=== PATIENT | male | born 1930 | race Caucasian/White ===

== ENCOUNTER 2017-07-28 20:45 | Outpatient (CLI) | payer MEDICARE, OTHER ==
--- NOTE | 2017-07-29 10:59 | Ultrasound Report ---
SCROTAL DUPLEX: 07/28/2017 CLINICAL INDICATION: Testicular pain, swelling. FINDINGS: The right testicle measures 3.4 x 2.6 x 1.8 cm, and the left testicle measures 3.4 x 2.3 x 1.8 cm. The testicles demonstrate mild dilation of the rete testis bilaterally. No focal solid intratesticular lesion is seen. Normal flow is present bilaterally. A small right hydrocele was present, and there is skin thickening of the right scrotum, suggestive of cellulitis. Epididymal cysts are incidentally noted, there is calcification of a right appendix testis. IMPRESSION: NO EVIDENCE OF INTRATESTICULAR MASS OR TORSION. SKIN THICKENING OF THE RIGHT SCROTUM, SUGGESTIVE OF CELLULITIS. INCIDENTAL EPIDIDYMAL CYSTS AND CALCIFIED RIGHT APPENDIX TESTIS. TD: 07/29/2017 10:58
== END 2017-07-28 20:46 | disposition home or self-care (01) ==
LOC: DI 20:45
PROVIDERS: ATTEND Internal Medicine
DX: N50.819 Testicular pain, unspecified (principal); N50.89 Other specified disorders of the male genital organs
CPT/HCPCS: 76870; 93975

== ENCOUNTER 2019-09-29 09:54 | Outpatient (CLI) | payer MEDICARE, OTHER | END 2019-09-29 09:55 | disposition EMS.NT | LOC: EMS 09:54 | PROVIDERS: ATTEND Surgery | DX: R53.1 Weakness (principal); R42 Dizziness and giddiness ==

== ENCOUNTER 2019-11-16 07:47 | Outpatient (CLI) | payer MEDICARE, OTHER | END 2019-11-16 07:48 | disposition EMS.NT | LOC: EMS 07:47 | PROVIDERS: ATTEND Surgery | DX: R68.83 Chills (without fever) (principal); R61 Generalized hyperhidrosis ==

== ENCOUNTER 2020-03-09 12:58 | Outpatient (CLI) | payer MEDICARE, OTHER | END 2020-03-09 12:59 | disposition critical access hospital (66) | LOC: EMS 12:58 | PROVIDERS: ATTEND Surgery | DX: R68.83 Chills (without fever) (principal); R06.09 Other forms of dyspnea | CPT/HCPCS: A0425; A0429 ==

== ENCOUNTER 2020-03-09 13:22 | Inpatient (IN) | payer MEDICARE, OTHER ==
[2020-03-09] MEDS ORDERED: SODIUM CHLORIDE 0.9% 1,000 ML IV STA ×2 (14:01)
[2020-03-09 14:04] LABS: BASOPHILS % (AUTO) 0.4 %; EOSINOPHILS % (AUTO) 0.3 %; HGB - HEMOGLOBIN 14.5 g/dL (14.0-18.0); LYMPHOCYTES # (AUTO) 0.5 10^3/uL (1.5-3.5); LYMPHOCYTES % (AUTO) 4.2 %; MEAN CORPUSCULAR HEMOGLOBIN 32.7 pg (27.0-31.0); MEAN CORPUSCULAR HGB CONC 34.6 g/dL (32.0-36.0); MEAN CORPUSCULAR VOLUME 94.6 fL (80.0-94.0); MEAN PLATELET VOLUME 9.8 fL (7.4-11.4); MONOCYTES # (AUTO) 0.4 10^3/uL (0.0-1.0); MONOCYTES % (AUTO) 3.8 %; NEUTROPHILS # (AUTO) 9.7 10^3/uL (1.5-6.6); NEUTROPHILS % (AUTO) 90.7 %; PLT - PLATELET COUNT 160 10^3/uL (130-450); RED BLOOD COUNT 4.43 10^6/uL (4.70-6.10); RED CELL DISTRIBUTION WIDTH 11.9 % (12.0-15.0); WHITE BLOOD COUNT 10.7 x10^3/uL (4.8-10.8)
--- NOTE | 2020-03-09 14:13 | ED Physician Documentation ---
History of Present Illness - Stated complaint Stated Complaint: SOA/SHAKES - History obtained from History obtained from: Patient, EMS - History of Present Illness Timing: Today Pain level max: 0 Pain level now: 0 - Additonal information Additional information: 89-year-old male brought in by EMS today for fevers and chills at home. He states that he has had a mild cough, clear sputum. No chest pain. 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 He states he has a history of prostate and "skin" cancer as well. Is not currently on chemotherapy for either of these conditions. He states that he has no history of metastases. He states that he has had urinary tract infections in the past which present with high fevers. No nausea or vomiting. No back pain. No abdominal pain. Nothing makes it better or worse Review of Systems Ten Systems: 10 systems reviewed and negative Constitutional: reports: Fever, Chills Nose: denies: Rhinorrhea / runny nose, Congestion Throat: denies: Sore throat Cardiac: denies: Chest pain / pressure, Palpitations, Calf pain Respiratory: denies: Hemoptysis, Wheezing GI: denies: Abdominal Pain, Nausea, Vomiting, Diarrhea : denies: Dysuria, Frequency, Hesitancy Skin: denies: Rash Musculoskeletal: denies: Neck pain, Back pain Neurologic: denies: Focal weakness, Numbness, Confused, Headache, Head injury, LOC PD PAST MEDICAL HISTORY - Past Medical History Cardiovascular: Hypertension Respiratory: Sleep apnea Endocrine/Autoimmune: HyPOthyroidism GI: GERD, Colon polyps : None Psych: None Musculoskeletal: None Derm: Other - Past Surgical History Past Surgical History: Yes Ortho: Spine surgery, Other - Present Medications Home Medications: Ambulatory Orders Medication Instructions Recorded Confirmed Aspirin [Aspir 81] 81 mg PO DAILY 11/09/12 03/09/20 Chlorthalidone 12.5 mg PO DAILY 11/09/12 03/09/20 Cholecalciferol (Vitamin D3) 2,000 unit PO DAILY 11/09/12 03/09/20 [Vitamin D3] Levothyroxine [Synthroid] 112 mcg PO QDAC 11/09/12 03/09/20 Oregano Oil [Oil of Oregano] 150 mg PO DAILY 11/09/12 03/09/20 lisinopriL [Lisinopril] 40 mg PO DAILY 11/09/12 03/09/20 Metoprolol Tartrate 1 mg ORAL DAILY 08/09/14 03/09/20 [place]-3 Fatty Acids [Fish Oil] 300 mg DAILY 07/18/15 03/09/20 - Allergies Allergies/Adverse Reactions: Allergies Allergy/AdvReac Type Severity Reaction Status Date / Time ciprofloxacin Allergy Intermediate leg cramps Verified 08/10/14 07:54 acetaminophen [From Tylenol] AdvReac Emesis Verified 07/18/15 21:33 - Social History Does the pt smoke?: No Smoking Status: Never smoker Does the pt drink ETOH?: Yes Does the pt have substance abuse?: No PD ED PE NORMAL - Vitals Vital signs reviewed: Yes - General General: Alert and oriented X 3, No acute distress, Well developed/nourished - HEENT HEENT: PERRL, Moist mucous membranes - Neck Neck: Supple, no meningeal sign - Cardiac Cardiac: RRR, No murmur, Strong equal pulses - Respiratory Respiratory: No respiratory distress, Clear bilaterally - Abdomen Abdomen: Normal bowel sounds, Soft, Non tender, Non distended - Back Back: No CVA TTP - Derm Derm: Warm and dry - Extremities Extremities: No edema - Neuro Neuro: Alert and oriented X 3 - Psych Psych: Normal mood, Normal affect Results - Vitals Vitals: Vital Signs - 24 hr 03/09/20 03/09/20 13:15 14:27 Temperature 38.4 C H Heart Rate 125 H 120 H Respiratory 22 18 Rate Blood Pressure 113/74 113/74 O2 Saturation 94 99 Oxygen O2 Source Room air - EKG (time done) 1346 Rate: Rate (enter#) (123) Rhythm: Sinus tachycardia [place]: Normal Intervals: Normal [place] QRS: Normal Ischemia: Normal ST segments, Q waves (II, III, aVF) - Labs Labs: Laboratory Tests 03/09/20 03/09/20 03/09/20 13:30 13:45 13:50 WBC 10.7 RBC 4.43 L Hgb 14.5 Hct 41.9 L MCV 94.6 H MCH 32.7 H MCHC 34.6 RDW 11.9 L Plt Count 160 MPV 9.8 Neut # (Auto) 9.7 H Lymph # (Auto) 0.5 L Pratt # (Auto) 0.4 Eos # (Auto) 0.0 Baso # (Auto) 0.0 Absolute Nucleated RBC 0.00 Nucleated RBC % 0.0 PT INR APTT Sodium Potassium Chloride Carbon Dioxide Anion Gap BUN Creatinine Estimated GFR (MDRD) Glucose Lactic Acid Calcium Total Bilirubin AST ALT Alkaline Phosphatase Total Protein Albumin Globulin Albumin/Globulin Ratio Lipase Urine Color YELLOW Urine Clarity CLEAR Urine pH 7.0 Ur Specific [place] 1.020 Urine Protein TRACE Urine Glucose (UA) NEGATIVE Urine Ketones NEGATIVE Urine Occult Blood NEGATIVE Urine Nitrite NEGATIVE Urine Bilirubin NEGATIVE Urine Urobilinogen 1 (NORMAL) Ur Leukocyte Esterase SMALL H Urine RBC 0-5 Urine WBC 11-25 H Ur Squamous Epith Cells FEW Squamous Urine Bacteria Few Ur Microscopic Review INDICATED Urine Culture Comments INDICATED Nasal Adenovirus (PCR) NOT DETECTED Nasal B. parapertussis DNA (PCR) NOT DETECTED Nasal Coronavir 229E PCR NOT DETECTED Nasal Coronavir HKU1 PCR NOT DETECTED Nasal Coronavir NL63 PCR NOT DETECTED Nasal Coronavir OC43 PCR NOT DETECTED Nasal Enterovir/Rhinovir PCR NOT DETECTED Nasal Influenza B PCR NOT DETECTED Nasal Parainfluen 1 PCR NOT DETECTED Nasal Parainfluen 2 PCR NOT DETECTED Nasal Parainfluen 3 PCR NOT DETECTED Nasal Parainfluen 4 PCR NOT DETECTED Nasal RSV (PCR) NOT DETECTED Nasal B.pertussis DNA PCR NOT DETECTED Nasal C.pneumoniae (PCR) NOT DETECTED Eran Human Metapneumo PCR NOT DETECTED Nasal M.pneumoniae (PCR) NOT DETECTED Nasal SARS-CoV-2 (PCR) NOT DETECTED 03/09/20 03/09/20 03/09/20 13:50 13:50 14:20 WBC RBC Hgb Hct MCV MCH MCHC RDW Plt Count MPV Neut # (Auto) Lymph # (Auto) Pratt # (Auto) Eos # (Auto) Baso # (Auto) Absolute Nucleated RBC Nucleated RBC % PT 13.6 H INR 1.2 APTT 31.6 Sodium 137 Potassium 3.5 Chloride 97 L Carbon Dioxide 27 Anion Gap 13.0 BUN 22 H Creatinine 1.0 Estimated GFR (MDRD) 71 L Glucose 95 Lactic Acid 1.9 Calcium 9.4 Total Bilirubin 1.2 H AST 36 ALT 52 Alkaline Phosphatase 48 Total Protein 6.8 Albumin 4.1 Globulin 2.7 Albumin/Globulin Ratio 1.5 Lipase 24 Urine Color Urine Clarity Urine pH Ur Specific [place] Urine Protein Urine Glucose (UA) Urine Ketones Urine Occult Blood Urine Nitrite Urine Bilirubin Urine Urobilinogen Ur Leukocyte Esterase Urine RBC Urine WBC Ur Squamous Epith Cells Urine Bacteria Ur Microscopic Review Urine Culture Comments Nasal Adenovirus (PCR) Nasal B. parapertussis DNA (PCR) Nasal Coronavir 229E PCR Nasal Coronavir HKU1 PCR Nasal Coronavir NL63 PCR Nasal Coronavir OC43 PCR Nasal Enterovir/Rhinovir PCR Nasal Influenza B PCR Nasal Parainfluen 1 PCR Nasal Parainfluen 2 PCR Nasal Parainfluen 3 PCR Nasal Parainfluen 4 PCR Nasal RSV (PCR) Nasal B.pertussis DNA PCR Nasal C.pneumoniae (PCR) Eran Human Metapneumo PCR Nasal M.pneumoniae (PCR) Nasal SARS-CoV-2 (PCR) - Rads (name of study) cxr Radiology: Prelim report reviewed, EMP read contemporaneously, See rad report PD MEDICAL DECISION MAKING - ED course Complexity details: reviewed results, re-evaluated patient, considered differential, d/w patient, d/w procurement consultant ED course: 89 year old male with fever, rigors, and tachycardia. Found to have a UTI, concern for possible early urosepsis. Given IVF and rocephin. Normal lactate. Will admit for further care. D/w hospitalist who accepts. CXR A pneumonia is not seen. There is mild interstitial prominence previously present within the lung bases bilaterally, greater on the right than the left associated with mild chronic elevation of the right diaphragm. Departure - Departure Disposition: 66 [facility] DC/Xfer Clinical Impression: Rigors, Tachycardia Fever Qualifiers: Fever type: unspecified Qualified Code(s): R50.9 - Fever, unspecified UTI (urinary tract infection) Qualifiers: Urinary tract infection type: acute cystitis Hematuria presence: without hematuria Qualified Code(s): N30.00 - Acute cystitis without hematuria Condition: Stable
--- NOTE | 2020-03-09 14:22 | XRAY Report ---
PROCEDURE: Chest 1 View X-Ray INDICATIONS: fever TECHNIQUE: One view of the chest was acquired. COMPARISON: FINDINGS: Surgical changes and devices: None. Lungs and pleura: No pleural effusions or pneumothorax. Lungs are mildly abnormal, with a mild inte rstitial prominence bilaterally, somewhat greater on the right than the left associated with chronic mild elevation of the right hemidiaphragm.. Mediastinum: Mediastinal contours appear normal. Heart size is normal. Bones and chest wall: No suspicious bony lesions. Overlying soft tissues appear unremarkable. IMPRESSION: A pneumonia is not seen. There is mild interstitial prominence previously present within the lung bas es bilaterally, greater on the right than the left associated with mild chronic elevation of the righ t diaphragm. Reviewed by: Abdi Hoffmann MD on 03/09/2020 2:21 PM PDT Approved by: Abdi Hoffmann MD on 03/09/2020 2:21 PM PDT Station ID: [id number]
[2020-03-09 14:34] LABS: INR 1.2 (0.8-1.2); PT - PROTHROMBIN TIME 13.6 secs (9.9-12.6)
[2020-03-09 14:35] LABS: ALBUMIN 4.1 g/dL (3.2-5.5); ALBUMIN/GLOBULIN RATIO 1.5 (1.0-2.2); BILIRUBIN,TOTAL 1.2 mg/dL (0.2-1.0); CALCIUM 9.4 mg/dL (8.5-10.3); TOTAL PROTEIN 6.8 g/dL (6.7-8.2)
[2020-03-09 14:41] LABS: PARTIAL THROMBOPLASTIN TIME 31.6 secs (24.9-33.3)
[2020-03-09 14:43] LABS: BILIRUBIN,URINE NEGATIVE (NEGATIVE); GLUCOSE, URINE (UA) NEGATIVE (NEGATIVE); KETONES,URINE (UA) NEGATIVE (NEGATIVE); LEUKOCYTE ESTERASE, URINE SMALL (NEGATIVE); NITRITE,URINE NEGATIVE (NEGATIVE); OCCULT BLOOD,URINE NEGATIVE (NEGATIVE); PROTEIN,URINE TRACE mg/dL (NEGATIVE); UROBILINOGEN,URINE 1 (NORMAL) E.U./dL (NORMAL)
[2020-03-09 14:47] LABS: CLARITY,URINE CLEAR (CLEAR)
[2020-03-09 15:01] LABS: BACTERIA,URINE Few /HPF (None Seen); RBC,URINE 0-5 /HPF (0-5); SQUAMOUS EPITHELIAL CELL,UR FEW Squamous (<= Few)
[2020-03-09] MEDS ORDERED: cefTRIAXone 1 GM VIAL IVP STA (15:02)
[2020-03-09 15:06] LABS: C. PNEUMONIAE- RESP PCR PANEL NOT DETECTED
[2020-03-09] MEDS ORDERED: IBUPROFEN 800 MG TABLET PO STA (15:13)
[2020-03-09] MEDS ORDERED: ONDANSETRON 4 MG/2 ML VIAL IVP PRN (16:23)
[2020-03-09] MEDS ORDERED: SODIUM CHLORIDE FLUSH 0.9% 10 ML SYRINGE IVP PRN (16:23)
[2020-03-09] MEDS ORDERED: ACETAMINOPHEN 325 MG TABLET PO PRN (16:23)
--- NOTE | 2020-03-09 16:36 | HISTORY & PHYSICAL EXAMINATION ---
Chief Complaint - Chief Complaint Chief Complaint: fever History of Present Illness - Admitted From Admitted From:: ER - History Obtained From Records Reviewed: [facility] History obtained from: pt Exam Limitations: no - History of Present Illness HPI Comment/Other: This is a 89 years old male with a past medical history significant for hypertension, sleep apnea, hypothyroidism, GERD Who presents in the ER complain fever and shaking. Patient report he started having fever and the shaking and muscle spasm on today morning. he reported he had a temperature 102 in the home then he called EMS. Patient was a found temperature 38.4 in ER. He reported he had COVID-19 test 1 week ago which was negative, patient had a negative COVID-19 tested today on ER. He denied cough, shortness of breathing, chest pain, Nausea, vomiting, diarrhea. Patient also reported he had a stress test about 1 week ago which he was reported it was normal. He also reported he has urinary urgency and frequency, Which started about 1 week ago. Urinalysis indicated patient moderate heavy urinary tract infection, WBC is 10.7, lactic acid is 1.9. Chest x-ray show a pneumonia is not seen. Discussed the care goal with the patient, patient request full code. History - Past Medical History Cardiovascular: reports: Hypertension Respiratory: reports: Sleep apnea Endocrine/Autoimmune: reports: HyPOthyroidism GI: reports: GERD, Colon polyps : reports: None Psych: reports: None Musculoskeletal: reports: None Derm: reports: Other MRSA Hx?: No - Past Surgical History Ortho: reports: Spine surgery, Other - Family & Social History Family History: Mother: , Father: Family History Comment/Other: Patient reported his father from accident at 1956, His mother at 84 years old on 1997 from respiratory problem. Social History Notes: Patient report he quit smoking in 1969, he denies alcohol and drug issue. he is living at [place] with his , he has no children. Meds/Allgy - Home Medications Home Medications: Ambulatory Orders Medication Instructions Recorded Confirmed Aspirin [Aspir 81] 81 mg PO DAILY 11/09/12 03/09/20 Chlorthalidone 12.5 mg PO DAILY 11/09/12 03/09/20 Cholecalciferol (Vitamin D3) 2,000 unit PO DAILY 11/09/12 03/09/20 [Vitamin D3] Oregano Oil [Oil of Oregano] 150 mg PO DAILY 11/09/12 03/09/20 [place]-3 Fatty Acids [Fish Oil] 300 mg DAILY 07/18/15 03/09/20 Atorvastatin [Lipitor] 20 mg PO QPM 03/09/20 03/09/20 Levothyroxine [Synthroid] 112 mcg PO QDAC 03/09/20 03/09/20 Lisinopril [Prinivil] 10 mg PO DAILY 03/09/20 03/09/20 Metoprolol Succinate [Toprol Xl] 25 mg PO DAILY 03/09/20 03/09/20 - Allergies Allergies/Adverse Reactions: Allergies Allergy/AdvReac Type Severity Reaction Status Date / Time ciprofloxacin Allergy Intermediate leg cramps Verified 08/10/14 07:54 acetaminophen [From Tylenol] AdvReac Emesis Verified 07/18/15 21:33 Review of Systems - Constitutional Constitutional: reports: Fever. denies: Fatigue, Chills, Malaise, Weakness, Poor appetite, Night sweats - Eyes Eyes: denies: Pain, Blurred vision, Field loss, Vision loss - Ears, Nose & Throat Ears, Nose & Throat: denies: Ear pain, Nosebleeds, Nasal congestion, Postnasal drainage, Bleeding gums - Cardiovascular Cariovascular: denies: Irregular heart rate, Palpitations, Chest pain, Lightheadedness, Syncope, Exertional dyspnea, Decr. exercise tolerance - Respiratory Respiratory: denies: Cough, Sputum production, Wheezing, Snoring, Hemoptysis, Orthopnea, SOB at rest, SOB with exertion - Gastrointestinal Gastrointestinal: denies: Abdominal pain, Abdominal distention, Constipation, Diarrhea, Rectal bleeding, Black stools, Bloody stools, Nausea, Vomiting, Coffee grounds emesis - Genitourinary Genitourinary: reports: Frequency, Urgency. denies: Dysuria, Hematuria, Inconti nence - Integumentary Integumentary: denies: Rash, Lesions - Neurological Neurological: denies: General weakness, Focal weakness, Headache, Dizziness, Numbness, Memory problems, Pre-existing deficit, Abnormal gait, Seizures, Incoordination, Slurred speech - Psychiatric Psychiatric: denies: Suicidal, Delusions, Hallucinations - Endocrine Endocrine: denies: Polyuria, Polydypsia - Hematologic/Lymphatic Hematologic/Lymphatic: denies: Anemia, Recurrent infections Exam - Vital Signs Vital Signs: Vital Signs x48h Temp Pulse Resp BP Pulse Ox 03/09/20 14:27 120 H 18 113/74 99 03/09/20 13:15 38.4 C H 125 H 22 113/74 94 - Physical Exam General Appearance: positive: No acute distress, Alert. negative: Lethargic Eyes Bilateral: positive: Normal inspection, PERRL, No lid inflammation ENT: positive: ENT inspection nml, No signs of dehydration. negative: Purulent nasal drainage Neck: positive: Nml inspection, Thyroid nml, Trachea midline. negative: Thyromegaly, Tracheal deviation Respiratory: positive: Chest non-tender, No respiratory distress, Breath sounds nml Cardiovascular: positive: Regular rate & rhythm, No murmur. negative: Tachycardia, Bradycardia, Systolic murmur, Diastolic murmur Peripheral Pulses: positive: 2+ Abdomen: positive: Non-tender, No organomegaly, No distention. negative: Tenderness, Guarding, Rebound Back: positive: Nml inspection Skin: positive: Color nml, No rash, Warm, Dry. negative: Cyanosis, Diaphoresis, Pallor Extremities: positive: Non-tender, Full ROM, Nml appearance. negative: Calf tenderness Neurologic/Psychiatric: positive: Oriented x3, Motor nml, Sensation nml, Mood/affect nml. negative: Weakness, Sensory loss, Facial droop, Slurred/abnml speech, Depressed mood/affect Conclusion/Plan - Problem List (1) Sepsis Conclusion/Plan: Patient has a fever, tachycardia, but the patient have stable blood pressure and patient found to have possible UTI infection. Patient with already given Rocephin in the ER, blood culture already done in the ER. We will continue to 2 gram Rocephin daily, Interventions IV fluids, followup blood culture And urine culture. (2) UTI (urinary tract infection) Conclusion/Plan: Patient has a urinary urgency and frequency but she denies burning sensation. Urinalysis indicated patient possible has UTI. We will continue Rocephin, follow-up urine culture and sensitivity study Qualifiers: Urinary tract infection type: acute cystitis Hematuria presence: without hematuria Qualified Code(s): N30.00 - Acute cystitis without hematuria (3) HTN (hypertension) Conclusion/Plan: Blood pressure is stable now, we will hold home blood pressure medicine for prevention sepsis hypotension, just resume metoprolol now because patient has tachycardia.Continue vital signs monitor (4) Hypothyroidism Conclusion/Plan: We will resume home Synthroid, check TSH (5) GERD (gastroesophageal reflux disease) Conclusion/Plan: We will give patient Pepcid - Lab Results Fish Bones: 03/09/20 13:50 03/09/20 13:50 Core Measures - Anticipated LOS I expect patient to be DC'd or transferred within 96 hours.: Yes - DVT/VTE - Prophylaxis VTE/DVT Device ordered at admit?: Yes VTE/DVT Prophylaxis med ordered at admit?: Yes
[2020-03-09] MEDS ORDERED: SODIUM CHLORIDE 0.9% 1,000 ML IV SCH (17:00)
[2020-03-09] MEDS: SODIUM CHLORIDE 0.9% 1,000 ML IV SCH ×2 (18:15→23:51)
[2020-03-09] MEDS: SODIUM CHLORIDE FLUSH 0.9% 10 ML SYRINGE IVP SCH ×2 (18:16→23:49)
--- NOTE | 2020-03-09 18:35 | PHARMACY PROGRESS NOTE ---
- Best Possible Medication History Admit Date and Time: 03/09/20 1623 Processed by: Pharmacy Medication History completed: Yes Secondary Source(s): Physician records, Pharmacy records, Insurance records As the person ultimately responsible for medication therapy, providers are able to order a medication from an existing home medication list in [facility] via the "Reconcile Routine" prior to Confirmation of that medication by intranet support. Such practice is discouraged except when the physician, in their clinical judgment, deems that a medical need exists for a medication without regard to previous use.
[2020-03-09] MEDS: FAMOTIDINE 20 MG TABLET PO SCH (20:04)
[2020-03-09] MEDS: oxyCODONE 5 MG TABLET PO PRN (23:55)
[2020-03-10 06:07] LABS: BASOPHILS # (AUTO) 0.1 10^3/uL (0.0-0.1); BASOPHILS % (AUTO) 0.5 %; EOSINOPHILS # (AUTO) 0.2 10^3/uL (0.0-0.7); EOSINOPHILS % (AUTO) 1.5 %; HGB - HEMOGLOBIN 12.8 g/dL (14.0-18.0); LYMPHOCYTES # (AUTO) 0.5 10^3/uL (1.5-3.5); LYMPHOCYTES % (AUTO) 3.6 %; MEAN CORPUSCULAR HEMOGLOBIN 31.8 pg (27.0-31.0); MEAN CORPUSCULAR VOLUME 96.5 fL (80.0-94.0); MEAN PLATELET VOLUME 9.8 fL (7.4-11.4); MONOCYTES # (AUTO) 0.7 10^3/uL (0.0-1.0); NEUTROPHILS # (AUTO) 12.7 10^3/uL (1.5-6.6); NEUTROPHILS % (AUTO) 88.7 %; PLT - PLATELET COUNT 126 10^3/uL (130-450); RED BLOOD COUNT 4.02 10^6/uL (4.70-6.10); WHITE BLOOD COUNT 14.4 x10^3/uL (4.8-10.8)
[2020-03-10 06:16] LABS: CALCIUM 8.4 mg/dL (8.5-10.3); MAGNESIUM 1.6 mg/dL (1.7-2.8)
[2020-03-10] MEDS: LEVOTHYROXINE 112 MCG TABLET PO SCH (06:38)
[2020-03-10] MEDS ORDERED: POTASSIUM CHLORIDE 20 MEQ TABLET PO ONE (08:00)
[2020-03-10] MEDS: PHENAZOPYRIDINE 100 MG TABLET PO SCH ×3 (08:21→20:56)
[2020-03-10] MEDS: ASPIRIN EC 81 MG TABLET PO SCH (08:21)
[2020-03-10] MEDS: FAMOTIDINE 20 MG TABLET PO SCH ×2 (08:21→20:56)
[2020-03-10] MEDS: SACCHAROMYCES BOULARDII 250 MG CAPSULE PO SCH ×2 (08:21→17:57)
[2020-03-10] MEDS: cefTRIAXone 1 GM in SODIUM CHLORIDE 0.9% MINIBAG 100 ML IV SCH (08:22)
[2020-03-10] MEDS: SODIUM CHLORIDE FLUSH 0.9% 10 ML SYRINGE IVP SCH ×2 (08:22→17:57)
[2020-03-10] MEDS: ENOXAPARIN 40 MG/0.4 ML SYRINGE SUBQ SCH (08:23)
[2020-03-10] MEDS ORDERED: METOPROLOL SUCCINATE 25 MG TABLET PO SCH (09:00)
[2020-03-10] MEDS ORDERED: cefTRIAXone 1 GM in SODIUM CHLORIDE 0.9% MINIBAG 100 ML IV SCH (09:00)
[2020-03-10] MEDS: IBUPROFEN 400 MG TABLET PO PRN (11:50)
[2020-03-10] MEDS ORDERED: MAGNESIUM SULFATE 2 GRAM 2 GM/50 ML BAG IV ONE (12:00)
[2020-03-10] MEDS: oxyCODONE 5 MG TABLET PO PRN ×2 (13:08→19:08)
--- NOTE | 2020-03-10 18:08 | PROVIDER PROGRESS NOTE ---
Assessment/Plan - Problem List (1) UTI (urinary tract infection) Qualifiers: Urinary tract infection type: acute cystitis Hematuria presence: without hematuria Qualified Code(s): N30.00 - Acute cystitis without hematuria Assessment/Plan: His urine cx is growing group G Streptococcus. Blood cultures have turned positive quickly with gram-positive cocci in pairs and chains as well. This IV antibiotic of ceftriaxone has theoretic coverage for Streptococci. Await sensitivities to tailor antibiotics. He has a history of prostate cancer therefore that is probably giving him the risk of repeat UTIs. He will need a long course of treatment, like 14 to 21 days. I told the patient that today. (2) Gram-positive bacteremia Assessment/Plan: The blood culture turned positive quickly. Await identification then sensitivities. Bacteremia does not give a worse prognosis when there is a UTI however it defines a complicated UTI. Course of treatment will be probably 14 to 21 days in a man because it may be in his prostate as well. Renal imaging is planned if not done yet. (3) Hypokalemia Assessment/Plan: Replace. Follow BMP daily (4) HTN (hypertension) Assessment/Plan: He is no longer hypotensive or with "soft" blood pressures, as the sepsis has resolved. We will resume his home blood pressure meds as they are reconciled (5) Hypothyroidism Assessment/Plan: The TSH level was 1.19 which is adequate. His home dose of thyroid replacement continues while here (6) GERD (gastroesophageal reflux disease) Assessment/Plan: He is on GI treatment for this peer (7) Sepsis Assessment/Plan: Resolved, has normal blood pressure and heart rate and normal lactic acid level - Current Meds Current Meds: Current Medications Generic Name Dose Route Start Last Admin Trade Name Dominguezq PRN Reason Stop Dose Admin Aspirin 81 mg 03/10/20 09:00 03/10/20 08:21 Ecotrin PO 81 mg DAILY LAMINE Administration Enoxaparin Sodium 40 mg 03/10/20 09:00 03/10/20 08:23 Lovenox SUBQ 40 mg DAILY LAMINE Administration Famotidine 20 mg 03/09/20 21:00 03/10/20 08:21 Pepcid PO 20 mg BID LAMINE Administration Ceftriaxone Sodium 1 gm/ 100 mls @ 200 mls/hr 03/10/20 09:00 03/10/20 08:52 Sodium Chloride IV Infused DAILY LAMINE Infusion Ibuprofen 400 mg 03/09/20 16:27 03/10/20 11:50 Motrin PO 400 mg Q6HR PRN Administration PAIN Levothyroxine Sodium 112 mcg 03/10/20 07:00 03/10/20 06:38 Synthroid PO 112 mcg QDAC LAMINE Administration Metoprolol Succinate 25 mg 03/10/20 09:00 03/10/20 08:22 Toprol Xl PO 25 mg DAILY LAMINE Administration Oxycodone HCl 5 mg 03/09/20 16:23 03/10/20 13:08 Roxicodone PO 5 mg Q4HR PRN Administration Pain 5 to 7 Phenazopyridine HCl 100 mg 03/10/20 08:00 03/10/20 13:08 Pyridium PO 03/11/20 22:01 100 mg TID LAMINE Administration Saccharomyces Boulardii 250 mg 03/10/20 08:00 03/10/20 17:57 Florastor PO 250 mg BIDWM LAMINE Administration Sodium Chloride 10 ml 03/09/20 17:00 03/10/20 17:57 Normal Saline Flush 0.9% IVP 10 ml 0100,0900,1700 LAMINE Administration - Lab Result Fish Bone Diagrams: 03/10/20 05:55 03/10/20 05:55 Subjective - Subjective Patient Reports: Other (Has shaking chills currently.) Objective Vital Signs: Vital Signs - 24 hr 03/09/20 03/09/20 03/10/20 20:08 23:49 04:58 Temperature 37 C 36.7 C 36.9 C Heart Rate Heart Rate [ 86 90 95 Brachial] Respiratory 17 18 Rate Blood Pressure 104/58 L 135/59 H 134/62 H [Left Brachial artery] O2 Saturation 96 97 94 03/10/20 03/10/20 03/10/20 08:42 10:46 11:37 Temperature 37.5 C 37.5 C 37.6 C H Heart Rate 88 Heart Rate [ 89 85 Brachial] Respiratory 18 18 17 Rate Blood Pressure 148/69 H 150/65 H [Left Brachial artery] O2 Saturation 97 97 94 03/10/20 15:51 Temperature 36.4 C L Heart Rate Heart Rate [ 73 Brachial] Respiratory 18 Rate Blood Pressure 116/59 L [Left Brachial artery] O2 Saturation 94 Oxygen O2 Source Room air I&O (Last 24 Hrs): Intake and Output Totals x24h 03/08/20 03/09/20 03/10/20 23:59 23:59 23:59 Intake Total 2250 2330 Output Total 300 282 Balance 1950 2047 General: Alert, Oriented x3 HEENT: Mucous membr. moist/pink Neck: Supple, No JVD Neuro: Alert, Non Focal Cardiovascular: Regular rate, No murmurs Respiratory: No respiratory distress, Breath sounds nml Abdomen: Normal bowel sounds, Soft Extremities: No edema - Results Results: Laboratory Results WBC 14.4 x10^3/uL (4.8-10.8) H 03/10/20 05:55 RBC 4.02 10^6/uL (4.70-6.10) L 03/10/20 05:55 Hgb 12.8 g/dL (14.0-18.0) L 03/10/20 05:55 Hct 38.8 % (42.0-52.0) L 03/10/20 05:55 MCV 96.5 fL (80.0-94.0) H 03/10/20 05:55 MCH 31.8 pg (27.0-31.0) H 03/10/20 05:55 MCHC 33.0 g/dL (32.0-36.0) 03/10/20 05:55 RDW 12.0 % (12.0-15.0) 03/10/20 05:55 Plt Count 126 10^3/uL (130-450) L 03/10/20 05:55 MPV 9.8 fL (7.4-11.4) 03/10/20 05:55 Neut # (Auto) 12.7 10^3/uL (1.5-6.6) H 03/10/20 05:55 Lymph # (Auto) 0.5 10^3/uL (1.5-3.5) L 03/10/20 05:55 [place] # (Auto) 0.7 10^3/uL (0.0-1.0) 03/10/20 05:55 Eos # (Auto) 0.2 10^3/uL (0.0-0.7) 03/10/20 05:55 Baso # (Auto) 0.1 10^3/uL (0.0-0.1) 03/10/20 05:55 Absolute Nucleated RBC 0.00 x10^3/uL 03/10/20 05:55 Nucleated RBC % 0.0 /100WBC 03/10/20 05:55 PT 13.6 secs (9.9-12.6) H 03/09/20 14:20 INR 1.2 (0.8-1.2) 03/09/20 14:20 APTT 31.6 secs (24.9-33.3) 03/09/20 14:20 Sodium 138 mmol/L (135-145) 03/10/20 05:55 Potassium 3.4 mmol/L (3.5-5.0) L 03/10/20 05:55 Chloride 102 mmol/L (101-111) 03/10/20 05:55 Carbon Dioxide 25 mmol/L (21-32) 03/10/20 05:55 Anion Gap 11.0 (6-13) 03/10/20 05:55 BUN 22 mg/dL (6-20) H 03/10/20 05:55 Creatinine 1.0 mg/dL (0.6-1.2) 03/10/20 05:55 Estimated GFR (MDRD) 71 (>89) L 03/10/20 05:55 Glucose 141 mg/dL (70-100) H 03/10/20 05:55 Lactic Acid 1.9 mmol/L (0.5-2.2) 03/09/20 13:50 Calcium 8.4 mg/dL (8.5-10.3) L 03/10/20 05:55 Magnesium 1.6 mg/dL (1.7-2.8) L 03/10/20 05:55 Total Bilirubin 1.2 mg/dL (0.2-1.0) H 03/09/20 13:50 AST 36 IU/L (10-42) 03/09/20 13:50 ALT 52 IU/L (10-60) 03/09/20 13:50 Alkaline Phosphatase 48 IU/L (42-121) 03/09/20 13:50 Total Protein 6.8 g/dL (6.7-8.2) 03/09/20 13:50 Albumin 4.1 g/dL (3.2-5.5) 03/09/20 13:50 Globulin 2.7 g/dL (2.1-4.2) 03/09/20 13:50 Albumin/Globulin Ratio 1.5 (1.0-2.2) 03/09/20 13:50 Lipase 24 U/L (22-51) 03/09/20 13:50 TSH 1.19 uIU/mL (0.34-5.60) 03/10/20 05:55 Urine Color YELLOW 03/09/20 13:45 Urine Clarity CLEAR (CLEAR) 03/09/20 13:45 Urine pH 7.0 PH (5.0-7.5) 03/09/20 13:45 Ur Specific [place] 1.020 (1.002-1.030) 03/09/20 13:45 Urine Protein TRACE mg/dL (NEGATIVE) 03/09/20 13:45 Urine Glucose (UA) NEGATIVE mg/dL (NEGATIVE) 03/09/20 13:45 Urine Ketones NEGATIVE mg/dL (NEGATIVE) 03/09/20 13:45 Urine Occult Blood NEGATIVE (NEGATIVE) 03/09/20 13:45 Urine Nitrite NEGATIVE (NEGATIVE) 03/09/20 13:45 Urine Bilirubin NEGATIVE (NEGATIVE) 03/09/20 13:45 Urine Urobilinogen 1 (NORMAL) E.U./dL (NORMAL) 03/09/20 13:45 Ur Leukocyte Esterase SMALL (NEGATIVE) H 03/09/20 13:45 Urine RBC 0-5 /HPF (0-5) 03/09/20 13:45 Urine WBC 11-25 /HPF (0-3) H 03/09/20 13:45 Ur Squamous Epith Cells FEW Squamous (<= Few) 03/09/20 13:45 Urine Bacteria Few /HPF (None Seen) 03/09/20 13:45 Ur Microscopic Review INDICATED 03/09/20 13:45 Urine Culture Comments INDICATED 03/09/20 13:45 Nasal Adenovirus (PCR) NOT DETECTED 03/09/20 13:30 Nasal B. parapertussis DNA (PCR) NOT DETECTED 03/09/20 13:30 Nasal Coronavir 229E PCR NOT DETECTED 03/09/20 13:30 Nasal Coronavir HKU1 PCR NOT DETECTED 03/09/20 13:30 Nasal Coronavir NL63 PCR NOT DETECTED 03/09/20 13:30 Nasal Coronavir OC43 PCR NOT DETECTED 03/09/20 13:30 Nasal Enterovir/Rhinovir PCR NOT DETECTED 03/09/20 13:30 Nasal Influenza B PCR NOT DETECTED 03/09/20 13:30 Nasal Parainfluen 1 PCR NOT DETECTED 03/09/20 13:30 Nasal Parainfluen 2 PCR NOT DETECTED 03/09/20 13:30 Nasal Parainfluen 3 PCR NOT DETECTED 03/09/20 13:30 Nasal Parainfluen 4 PCR NOT DETECTED 03/09/20 13:30 Nasal RSV (PCR) NOT DETECTED 03/09/20 13:30 Nasal B.pertussis DNA PCR NOT DETECTED 03/09/20 13:30 Nasal C.pneumoniae (PCR) NOT DETECTED 03/09/20 13:30 Eran Human Metapneumo PCR NOT DETECTED 03/09/20 13:30 Nasal M.pneumoniae (PCR) NOT DETECTED 03/09/20 13:30 Nasal SARS-CoV-2 (PCR) NOT DETECTED 03/09/20 13:30 - Procedures Procedures: Procedures CATARAC PHACOEMULS/ASPIR (08/10/14) INSERT LENS AT CATAR EXT (08/10/14)
[2020-03-10] MEDS ORDERED: IOVERSOL 320 100 ML VIAL IVP ONE ×2 (18:54→23:38)
[2020-03-10] MEDS: D5NS W/20 MEQ KCL 1,000 ML IV SCH (19:27)
[2020-03-10] MEDS ORDERED: HYALURONIDASE HUMAN RECOMB 150 UNIT/ML VIAL ONE (22:09)
[2020-03-11] MEDS: SODIUM CHLORIDE FLUSH 0.9% 10 ML SYRINGE IVP SCH ×3 (00:25→16:57)
[2020-03-11] MEDS: D5NS W/20 MEQ KCL 1,000 ML IV SCH ×3 (04:27→21:38)
[2020-03-11 05:43] LABS: BASOPHILS % (AUTO) 0.5 %; EOSINOPHILS # (AUTO) 0.1 10^3/uL (0.0-0.7); EOSINOPHILS % (AUTO) 0.6 %; HGB - HEMOGLOBIN 12.2 g/dL (14.0-18.0); LYMPHOCYTES # (AUTO) 0.8 10^3/uL (1.5-3.5); LYMPHOCYTES % (AUTO) 9.6 %; MEAN CORPUSCULAR HEMOGLOBIN 32.4 pg (27.0-31.0); MEAN CORPUSCULAR HGB CONC 33.8 g/dL (32.0-36.0); MEAN CORPUSCULAR VOLUME 95.8 fL (80.0-94.0); MEAN PLATELET VOLUME 9.5 fL (7.4-11.4); MONOCYTES # (AUTO) 0.8 10^3/uL (0.0-1.0); MONOCYTES % (AUTO) 9.6 %; NEUTROPHILS # (AUTO) 6.3 10^3/uL (1.5-6.6); NEUTROPHILS % (AUTO) 78.8 %; PLT - PLATELET COUNT 120 10^3/uL (130-450); RED BLOOD COUNT 3.77 10^6/uL (4.70-6.10); RED CELL DISTRIBUTION WIDTH 12.2 % (12.0-15.0)
[2020-03-11 05:46] LABS: CALCIUM 8.1 mg/dL (8.5-10.3); CREATININE 0.8 mg/dL (0.6-1.2)
[2020-03-11] MEDS: PHENAZOPYRIDINE 100 MG TABLET PO SCH ×3 (06:23→21:40)
[2020-03-11] MEDS: LEVOTHYROXINE 112 MCG TABLET PO SCH (06:23)
[2020-03-11] MEDS ORDERED: LEVOTHYROXINE 112 MCG TABLET PO SCH (07:00)
[2020-03-11] MEDS ORDERED: POTASSIUM CHLORIDE 20 MEQ TABLET PO ONE ×2 (07:11→08:00)
--- NOTE | 2020-03-11 07:54 | PROVIDER PROGRESS NOTE ---
Assessment/Plan - Problem List (1) Gram-positive bacteremia Assessment/Plan: 2 out of 2 blood cultures that were initially drawn, turned positive quickly and are growing GPC. Yesterday another set was done to assure that those will grow nothing on current IV antibiotics. We will plan to do an echo to evaluate for endocarditis tomorrow (today is Thursday and she is not here). A minimum 14-day course will be planned but probably 21 days since it is a male with a complicated UTI. Await identification of this gram-positive coccus and its sensitivities to tailor antibiotics. (2) Pyelonephritis Assessment/Plan: Urinary tract CT imaging was done late yesterday, since it had not been done at admission, and it showed bilateral pyelonephritis, L>R. There is no hydron ephrosis, no obstruction, no stones. (Incidental findings were: Diverticulosis without diverticulitis, fusion at L5-S1, sclerotic lesion at L4 vertebral body without compression fracture, and right middle and right lower lobe atelectasis or scarring). Urine culture has grown strep group G. Continue IV antibiotics. IV ceftriaxone was empirically started to cover a UTI. The total course will be 14 to 21 days. (3) Injection site extravasation Assessment/Plan: Contrast extravasated during yesterday's CT with contrast. A separate x-ray report was provided. Was reported as "large amount of contrast material in the antecubital fossa, exact volume unknown". He was seen by the director of hemophilia when this happened. Recommendations from Radiology were: apply ice pack and elevation, Observe for skin breakdown, ulceration or blistering which may require plastic surgery consultation. (4) Hypokalemia Assessment/Plan: Likely related to inadequate intake. Replace. Follow BMP daily (5) HTN (hypertension) Assessment/Plan: He was initially hypotensive or had "soft" blood pressure on the first day. Today his home anti-hypertensives will be started: Lisinopril and Metoprolol (6) Hypothyroidism Assessment/Plan: SH was in a normal range, his home dose of thyroid replacement is ordered to use here. (7) GERD (gastroesophageal reflux disease) Assessment/Plan: He is on his GI meds (8) Sepsis Assessment/Plan: Resolved (9) Prerenal azotemia Assessment/Plan: Resolved. Continue with IV fluids while he is having elevated temperatures. - Current Meds Current Meds: Current Medications Generic Name Dose Route Start Last Admin Trade Name Freq PRN Reason Stop Dose Admin Aspirin 81 mg 03/10/20 09:00 03/10/20 08:21 Ecotrin PO 81 mg DAILY LAMINE Administration Enoxaparin Sodium 40 mg 03/10/20 09:00 03/10/20 08:23 Lovenox SUBQ 40 mg DAILY LAMINE Administration Famotidine 20 mg 03/09/20 21:00 03/10/20 20:56 Pepcid PO 20 mg BID LAMINE Administration Ceftriaxone Sodium 1 gm/ 100 mls @ 200 mls/hr 03/10/20 09:00 03/10/20 08:52 Sodium Chloride IV Infused DAILY LAMINE Infusion Potassium Chloride/Dextrose/Sod Cl 1,000 mls @ 125 mls/hr 03/10/20 19:00 03/11/20 04:27 IV 125 mls/hr .Q8H LAMINE Administration Ibuprofen 400 mg 03/09/20 16:27 03/10/20 11:50 Motrin PO 400 mg Q6HR PRN Administration PAIN Levothyroxine Sodium 112 mcg 03/10/20 07:00 03/11/20 06:23 Synthroid PO 112 mcg QDAC LAMINE Administration Oxycodone HCl 5 mg 03/09/20 16:23 03/10/20 19:08 Roxicodone PO 5 mg Q4HR PRN Administration Pain 5 to 7 Phenazopyridine HCl 100 mg 03/10/20 08:00 03/11/20 06:23 Pyridium PO 03/11/20 22:01 100 mg TID LAMINE Administration Saccharomyces Boulardii 250 mg 03/10/20 08:00 03/10/20 17:57 Florastor PO 250 mg BIDWM LAMINE Administration Sodium Chloride 10 ml 03/09/20 17:00 03/11/20 00:25 Normal Saline Flush 0.9% IVP Not Given 0100,0900,1700 [facility] - Lab Result Fish Bone Diagrams: 03/11/20 05:30 03/11/20 05:30 - Additional Planning My Orders: My Active Orders 03/10/20 18:49 CULTURE, BLOOD #1 [RM] Stat 03/10/20 18:54 CULTURE, BLOOD #2 [RM] Stat 03/10/20 19:00 ABDOMEN/PELVIS W [CT] Stat D5ns W/20 Meq KCl 1,000 ml IV 125 mls/hr 03/11/20 09:00 Cholecalciferol [Vitamin D3] 50 mcg PO DAILY Metoprolol Succinate [Toprol Xl] 25 mg PO DAILY [place]-3 Acid Ethyl Esters [Lovaza] 1 gm PO DAILY lisinopriL [Zestril] 10 mg PO DAILY Subjective - Subjective Patient Reports: Feeling Better, Resting Comfortably Objective Vital Signs: Vital Signs - 24 hr 03/10/20 03/10/20 03/10/20 10:46 11:37 15:51 Temperature 37.5 C 37.6 C H 36.4 C L Heart Rate 88 Heart Rate [ 85 73 Brachial] Respiratory 18 17 18 Rate Blood Pressure 150/65 H 116/59 L [Left Brachial artery] Blood Pressure [Right Brachial artery] O2 Saturation 97 94 94 03/10/20 03/11/20 03/11/20 20:56 00:08 02:41 Temperature 37.2 C 37.2 C 37.3 C Heart Rate Heart Rate [ 94 83 87 Brachial] Respiratory 19 18 22 Rate Blood Pressure 158/77 H [Left Brachial artery] Blood Pressure 145/64 H 150/89 H [Right Brachial artery] O2 Saturation 94 93 94 Oxygen O2 Source Room air I&O (Last 24 Hrs): Intake and Output Totals x24h 03/09/20 03/10/20 03/11/20 23:59 23:59 22:59 Intake Total 2250 2955 675 Output Total 300 282 Balance 1950 2673 675 General: Alert, Oriented x3 HEENT: Atraumatic, EOMI Neck: Supple Neuro: Alert, Non Focal Cardiovascular: Regular rate Respiratory: No respiratory distress Abdomen: Soft Extremities: No edema, Other (Cubital area has no signs of swelling redness and is not tender, there is an area outlined where there was extravasation last night which appears unremarkable) - Results Results: Laboratory Results WBC 8.0 x10^3/uL (4.8-10.8) 03/11/20 05:30 RBC 3.77 10^6/uL (4.70-6.10) L 03/11/20 05:30 Hgb 12.2 g/dL (14.0-18.0) L 03/11/20 05:30 Hct 36.1 % (42.0-52.0) L 03/11/20 05:30 MCV 95.8 fL (80.0-94.0) H 03/11/20 05:30 MCH 32.4 pg (27.0-31.0) H 03/11/20 05:30 MCHC 33.8 g/dL (32.0-36.0) 03/11/20 05:30 RDW 12.2 % (12.0-15.0) 03/11/20 05:30 Plt Count 120 10^3/uL (130-450) L 03/11/20 05:30 MPV 9.5 fL (7.4-11.4) 03/11/20 05:30 Neut # (Auto) 6.3 10^3/uL (1.5-6.6) 03/11/20 05:30 Lymph # (Auto) 0.8 10^3/uL (1.5-3.5) L 03/11/20 05:30 [place] # (Auto) 0.8 10^3/uL (0.0-1.0) 03/11/20 05:30 Eos # (Auto) 0.1 10^3/uL (0.0-0.7) 03/11/20 05:30 Baso # (Auto) 0.0 10^3/uL (0.0-0.1) 03/11/20 05:30 Absolute Nucleated RBC 0.00 x10^3/uL 03/11/20 05:30 Nucleated RBC % 0.0 /100WBC 03/11/20 05:30 PT 13.6 secs (9.9-12.6) H 03/09/20 14:20 INR 1.2 (0.8-1.2) 03/09/20 14:20 APTT 31.6 secs (24.9-33.3) 03/09/20 14:20 Sodium 134 mmol/L (135-145) L 03/11/20 05:30 Potassium 3.4 mmol/L (3.5-5.0) L 03/11/20 05:30 Chloride 102 mmol/L (101-111) 03/11/20 05:30 Carbon Dioxide 24 mmol/L (21-32) 03/11/20 05:30 Anion Gap 8.0 (6-13) 03/11/20 05:30 BUN 16 mg/dL (6-20) 03/11/20 05:30 Creatinine 0.8 mg/dL (0.6-1.2) 03/11/20 05:30 Estimated GFR (MDRD) 91 (>89) 03/11/20 05:30 Glucose 146 mg/dL (70-100) H 03/11/20 05:30 Lactic Acid 1.9 mmol/L (0.5-2.2) 03/09/20 13:50 Calcium 8.1 mg/dL (8.5-10.3) L 03/11/20 05:30 Magnesium 1.6 mg/dL (1.7-2.8) L 03/10/20 05:55 Total Bilirubin 1.2 mg/dL (0.2-1.0) H 03/09/20 13:50 AST 36 IU/L (10-42) 03/09/20 13:50 ALT 52 IU/L (10-60) 03/09/20 13:50 Alkaline Phosphatase 48 IU/L (42-121) 03/09/20 13:50 Total Protein 6.8 g/dL (6.7-8.2) 03/09/20 13:50 Albumin 4.1 g/dL (3.2-5.5) 03/09/20 13:50 Globulin 2.7 g/dL (2.1-4.2) 03/09/20 13:50 Albumin/Globulin Ratio 1.5 (1.0-2.2) 03/09/20 13:50 Lipase 24 U/L (22-51) 03/09/20 13:50 TSH 1.19 uIU/mL (0.34-5.60) 03/10/20 05:55 Urine Color YELLOW 03/09/20 13:45 Urine Clarity CLEAR (CLEAR) 03/09/20 13:45 Urine pH 7.0 PH (5.0-7.5) 03/09/20 13:45 Ur Specific [place] 1.020 (1.002-1.030) 03/09/20 13:45 Urine Protein TRACE mg/dL (NEGATIVE) 03/09/20 13:45 Urine Glucose (UA) NEGATIVE mg/dL (NEGATIVE) 03/09/20 13:45 Urine Ketones NEGATIVE mg/dL (NEGATIVE) 03/09/20 13:45 Urine Occult Blood NEGATIVE (NEGATIVE) 03/09/20 13:45 Urine Nitrite NEGATIVE (NEGATIVE) 03/09/20 13:45 Urine Bilirubin NEGATIVE (NEGATIVE) 03/09/20 13:45 Urine Urobilinogen 1 (NORMAL) E.U./dL (NORMAL) 03/09/20 13:45 Ur Leukocyte Esterase SMALL (NEGATIVE) H 03/09/20 13:45 Urine RBC 0-5 /HPF (0-5) 03/09/20 13:45 Urine WBC 11-25 /HPF (0-3) H 03/09/20 13:45 Ur Squamous Epith Cells FEW Squamous (<= Few) 03/09/20 13:45 Urine Bacteria Few /HPF (None Seen) 03/09/20 13:45 Ur Microscopic Review INDICATED 03/09/20 13:45 Urine Culture Comments INDICATED 03/09/20 13:45 Nasal Adenovirus (PCR) NOT DETECTED 03/09/20 13:30 Nasal B. parapertussis DNA (PCR) NOT DETECTED 03/09/20 13:30 Nasal Coronavir 229E PCR NOT DETECTED 03/09/20 13:30 Nasal Coronavir HKU1 PCR NOT DETECTED 03/09/20 13:30 Nasal Coronavir NL63 PCR NOT DETECTED 03/09/20 13:30 Nasal Coronavir OC43 PCR NOT DETECTED 03/09/20 13:30 Nasal Enterovir/Rhinovir PCR NOT DETECTED 03/09/20 13:30 Nasal Influenza B PCR NOT DETECTED 03/09/20 13:30 Nasal Parainfluen 1 PCR NOT DETECTED 03/09/20 13:30 Nasal Parainfluen 2 PCR NOT DETECTED 03/09/20 13:30 Nasal Parainfluen 3 PCR NOT DETECTED 03/09/20 13:30 Nasal Parainfluen 4 PCR NOT DETECTED 03/09/20 13:30 Nasal RSV (PCR) NOT DETECTED 03/09/20 13:30 Nasal B.pertussis DNA PCR NOT DETECTED 03/09/20 13:30 Nasal C.pneumoniae (PCR) NOT DETECTED 03/09/20 13:30 Eran Human Metapneumo PCR NOT DETECTED 03/09/20 13:30 Nasal M.pneumoniae (PCR) NOT DETECTED 03/09/20 13:30 Nasal SARS-CoV-2 (PCR) NOT DETECTED 03/09/20 13:30 - Procedures Procedures: Procedures CATARAC PHACOEMULS/ASPIR (08/10/14) INSERT LENS AT [facility] EXT (08/10/14)
--- NOTE | 2020-03-11 08:15 | CT Report ---
PROCEDURE: Abdomen/Pelvis W INDICATIONS: COMPLICATED UTI W/ BACTEREMIA CONTRAST: IV CONTRAST: Optiray 320 ml: 100 PO CONTRAST: *NO PO CONTRAST TECHNIQUE: After the administration of intravenous contrast, 5 mm thick sections acquired from the diaphragms to the symphysis. 5 mm thick coronal and sagittal reformats were acquired. For radiation dose reducti on, the following was used: automated exposure control, adjustment of mA and/or kV according to davian ent size. COMPARISON: None. FINDINGS: Image quality: Excellent. ABDOMEN: Lung bases: Lung bases are clear. Heart size is normal. Solid organs: Asymmetric left perinephric fat stranding extending throughout the pararenal and perire nal spaces on the left, also in the left renal vascular pedicle. No obstructive uropathy. No renal ca lculus demonstrated. Normal CT appearance of the liver, spleen, pancreas, adrenal glands, and gallbla dder. Peritoneum and bowel: Colonic diverticula most notable in the sigmoid colon. No findings of divertic ulitis. Bowel loops demonstrate normal wall thickness and caliber. No free fluid or air. Nodes and vessels: No retroperitoneal or mesenteric adenopathy by size criteria. Aorta and inferior vena cava are normal in size. Miscellaneous: No ventral hernias. PELVIS: Genitourinary: Bladder wall thickness is normal. Miscellaneous: No inguinal hernias or adenopathy. Bones: No suspicious bony lesions. No vertebral body compression fractures. IMPRESSION: Asymmetric left perinephric fat stranding which would be consistent with pyelonephritis or ascending urinary tract infection in the current clinical context. No significant change from prel iminary report. Reviewed by: Mike aGlan MD on 03/11/2020 8:14 AM PST Approved by: Mike Galan MD on 03/11/2020 8:14 AM PST Station ID: [id number]
[2020-03-11] MEDS: lisinopriL 5 MG TABLET PO SCH (08:35)
--- NOTE | 2020-03-11 08:35 | XRAY Report ---
PROCEDURE: Elbow 2 INDICATIONS: extravasation of contrast TECHNIQUE: One view of the elbow was acquired. COMPARISON: None FINDINGS: On this single view image, this demonstrates extravasation of contrast,, which is centered within the antecubital fossa, distal to the elbow joint. The bones are obscured. IMPRESSION: Elbow contrast extravasation. Note: No significant discrepancy from the preliminary report. Reviewed by: Ronnie Saleh MD on 03/11/2020 7:34 AM [facility] Approved by: Ronnie Saleh MD on 03/11/2020 7:34 AM [facility] Station ID: [id number]
[2020-03-11] MEDS: FAMOTIDINE 20 MG TABLET PO SCH ×2 (08:36→21:40)
[2020-03-11] MEDS: CHOLECALCIFEROL 25 MCG TABLET PO SCH (08:36)
[2020-03-11] MEDS: SACCHAROMYCES BOULARDII 250 MG CAPSULE PO SCH ×2 (08:36→16:57)
[2020-03-11] MEDS: OMEGA-3 ACID ETHYL ESTERS 1 GM CAPSULE PO SCH (08:36)
[2020-03-11] MEDS: ASPIRIN EC 81 MG TABLET PO SCH (08:36)
[2020-03-11] MEDS: METOPROLOL SUCCINATE 25 MG TABLET PO SCH (08:37)
[2020-03-11] MEDS: IBUPROFEN 400 MG TABLET PO PRN (08:37)
[2020-03-11] MEDS: ENOXAPARIN 40 MG/0.4 ML SYRINGE SUBQ SCH (08:38)
[2020-03-11] MEDS: cefTRIAXone 1 GM in SODIUM CHLORIDE 0.9% MINIBAG 100 ML IV SCH (08:38)
[2020-03-12] MEDS: SODIUM CHLORIDE FLUSH 0.9% 10 ML SYRINGE IVP SCH ×3 (05:22→17:03)
[2020-03-12 05:23] LABS: BASOPHILS % (AUTO) 0.4 %; EOSINOPHILS # (AUTO) 0.2 10^3/uL (0.0-0.7); EOSINOPHILS % (AUTO) 4.6 %; HGB - HEMOGLOBIN 11.3 g/dL (14.0-18.0); LYMPHOCYTES # (AUTO) 0.9 10^3/uL (1.5-3.5); LYMPHOCYTES % (AUTO) 17.7 %; MEAN CORPUSCULAR HEMOGLOBIN 32.3 pg (27.0-31.0); MEAN CORPUSCULAR HGB CONC 33.3 g/dL (32.0-36.0); MEAN CORPUSCULAR VOLUME 96.9 fL (80.0-94.0); MEAN PLATELET VOLUME 9.8 fL (7.4-11.4); MONOCYTES # (AUTO) 0.6 10^3/uL (0.0-1.0); MONOCYTES % (AUTO) 11.1 %; NEUTROPHILS # (AUTO) 3.3 10^3/uL (1.5-6.6); NEUTROPHILS % (AUTO) 65.8 %; PLT - PLATELET COUNT 122 10^3/uL (130-450); RED CELL DISTRIBUTION WIDTH 12.2 % (12.0-15.0)
[2020-03-12] MEDS: D5NS W/20 MEQ KCL 1,000 ML IV SCH ×2 (05:24→17:05)
[2020-03-12] MEDS: IBUPROFEN 400 MG TABLET PO PRN (05:29)
[2020-03-12 05:37] LABS: CREATININE 0.8 mg/dL (0.6-1.2)
[2020-03-12] MEDS: LEVOTHYROXINE 112 MCG TABLET PO SCH (06:23)
[2020-03-12] MEDS: CHOLECALCIFEROL 25 MCG TABLET PO SCH (08:25)
[2020-03-12] MEDS: OMEGA-3 ACID ETHYL ESTERS 1 GM CAPSULE PO SCH (08:29)
[2020-03-12] MEDS: ENOXAPARIN 40 MG/0.4 ML SYRINGE SUBQ SCH (08:29)
[2020-03-12] MEDS: ASPIRIN EC 81 MG TABLET PO SCH (08:30)
[2020-03-12] MEDS: METOPROLOL SUCCINATE 25 MG TABLET PO SCH (08:30)
[2020-03-12] MEDS: lisinopriL 5 MG TABLET PO SCH (08:30)
[2020-03-12] MEDS: cefTRIAXone 1 GM in SODIUM CHLORIDE 0.9% MINIBAG 100 ML IV SCH (08:30)
[2020-03-12] MEDS: SACCHAROMYCES BOULARDII 250 MG CAPSULE PO SCH ×2 (08:31→17:03)
[2020-03-12] MEDS: FAMOTIDINE 20 MG TABLET PO SCH ×2 (08:45→21:55)
--- NOTE | 2020-03-12 17:07 | PROVIDER PROGRESS NOTE ---
Assessment/Plan - Problem List (1) Streptococcal bacteremia Assessment/Plan: His blood cultures 2 of 2 turned positive quickly after admission. It has now been identified as Streptococcus canis. This is usually pansensitive, it is sensitive to ampicillin. It is probably the same strep that is in his urine. Bacteremia from a UTI does not vilma a worse prognosis. We will plan a 21-day course of treatment however because of a complicated UTI in a male with a possible prostatitis source. If his second set of blood cultures remain negative at 48 hours (tomorrow), will plan to discharge the patient on p.o. Ampicillin. I updated the patient with this plan today. (2) Pyelonephritis Assessment/Plan: CT of the abdomen showed bilateral pyelonephritis. He himself believes he developed this after an partially treated UTI as an outpatient getting [facility]. He will need 21 days of treatment because of the complicated UTI in a male for possible prostatitis source. We will transition him to oral ampicillin tomorrow if his second set of blood cultures remain negative (3) Injection site extravasation Assessment/Plan: No further complaints and he got local care, heating pads and elevation (4) HTN (hypertension) Assessment/Plan: After the first day of hypotension resolved with IV fluids. His blood pressure did rise and his home blood pressure meds have been restarted (5) Hypothyroidism Assessment/Plan: His serum TSH level is normal therefore his home dose of thyroid replacement has continued here (6) GERD (gastroesophageal reflux disease) Assessment/Plan: He is on his home management. (7) Sepsis Assessment/Plan: Hypotension has resolved. No fevers for over 24 hours (8) Prerenal azotemia Assessment/Plan: Left with IV fluids (9) Hypokalemia Assessment/Plan: Resolved - Current Meds Current Meds: Current Medications Generic Name Dose Route Start Last Admin Trade Name Freq PRN Reason Stop Dose Admin Aspirin 81 mg 03/10/20 09:00 03/12/20 08:30 Ecotrin PO 81 mg DAILY LAMINE Administration Cholecalciferol 50 mcg 03/11/20 09:00 03/12/20 08:25 Vitamin D3 PO 50 mcg DAILY LAMINE Administration Enoxaparin Sodium 40 mg 03/10/20 09:00 03/12/20 08:29 Lovenox SUBQ 40 mg DAILY LAMINE Administration Famotidine 20 mg 03/09/20 21:00 03/12/20 08:45 Pepcid PO 20 mg BID LAMINE Administration Ceftriaxone Sodium 1 gm/ 100 mls @ 200 mls/hr 03/10/20 09:00 03/12/20 10:20 Sodium Chloride IV Infused DAILY LAMINE Infusion Potassium Chloride/Dextrose/Sod Cl 1,000 mls @ 125 mls/hr 03/10/20 19:00 03/12/20 12:20 IV 125 mls/hr .Q8H LAMINE Infusion Ibuprofen 400 mg 03/09/20 16:27 03/12/20 05:29 Motrin PO 400 mg Q6HR PRN Administration PAIN Levothyroxine Sodium 112 mcg 03/10/20 07:00 03/12/20 06:23 Synthroid PO 112 mcg QDAC LAMINE Administration Lisinopril 10 mg 03/11/20 09:00 03/12/20 08:30 Zestril PO 10 mg DAILY LAMINE Administration Metoprolol Succinate 25 mg 03/11/20 09:00 03/12/20 08:30 Toprol Xl PO 25 mg DAILY LAMINE Administration [id number] Ethyl Esters 1 gm 03/11/20 09:00 03/12/20 08:29 Lovaza PO 1 gm DAILY LAMINE Administration Oxycodone HCl 5 mg 03/09/20 16:23 03/10/20 19:08 Roxicodone PO 5 mg Q4HR PRN Administration Pain 5 to 7 Saccharomyces Boulardii 250 mg 03/10/20 08:00 03/12/20 17:03 Florastor PO 250 mg BIDWM LAMINE Administration Sodium Chloride 10 ml 03/09/20 17:00 03/12/20 17:03 Normal Saline Flush 0.9% IVP Not Given 0100,0900,1700 [facility] - Lab Result Fish Bone Diagrams: 03/12/20 04:51 03/12/20 04:51 - Additional Planning My Orders: My Active Orders 03/12/20 13:44 Echo Transthoracic Complete [ECHO] Routine Subjective - Subjective Patient Reports: Feeling Better, Resting Comfortably, No Complaints Objective Vital Signs: Vital Signs - 24 hr 03/11/20 03/12/20 03/12/20 20:00 00:07 02:31 Temperature 36.6 C 36.3 C L Heart Rate [ 79 80 74 Brachial] Respiratory 20 20 Rate Blood Pressure 140/76 H 164/70 H 149/85 H [Right Brachial artery] O2 Saturation 94 95 03/12/20 03/12/20 03/12/20 10:00 12:33 16:44 Temperature 36.3 C L 36.4 C L 36.5 C Heart Rate [ 63 60 70 Brachial] Respiratory 16 17 18 Rate Blood Pressure 147/72 H 142/71 H 168/77 H [Right Brachial artery] O2 Saturation 94 96 96 Oxygen O2 Source Room air I&O (Last 24 Hrs): Intake and Output Totals x24h 03/11/20 03/11/20 03/12/20 00:59 23:59 23:59 Intake Total 2728.334 Output Total 300 Balance 2428.334 General: Alert, Oriented x3, Other ([place]) HEENT: Atraumatic, PERRLA Neck: Supple, No JVD Neuro: Alert, Non Focal Cardiovascular: Regular rate Respiratory: No respiratory distress Abdomen: Soft Extremities: No edema - Results Results: Laboratory Results WBC 5.0 x10^3/uL (4.8-10.8) 03/12/20 04:51 RBC 3.50 10^6/uL (4.70-6.10) L 03/12/20 04:51 Hgb 11.3 g/dL (14.0-18.0) L 03/12/20 04:51 Hct 33.9 % (42.0-52.0) L 03/12/20 04:51 MCV 96.9 fL (80.0-94.0) H 03/12/20 04:51 MCH 32.3 pg (27.0-31.0) H 03/12/20 04:51 MCHC 33.3 g/dL (32.0-36.0) 03/12/20 04:51 RDW 12.2 % (12.0-15.0) 03/12/20 04:51 Plt Count 122 10^3/uL (130-450) L 03/12/20 04:51 MPV 9.8 fL (7.4-11.4) 03/12/20 04:51 Neut # (Auto) 3.3 10^3/uL (1.5-6.6) 03/12/20 04:51 Lymph # (Auto) 0.9 10^3/uL (1.5-3.5) L 03/12/20 04:51 [place] # (Auto) 0.6 10^3/uL (0.0-1.0) 03/12/20 04:51 Eos # (Auto) 0.2 10^3/uL (0.0-0.7) 03/12/20 04:51 Baso # (Auto) 0.0 10^3/uL (0.0-0.1) 03/12/20 04:51 Absolute Nucleated RBC 0.00 x10^3/uL 03/12/20 04:51 Nucleated RBC % 0.0 /100WBC 03/12/20 04:51 PT 13.6 secs (9.9-12.6) H 03/09/20 14:20 INR 1.2 (0.8-1.2) 03/09/20 14:20 APTT 31.6 secs (24.9-33.3) 03/09/20 14:20 Sodium 138 mmol/L (135-145) 03/12/20 04:51 Potassium 3.7 mmol/L (3.5-5.0) 03/12/20 04:51 Chloride 108 mmol/L (101-111) 03/12/20 04:51 Carbon Dioxide 24 mmol/L (21-32) 03/12/20 04:51 Anion Gap 6.0 (6-13) 03/12/20 04:51 BUN 11 mg/dL (6-20) 03/12/20 04:51 Creatinine 0.8 mg/dL (0.6-1.2) 03/12/20 04:51 Estimated GFR (MDRD) 91 (>89) 03/12/20 04:51 Glucose 128 mg/dL (70-100) H 03/12/20 04:51 Lactic Acid 1.9 mmol/L (0.5-2.2) 03/09/20 13:50 Calcium 8.0 mg/dL (8.5-10.3) L 03/12/20 04:51 Magnesium 1.6 mg/dL (1.7-2.8) L 03/10/20 05:55 Total Bilirubin 1.2 mg/dL (0.2-1.0) H 03/09/20 13:50 AST 36 IU/L (10-42) 03/09/20 13:50 ALT 52 IU/L (10-60) 03/09/20 13:50 Alkaline Phosphatase 48 IU/L (42-121) 03/09/20 13:50 Total Protein 6.8 g/dL (6.7-8.2) 03/09/20 13:50 Albumin 4.1 g/dL (3.2-5.5) 03/09/20 13:50 Globulin 2.7 g/dL (2.1-4.2) 03/09/20 13:50 Albumin/Globulin Ratio 1.5 (1.0-2.2) 03/09/20 13:50 Lipase 24 U/L (22-51) 03/09/20 13:50 TSH 1.19 uIU/mL (0.34-5.60) 03/10/20 05:55 Urine Color YELLOW 03/09/20 13:45 Urine Clarity CLEAR (CLEAR) 03/09/20 13:45 Urine pH 7.0 PH (5.0-7.5) 03/09/20 13:45 Ur Specific [place] 1.020 (1.002-1.030) 03/09/20 13:45 Urine Protein TRACE mg/dL (NEGATIVE) 03/09/20 13:45 Urine Glucose (UA) NEGATIVE mg/dL (NEGATIVE) 03/09/20 13:45 Urine Ketones NEGATIVE mg/dL (NEGATIVE) 03/09/20 13:45 Urine Occult Blood NEGATIVE (NEGATIVE) 03/09/20 13:45 Urine Nitrite NEGATIVE (NEGATIVE) 03/09/20 13:45 Urine Bilirubin NEGATIVE (NEGATIVE) 03/09/20 13:45 Urine Urobilinogen 1 (NORMAL) E.U./dL (NORMAL) 03/09/20 13:45 Ur Leukocyte Esterase SMALL (NEGATIVE) H 03/09/20 13:45 Urine RBC 0-5 /HPF (0-5) 03/09/20 13:45 Urine WBC 11-25 /HPF (0-3) H 03/09/20 13:45 Ur Squamous Epith Cells FEW Squamous (<= Few) 03/09/20 13:45 Urine Bacteria Few /HPF (None Seen) 03/09/20 13:45 Ur Microscopic Review INDICATED 03/09/20 13:45 Urine Culture Comments INDICATED 03/09/20 13:45 Nasal Adenovirus (PCR) NOT DETECTED 03/09/20 13:30 Nasal B. parapertussis DNA (PCR) NOT DETECTED 03/09/20 13:30 Nasal Coronavir 229E PCR NOT DETECTED 03/09/20 13:30 Nasal Coronavir HKU1 PCR NOT DETECTED 03/09/20 13:30 Nasal Coronavir NL63 PCR NOT DETECTED 03/09/20 13:30 Nasal Coronavir OC43 PCR NOT DETECTED 03/09/20 13:30 Nasal Enterovir/Rhinovir PCR NOT DETECTED 03/09/20 13:30 Nasal Influenza B PCR NOT DETECTED 03/09/20 13:30 Nasal Parainfluen 1 PCR NOT DETECTED 03/09/20 13:30 Nasal Parainfluen 2 PCR NOT DETECTED 03/09/20 13:30 Nasal Parainfluen 3 PCR NOT DETECTED 03/09/20 13:30 Nasal Parainfluen 4 PCR NOT DETECTED 03/09/20 13:30 Nasal RSV (PCR) NOT DETECTED 03/09/20 13:30 Nasal B.pertussis DNA PCR NOT DETECTED 03/09/20 13:30 Nasal C.pneumoniae (PCR) NOT DETECTED 03/09/20 13:30 Eran Human Metapneumo PCR NOT DETECTED 03/09/20 13:30 Nasal M.pneumoniae (PCR) NOT DETECTED 03/09/20 13:30 Nasal SARS-CoV-2 (PCR) NOT DETECTED 03/09/20 13:30 - Procedures Procedures: Procedures CATARAC PHACOEMULS/ASPIR (08/10/14) INSERT LENS AT CATAR EXT (08/10/14)
[2020-03-12] MEDS ORDERED: hydrALAZINE INJ 20 MG/ML VIAL IVP PRN (17:52)
[2020-03-12] MEDS ORDERED: ACETAMINOPHEN 325 MG TABLET PO PRN (17:55)
[2020-03-13] MEDS: SODIUM CHLORIDE FLUSH 0.9% 10 ML SYRINGE IVP SCH ×2 (01:38→08:49)
[2020-03-13 06:01] LABS: BASOPHILS % (AUTO) 1.1 %; EOSINOPHILS # (AUTO) 0.2 10^3/uL (0.0-0.7); EOSINOPHILS % (AUTO) 5.5 %; HGB - HEMOGLOBIN 11.7 g/dL (14.0-18.0); LYMPHOCYTES % (AUTO) 27.9 %; MEAN CORPUSCULAR HGB CONC 33.2 g/dL (32.0-36.0); MEAN CORPUSCULAR VOLUME 96.2 fL (80.0-94.0); MEAN PLATELET VOLUME 9.8 fL (7.4-11.4); MONOCYTES # (AUTO) 0.4 10^3/uL (0.0-1.0); MONOCYTES % (AUTO) 10.4 %; NEUTROPHILS % (AUTO) 54.3 %; PLT - PLATELET COUNT 127 10^3/uL (130-450); RED BLOOD COUNT 3.66 10^6/uL (4.70-6.10); RED CELL DISTRIBUTION WIDTH 12.1 % (12.0-15.0); WHITE BLOOD COUNT 3.7 x10^3/uL (4.8-10.8)
[2020-03-13 06:08] LABS: CALCIUM 8.2 mg/dL (8.5-10.3); CREATININE 0.7 mg/dL (0.6-1.2)
[2020-03-13] MEDS: LEVOTHYROXINE 112 MCG TABLET PO SCH (07:14)
[2020-03-13] MEDS: D5NS W/20 MEQ KCL 1,000 ML IV SCH ×2 (07:53)
[2020-03-13] MEDS: cefTRIAXone 1 GM in SODIUM CHLORIDE 0.9% MINIBAG 100 ML IV SCH (08:26)
[2020-03-13] MEDS: ENOXAPARIN 40 MG/0.4 ML SYRINGE SUBQ SCH (08:29)
[2020-03-13] MEDS: ASPIRIN EC 81 MG TABLET PO SCH (08:31)
[2020-03-13] MEDS: METOPROLOL SUCCINATE 25 MG TABLET PO SCH (08:31)
[2020-03-13] MEDS: OMEGA-3 ACID ETHYL ESTERS 1 GM CAPSULE PO SCH (08:31)
[2020-03-13] MEDS: CHOLECALCIFEROL 25 MCG TABLET PO SCH (08:32)
[2020-03-13] MEDS: lisinopriL 5 MG TABLET PO SCH (08:32)
[2020-03-13] MEDS: SACCHAROMYCES BOULARDII 250 MG CAPSULE PO SCH (08:33)
[2020-03-13] MEDS: FAMOTIDINE 20 MG TABLET PO SCH (08:34)
--- NOTE | 2020-03-13 09:25 | Discharge Plan ---
Discharge Plan Problem Reviewed?: Yes Disposition: Home, Self Care Condition: Stable Prescriptions: Doxycycline Hyclate [Morgidox] 100 mg PO BID #32 capsule Diet: Low Sodium Activity Restrictions: Activity as Tolerated Shower Restrictions: No Driving Restrictions: No Instruction Topics: ED UTI Pyelonephritis Male Health Concerns: You were admitted with fever and other signs of infection, and we found you to have a urinary tract infection that had spread to both kidneys and had seeded into your bloodstream. You completed 4-1/2 days of IV antibiotics. You are being discharged home to take 16 more days of Doxycycline. The new prescription was sent to your [facility] pharmacy in [place]. Being on antibiotics can give you diarrhea, so please eat a diet high with probiotics to prevent diarrhea (like yogurt with active cultures). Please resume all your other prehospital medications. You should see your PCP in hospital follow-up in the next 1 to 2 weeks. You should see your urologist because of this urinary tract infection, in the next 1 to 2 months. Plan of Treatment: As above. Care Goals: Improvement in symptoms and stabilization are the goals. Assessment: The patient understands and is agreeable with the plan. No Smoking: If you smoke, Please STOP! Call for help. Follow-up with: LEXIS CORDOVA DO [Primary Care Provider] -
--- NOTE | 2020-03-13 10:53 | DISCHARGE SUMMARY ---
Discharge Summary Admit Date: 03/09/20 Discharge Date: 03/13/20 Discharging Provider: Dr. 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 Patient report he started having fever and the shaking and muscle spasm this morning. He reported he had a temperature of 102 F in the home then he called EMS. Patient was a found to have a fever of 38.4 C in ER. He reported he had COVID-19 test 1 week ago which was negative. He underwent a negative COVID-19 tested today in ER. He denied cough, shortness of breathing, chest pain, nausea, vomiting, diarrhea. Patient also reported he had a stress test about 1 week ago which he was reported was normal. He also reported he has urinary urgency and frequency, which started about 1 week ago, and said he "gets sepsis when he has shaking chills" Urinalysis indicated patient moderate-heavy urinary tract infection, had a WBC 10.7, lactic acid is 1.9. His BUN/creat were 22/1.0. BP was "soft"at 105 and he was tachycardic at 106. Chest x-ray showed no pneumonia. CT of the abdomen showed bilateral pyelonephritis. He was given Rocephin in the ER, blood cultures sent from the ER. He will be admitted for a complicated UTI treatment. Discussed the care goal with the patient; patient requests to be full code. - HOSPITAL COURSE Hospital Course: (1) Sepsis He had early sepsis. His "soft" BP resolved with iv hydration. His fever and WBC improved with antibiotics. (2) Pyelonephritis CT of the abdomen showed bilateral pyelonephritis. He himself believed he developed this after a partially treated UTI as an outpatient getting [facility]. He will need 21 days of treatment because of the complicated UTI in a male for possible prostatitis source. He received iv Ceftriaxone then was transitioned to oral Doxycycline, and discharged on this, when a second set of blood cultures remained negative. He was advised to have Urology follow-up. (3) Streptococcal bacteremia Blood cultures 2 of 2 turned positive quickly after admission and was identified as Streptococcus canis. It was pansensitive. He likely had the same Strep in his urine. Bacteremia from a UTI does not vilma a worse prognosis. We will plan a 21-day course of antibiotic treatment because of a complicated UTI in a male with a possible prostatitis source. (4) Prerenal azotemia Resolved with IV fluids (5) Injection site extravasation Contrast dye infiltrated at an iv site. He got local care waith heating pads and elevation (6) HTN (hypertension) After the first day of hypotension, it resolved with IV fluids. His blood pressure did rise later and his home blood pressure meds needed to be restarted (7) Hypothyroidism His serum TSH level was normal at 1.19, therefore his home dose of thyroid replacement was continued here (8) GERD (gastroesophageal reflux disease) He was on his home management. (9) Hypokalemia Replaced. - ALLERGIES Allergies/Adverse Reactions: Allergies Allergy/AdvReac Type Severity Reaction Status Date / Time ciprofloxacin Allergy Intermediate leg cramps Verified 08/10/14 07:54 - MEDICATIONS Home Medications: Ambulatory Orders Medication Instructions Recorded Confirmed Aspirin [Aspir 81] 81 mg PO DAILY 11/09/12 03/09/20 Chlorthalidone 12.5 mg PO DAILY 11/09/12 03/09/20 Cholecalciferol (Vitamin D3) 2,000 unit PO DAILY 11/09/12 03/09/20 [Vitamin D3] Oregano Oil [Oil of Oregano] 150 mg PO DAILY 11/09/12 03/09/20 [place]-3 Fatty Acids [Fish Oil] 300 mg DAILY 07/18/15 03/09/20 Atorvastatin [Lipitor] 20 mg PO QPM 03/09/20 03/09/20 Levothyroxine [Synthroid] 112 mcg PO QDAC 03/09/20 03/09/20 Lisinopril [Prinivil] 10 mg PO DAILY 03/09/20 03/09/20 Metoprolol Succinate [Toprol Xl] 25 mg PO DAILY 03/09/20 03/09/20 Doxycycline Hyclate [Morgidox] 100 mg PO BID #32 capsule 03/13/20 - PHYSICAL EXAM AT DISCHARGE General Appearance: positive: No acute distress, Alert Eyes Bilateral: positive: Normal inspection, EOMI ENT: positive: ENT inspection nml, No signs of dehydration Neck: positive: Nml inspection, No JVD Respiratory: positive: No respiratory distress, Breath sounds nml Cardiovascular: positive: Regular rate & rhythm, No murmur Abdomen: positive: Non-tender, Nml bowel sounds, No distention Skin: positive: Warm, Dry Extremities: positive: Non-tender, No pedal edema Neurologic/Psychiatric: positive: Oriented x3, Motor nml - LABS Result Diagrams: 03/13/20 05:40 03/13/20 05:40 - DIAGNOSTIC IMAGING Diagnostic Imaging Results: Final report reviewed - FOLLOW UP Follow Up: See PCP for hospital follow-up in 1-2 weeks. See Urology for follow-up. - TIME SPENT Time Spent in Discharge (Minutes): 60
[2020-03-13 11:14] VITALS: BP 157/78
== END 2020-03-13 13:00 | disposition home or self-care (01) | DRG 872 ==
LOC: EDUNIT# → ED 13:22 → MS2 16:23
PROVIDERS: ADMIT Nurse Practitioner Gerontology; ATTEND Internal Medicine
DX: A40.8 Other streptococcal sepsis (principal); N12 Tubulo-interstitial nephritis, not specified as acute or chronic; N41.9 Inflammatory disease of prostate, unspecified; R79.89 Other specified abnormal findings of blood chemistry; N30.00 Acute cystitis without hematuria; R00.0 Tachycardia, unspecified; I10 Essential (primary) hypertension; E87.6 Hypokalemia; T80.89XA Other complications following infusion, transfusion and therapeutic injection, initial encounter; E03.9 Hypothyroidism, unspecified; K21.9 Gastro-esophageal reflux disease without esophagitis; G47.30 Sleep apnea, unspecified; Z87.891 Personal history of nicotine dependence; Z85.46 Personal history of malignant neoplasm of prostate; Z98.1 Arthrodesis status; Z20.828 Contact with and (suspected) exposure to other viral communicable diseases; Z79.82 Long term (current) use of aspirin; Z79.899 Other long term (current) drug therapy; Z87.440 Personal history of urinary (tract) infections
CPT/HCPCS: 36415; 71045; 73070; 74177; 80048; 80053; 81001; 83605; 83690; 83735; 84443; 85025; 85610; 85730; 87040; 87077; 87086; 87181; 87631; 93306; 96374; 99284; 99285; A9270; J1650; Q9967; 0202U; 81003

== ENCOUNTER 2020-04-10 08:00 | Outpatient (CLI) | payer MEDICARE, OTHER ==
[2020-04-10 18:37] LABS: BASOPHILS # (AUTO) 0.1 10^3/uL (0.0-0.1); BASOPHILS % (AUTO) 1.2 %; EOSINOPHILS # (AUTO) 0.1 10^3/uL (0.0-0.7); EOSINOPHILS % (AUTO) 2.6 %; HGB - HEMOGLOBIN 13.9 g/dL (14.0-18.0); LYMPHOCYTES # (AUTO) 1.8 10^3/uL (1.5-3.5); LYMPHOCYTES % (AUTO) 36.1 %; MEAN CORPUSCULAR HEMOGLOBIN 32.3 pg (27.0-31.0); MEAN CORPUSCULAR HGB CONC 32.7 g/dL (32.0-36.0); MEAN CORPUSCULAR VOLUME 98.6 fL (80.0-94.0); MEAN PLATELET VOLUME 9.8 fL (7.4-11.4); MONOCYTES # (AUTO) 0.5 10^3/uL (0.0-1.0); MONOCYTES % (AUTO) 10.4 %; NEUTROPHILS # (AUTO) 2.5 10^3/uL (1.5-6.6); NEUTROPHILS % (AUTO) 49.3 %; PLT - PLATELET COUNT 159 10^3/uL (130-450); RED BLOOD COUNT 4.31 10^6/uL (4.70-6.10); RED CELL DISTRIBUTION WIDTH 12.5 % (12.0-15.0)
[2020-04-10 18:49] LABS: ALBUMIN 4.2 g/dL (3.2-5.5); ALBUMIN/GLOBULIN RATIO 1.6 (1.0-2.2); BILIRUBIN,TOTAL 1.2 mg/dL (0.2-1.0); CALCIUM 9.3 mg/dL (8.5-10.3); CREATININE 0.9 mg/dL (0.6-1.2); TOTAL PROTEIN 6.8 g/dL (6.7-8.2)
== END 2020-04-10 23:59 | disposition home or self-care (01) ==
LOC: LAB.N 08:00
PROVIDERS: ATTEND Family Medicine
DX: N12 Tubulo-interstitial nephritis, not specified as acute or chronic (principal); Z12.5 Encounter for screening for malignant neoplasm of prostate
CPT/HCPCS: 36415; 80053; 84153; 84443; 85025; 87086

== ENCOUNTER 2020-04-20 23:40 | Outpatient (CLI) | payer MEDICARE, OTHER | END 2020-04-20 23:41 | disposition critical access hospital (66) | LOC: EMS 23:40 | PROVIDERS: ATTEND Surgery | DX: R19.7 Diarrhea, unspecified (principal); R53.1 Weakness; R42 Dizziness and giddiness | CPT/HCPCS: A0425; A0427 ==

== ENCOUNTER 2020-04-21 00:01 | Emergency (ER) | payer MEDICARE, OTHER ==
--- NOTE | 2020-04-21 00:26 | ED Physician Documentation ---
History of Present Illness - Stated complaint Stated Complaint: DIZZY, LIGHTHEADED,DIARRHEA - Chief complaint Chief Complaint: General - History obtained from History obtained from: Patient - History of Present Illness Timing: Enter time (21:00), Today Pain level max: 8 Pain level now: 2 Improved by: no apparent ameliorating factors but signficant improvement prior to this evaluation Worsened by: no exacerbating factors - Additonal information Additional information: BIBA. patient says he felt constipated this morning and during the day so he took a dose of MOM this evening. At approximately 9 PM tonight, he had sudden onset diarrhea, abdominal cramping that is predominantly LLQ. While on toilet having loose stool, he became diaphoretic, lightheaded, had generalized weakness, "I about passed out" (per patient; he says he might even have briefly lost consciousness but did not fall). Feels improved by the time of this ED evaluation Review of Systems Constitutional: reports: Sweats. denies: Fever, Chills Cardiac: reports: Reviewed and negative Respiratory: reports: Reviewed and negative GI: reports: Abdominal Pain, Constipation, Diarrhea. denies: Nausea, Vomiting : denies: Dysuria, Frequency, Hematuria Musculoskeletal: reports: Reviewed and negative Neurologic: reports: Generalized weakness (resolved), Near syncope. denies: Focal weakness, Numbness, Headache PD PAST MEDICAL HISTORY - Past Medical History Cardiovascular: Hypertension Respiratory: Sleep apnea Endocrine/Autoimmune: HyPOthyroidism GI: GERD, Colon polyps : None Psych: None Musculoskeletal: None Derm: Other - Past Surgical History Past Surgical History: Yes Ortho: Spine surgery, Other - Present Medications Home Medications: Ambulatory Orders Medication Instructions Recorded Confirmed Aspirin [Aspir 81] 81 mg PO DAILY 11/09/12 04/21/20 Chlorthalidone 12.5 mg PO DAILY 11/09/12 04/21/20 Cholecalciferol (Vitamin D3) 2,000 unit PO DAILY 11/09/12 04/21/20 [Vitamin D3] Oregano Oil [Oil of Oregano] 150 mg PO DAILY 11/09/12 04/21/20 [place]-3 Fatty Acids [Fish Oil] 300 mg DAILY 07/18/15 04/21/20 Atorvastatin [Lipitor] 20 mg PO QPM 03/09/20 04/21/20 Levothyroxine [Synthroid] 112 mcg PO QDAC 03/09/20 04/21/20 Lisinopril [Prinivil] 10 mg PO DAILY 03/09/20 04/21/20 Metoprolol Succinate [Toprol Xl] 25 mg PO DAILY 03/09/20 04/21/20 - Allergies Allergies/Adverse Reactions: Allergies Allergy/AdvReac Type Severity Reaction Status Date / Time ciprofloxacin Allergy Intermediate leg cramps Verified 04/21/20 00:09 - Social History Does the pt smoke?: No Smoking Status: Never smoker Does the pt drink ETOH?: Yes Does the pt have substance abuse?: No PD ED PE NORMAL - Vitals Vital signs reviewed: Yes - General General: Alert and oriented X 3, No acute distress, Well developed/nourished - HEENT HEENT: Moist mucous membranes - Neck Neck: Supple, no meningeal sign - Cardiac Cardiac: RRR, No murmur - Respiratory Respiratory: No respiratory distress, Clear bilaterally - Abdomen Abdomen: Soft, Non distended, Other (mild TTP LLQ without rebound or guarding) - Back Back: No CVA TTP - Derm Derm: Normal color, Warm and dry - Extremities Extremities: No edema Results - Vitals Vitals: Oxygen O2 Source Room air - EKG (time done) No standard instances Rate: Rate (enter#) (68) Rhythm: NSR [place]: LAD, Anterior hemiblock Intervals: Normal CT QRS: Normal Ischemia: Q waves (II, III, aVF) - Labs Labs: Laboratory Tests 04/21/20 04/21/20 04/21/20 02:15 02:15 04:20 WBC 11.3 H RBC 4.19 L Hgb 13.6 L Hct 41.0 L MCV 97.9 H MCH 32.5 H MCHC 33.2 RDW 12.5 Plt Count 185 MPV 9.5 Neut # (Auto) 9.0 H Lymph # (Auto) 1.3 L [place] # (Auto) 0.9 Eos # (Auto) 0.0 Baso # (Auto) 0.1 Absolute Nucleated RBC 0.00 Nucleated RBC % 0.0 Sodium 134 L Potassium 3.6 Chloride 99 L Carbon Dioxide 24 Anion Gap 11.0 BUN 24 H Creatinine 0.9 Estimated GFR (MDRD) 80 L Glucose 102 H Calcium 9.1 Total Bilirubin 1.1 H AST 27 ALT 38 Alkaline Phosphatase 50 Total Protein 6.6 L Albumin 4.0 Globulin 2.6 Albumin/Globulin Ratio 1.5 Lipase 28 Urine Color YELLOW Urine Clarity CLEAR Urine pH 5.0 Ur Specific [place] 1.010 Urine Protein NEGATIVE Urine Glucose (UA) NEGATIVE Urine Ketones NEGATIVE Urine Occult Blood NEGATIVE Urine Nitrite NEGATIVE Urine Bilirubin NEGATIVE Urine Urobilinogen 0.2 (NORMAL) Ur Leukocyte Esterase NEGATIVE Ur Microscopic Review NOT INDICATED Urine Culture Comments NOT INDICATED - Rads (name of study) CT A/P Radiology: Prelim report reviewed, See rad report PD MEDICAL DECISION MAKING - ED course Complexity details: reviewed results, re-evaluated patient, considered differential, d/w patient ED course: patient had some residual LLQ discomfort and abdominal cramping with urge to defecate despite little/no stool output; during ED stay, these symptoms graduall y resolved without intervention. Reassuring tests including EKG, CT A/P, blood tests Departure - Departure Disposition: 01 Home, Self Care Clinical Impression: Near syncope, Abdominal pain Condition: Good Instructions: ED Near Syncope Unkn, ED Abdominal Pain Unkn Cause Male Follow-Up: LEXIS CORDOVA DO [Primary Care Provider] - Within 3 Days Discharge Date/Time: 04/21/20 08:16
[2020-04-21] MEDS ORDERED: SODIUM CHLORIDE 0.9% 500 ML IV STA (02:04)
[2020-04-21 02:21] LABS: BASOPHILS # (AUTO) 0.1 10^3/uL (0.0-0.1); BASOPHILS % (AUTO) 0.5 %; EOSINOPHILS % (AUTO) 0.3 %; HGB - HEMOGLOBIN 13.6 g/dL (14.0-18.0); LYMPHOCYTES # (AUTO) 1.3 10^3/uL (1.5-3.5); LYMPHOCYTES % (AUTO) 11.7 %; MEAN CORPUSCULAR HEMOGLOBIN 32.5 pg (27.0-31.0); MEAN CORPUSCULAR HGB CONC 33.2 g/dL (32.0-36.0); MEAN CORPUSCULAR VOLUME 97.9 fL (80.0-94.0); MEAN PLATELET VOLUME 9.5 fL (7.4-11.4); MONOCYTES # (AUTO) 0.9 10^3/uL (0.0-1.0); MONOCYTES % (AUTO) 7.9 %; NEUTROPHILS % (AUTO) 79.3 %; PLT - PLATELET COUNT 185 10^3/uL (130-450); RED BLOOD COUNT 4.19 10^6/uL (4.70-6.10); RED CELL DISTRIBUTION WIDTH 12.5 % (12.0-15.0); WHITE BLOOD COUNT 11.3 x10^3/uL (4.8-10.8)
[2020-04-21 02:33] LABS: ALBUMIN/GLOBULIN RATIO 1.5 (1.0-2.2); BILIRUBIN,TOTAL 1.1 mg/dL (0.2-1.0); CALCIUM 9.1 mg/dL (8.5-10.3); CREATININE 0.9 mg/dL (0.6-1.2); TOTAL PROTEIN 6.6 g/dL (6.7-8.2)
[2020-04-21] MEDS ORDERED: IOVERSOL 320 100 ML VIAL IVP ONE ×2 (02:35→03:10)
[2020-04-21 04:30] LABS: BILIRUBIN,URINE NEGATIVE (NEGATIVE); GLUCOSE, URINE (UA) NEGATIVE (NEGATIVE); KETONES,URINE (UA) NEGATIVE (NEGATIVE); LEUKOCYTE ESTERASE, URINE NEGATIVE (NEGATIVE); NITRITE,URINE NEGATIVE (NEGATIVE); OCCULT BLOOD,URINE NEGATIVE (NEGATIVE); PROTEIN,URINE NEGATIVE (NEGATIVE); UROBILINOGEN,URINE 0.2 (NORMAL) E.U./dL (NORMAL)
[2020-04-21 04:32] LABS: CLARITY,URINE CLEAR (CLEAR)
[2020-04-21 07:04] VITALS: BP 128/78
--- NOTE | 2020-04-21 08:49 | CT Report ---
PROCEDURE: Abdomen/Pelvis W INDICATIONS: abd. pain CONTRAST: IV CONTRAST: Optiray 320 ml: 100 PO CONTRAST: *NO PO CONTRAST TECHNIQUE: After the administration of intravenous contrast, 5 mm thick sections acquired from the diaphragms to the symphysis. 5 mm thick coronal and sagittal reformats were acquired. For radiation dose reducti on, the following was used: automated exposure control, adjustment of mA and/or kV according to davian ent size. COMPARISON: None. FINDINGS: Image quality: Excellent. ABDOMEN: Lung bases: Lung bases are clear. Heart size is normal. Coronary artery calcifications. Solid organs: Liver and spleen are normal in size and enhancement. Gallbladder unremarkable Biliar y system is non dilated. Pancreas enhances normally. No adrenal nodules. Kidneys demonstrate dylan l size and enhancement, without hydronephrosis. Peritoneum and bowel: Bowel loops demonstrate normal wall thickness and caliber. No free fluid or a ir. Small hiatal hernia. Colonic diverticulosis incidentally noted without evidence of acute inflamma tion. Normal appendix Nodes and vessels: No retroperitoneal or mesenteric adenopathy by size criteria. Aorta and inferior vena cava are normal in size. Miscellaneous: No ventral hernias. PELVIS: Bladder is partially collapsed otherwise unremarkable. Fat-containing bilateral inguinal hernias. Bon es: No suspicious bony lesions. No vertebral body compression fractures. IMPRESSION: No acute abnormality. Incidental colonic diverticulosis and small hiatal hernia Coronary artery disease Findings are concordant with the preliminary study interpretation provided at the time of the study. Reviewed by: Cong Lundberg MD on 04/21/2020 8:47 AM PST Approved by: Cong Lundberg MD on 04/21/2020 8:47 AM PST Station ID: [id number]
== END 2020-04-21 08:16 | disposition home or self-care (01) ==
LOC: EDUNIT# → ED 00:01
DX: R55 Syncope and collapse (principal); R10.32 Left lower quadrant pain; R15.2 Fecal urgency; I44.4 Left anterior fascicular block; I10 Essential (primary) hypertension; Z79.82 Long term (current) use of aspirin
CPT/HCPCS: 36415; 74177; 80053; 81003; 83690; 85025; 93005; 99284; Q9967; 81001; 87086

== ENCOUNTER 2020-10-11 07:20 | Outpatient (CLI) | payer MEDICARE, OTHER ==
[2020-10-11 11:55] LABS: BASOPHILS # (AUTO) 0.1 10^3/uL (0.0-0.1); BASOPHILS % (AUTO) 1.4 %; EOSINOPHILS # (AUTO) 0.2 10^3/uL (0.0-0.7); EOSINOPHILS % (AUTO) 4.3 %; HCT - HEMATOCRIT 44.1 % (42.0-52.0); HGB - HEMOGLOBIN 14.7 g/dL (14.0-18.0); LYMPHOCYTES # (AUTO) 1.7 10^3/uL (1.5-3.5); LYMPHOCYTES % (AUTO) 34.6 %; MEAN CORPUSCULAR HEMOGLOBIN 32.7 pg (27.0-31.0); MEAN CORPUSCULAR HGB CONC 33.3 g/dL (32.0-36.0); MEAN PLATELET VOLUME 9.8 fL (7.4-11.4); MONOCYTES # (AUTO) 0.4 10^3/uL (0.0-1.0); NEUTROPHILS # (AUTO) 2.5 10^3/uL (1.5-6.6); NEUTROPHILS % (AUTO) 51.3 %; PLT - PLATELET COUNT 192 10^3/uL (130-450); RED CELL DISTRIBUTION WIDTH 12.1 % (12.0-15.0); WHITE BLOOD COUNT 4.9 x10^3/uL (4.8-10.8)
[2020-10-11 11:56] LABS: BILIRUBIN,URINE NEGATIVE (NEGATIVE); GLUCOSE, URINE (UA) NEGATIVE (NEGATIVE); KETONES,URINE (UA) NEGATIVE (NEGATIVE); LEUKOCYTE ESTERASE, URINE NEGATIVE (NEGATIVE); NITRITE,URINE NEGATIVE (NEGATIVE); OCCULT BLOOD,URINE NEGATIVE (NEGATIVE); PROTEIN,URINE NEGATIVE (NEGATIVE); UROBILINOGEN,URINE 1 (NORMAL) E.U./dL (NORMAL)
[2020-10-11 12:04] LABS: BACTERIA,URINE Rare /HPF (None Seen); CLARITY,URINE CLEAR (CLEAR); RBC,URINE 0-5 /HPF (0-5); SQUAMOUS EPITHELIAL CELL,UR MOD Squamous (<= Few); WBC,URINE 0-3 /HPF (0-3)
[2020-10-11 12:08] LABS: ALBUMIN 4.5 g/dL (3.2-5.5); ALBUMIN/GLOBULIN RATIO 1.7 (1.0-2.2); BILIRUBIN,TOTAL 1.2 mg/dL (0.2-1.0); CREATININE 1.2 mg/dL (0.6-1.2); POTASSIUM 3.7 mmol/L (3.5-5.0); TOTAL PROTEIN 7.1 g/dL (6.7-8.2)
[2020-10-11 12:21] LABS: THYROID STIMULATING HORMONE 4.3 uIU/mL (0.34-5.60)
== END 2020-10-11 07:21 | disposition home or self-care (01) ==
LOC: LAB.N 07:20
PROVIDERS: ATTEND Internal Medicine
DX: N41.9 Inflammatory disease of prostate, unspecified (principal); E29.1 Testicular hypofunction; I10 Essential (primary) hypertension; E03.9 Hypothyroidism, unspecified
CPT/HCPCS: 36415; 80053; 81001; 84153; 84403; 84443; 85025; 87086

== ENCOUNTER 2020-12-19 14:57 | Outpatient (CLI) | payer MEDICARE, OTHER ==
[2020-12-19 17:40] LABS: BASOPHILS # (AUTO) 0.1 10^3/uL (0.0-0.1); BASOPHILS % (AUTO) 1.2 %; EOSINOPHILS # (AUTO) 0.1 10^3/uL (0.0-0.7); EOSINOPHILS % (AUTO) 2.3 %; HCT - HEMATOCRIT 41.2 % (42.0-52.0); HGB - HEMOGLOBIN 13.7 g/dL (14.0-18.0); LYMPHOCYTES # (AUTO) 2.1 10^3/uL (1.5-3.5); MEAN CORPUSCULAR HEMOGLOBIN 32.6 pg (27.0-31.0); MEAN CORPUSCULAR HGB CONC 33.3 g/dL (32.0-36.0); MEAN CORPUSCULAR VOLUME 98.1 fL (80.0-94.0); MEAN PLATELET VOLUME 10.4 fL (7.4-11.4); MONOCYTES # (AUTO) 0.5 10^3/uL (0.0-1.0); MONOCYTES % (AUTO) 9.2 %; NEUTROPHILS % (AUTO) 51.1 %; PLT - PLATELET COUNT 169 10^3/uL (130-450); RED CELL DISTRIBUTION WIDTH 12.3 % (12.0-15.0); WHITE BLOOD COUNT 5.8 x10^3/uL (4.8-10.8)
[2020-12-19 17:42] LABS: BILIRUBIN,URINE NEGATIVE (NEGATIVE); GLUCOSE, URINE (UA) NEGATIVE (NEGATIVE); KETONES,URINE (UA) NEGATIVE (NEGATIVE); LEUKOCYTE ESTERASE, URINE NEGATIVE (NEGATIVE); NITRITE,URINE NEGATIVE (NEGATIVE); OCCULT BLOOD,URINE NEGATIVE (NEGATIVE); PROTEIN,URINE NEGATIVE (NEGATIVE); UROBILINOGEN,URINE 0.2 (NORMAL) E.U./dL (NORMAL)
[2020-12-19 17:45] LABS: CLARITY,URINE CLEAR (CLEAR)
[2020-12-19 17:47] LABS: BACTERIA,URINE None Seen /HPF (None Seen); RBC,URINE 0-5 /HPF (0-5); SQUAMOUS EPITHELIAL CELL,UR RARE Squamous (<= Few); WBC,URINE 0-3 /HPF (0-3)
[2020-12-19 18:00] LABS: ALBUMIN 4.1 g/dL (3.2-5.5); ALBUMIN/GLOBULIN RATIO 1.6 (1.0-2.2); BILIRUBIN,TOTAL 1.1 mg/dL (0.2-1.0); CALCIUM 9.1 mg/dL (8.5-10.3); CREATININE 0.9 mg/dL (0.6-1.2); POTASSIUM 3.6 mmol/L (3.5-5.0); TOTAL PROTEIN 6.6 g/dL (6.7-8.2)
[2020-12-19 18:31] LABS: THYROID STIMULATING HORMONE 2.37 uIU/mL (0.34-5.60)
== END 2020-12-19 14:58 | disposition home or self-care (01) ==
LOC: LAB.N 14:57
PROVIDERS: ATTEND Internal Medicine
DX: I10 Essential (primary) hypertension (principal); C61 Malignant neoplasm of prostate; E29.1 Testicular hypofunction; N41.9 Inflammatory disease of prostate, unspecified; E03.9 Hypothyroidism, unspecified
CPT/HCPCS: 36415; 80053; 81001; 84153; 84403; 84443; 85025; 87086

== ENCOUNTER 2021-02-01 12:08 | Outpatient (CLI) | payer MEDICARE, OTHER ==
[2021-02-01 17:49] LABS: BILIRUBIN,URINE NEGATIVE (NEGATIVE); GLUCOSE, URINE (UA) NEGATIVE (NEGATIVE); KETONES,URINE (UA) NEGATIVE (NEGATIVE); LEUKOCYTE ESTERASE, URINE NEGATIVE (NEGATIVE); NITRITE,URINE NEGATIVE (NEGATIVE); OCCULT BLOOD,URINE NEGATIVE (NEGATIVE); PH,URINE 6.5 PH (5.0-7.5); PROTEIN,URINE NEGATIVE (NEGATIVE); UROBILINOGEN,URINE 1 (NORMAL) E.U./dL (NORMAL)
[2021-02-01 17:56] LABS: BACTERIA,URINE Rare /HPF (None Seen); CLARITY,URINE CLEAR (CLEAR); MUCUS,URINE Few Strands; RBC,URINE 0-5 /HPF (0-5); SQUAMOUS EPITHELIAL CELL,UR FEW Squamous (<= Few); WBC,URINE 0-3 /HPF (0-3)
[2021-02-01 18:12] LABS: THYROID STIMULATING HORMONE 2.31 uIU/mL (0.34-5.60)
== END 2021-02-01 12:09 | disposition home or self-care (01) ==
LOC: LAB.N 12:08
PROVIDERS: ATTEND Internal Medicine
DX: C61 Malignant neoplasm of prostate (principal); Z87.440 Personal history of urinary (tract) infections; E03.9 Hypothyroidism, unspecified
CPT/HCPCS: 36415; 81001; 84153; 84403; 84443; 87086

== ENCOUNTER 2021-03-23 12:43 | Emergency (ER) | payer MEDICARE, OTHER ==
[2021-03-23 12:54] VITALS: BP 130/79
--- NOTE | 2021-03-23 12:58 | ED Physician Documentation ---
PD HPI BACK PAIN - Stated complaint Stated Complaint: BACK PX - Chief complaint Chief Complaint: Back Pain - History obtained from History obtained from: Patient - History of Present Illness Timing - onset: How many days ago (3-4) Timing - duration: Days (3-4) Timing - details: Gradual onset, Still present Location: Lower, Right Quality: Pain, Aching Associated symptoms: No: Fever, Weakness, Numbness, Hematuria Improves with: Rest. No: Meds (tried tylenol yesterday) Worsened by: Movement, Palpation Contributing factors: No: Lifting, Twisting, Trauma Similar symptoms before: Has not had sx before Recently seen: Not recently seen Review of Systems Constitutional: denies: Fever, Chills Nose: denies: Rhinorrhea / runny nose, Congestion Throat: denies: Sore throat Respiratory: denies: Cough GI: denies: Abdominal Pain, Nausea, Vomiting, Diarrhea Skin: denies: Rash, Lesions Musculoskeletal: reports: Back pain. denies: Neck pain PD PAST MEDICAL HISTORY - Past Medical History Cardiovascular: Hypertension Respiratory: Sleep apnea Endocrine/Autoimmune: HyPOthyroidism GI: GERD, Colon polyps : None Psych: None Musculoskeletal: None Derm: Other - Past Surgical History Past Surgical History: Yes Ortho: Spine surgery, Other - Present Medications Home Medications: Ambulatory Orders Medication Instructions Recorded Confirmed Aspirin [Aspir 81] 81 mg PO DAILY 11/09/12 04/21/20 Chlorthalidone 12.5 mg PO DAILY 11/09/12 04/21/20 Cholecalciferol (Vitamin D3) 2,000 unit PO DAILY 11/09/12 04/21/20 [Vitamin D3] Oregano Oil [Oil of Oregano] 150 mg PO DAILY 11/09/12 04/21/20 [place]-3 Fatty Acids [Fish Oil] 300 mg DAILY 07/18/15 04/21/20 Atorvastatin [Lipitor] 20 mg PO QPM 03/09/20 04/21/20 Levothyroxine [Synthroid] 112 mcg PO QDAC 03/09/20 04/21/20 Metoprolol Succinate [Toprol Xl] 25 mg PO DAILY 03/09/20 04/21/20 lisinopriL [Prinivil] 10 mg PO DAILY 03/09/20 04/21/20 HYDROcod/ACETAM 5/325 [[place] 5/325] 1 ea PO Q6H PRN #15 tablet 03/23/21 Ibuprofen [Motrin] 600 mg PO BID PRN #15 tab 03/23/21 - Allergies Allergies/Adverse Reactions: Allergies Allergy/AdvReac Type Severity Reaction Status Date / Time ciprofloxacin Allergy Intermediate leg cramps Verified 03/23/21 12:54 - Social History Does the pt smoke?: No Smoking Status: Never smoker Does the pt drink ETOH?: Yes Does the pt have substance abuse?: No PD ED PE NORMAL - Vitals Vital signs reviewed: Yes - General General: Alert and oriented X 3, Well developed/nourished, Other (appears very uncomfortable with movement low back, even turning to side. Improved with lying still. ) - Cardiac Cardiac: RRR, No murmur - Respiratory Respiratory: Clear bilaterally - Abdomen Abdomen: Normal bowel sounds, Soft, Non tender, Non distended, No organomegaly - Back Back: No CVA TTP, No spinal TTP, Other (tender right lower lumbar muscles just over the SI crest. Not tender to light touch. No rash, redness, nor sores. ) - Derm Derm: Normal color, Warm and dry - Extremities Extremities: Normal ROM s pain, No edema, No calf tenderness / cord - Neuro Neuro: Alert and oriented X 3, No motor deficit, Normal speech, Other (mild decreased sensation to touch diffusely in feet but not lower legs, which he states is baseline neuropathy. ) Eye Opening: Spontaneous Motor: Obeys Commands Verbal: Oriented GCS Score: 15 - Psych Psych: Normal mood Results - Vitals Vitals: Vital Signs - 24 hr 03/23/21 12:51 Temperature 36.9 C Heart Rate 88 Respiratory 16 Rate Blood Pressure 130/79 O2 Saturation 99 Oxygen O2 Source Room air - Labs Labs: Laboratory Tests 03/23/21 14:36 Urine Color YELLOW Urine Clarity CLEAR Urine pH 7.0 Ur Specific [place] 1.015 Urine Protein NEGATIVE Urine Glucose (UA) NEGATIVE Urine Ketones NEGATIVE Urine Occult Blood NEGATIVE Urine Nitrite NEGATIVE Urine Bilirubin NEGATIVE Urine Urobilinogen 0.2 (NORMAL) Ur Leukocyte Esterase NEGATIVE Ur Microscopic Review NOT INDICATED Urine Culture Comments NOT INDICATED - Rads (name of study) abd/pelvic CT Radiology: Prelim report reviewed (no acute fractures nor bony abnormality. Prior surgical changes noted lower lumbar. Aorta and vessels normal caliber. No other acute process. ), See rad report PD MEDICAL DECISION MAKING - ED course Complexity details: reviewed results, re-evaluated patient (improved with pain meds in ER and particularly with trigger point injection right lower lumbar muscle tender area, done with [place] 2% with Kenalog 40 mg, using 27 g needle, and no complications. ), considered differential (onset low back pain without injury. No abd pain nor tenderness but consider atypical diverticular pain to back, aortic process, compression fracture, bony lesions, etc. ), d/w patient Departure - Departure Disposition: Home, Self Care Clinical Impression: Acute lumbar back pain Qualifiers: Back pain laterality: right Sciatica presence: without sciatica Qualified Code(s): M54.50 - Low back pain, unspecified Condition: Stable Record reviewed to determine appropriate education?: Yes Instructions: ED Low Back Pain Injury Follow-Up: Royal Wall MD [Primary Care Provider] - Prescriptions: Ibuprofen [Motrin] 600 mg PO BID PRN #15 tab PRN Reason: Pain HYDROcod/ACETAM 5/325 [[place] 5/325] 1 ea PO Q6H PRN #15 tablet PRN Reason: Pain Comments: CT scan does not show any acute abnormalities. No signs of compression fractures, displacement of your surgical hardware, kidney stones, aneurysms or other organ problems. No signs of urinary infection. You are tender in the lower muscle area of the back and I presume your pain is from a muscle strain or spasm. Heat and stretching for the area. Tylenol if needed for mild pains. Consider anti-inflammatory of ibuprofen twice daily with food for the next several days to week. To that add hydrocodone if needed for worse pain. I would not anticipate needing much stronger pain medicine beyond a couple of days or so. Return if persistent pain or worsening pain or other symptoms develop as well such as rash fever etc. Follow-up with your primary care as an alternative as well. I transmitted your prescriptions to [facility] in [place]. I am prescribing a short course of narcotic pain medication for you. These are potentially dangerous and addictive medications that should be used carefully. These medications may constipate you. Take an [id number] stool softener such as docusate twice daily with plenty of water while taking these medications. If you go 24 hours without a bowel movement, take [id number] MiraLAX, per package instructions. Do not drink or drive while taking these medications. If you received narcotic or sedating medications while in the emergency department do not drive for 24 hours. Store this medication in a safe, secure place and out of reach of children. It is a violation of federal law to give or sell this medication to another person or to use in a manner other than prescribed. The ED will not refill narcotic prescriptions, including prescriptions lost or stolen. You can dispose of unwanted medications at the [facility] office or at several pharmacies such as [facility]. Discharge Date/Time: 03/23/21 15:05
[2021-03-23] MEDS ORDERED: TRIAMCINOLONE 40 MG/ML VIAL IM STA (13:19)
[2021-03-23] MEDS ORDERED: HYDROcod/ACETAM 5/325 MG TABLET PO STA (13:19)
[2021-03-23] MEDS ORDERED: KETOROLAC 30 MG/ML VIAL IM STA (13:19)
--- NOTE | 2021-03-23 14:31 | CT Report ---
PROCEDURE: CT abdomen and pelvis without contrast INDICATIONS: right low back pain, onset without injury TECHNIQUE: Noncontrast 5 mm thick sections acquired from the diaphragms to the symphysis. 5 mm coronal and sagi ttal reformats were then performed. For radiation dose reduction, the following was used: automated exposure control, adjustment of mA and/or kV according to patient size. COMPARISON: 04/21/2020 FINDINGS: Image quality: Excellent. ABDOMEN: Lung bases: Moderate hiatal hernia noted. Dense coronary calcification. Heart size normal. Lung bases are clear. Solid organs: Liver and spleen are normal in size. Gallbladder unremarkable. Pancreas is normal in contours. No adrenal nodules. Kidneys are normal in size, without hydronephrosis or nephrolithiasi s. Peritoneum and bowel: Unenhanced bowel loops demonstrate normal wall thickness and caliber. No free fluid or air. Multiple diverticula arise from the sigmoid and descending colon without evidence of diverticulitis. No bowel obstruction. Normal appendix identified. Nodes and vessels: No retroperitoneal or mesenteric adenopathy by size criteria. Aorta and inferior vena cava are normal in caliber. Atherosclerotic vascular calcification noted involving the abdomin al aorta Miscellaneous: No ventral hernias. PELVIS: Genitourinary: Bladder wall thickness is normal. Miscellaneous: Large bilateral inguinal hernias or greater in the right and containing fat without parul wel involvement. Bones: No suspicious bony lesions. No vertebral body compression fractures. . 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 IMPRESSION: 1. No acute CT findings in the abdomen and pelvis. 2. L5-S1 discectomy and fusion with instrumentation, stable from prior 3. Chronic findings include hiatal hernia, atherosclerotic calcification, diverticulosis without dive rticulitis, bilateral inguinal hernias without bowel involvement. Reviewed by: Dean Palomo MD on 03/23/2021 1:29 PM [facility] Approved by: Dean Palomo MD on 03/23/2021 1:29 PM [facility] Station ID: [id number]
[2021-03-23 14:45] LABS: BILIRUBIN,URINE NEGATIVE (NEGATIVE); GLUCOSE, URINE (UA) NEGATIVE (NEGATIVE); KETONES,URINE (UA) NEGATIVE (NEGATIVE); LEUKOCYTE ESTERASE, URINE NEGATIVE (NEGATIVE); NITRITE,URINE NEGATIVE (NEGATIVE); OCCULT BLOOD,URINE NEGATIVE (NEGATIVE); PROTEIN,URINE NEGATIVE (NEGATIVE); UROBILINOGEN,URINE 0.2 (NORMAL) E.U./dL (NORMAL)
[2021-03-23 14:49] LABS: CLARITY,URINE CLEAR (CLEAR)
== END 2021-03-23 15:05 | disposition home or self-care (01) ==
LOC: ED 12:43
DX: M54.50 Low back pain, unspecified (principal); I10 Essential (primary) hypertension; E03.9 Hypothyroidism, unspecified; G47.30 Sleep apnea, unspecified; K21.9 Gastro-esophageal reflux disease without esophagitis; Z79.82 Long term (current) use of aspirin
CPT/HCPCS: 20552; 74176; 81003; 96374; 99284; A9270; 81001; 87086

== ENCOUNTER 2021-04-02 13:41 | Outpatient (CLI) | payer MEDICARE, OTHER ==
[2021-04-02 18:13] LABS: BASOPHILS # (AUTO) 0.1 10^3/uL (0.0-0.1); BASOPHILS % (AUTO) 1.3 %; EOSINOPHILS # (AUTO) 0.1 10^3/uL (0.0-0.7); EOSINOPHILS % (AUTO) 0.9 %; HCT - HEMATOCRIT 44.6 % (42.0-52.0); HGB - HEMOGLOBIN 14.9 g/dL (14.0-18.0); LYMPHOCYTES # (AUTO) 2.3 10^3/uL (1.5-3.5); LYMPHOCYTES % (AUTO) 30.9 %; MEAN CORPUSCULAR HGB CONC 33.4 g/dL (32.0-36.0); MEAN CORPUSCULAR VOLUME 95.7 fL (80.0-94.0); MEAN PLATELET VOLUME 10.1 fL (7.4-11.4); MONOCYTES # (AUTO) 0.7 10^3/uL (0.0-1.0); MONOCYTES % (AUTO) 9.8 %; NEUTROPHILS # (AUTO) 4.2 10^3/uL (1.5-6.6); NEUTROPHILS % (AUTO) 56.6 %; PLT - PLATELET COUNT 206 10^3/uL (130-450); RED BLOOD COUNT 4.66 10^6/uL (4.70-6.10); RED CELL DISTRIBUTION WIDTH 12.7 % (12.0-15.0); WHITE BLOOD COUNT 7.5 x10^3/uL (4.8-10.8)
[2021-04-02 18:28] LABS: ALBUMIN 4.1 g/dL (3.2-5.5); ALBUMIN/GLOBULIN RATIO 1.4 (1.0-2.2); ALKALINE PHOSPHATASE 54 IU/L (42-121); ALT ALANINE AMINOTRANSFERASE 43 IU/L (10-60); AST ASPARTATE AMINOTRANSFERASE 29 IU/L (10-42); BILIRUBIN,TOTAL 0.6 mg/dL (0.2-1.0); BUN - BLOOD UREA NITROGEN 26 mg/dL (6-20); CALCIUM 9.4 mg/dL (8.5-10.3); CARBON DIOXIDE - CO2 31 mmol/L (21-32); CHLORIDE 96 mmol/L (101-111); CHOL/HDL RATIO 2.4 (<5.0); CHOLESTEROL 138 mg/dL; CREATININE 0.8 mg/dL (0.6-1.2); GFR - MDRD 91 (>89); GLUCOSE 106 mg/dL (70-100); HDL CHOLESTEROL 58 mg/dL; LDL CHOLESTEROL,CALCULATED 62 mg/dL; LDL/HDL RATIO 1.1 (<3.6); POTASSIUM 3.6 mmol/L (3.5-5.0); SODIUM 136 mmol/L (135-145); TRIGLYCERIDES 89 mg/dL; VLDL CHOLESTEROL 18 mg/dL
[2021-04-02 18:41] LABS: THYROID STIMULATING HORMONE 12.19 uIU/mL (0.34-5.60)
[2021-04-02 19:27] LABS: FREE T4 (FREE THYROXINE) 0.73 ng/dL (0.58-1.64)
== END 2021-04-02 13:42 | disposition home or self-care (01) ==
LOC: LAB.N 13:41
PROVIDERS: ATTEND Internal Medicine
DX: I10 Essential (primary) hypertension (principal); E78.5 Hyperlipidemia, unspecified; Z12.5 Encounter for screening for malignant neoplasm of prostate; C61 Malignant neoplasm of prostate; E03.9 Hypothyroidism, unspecified
CPT/HCPCS: 36415; 80053; 80061; 84439; 84443; 85025; G0103; 83721; 84153

== ENCOUNTER 2021-05-17 08:34 | Outpatient (CLI) | payer MEDICARE, OTHER ==
[2021-05-17 12:51] LABS: CALCIUM 9.1 mg/dL (8.5-10.3); CREATININE 0.9 mg/dL (0.6-1.2); POTASSIUM 3.4 mmol/L (3.5-5.0)
[2021-05-17 13:11] LABS: BILIRUBIN,URINE NEGATIVE (NEGATIVE); GLUCOSE, URINE (UA) NEGATIVE (NEGATIVE); KETONES,URINE (UA) NEGATIVE (NEGATIVE); LEUKOCYTE ESTERASE, URINE NEGATIVE (NEGATIVE); NITRITE,URINE NEGATIVE (NEGATIVE); OCCULT BLOOD,URINE NEGATIVE (NEGATIVE); PROTEIN,URINE TRACE mg/dL (NEGATIVE); THYROID STIMULATING HORMONE 2.57 uIU/mL (0.34-5.60); UROBILINOGEN,URINE 1 (NORMAL) E.U./dL (NORMAL)
[2021-05-17 13:36] LABS: CLARITY,URINE CLEAR (CLEAR); RBC,URINE 0-5 /HPF (0-5); WBC,URINE 0-3 /HPF (0-3)
[2021-05-17 13:37] LABS: BACTERIA,URINE None Seen /HPF (None Seen); SQUAMOUS EPITHELIAL CELL,UR FEW Squamous (<= Few)
== END 2021-05-17 08:35 | disposition home or self-care (01) ==
LOC: LAB.N 08:34
PROVIDERS: ATTEND Internal Medicine
DX: I10 Essential (primary) hypertension (principal); Z87.440 Personal history of urinary (tract) infections; C61 Malignant neoplasm of prostate; E03.9 Hypothyroidism, unspecified; R35.89 Other polyuria
CPT/HCPCS: 36415; 80048; 81001; 81599; 84153; 84270; 84402; 84403; 84443; 87086

== ENCOUNTER 2021-07-15 11:31 | Outpatient (CLI) | payer MEDICARE, OTHER ==
[2021-07-15 19:49] LABS: ALBUMIN 4.3 g/dL (3.2-5.5); ALBUMIN/GLOBULIN RATIO 1.7 (1.0-2.2); CALCIUM 9.1 mg/dL (8.5-10.3); POTASSIUM 3.9 mmol/L (3.5-5.0); TOTAL PROTEIN 6.8 g/dL (6.7-8.2)
[2021-07-15 19:55] LABS: THYROID STIMULATING HORMONE 0.73 uIU/mL (0.34-5.60)
== END 2021-07-15 11:32 | disposition home or self-care (01) ==
LOC: LAB.N 11:31
PROVIDERS: ATTEND Internal Medicine
DX: E87.6 Hypokalemia (principal); C61 Malignant neoplasm of prostate; E03.9 Hypothyroidism, unspecified
CPT/HCPCS: 36415; 80053; 84153; 84403; 84443

== ENCOUNTER 2021-08-13 10:38 | Outpatient (CLI) | payer MEDICARE, OTHER ==
[2021-08-13 18:59] LABS: BILIRUBIN,URINE NEGATIVE (NEGATIVE); GLUCOSE, URINE (UA) NEGATIVE (NEGATIVE); KETONES,URINE (UA) NEGATIVE (NEGATIVE); LEUKOCYTE ESTERASE, URINE NEGATIVE (NEGATIVE); NITRITE,URINE NEGATIVE (NEGATIVE); OCCULT BLOOD,URINE NEGATIVE (NEGATIVE); PROTEIN,URINE NEGATIVE (NEGATIVE); UROBILINOGEN,URINE 0.2 (NORMAL) E.U./dL (NORMAL)
[2021-08-13 19:05] LABS: CLARITY,URINE CLEAR (CLEAR)
== END 2021-08-13 10:39 | disposition home or self-care (01) ==
LOC: LAB.N 10:38
PROVIDERS: ATTEND Internal Medicine
DX: C61 Malignant neoplasm of prostate (principal)
CPT/HCPCS: 36415; 81001; 81003; 84153; 84403

== ENCOUNTER 2021-10-28 09:09 | Outpatient (CLI) | payer MEDICARE, OTHER | END 2021-10-28 09:10 | disposition EMS.NT | LOC: EMS 09:09 | DX: R51.9 Headache, unspecified (principal); R05.9 Cough, unspecified ==

== ENCOUNTER 2021-11-01 00:56 | Outpatient (CLI) | payer MEDICARE, OTHER | END 2021-11-01 00:57 | disposition short-term general hospital (02) | LOC: EMS 00:56 | DX: R31.9 Hematuria, unspecified (principal); U07.1 COVID-19 | CPT/HCPCS: A0425; A0429; A0888 ==

== ENCOUNTER 2021-12-03 11:46 | Emergency (ER) | payer MEDICARE, OTHER ==
[2021-12-03 12:12] LABS: BASOPHILS # (AUTO) 0.1 10^3/uL (0.0-0.1); BASOPHILS % (AUTO) 0.9 %; EOSINOPHILS # (AUTO) 0.4 10^3/uL (0.0-0.7); EOSINOPHILS % (AUTO) 3.8 %; HCT - HEMATOCRIT 43.3 % (42.0-52.0); HGB - HEMOGLOBIN 14.8 g/dL (14.0-18.0); LYMPHOCYTES # (AUTO) 1.7 10^3/uL (1.5-3.5); LYMPHOCYTES % (AUTO) 18.1 %; MEAN CORPUSCULAR HEMOGLOBIN 32.2 pg (27.0-31.0); MEAN CORPUSCULAR HGB CONC 34.2 g/dL (32.0-36.0); MEAN CORPUSCULAR VOLUME 94.3 fL (80.0-94.0); MEAN PLATELET VOLUME 9.5 fL (7.4-11.4); MONOCYTES % (AUTO) 11.1 %; NEUTROPHILS # (AUTO) 6.1 10^3/uL (1.5-6.6); NEUTROPHILS % (AUTO) 65.7 %; PLT - PLATELET COUNT 189 10^3/uL (130-450); RED BLOOD COUNT 4.59 10^6/uL (4.70-6.10); RED CELL DISTRIBUTION WIDTH 12.9 % (12.0-15.0); WHITE BLOOD COUNT 9.2 x10^3/uL (4.8-10.8)
--- OUTSIDE RECORDS SUMMARY | 2021-12-03 12:20 | EXTERNAL MEDICAL SUMMARY RPT | Continuity of Care Document ---
:1930 Author Organization [place] Address [address] [place] [address] Phone Allergies and Intolerances date description facility type (no date) Mild [facility] (unknown) (no date) ciprofloxacin [facility] (unknown) (no date) gabapentin [facility] (unknown) Encounters No information. Functional Status No information. Immunizations No information. Medications date description facility +0000 Dextromethorphan Hydrobromide 10 MG / [facility] Guaifenesin 200 MG Oral Capsule [id number] Benzocaine 15 MG / [facility] 3[facility] Sore [facility]] [id number] Cephalexin 500 MG Oral Capsule [facility] Problems No information. Procedures date description facility [id number] General [facility] [id number] [facility] Results/Labs test date author facility value unit interpret ation Result panel 1 (unknown) (no (unknown) (unknown) (no value) (units (unk nown) date) unknown) (unknown) (no (unknown) (unknown) [facility] [address] [place] [address] (units (unknown) date) unknown) (unknown) (no (unknown) (unknown) [place], [place] (units ( unknown) date) [id number] unknown) (unknown) (no (unknown) (unknown) [facility] (units (unknown) date) unknown) (unknown) (no (unknown) (unknown) Signed (units (unkno wn) date) unknown) (unknown) (no (unknown) (unknown) XRay Report (units (un known) date) unknown) (unknown) (no (unknown) (unknown) (no value) (units (unk nown) date) unknown) (unknown) (no (unknown) (unknown) 10/31/21 (units (unkno wn) date) unknown) (unknown) (no (unknown) (unknown) Approved by: (units (u nknown) date) Evi Zuniga M.D. on unknown) 10/31/2021 at 14:50 (unknown) (no (unknown) (unknown) Bones and chest (units (unknown) date) wall: No unknown) suspicious bony abnormalities. Soft tissues appear (unknown) (no (unknown) (unknown) COMPARISON: (units (un known) date) [facility], unknown) CR, CHEST 2 VIEW, 06/25/2017, 14:04. [place] (unknown) (no (unknown) (unknown) Dictated by: (units (u nknown) date) Evi Zuniga M.D. on unknown) 10/31/2021 at 14:49 (unknown) (no (unknown) (unknown) FINDINGS: (units (unkn own) date) unknown) (unknown) (no (unknown) (unknown) IMPRESSION: No (units (unknown) date) acute unknown) cardiopulmonary disease. 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 (units (unknown) date) No pleural unknown) effusions or pneumothorax. (unknown) (no (unknown) (unknown) Mediastinum: (units (u nknown) date) Mediastinal unknown) contours are normal. Heart size is normal. (unknown) (no (unknown) (unknown) Surgical changes (units (unknown) date) and devices: unknown) None. (unknown) (no (unknown) (unknown) TECHNIQUE: 2 (units ( unknown) date) views of the chest unknown) were acquired. (unknown) (no (unknown) (unknown) XR CHEST 2V, (units (u nknown) date) 04/19/2019, 14:04. unknown) (unknown) (no (unknown) (unknown) unremarkable. (units ( unknown) date) unknown) (unknown) (no (unknown) (unknown) [id number] (units (unkno wn) date) unknown) (unknown) (no (unknown) (unknown) Accession Number: (units (unknown) date) [id number] unknown) (unknown) (no (unknown) (unknown) Age/Sex: 89 / M (units (unknown) date) Date of Service: unknown) (unknown) (no (unknown) (unknown) : 1930 (units (unknown) date) Acct:[id number] unknown) (unknown) (no (unknown) (unknown) Hospital, , (units ( unknown) date) unknown) (unknown) (no (unknown) (unknown) Loc: ED (units (unkno wn) date) unknown) (unknown) (no (unknown) (unknown) Ordering (units (unkno wn) date) Provider: unknown) Td Amador D.O. (unknown) (no (unknown) (unknown) PROCEDURE: XR (units (unknown) date) CHEST 2V unknown) (unknown) (no (unknown) (unknown) Patient: (units (unkno wn) date) Abe Rose unknown) MR#: [id number] (unknown) (no (unknown) (unknown) Procedure: XR (units ( unknown) date) chest 2V unknown) (unknown) (no (unknown) (unknown) atelectasis. (units (u nknown) date) unknown) Result panel 2 (unknown) (no date) (unknown) (unknown) 0.2 E.U./dL (unkn own) (unknown) (no date) (unknown) (unknown) 1+ (units (unkn own) unknown) (unknown) (no date) (unknown) (unknown) 1.025 (units (unkn own) unknown) (unknown) (no date) (unknown) (unknown) 6.0 (units (unkn own) unknown) (unknown) (no date) (unknown) (unknown) CLEAR (units (unkn own) unknown) (unknown) (no date) (unknown) (unknown) NEGATIVE (units (unkn own) unknown) (unknown) (no date) (unknown) (unknown) NEGATIVE g/dL (unkn own) (unknown) (no date) (unknown) (unknown) TRACE-LYSED (units (u nknown) unknown) (unknown) (no date) (unknown) (unknown) YELLOW (units (unkn own) unknown) Result panel 3 (unknown) (no date) (unknown) (unknown) 0-1 /HPF (units (unkn own) unknown) (unknown) (no date) (unknown) (unknown) 0.2 E.U./dL (unkn own) (unknown) (no date) (unknown) (unknown) 1+ (units (unkn own) unknown) (unknown) (no date) (unknown) (unknown) 1-5/HPF (units (unkn own) unknown) (unknown) (no date) (unknown) (unknown) 1-5/HPF (units (unkn own) unknown) (unknown) (no date) (unknown) (unknown) 1.025 (units (unkn own) unknown) (unknown) (no date) (unknown) (unknown) 6.0 (units (unkn own) unknown) (unknown) (no date) (unknown) (unknown) CLEAR (units (unkn own) unknown) (unknown) (no date) (unknown) (unknown) Moderate (units (unkn own) (10-30) unknown) (unknown) (no date) (unknown) (unknown) NEGATIVE (units (unkn own) unknown) (unknown) (no date) (unknown) (unknown) NEGATIVE g/dL (unkn own) (unknown) (no date) (unknown) (unknown) Specimen (units (unkn own) Cultured unknown) (unknown) (no date) (unknown) (unknown) TRACE-LYSED (units (u nknown) unknown) (unknown) (no date) (unknown) (unknown) YELLOW (units (unkn own) unknown) Result panel 4 (unknown) (no (unknown) (unknown) (no value) (units (unk nown) date) unknown) (unknown) (no (unknown) (unknown) Radiologist's (units ( unknown) date) Impression: unknown) (unknown) (no (unknown) (unknown) Date of Service: (units (unknown) date) 10/31/21 unknown) (unknown) (no (unknown) (unknown) (no value) (units (unk nown) date) unknown) (unknown) (no (unknown) (unknown) 100 mg PO BID (units ( unknown) date) unknown) (unknown) (no (unknown) (unknown) 112 mcg PO DAILY (units (unknown) date) Qty: 30 3RF unknown) (unknown) (no (unknown) (unknown) 2 spray NASAL BID (units (unknown) date) Qty: 30 2RF unknown) (unknown) (no (unknown) (unknown) 20 mg PO HS (units (un known) date) unknown) (unknown) (no (unknown) (unknown) 25 mg PO DAILY Qty: (unit s (unknown) date) 30 1RF unknown) (unknown) (no (unknown) (unknown) 25 mg PO QDAY Qty: (units (unknown) date) 90 0RF unknown) (unknown) (no (unknown) (unknown) 5 mg PO BID (units (un known) date) unknown) (unknown) (no (unknown) (unknown) A BALLOON (units (unkn own) date) unknown) (unknown) (no (unknown) (unknown) Administer one (units (unknown) date) spray into each unknown) nostril. (unknown) (no (unknown) (unknown) Allergies (units (unkn own) date) unknown) (unknown) (no (unknown) (unknown) ED Orders (units (unkn own) date) unknown) (unknown) (no (unknown) (unknown) Emergency Report (units (unknown) date) unknown) (unknown) (no (unknown) (unknown) HEAD' (units (unkno wn) date) unknown) (unknown) (no (unknown) (unknown) Home Medications (units (unknown) date) unknown) (unknown) (no (unknown) (unknown) [facility] (units (unknown) date) [address] [place] [address] unknown) [place] [address] (unknown) (no (unknown) (unknown) Lab Results (units (un known) date) unknown) (unknown) (no (unknown) (unknown) Previous Rx's (units ( unknown) date) unknown) (unknown) (no (unknown) (unknown) Rx Instructions: (units (unknown) date) unknown) (unknown) (no (unknown) (unknown) Vital Signs - 8 hr (units (unknown) date) unknown) (unknown) (no (unknown) (unknown) please repeat lab (units (unknown) date) work in 1 month of unknown) beginning this new dose. (unknown) (no (unknown) (unknown) (no value) (units (unk nown) date) unknown) (unknown) (no (unknown) (unknown) 10/31/21 (units (unkno wn) date) Range/Units unknown) (unknown) (no (unknown) (unknown) 14:20 (units (unkno wn) date) unknown) (unknown) (no (unknown) (unknown) atorvastatin (units (u nknown) date) [Lipitor] 20 mg unknown) tablet (unknown) (no (unknown) (unknown) chlorthalidone 25 (units (unknown) date) mg tablet unknown) (unknown) (no (unknown) (unknown) doxycycline hyclate (unit s (unknown) date) 100 mg capsule unknown) (unknown) (no (unknown) (unknown) ipratropium bromide (unit s (unknown) date) 0.03 % unknown) spray,non-aerosol (unknown) (no (unknown) (unknown) levothyroxine 112 (units (unknown) date) mcg tablet unknown) (unknown) (no (unknown) (unknown) lisinopril 5 mg (units (unknown) date) tablet unknown) (unknown) (no (unknown) (unknown) metoprolol (units (unk nown) date) succinate [Toprol unknown) XL] 25 MG tablet extended release 24 hr (unknown) (no (unknown) (unknown) 10/31/21 (units (unkno wn) date) unknown) (unknown) (no (unknown) (unknown) Medication (units (unk nown) date) Instructions unknown) Recorded (unknown) (no (unknown) (unknown) Medication (units (unk nown) date) Instructions unknown) Recorded Confirmed (unknown) (no (unknown) (unknown) %) nasal spray (units (unknown) date) unknown) (unknown) (no (unknown) (unknown) (Toprol XL) (units (un known) date) unknown) (unknown) (no (unknown) (unknown) 10/31/21 14:20 (units (unknown) date) unknown) (unknown) (no (unknown) (unknown) 10/31/21 14:26 (units (unknown) date) unknown) (unknown) (no (unknown) (unknown) 10/31/21 15:20 (units (unknown) date) unknown) (unknown) (no (unknown) (unknown) 11/18/2019 and grew (unit s (unknown) date) out Enterococcus unknown) faecalis from his urine culture. No other (unknown) (no (unknown) (unknown) 14:27 (units (unkno wn) date) unknown) (unknown) (no (unknown) (unknown) [id number] (units (unkno wn) date) unknown) (unknown) (no (unknown) (unknown) ? (units (unkno wn) date) unknown) (unknown) (no (unknown) (unknown) Age/Sex: 89 / M (units (unknown) date) unknown) (unknown) (no (unknown) (unknown) Allergy/AdvReac (units (unknown) date) Type Severity unknown) Reaction Status Date / Time (unknown) (no (unknown) (unknown) Approved by: Evi Seounits (unknown) date) Carmen Zuniga on unknown) 10/31/2021 at 14:50 ? (unknown) (no (unknown) (unknown) Blood Pressure (units (unknown) date) 123/87 10/31/21 unknown) 14:27 (unknown) (no (unknown) (unknown) Blood Pressure (units (unknown) date) 123/87 unknown) (unknown) (no (unknown) (unknown) Bones and chest (units (unknown) date) wall:? No suspicious unknown) bony abnormalities.? Soft tissues appear (unknown) (no (unknown) (unknown) CBC Auto Diff (units ( unknown) date) [Complete Blood unknown) Count AUTO DIFF] Stat (unknown) (no (unknown) (unknown) CMP [Comprehensive (units (unknown) date) Metabolic Panel] unknown) Stat (unknown) (no (unknown) (unknown) COMPARISON:? [place] (unit s (unknown) date) [facility] CR, CHEST unknown) 2 VIEW, 06/25/2017, 14:04.? [place] (unknown) (no (unknown) (unknown) Cardio: Regular (units (unknown) date) rate and rhythm, unknown) S1-S2 without additional sounds, and no (unknown) (no (unknown) (unknown) Cardio: denies (units (unknown) date) chest pain, unknown) palpitations (unknown) (no (unknown) (unknown) Chest x-ray: (units (u nknown) date) unknown) (unknown) (no (unknown) (unknown) Chief Complaint: (units (unknown) date) Upper Respiratory unknown) Symptoms (unknown) (no (unknown) (unknown) Course (units (unkno wn) date) unknown) (unknown) (no (unknown) (unknown) Covid-19 + FLU A/B (units (unknown) date) by PCR Stat unknown) (unknown) (no (unknown) (unknown) : 1930 (units (unknown) date) Acct:[id number] unknown) (unknown) (no (unknown) (unknown) Departure (units (unkn own) date) unknown) (unknown) (no (unknown) (unknown) Dictated by: Evi (units (unknown) date) Carmen Zuniga on unknown) 10/31/2021 at 14:49 ? ? (unknown) (no (unknown) (unknown) Discharge Plan (units (unknown) date) unknown) (unknown) (no (unknown) (unknown) ER Physician: (units ( unknown) date) Crew,Pretty JEAN unknown) (unknown) (no (unknown) (unknown) Exam (units (unkno wn) date) unknown) (unknown) (no (unknown) (unknown) Exam Narrative: (units (unknown) date) unknown) (unknown) (no (unknown) (unknown) Eyes: EOMI, (units (u nknown) date) conjunctiva normal unknown) (unknown) (no (unknown) (unknown) Eyes: denies visual (unit s (unknown) date) changes, eye pain unknown) (unknown) (no (unknown) (unknown) FINDINGS:? (units (unk nown) date) unknown) (unknown) (no (unknown) (unknown) GI: Abdomen soft, (units (unknown) date) nontender to unknown) palpation x4 quadrants, no guarding or rebound (unknown) (no (unknown) (unknown) GI: denies (units (unk nown) date) abdominal pain, unknown) nausea, vomiting, or diarrhea (unknown) (no (unknown) (unknown) : denies dysuria, (unit s (unknown) date) hematuria or flank unknown) pain (unknown) (no (unknown) (unknown) General (units (unkno wn) date) unknown) (unknown) (no (unknown) (unknown) General: Awake, (units (unknown) date) alert, nontoxic, no unknown) cardiorespiratory distress (unknown) (no (unknown) (unknown) General: denies (units (unknown) date) fever, chills unknown) (unknown) (no (unknown) (unknown) HPI - URI/Sore (units (unknown) date) Throat unknown) (unknown) (no (unknown) (unknown) HPI Narrative: (units (unknown) date) unknown) (unknown) (no (unknown) (unknown) Head/Neck: (units (unk nown) date) Atraumatic, neck unknown) supple (unknown) (no (unknown) (unknown) Head/Neck: denies (units (unknown) date) headache, neck pain, unknown) endorses congestion, postnasal drip (unknown) (no (unknown) (unknown) History of Present (units (unknown) date) Illness unknown) (unknown) (no (unknown) (unknown) History of spinal (units (unknown) date) fusion unknown) (unknown) (no (unknown) (unknown) Hospital, CR, (units ( unknown) date) unknown) (unknown) (no (unknown) (unknown) Hypertension (units (u nknown) date) unknown) (unknown) (no (unknown) (unknown) IMPRESSION:? No (units (unknown) date) acute unknown) cardiopulmonary disease. (unknown) (no (unknown) (unknown) INDICATIONS:? cough (unit s (unknown) date) unknown) (unknown) (no (unknown) (unknown) Imaging Data (units (u nknown) date) unknown) (unknown) (no (unknown) (unknown) Independently (units ( unknown) date) reviewed vitals unknown) signs and nursing notes. (unknown) (no (unknown) (unknown) Initial Vital Signs (unit s (unknown) date) unknown) (unknown) (no (unknown) (unknown) Initial Vital (units ( unknown) date) Signs: unknown) (unknown) (no (unknown) (unknown) Lab Data (units (unkno wn) date) unknown) (unknown) (no (unknown) (unknown) Labs: (units (unkno wn) date) unknown) (unknown) (no (unknown) (unknown) Lactate (Lactic (units (unknown) date) Acid) Stat unknown) (unknown) (no (unknown) (unknown) Lipase Stat (units (un known) date) unknown) (unknown) (no (unknown) (unknown) Lungs and pleura:? 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 (units (unknown) date) No pleural effusions unknown) or pneumothorax.? (unknown) (no (unknown) (unknown) MDM - URI/Sore (units (unknown) date) Throat unknown) (unknown) (no (unknown) (unknown) MSK: Moves all (units (unknown) date) extremities, unknown) neurovascularly intact, range of motion without (unknown) (no (unknown) (unknown) MSK: denies new (units (unknown) date) joint pain, muscle unknown) weakness or swelling (unknown) (no (unknown) (unknown) Magnesium Stat (units (unknown) date) unknown) (unknown) (no (unknown) (unknown) Mediastinum:? (units ( unknown) date) Mediastinal contours unknown) are normal.? Heart size is normal.? (unknown) (no (unknown) (unknown) Medical History (units (unknown) date) (Reviewed 10/31/21 @ unknown) 15:29 [facility] (unknown) (no (unknown) (unknown) Mode of arrival: (units (unknown) date) Ambulatory unknown) (unknown) (no (unknown) (unknown) Mouth/Throat: moist (unit s (unknown) date) mucus membranes, unknown) posterior pharynx without erythema or (unknown) (no (unknown) (unknown) Narrative (units (unkn own) date) unknown) (unknown) (no (unknown) (unknown) Narrative: (units (unk nown) date) unknown) (unknown) (no (unknown) (unknown) Neuro: Normal (units (unknown) date) speech and unknown) cognition, normal gait (unknown) (no (unknown) (unknown) Neuro: denies (units ( unknown) date) numbness, tingling, unknown) dizziness (unknown) (no (unknown) (unknown) No Action (units (unkn own) date) unknown) (unknown) (no (unknown) (unknown) Nose: nares patent, (unit s (unknown) date) no rhinorrhea unknown) (unknown) (no (unknown) (unknown) Ordered: (units (unkno wn) date) unknown) (unknown) (no (unknown) (unknown) Orders (units (unkno wn) date) unknown) (unknown) (no (unknown) (unknown) Oxygen Delivery (units (unknown) date) Method 10/31/21 unknown) 14:27 (unknown) (no (unknown) (unknown) Oxygen Delivery (units (unknown) date) Method Room Air unknown) (unknown) (no (unknown) (unknown) PROCEDURE:? XR (units (unknown) date) CHEST 2V unknown) (unknown) (no (unknown) (unknown) Patient History (units (unknown) date) unknown) (unknown) (no (unknown) (unknown) Patient: (units (unkno wn) date) Abe Rose unknown) MR#: [id number] (unknown) (no (unknown) (unknown) Gabriel Kirby, DO (units (unknown) date) [Primary Care unknown) Provider] - (unknown) (no (unknown) (unknown) Prescriptions: (units (unknown) date) unknown) (unknown) (no (unknown) (unknown) Pulse Oximetry 98 (units (unknown) date) 10/31/21 14:27 unknown) (unknown) (no (unknown) (unknown) Pulse Oximetry 98 (units (unknown) date) unknown) (unknown) (no (unknown) (unknown) Pulse Rate 71 (units (unknown) date) 10/31/21 14:27 unknown) (unknown) (no (unknown) (unknown) Pulse Rate 71 (units ( unknown) date) unknown) (unknown) (no (unknown) (unknown) Pyelonephritis (units (unknown) date) unknown) (unknown) (no (unknown) (unknown) Referrals: (units (unk nown) date) unknown) (unknown) (no (unknown) (unknown) Related Data (units (u nknown) date) unknown) (unknown) (no (unknown) (unknown) Respiratory Rate (units (unknown) date) 16 10/31/21 14:27 unknown) (unknown) (no (unknown) (unknown) Respiratory Rate 16 (unit s (unknown) date) unknown) (unknown) (no (unknown) (unknown) Respiratory: denies (unit s (unknown) date) shortness of breath, unknown) endorses having a productive cough (unknown) (no (unknown) (unknown) Respiratory: (units (u nknown) date) respirations unknown) unlabored without wheezing, stridor, or rales. No (unknown) (no (unknown) (unknown) Review of Systems (units (unknown) date) unknown) (unknown) (no (unknown) (unknown) Signed By: (units (unk nown) date) unknown) (unknown) (no (unknown) (unknown) Skin: Normal (units ( unknown) date) capillary refill, no unknown) rash (unknown) (no (unknown) (unknown) Skin: denies rash, (units (unknown) date) itching or wound unknown) (unknown) (no (unknown) (unknown) Smoking Status: (units (unknown) date) Former smoker unknown) (unknown) (no (unknown) (unknown) Smoking Status: (units (unknown) date) Former smoker unknown) (unknown) (no (unknown) (unknown) Social History (units (unknown) date) (Reviewed 10/31/21 @ unknown) 15:29 by Pretty Sanchez [facility]) (unknown) (no (unknown) (unknown) Source: patient and (unit s (unknown) date) family unknown) (unknown) (no (unknown) (unknown) Stated Complaint: (units (unknown) date) Fever, congestion, unknown) bladder infection (unknown) (no (unknown) (unknown) Substance Use Type: (unit s (unknown) date) does not use unknown) (unknown) (no (unknown) (unknown) Surgical History (units (unknown) date) (Reviewed 10/31/21 @ unknown) 15:29 by Pretty Sanchez [facility]) (unknown) (no (unknown) (unknown) Surgical changes (units (unknown) date) and devices:? None.? unknown) (unknown) (no (unknown) (unknown) TECHNIQUE:? 2 views (unit s (unknown) date) of the chest were unknown) acquired.? (unknown) (no (unknown) (unknown) Temperature 98 F (units (unknown) date) 10/31/21 14:27 unknown) (unknown) (no (unknown) (unknown) Temperature 98 F (units (unknown) date) unknown) (unknown) (no (unknown) (unknown) This is an (units (unk nown) date) 89-year-old male who unknown) presents to the emergency department stating (unknown) (no (unknown) (unknown) Time Seen by (units (u nknown) date) Provider: 10/31/21 unknown) 15:11 (unknown) (no (unknown) (unknown) Ur Culture (units (unk nown) date) Indicated? Specimen unknown) cultured (unknown) (no (unknown) (unknown) Ur Leukocyte (units (u nknown) date) Esterase Negative unknown) (NEGATIVE) (unknown) (no (unknown) (unknown) Ur Specific [place] (unit s (unknown) date) 1.025 unknown) (1.000-1.035) (unknown) (no (unknown) (unknown) Ur Squamous Epith (units (unknown) date) Cells 0-1 /hpf unknown) (0-5/HPF) (unknown) (no (unknown) (unknown) Urinalysis and (units (unknown) date) Microscopic Stat unknown) (unknown) (no (unknown) (unknown) Urine Appearance (units (unknown) date) Clear unknown) (unknown) (no (unknown) (unknown) Urine Bacteria (units (unknown) date) Moderate (10-30) H unknown) (None) (unknown) (no (unknown) (unknown) Urine Bilirubin (units (unknown) date) Negative (NEGATIVE) unknown) (unknown) (no (unknown) (unknown) Urine Color Yellow (unit s (unknown) date) unknown) (unknown) (no (unknown) (unknown) Urine Culture Stat (units (unknown) date) unknown) (unknown) (no (unknown) (unknown) Urine Glucose (UA) (units (unknown) date) Negative (Negative) unknown) g/dL (unknown) (no (unknown) (unknown) Urine Ketones (units ( unknown) date) Negative (NEGATIVE) unknown) (unknown) (no (unknown) (unknown) Urine Nitrate (units ( unknown) date) Negative (Negative) unknown) (unknown) (no (unknown) (unknown) Urine Occult Blood (units (unknown) date) Trace-lysed unknown) (Negative) (unknown) (no (unknown) (unknown) Urine Protein 1+ H (unit s (unknown) date) (Negative) unknown) (unknown) (no (unknown) (unknown) Urine RBC 1-5/hpf (units (unknown) date) D (0-5/HPF) unknown) (unknown) (no (unknown) (unknown) Urine Urobilinogen (units (unknown) date) 0.2 (0.2) E.U./dL unknown) (unknown) (no (unknown) (unknown) Urine WBC 1-5/hpf (units (unknown) date) (0-5/HPF) unknown) (unknown) (no (unknown) (unknown) Urine pH 6.0 (units ( unknown) date) (4.5-8.0) unknown) (unknown) (no (unknown) (unknown) Vital Signs (units (un known) date) unknown) (unknown) (no (unknown) (unknown) Vital signs: (units (u nknown) date) unknown) (unknown) (no (unknown) (unknown) XR CHEST 2V, (units (u nknown) date) 04/19/2019, 14:04. unknown) (unknown) (no (unknown) (unknown) XR chest 2V Stat (units (unknown) date) unknown) (unknown) (no (unknown) (unknown) a thoracic aortic (units (unknown) date) aneurysm. He is not unknown) on any anticoagulants. (unknown) (no (unknown) (unknown) alcohol intake (units (unknown) date) frequency: 0-2 unknown) drinks per day (unknown) (no (unknown) (unknown) atelectasis.? (units ( unknown) date) unknown) (unknown) (no (unknown) (unknown) atorvastatin 20 mg (units (unknown) date) tablet (Lipitor) 20 unknown) mg PO HS 06/23/18 03/19/20 (unknown) (no (unknown) (unknown) bladder infection. (units (unknown) date) Patient states that unknown) he had a fever two days ago of 101, (unknown) (no (unknown) (unknown) chlorthalidone 25 (units (unknown) date) mg tablet 25 mg PO unknown) DAILY #30 tabs 08/20/18 (unknown) (no (unknown) (unknown) ciprofloxacin (units ( unknown) date) Allergy Unknown unknown) Verified 10/31/21 14:29 (unknown) (no (unknown) (unknown) congestion, a (units ( unknown) date) productive cough, unknown) urinary urgency, frequency, and concern for a (unknown) (no (unknown) (unknown) deficit (units (unkno wn) date) unknown) (unknown) (no (unknown) (unknown) denies any known (units (unknown) date) COVID exposure, unknown) denies sore throat, flank pain, abdominal pain, (unknown) (no (unknown) (unknown) denies any nausea (units (unknown) date) or vomiting, denies unknown) chills, denies shortness of breath or (unknown) (no (unknown) (unknown) difficulty (units (unk nown) date) breathing. States unknown) that he has had postnasal drip, productive cough, (unknown) (no (unknown) (unknown) doxycycline hyclate (unit s (unknown) date) 100 mg capsule 100 unknown) mg PO BID 03/19/20 03/19/20 (unknown) (no (unknown) (unknown) endorses a history (units (unknown) date) of hypothyroidism, unknown) BPH, hyperlipidemia, and hypertension with (unknown) (no (unknown) (unknown) especially in the (units (unknown) date) mornings and in the unknown) evenings. Denies any sinus tenderness, (unknown) (no (unknown) (unknown) gabapentin AdvReac (units (unknown) date) Mild 'FELT LIKE unknown) Verified 10/31/21 14:29 (unknown) (no (unknown) (unknown) ipratropium bromide (unit s (unknown) date) 21 mcg (0.03 2 spray unknown) intranasal BID #30 mL 07/19/19 (unknown) (no (unknown) (unknown) lesion (units (unkno wn) date) unknown) (unknown) (no (unknown) (unknown) levothyroxine 112 (units (unknown) date) mcg tablet 112 mcg unknown) PO DAILY #30 tabs 04/08/20 (unknown) (no (unknown) (unknown) lisinopril 5 mg (units (unknown) date) tablet 5 mg PO BID unknown) 03/19/20 03/19/20 (unknown) (no (unknown) (unknown) metoprolol (units (unk nown) date) succinate 25 mg 25 unknown) mg PO QDAY ##90 05/15/17 (unknown) (no (unknown) (unknown) or other symptom. (units (unknown) date) On chart review it unknown) appears that patient had pyelonephritis on (unknown) (no (unknown) (unknown) peripheral edema (units (unknown) date) unknown) (unknown) (no (unknown) (unknown) retractions, (units (u nknown) date) hypoxia or tachypnea unknown) (unknown) (no (unknown) (unknown) tablet,extended (units (unknown) date) release 24 hr unknown) (unknown) (no (unknown) (unknown) tenderness (units (unk nown) date) unknown) (unknown) (no (unknown) (unknown) that he has felt (units (unknown) date) poorly for the last unknown) few days, states that he has had increased (unknown) (no (unknown) (unknown) unremarkable.? (units (unknown) date) unknown) (unknown) (no (unknown) (unknown) urinary retention, (units (unknown) date) states that he has a unknown) problem with urinary frequency. He (unknown) (no (unknown) (unknown) urine cultures were (unit s (unknown) date) available for unknown) review. Patient denies any difficulty with Result panel 5 (unknown) (no date) (unknown) (unknown) Flu A (units (unkn own) NEGATIVE unknown) (unknown) (no date) (unknown) (unknown) Flu B (units (unkn own) NEGATIVE unknown) (unknown) (no date) (unknown) (unknown) POSITIVE (units (unkn own) unknown) Result panel 6 (unknown) (no (unknown) (unknown) (no value) (units (unk nown) date) unknown) (unknown) (no (unknown) (unknown) Radiologist's (units ( unknown) date) Impression: unknown) (unknown) (no (unknown) (unknown) Date of Service: (units (unknown) date) 10/31/21 unknown) (unknown) (no (unknown) (unknown) (no value) (units (unk nown) date) unknown) (unknown) (no (unknown) (unknown) 100 mg PO BID (units ( unknown) date) unknown) (unknown) (no (unknown) (unknown) 112 mcg PO DAILY (units (unknown) date) Qty: 30 3RF unknown) (unknown) (no (unknown) (unknown) 2 spray NASAL BID (units (unknown) date) Qty: 30 2RF unknown) (unknown) (no (unknown) (unknown) 20 mg PO HS (units (un known) date) unknown) (unknown) (no (unknown) (unknown) 25 mg PO DAILY Qty: (unit s (unknown) date) 30 1RF unknown) (unknown) (no (unknown) (unknown) 25 mg PO QDAY Qty: (units (unknown) date) 90 0RF unknown) (unknown) (no (unknown) (unknown) 5 mg PO BID (units (un known) date) unknown) (unknown) (no (unknown) (unknown) A BALLOON (units (unkn own) date) unknown) (unknown) (no (unknown) (unknown) Administer one (units (unknown) date) spray into each unknown) nostril. (unknown) (no (unknown) (unknown) Allergies (units (unkn own) date) unknown) (unknown) (no (unknown) (unknown) ED Orders (units (unkn own) date) unknown) (unknown) (no (unknown) (unknown) Emergency Report (units (unknown) date) unknown) (unknown) (no (unknown) (unknown) HEAD' (units (unkno wn) date) unknown) (unknown) (no (unknown) (unknown) Home Medications (units (unknown) date) unknown) (unknown) (no (unknown) (unknown) [facility] (units (unknown) date) [address] [place] [address] Street unknown) [place] [address] (unknown) (no (unknown) (unknown) Lab Results (units (un known) date) unknown) (unknown) (no (unknown) (unknown) Previous Rx's (units ( unknown) date) unknown) (unknown) (no (unknown) (unknown) Rx Instructions: (units (unknown) date) unknown) (unknown) (no (unknown) (unknown) Vital Signs - 8 hr (units (unknown) date) unknown) (unknown) (no (unknown) (unknown) please repeat lab (units (unknown) date) work in 1 month of unknown) beginning this new dose. (unknown) (no (unknown) (unknown) (no value) (units (unk nown) date) unknown) (unknown) (no (unknown) (unknown) 10/31/21 (units (unkno wn) date) Range/Units unknown) (unknown) (no (unknown) (unknown) 14:20 (units (unkno wn) date) unknown) (unknown) (no (unknown) (unknown) atorvastatin (units (u nknown) date) [Lipitor] 20 mg unknown) tablet (unknown) (no (unknown) (unknown) chlorthalidone 25 (units (unknown) date) mg tablet unknown) (unknown) (no (unknown) (unknown) doxycycline hyclate (unit s (unknown) date) 100 mg capsule unknown) (unknown) (no (unknown) (unknown) ipratropium bromide (unit s (unknown) date) 0.03 % unknown) spray,non-aerosol (unknown) (no (unknown) (unknown) levothyroxine 112 (units (unknown) date) mcg tablet unknown) (unknown) (no (unknown) (unknown) lisinopril 5 mg (units (unknown) date) tablet unknown) (unknown) (no (unknown) (unknown) metoprolol (units (unk nown) date) succinate [Toprol unknown) XL] 25 MG tablet extended release 24 hr (unknown) (no (unknown) (unknown) 10/31/21 (units (unkno wn) date) unknown) (unknown) (no (unknown) (unknown) COVID-19, Acute UTI (unit s (unknown) date) unknown) (unknown) (no (unknown) (unknown) Medication (units (unk nown) date) Instructions unknown) Recorded (unknown) (no (unknown) (unknown) Medication (units (unk nown) date) Instructions unknown) Recorded Confirmed (unknown) (no (unknown) (unknown) %) nasal spray (units (unknown) date) unknown) (unknown) (no (unknown) (unknown) (Toprol XL) (units (un known) date) unknown) (unknown) (no (unknown) (unknown) 0 /uL (unkno wn) date) (unknown) (no (unknown) (unknown) 0 /uL (unkno wn) date) (unknown) (no (unknown) (unknown) 0.2 % (unkno wn) date) (unknown) (no (unknown) (unknown) 0.8 % (unkno wn) date) (unknown) (no (unknown) (unknown) 10/31/21 14:20 (units (unknown) date) unknown) (unknown) (no (unknown) (unknown) 10/31/21 14:26 (units (unknown) date) unknown) (unknown) (no (unknown) (unknown) 10/31/21 15:20 (units (unknown) date) unknown) (unknown) (no (unknown) (unknown) 11/18/2019 and grew (unit s (unknown) date) out Enterococcus unknown) faecalis from his urine culture. No other (unknown) (no (unknown) (unknown) 13.5 % (unkno wn) date) (unknown) (no (unknown) (unknown) 131 X10 3/uL (unkno wn) date) (unknown) (no (unknown) (unknown) 14.7 g/dL (unkno wn) date) (unknown) (no (unknown) (unknown) 1400 /uL (unkno wn) date) (unknown) (no (unknown) (unknown) 14:27 (units (unkno wn) date) unknown) (unknown) (no (unknown) (unknown) 15.8 % (unkno wn) date) (unknown) (no (unknown) (unknown) 1500 /uL (unkno wn) date) (unknown) (no (unknown) (unknown) [id number] (units (unkno wn) date) unknown) (unknown) (no (unknown) (unknown) 3.5 X10 3/uL (unkno wn) date) (unknown) (no (unknown) (unknown) 31.8 PG (unkno wn) date) (unknown) (no (unknown) (unknown) 34.4 % (unkno wn) date) (unknown) (no (unknown) (unknown) 4.63 X10 6/uL (unkno wn) date) (unknown) (no (unknown) (unknown) 40.1 % (unkno wn) date) (unknown) (no (unknown) (unknown) 42.8 % (unkno wn) date) (unknown) (no (unknown) (unknown) 43.1 % (unkno wn) date) (unknown) (no (unknown) (unknown) 600 /uL (unkno wn) date) (unknown) (no (unknown) (unknown) 92.4 fL (unkno wn) date) (unknown) (no (unknown) (unknown) ? (units (unkno wn) date) unknown) (unknown) (no (unknown) (unknown) Age/Sex: 89 / M (units (unknown) date) unknown) (unknown) (no (unknown) (unknown) Allergy/AdvReac (units (unknown) date) Type Severity unknown) Reaction Status Date / Time (unknown) (no (unknown) (unknown) Approved by: Evi (units (unknown) date) Carmen Zuniga on unknown) 10/31/2021 at 14:50 ? (unknown) (no (unknown) (unknown) Blood Pressure (units (unknown) date) 123/87 10/31/21 unknown) 14:27 (unknown) (no (unknown) (unknown) Blood Pressure (units (unknown) date) 123/87 unknown) (unknown) (no (unknown) (unknown) Bones and chest (units (unknown) date) wall:? No suspicious unknown) bony abnormalities.? Soft tissues appear (unknown) (no (unknown) (unknown) CBC Auto Diff (units ( unknown) date) [Complete Blood unknown) Count AUTO DIFF] Stat (unknown) (no (unknown) (unknown) CMP [Comprehensive (units (unknown) date) Metabolic Panel] unknown) Stat (unknown) (no (unknown) (unknown) [facility], [facility], [facility]ST unknown) 2 VIEW, 06/25/2017, 14:04.? [facility] ([facility]) (no (unknown) (unknown) Cardio: Regular (units (unknown) date) rate and rhythm, unknown) S1-S2 without additional sounds, and no (unknown) (no (unknown) (unknown) Cardio: denies (units (unknown) date) chest pain, unknown) palpitations (unknown) (no (unknown) (unknown) Chest x-ray: (units (u nknown) date) unknown) (unknown) (no (unknown) (unknown) Chief Complaint: (units (unknown) date) Upper Respiratory unknown) Symptoms (unknown) (no (unknown) (unknown) Clinical (units (unkno wn) date) Impression: unknown) (unknown) (no (unknown) (unknown) Course (units (unkno wn) date) unknown) (unknown) (no (unknown) (unknown) Covid-19 + FLU A/B (units (unknown) date) by PCR Stat unknown) (unknown) (no (unknown) (unknown) : 1930 (units (unknown) date) Acct:[id number] unknown) (unknown) (no (unknown) (unknown) Departure (units (unkn own) date) unknown) (unknown) (no (unknown) (unknown) Dictated by: Evi (units (unknown) date) Carmen Zuniga on unknown) 10/31/2021 at 14:49 ? ? (unknown) (no (unknown) (unknown) Discharge Plan (units (unknown) date) unknown) (unknown) (no (unknown) (unknown) ER Physician: (units ( unknown) date) Pretty Sanchez unknown) (unknown) (no (unknown) (unknown) Exam (units (unkno wn) date) unknown) (unknown) (no (unknown) (unknown) Exam Narrative: (units (unknown) date) unknown) (unknown) (no (unknown) (unknown) Eyes: EOMI, (units (u nknown) date) conjunctiva normal unknown) (unknown) (no (unknown) (unknown) Eyes: denies visual (unit s (unknown) date) changes, eye pain unknown) (unknown) (no (unknown) (unknown) FINDINGS:? (units (unk nown) date) unknown) (unknown) (no (unknown) (unknown) GI: Abdomen soft, (units (unknown) date) nontender to unknown) palpation x4 quadrants, no guarding or rebound (unknown) (no (unknown) (unknown) GI: denies (units (unk nown) date) abdominal pain, unknown) nausea, vomiting, or diarrhea (unknown) (no (unknown) (unknown) : denies dysuria, (unit s (unknown) date) hematuria or flank unknown) pain (unknown) (no (unknown) (unknown) General (units (unkno wn) date) unknown) (unknown) (no (unknown) (unknown) General: Awake, (units (unknown) date) alert, nontoxic, no unknown) cardiorespiratory distress (unknown) (no (unknown) (unknown) General: denies (units (unknown) date) fever, chills unknown) (unknown) (no (unknown) (unknown) HPI - URI/Sore (units (unknown) date) Throat unknown) (unknown) (no (unknown) (unknown) HPI Narrative: (units (unknown) date) unknown) (unknown) (no (unknown) (unknown) Head/Neck: (units (unk nown) date) Atraumatic, neck unknown) supple (unknown) (no (unknown) (unknown) Head/Neck: denies (units (unknown) date) headache, neck pain, unknown) endorses congestion, postnasal drip (unknown) (no (unknown) (unknown) History of Present (units (unknown) date) Illness unknown) (unknown) (no (unknown) (unknown) History of spinal (units (unknown) date) fusion unknown) (unknown) (no (unknown) (unknown) Hospital, CR, (units ( unknown) date) unknown) (unknown) (no (unknown) (unknown) Hypertension (units (u nknown) date) unknown) (unknown) (no (unknown) (unknown) IMPRESSION:? No (units (unknown) date) acute unknown) cardiopulmonary disease. (unknown) (no (unknown) (unknown) INDICATIONS:? cough (unit s (unknown) date) unknown) (unknown) (no (unknown) (unknown) Imaging Data (units (u nknown) date) unknown) (unknown) (no (unknown) (unknown) Independently (units ( unknown) date) reviewed vitals unknown) signs and nursing notes. (unknown) (no (unknown) (unknown) Initial Vital Signs (unit s (unknown) date) unknown) (unknown) (no (unknown) (unknown) Initial Vital (units ( unknown) date) Signs: unknown) (unknown) (no (unknown) (unknown) Lab Data (units (unkno wn) date) unknown) (unknown) (no (unknown) (unknown) Labs: (units (unkno wn) date) unknown) (unknown) (no (unknown) (unknown) Lactate (Lactic (units (unknown) date) Acid) Stat unknown) (unknown) (no (unknown) (unknown) Lipase Stat (units (un known) date) unknown) (unknown) (no (unknown) (unknown) Lungs and pleura:? 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 (units (unknown) date) No pleural effusions unknown) or pneumothorax.? (unknown) (no (unknown) (unknown) MDM - URI/Sore (units (unknown) date) Throat unknown) (unknown) (no (unknown) (unknown) MSK: Moves all (units (unknown) date) extremities, unknown) neurovascularly intact, range of motion without (unknown) (no (unknown) (unknown) MSK: denies new (units (unknown) date) joint pain, muscle unknown) weakness or swelling (unknown) (no (unknown) (unknown) Magnesium Stat (units (unknown) date) unknown) (unknown) (no (unknown) (unknown) Mediastinum:? (units ( unknown) date) Mediastinal contours unknown) are normal.? Heart size is normal.? (unknown) (no (unknown) (unknown) Medical History (units (unknown) date) (Reviewed 10/31/21 @ unknown) 15:29 by Pretty Sanchez [facility]) (unknown) (no (unknown) (unknown) Mode of arrival: (units (unknown) date) Ambulatory unknown) (unknown) (no (unknown) (unknown) Mouth/Throat: moist (unit s (unknown) date) mucus membranes, unknown) posterior pharynx without erythema or (unknown) (no (unknown) (unknown) Narrative (units (unkn own) date) unknown) (unknown) (no (unknown) (unknown) Narrative: (units (unk nown) date) unknown) (unknown) (no (unknown) (unknown) Neuro: Normal (units (unknown) date) speech and unknown) cognition, normal gait (unknown) (no (unknown) (unknown) Neuro: denies (units ( unknown) date) numbness, tingling, unknown) dizziness (unknown) (no (unknown) (unknown) No Action (units (unkn own) date) unknown) (unknown) (no (unknown) (unknown) Nose: nares patent, (unit s (unknown) date) no rhinorrhea unknown) (unknown) (no (unknown) (unknown) Ordered: (units (unkno wn) date) unknown) (unknown) (no (unknown) (unknown) Orders (units (unkno wn) date) unknown) (unknown) (no (unknown) (unknown) Oxygen Delivery (units (unknown) date) Method 10/31/21 unknown) 14:27 (unknown) (no (unknown) (unknown) Oxygen Delivery (units (unknown) date) Method Room Air unknown) (unknown) (no (unknown) (unknown) PROCEDURE:? XR (units (unknown) date) CHEST 2V unknown) (unknown) (no (unknown) (unknown) Patient History (units (unknown) date) unknown) (unknown) (no (unknown) (unknown) Patient: (units (unkno wn) date) Abe Rose unknown) MR#: [id number] (unknown) (no (unknown) (unknown) Gabriel Kirby, (units (unknown) date) [Primary Care unknown) Provider] - (unknown) (no (unknown) (unknown) Prescriptions: (units (unknown) date) unknown) (unknown) (no (unknown) (unknown) Pulse Oximetry 98 (units (unknown) date) 10/31/21 14:27 unknown) (unknown) (no (unknown) (unknown) Pulse Oximetry 98 (units (unknown) date) unknown) (unknown) (no (unknown) (unknown) Pulse Rate 71 (units (unknown) date) 10/31/21 14:27 unknown) (unknown) (no (unknown) (unknown) Pulse Rate 71 (units ( unknown) date) unknown) (unknown) (no (unknown) (unknown) Pyelonephritis (units (unknown) date) unknown) (unknown) (no (unknown) (unknown) Referrals: (units (unk nown) date) unknown) (unknown) (no (unknown) (unknown) Related Data (units (u nknown) date) unknown) (unknown) (no (unknown) (unknown) Respiratory Rate (units (unknown) date) 16 10/31/21 14:27 unknown) (unknown) (no (unknown) (unknown) Respiratory Rate 16 (unit s (unknown) date) unknown) (unknown) (no (unknown) (unknown) Respiratory: denies (unit s (unknown) date) shortness of breath, unknown) endorses having a productive cough (unknown) (no (unknown) (unknown) Respiratory: (units (u nknown) date) respirations unknown) unlabored without wheezing, stridor, or rales. No (unknown) (no (unknown) (unknown) Review of Systems (units (unknown) date) unknown) (unknown) (no (unknown) (unknown) Signed By: (units (unk nown) date) unknown) (unknown) (no (unknown) (unknown) Skin: Normal (units ( unknown) date) capillary refill, no unknown) rash (unknown) (no (unknown) (unknown) Skin: denies rash, (units (unknown) date) itching or wound unknown) (unknown) (no (unknown) (unknown) Smoking Status: (units (unknown) date) Former smoker unknown) (unknown) (no (unknown) (unknown) Smoking Status: (units (unknown) date) Former smoker unknown) (unknown) (no (unknown) (unknown) Social History (units (unknown) date) (Reviewed 10/31/21 @ unknown) 15:29 by Pretty Sanchez [facility]) (unknown) (no (unknown) (unknown) Source: patient and (unit s (unknown) date) family unknown) (unknown) (no (unknown) (unknown) Stated Complaint: (units (unknown) date) Fever, congestion, unknown) bladder infection (unknown) (no (unknown) (unknown) Substance Use Type: (unit s (unknown) date) does not use unknown) (unknown) (no (unknown) (unknown) Surgical History (units (unknown) date) (Reviewed 10/31/21 @ unknown) 15:29 by Pretty Sanchez [facility]) (unknown) (no (unknown) (unknown) Surgical changes (units (unknown) date) and devices:? None.? unknown) (unknown) (no (unknown) (unknown) TECHNIQUE:? 2 views (unit s (unknown) date) of the chest were unknown) acquired.? (unknown) (no (unknown) (unknown) Temperature 98 F (units (unknown) date) 10/31/21 14:27 unknown) (unknown) (no (unknown) (unknown) Temperature 98 F (units (unknown) date) unknown) (unknown) (no (unknown) (unknown) This is an (units (unk nown) date) 89-year-old male who unknown) presents to the emergency department stating (unknown) (no (unknown) (unknown) Time Seen by (units (u nknown) date) Provider: 10/31/21 unknown) 15:11 (unknown) (no (unknown) (unknown) Ur Culture (units (unk nown) date) Indicated? Specimen unknown) cultured (unknown) (no (unknown) (unknown) Ur Leukocyte (units (u nknown) date) Esterase Negative unknown) (NEGATIVE) (unknown) (no (unknown) (unknown) Ur Specific [place] (unit s (unknown) date) 1.025 unknown) (1.000-1.035) (unknown) (no (unknown) (unknown) Ur Squamous Epith (units (unknown) date) Cells 0-1 /hpf unknown) (0-5/HPF) (unknown) (no (unknown) (unknown) Urinalysis and (units (unknown) date) Microscopic Stat unknown) (unknown) (no (unknown) (unknown) Urine Appearance (units (unknown) date) Clear unknown) (unknown) (no (unknown) (unknown) Urine Bacteria (units (unknown) date) Moderate (10-30) H unknown) (None) (unknown) (no (unknown) (unknown) Urine Bilirubin (units (unknown) date) Negative (NEGATIVE) unknown) (unknown) (no (unknown) (unknown) Urine Color Yellow (unit s (unknown) date) unknown) (unknown) (no (unknown) (unknown) Urine Culture Stat (units (unknown) date) unknown) (unknown) (no (unknown) (unknown) Urine Glucose (UA) (units (unknown) date) Negative (Negative) unknown) g/dL (unknown) (no (unknown) (unknown) Urine Ketones (units ( unknown) date) Negative (NEGATIVE) unknown) (unknown) (no (unknown) (unknown) Urine Nitrate (units ( unknown) date) Negative (Negative) unknown) (unknown) (no (unknown) (unknown) Urine Occult Blood (units (unknown) date) Trace-lysed unknown) (Negative) (unknown) (no (unknown) (unknown) Urine Protein 1+ H (unit s (unknown) date) (Negative) unknown) (unknown) (no (unknown) (unknown) Urine RBC 1-5/hpf (units (unknown) date) D (0-5/HPF) unknown) (unknown) (no (unknown) (unknown) Urine Urobilinogen (units (unknown) date) 0.2 (0.2) E.U./dL unknown) (unknown) (no (unknown) (unknown) Urine WBC 1-5/hpf (units (unknown) date) (0-5/HPF) unknown) (unknown) (no (unknown) (unknown) Urine pH 6.0 (units ( unknown) date) (4.5-8.0) unknown) (unknown) (no (unknown) (unknown) Vital Signs (units (un known) date) unknown) (unknown) (no (unknown) (unknown) Vital signs: (units (u nknown) date) unknown) (unknown) (no (unknown) (unknown) XR CHEST 2V, (units (u nknown) date) 04/19/2019, 14:04. unknown) (unknown) (no (unknown) (unknown) XR chest 2V Stat (units (unknown) date) unknown) (unknown) (no (unknown) (unknown) a thoracic aortic (units (unknown) date) aneurysm. He is not unknown) on any anticoagulants. (unknown) (no (unknown) (unknown) alcohol intake (units (unknown) date) frequency: 0-2 unknown) drinks per day (unknown) (no (unknown) (unknown) atelectasis.? (units ( unknown) date) unknown) (unknown) (no (unknown) (unknown) atorvastatin 20 mg (units (unknown) date) tablet (Lipitor) 20 unknown) mg PO HS 06/23/18 03/19/20 (unknown) (no (unknown) (unknown) bladder infection. (units (unknown) date) Patient states that unknown) he had a fever two days ago of 101, (unknown) (no (unknown) (unknown) chlorthalidone 25 (units (unknown) date) mg tablet 25 mg PO unknown) DAILY #30 tabs 08/20/18 (unknown) (no (unknown) (unknown) ciprofloxacin (units ( unknown) date) Allergy Unknown unknown) Verified 10/31/21 14:29 (unknown) (no (unknown) (unknown) congestion, a (units ( unknown) date) productive cough, unknown) urinary urgency, frequency, and concern for a (unknown) (no (unknown) (unknown) deficit (units (unkno wn) date) unknown) (unknown) (no (unknown) (unknown) denies any known (units (unknown) date) COVID exposure, unknown) denies sore throat, flank pain, abdominal pain, (unknown) (no (unknown) (unknown) denies any nausea (units (unknown) date) or vomiting, denies unknown) chills, denies shortness of breath or (unknown) (no (unknown) (unknown) difficulty (units (unk nown) date) breathing. States unknown) that he has had postnasal drip, productive cough, (unknown) (no (unknown) (unknown) doxycycline hyclate (unit s (unknown) date) 100 mg capsule 100 unknown) mg PO BID 03/19/20 03/19/20 (unknown) (no (unknown) (unknown) endorses a history (units (unknown) date) of hypothyroidism, unknown) BPH, hyperlipidemia, and hypertension with (unknown) (no (unknown) (unknown) especially in the (units (unknown) date) mornings and in the unknown) evenings. Denies any sinus tenderness, (unknown) (no (unknown) (unknown) gabapentin AdvReac (units (unknown) date) Mild 'FELT LIKE unknown) Verified 10/31/21 14:29 (unknown) (no (unknown) (unknown) ipratropium bromide (unit s (unknown) date) 21 mcg (0.03 2 spray unknown) intranasal BID #30 mL 07/19/19 (unknown) (no (unknown) (unknown) lesion (units (unkno wn) date) unknown) (unknown) (no (unknown) (unknown) levothyroxine 112 (units (unknown) date) mcg tablet 112 mcg unknown) PO DAILY #30 tabs 04/08/20 (unknown) (no (unknown) (unknown) lisinopril 5 mg (units (unknown) date) tablet 5 mg PO BID unknown) 03/19/20 03/19/20 (unknown) (no (unknown) (unknown) metoprolol (units (unk nown) date) succinate 25 mg 25 unknown) mg PO QDAY ##90 05/15/17 (unknown) (no (unknown) (unknown) or other symptom. (units (unknown) date) On chart review it unknown) appears that patient had pyelonephritis on (unknown) (no (unknown) (unknown) peripheral edema (units (unknown) date) unknown) (unknown) (no (unknown) (unknown) retractions, (units (u nknown) date) hypoxia or tachypnea unknown) (unknown) (no (unknown) (unknown) tablet,extended (units (unknown) date) release 24 hr unknown) (unknown) (no (unknown) (unknown) tenderness (units (unk nown) date) unknown) (unknown) (no (unknown) (unknown) that he has felt (units (unknown) date) poorly for the last unknown) few days, states that he has had increased (unknown) (no (unknown) (unknown) unremarkable.? (units (unknown) date) unknown) (unknown) (no (unknown) (unknown) urinary retention, (units (unknown) date) states that he has a unknown) problem with urinary frequency. He (unknown) (no (unknown) (unknown) urine cultures were (unit s (unknown) date) available for unknown) review. Patient denies any difficulty with Result panel 7 (unknown) (no (unknown) (unknown) (no value) (units (unk nown) date) unknown) (unknown) (no (unknown) (unknown) Radiologist's (units ( unknown) date) Impression: unknown) (unknown) (no (unknown) (unknown) Date of Service: (units (unknown) date) 10/31/21 unknown) (unknown) (no (unknown) (unknown) (no value) (units (unk nown) date) unknown) (unknown) (no (unknown) (unknown) 100 mg PO BID (units ( unknown) date) unknown) (unknown) (no (unknown) (unknown) 112 mcg PO DAILY (units (unknown) date) Qty: 30 3RF unknown) (unknown) (no (unknown) (unknown) 2 spray NASAL BID (units (unknown) date) Qty: 30 2RF unknown) (unknown) (no (unknown) (unknown) 20 mg PO HS (units (un known) date) unknown) (unknown) (no (unknown) (unknown) 25 mg PO DAILY Qty: (unit s (unknown) date) 30 1RF unknown) (unknown) (no (unknown) (unknown) 25 mg PO QDAY Qty: (units (unknown) date) 90 0RF unknown) (unknown) (no (unknown) (unknown) 5 mg PO BID (units (un known) date) unknown) (unknown) (no (unknown) (unknown) A BALLOON (units (unkn own) date) unknown) (unknown) (no (unknown) (unknown) Administer one (units (unknown) date) spray into each unknown) nostril. (unknown) (no (unknown) (unknown) Allergies (units (unkn own) date) unknown) (unknown) (no (unknown) (unknown) ED Orders (units (unkn own) date) unknown) (unknown) (no (unknown) (unknown) Emergency Report (units (unknown) date) unknown) (unknown) (no (unknown) (unknown) HEAD' (units (unkno wn) date) unknown) (unknown) (no (unknown) (unknown) Home Medications (units (unknown) date) unknown) (unknown) (no (unknown) (unknown) [facility] (units (unknown) date) [address] [place] [address] unknown) [place] [address] (unknown) (no (unknown) (unknown) Lab Results (units (un known) date) unknown) (unknown) (no (unknown) (unknown) Previous Rx's (units ( unknown) date) unknown) (unknown) (no (unknown) (unknown) Rx Instructions: (units (unknown) date) unknown) (unknown) (no (unknown) (unknown) Vital Signs - 8 hr (units (unknown) date) unknown) (unknown) (no (unknown) (unknown) please repeat lab (units (unknown) date) work in 1 month of unknown) beginning this new dose. (unknown) (no (unknown) (unknown) (no value) (units (unk nown) date) unknown) (unknown) (no (unknown) (unknown) 10/31/21 (units (unkno wn) date) Range/Units unknown) (unknown) (no (unknown) (unknown) 14:20 (units (unkno wn) date) unknown) (unknown) (no (unknown) (unknown) atorvastatin (units (u nknown) date) [Lipitor] 20 mg unknown) tablet (unknown) (no (unknown) (unknown) chlorthalidone 25 (units (unknown) date) mg tablet unknown) (unknown) (no (unknown) (unknown) doxycycline hyclate (unit s (unknown) date) 100 mg capsule unknown) (unknown) (no (unknown) (unknown) ipratropium bromide (unit s (unknown) date) 0.03 % unknown) spray,non-aerosol (unknown) (no (unknown) (unknown) levothyroxine 112 (units (unknown) date) mcg tablet unknown) (unknown) (no (unknown) (unknown) lisinopril 5 mg (units (unknown) date) tablet unknown) (unknown) (no (unknown) (unknown) metoprolol (units (unk nown) date) succinate [Toprol unknown) XL] 25 MG tablet extended release 24 hr (unknown) (no (unknown) (unknown) 10/31/21 (units (unkno wn) date) unknown) (unknown) (no (unknown) (unknown) COVID-19, Acute UTI (unit s (unknown) date) unknown) (unknown) (no (unknown) (unknown) Medication (units (unk nown) date) Instructions unknown) Recorded (unknown) (no (unknown) (unknown) Medication (units (unk nown) date) Instructions unknown) Recorded Confirmed (unknown) (no (unknown) (unknown) %) nasal spray (units (unknown) date) unknown) (unknown) (no (unknown) (unknown) (Toprol XL) (units (un known) date) unknown) (unknown) (no (unknown) (unknown) 10/31/21 14:20 (units (unknown) date) unknown) (unknown) (no (unknown) (unknown) 10/31/21 14:26 (units (unknown) date) unknown) (unknown) (no (unknown) (unknown) 10/31/21 15:20 (units (unknown) date) unknown) (unknown) (no (unknown) (unknown) 11/18/2019 and grew (unit s (unknown) date) out Enterococcus unknown) faecalis from his urine culture. No other (unknown) (no (unknown) (unknown) 14:27 (units (unkno wn) date) unknown) (unknown) (no (unknown) (unknown) [id number] (units (unkno wn) date) unknown) (unknown) (no (unknown) (unknown) ? (units (unkno wn) date) unknown) (unknown) (no (unknown) (unknown) Age/Sex: 89 / M (units (unknown) date) unknown) (unknown) (no (unknown) (unknown) Allergy/AdvReac (units (unknown) date) Type Severity unknown) Reaction Status Date / Time (unknown) (no (unknown) (unknown) Approved by: Evi (units (unknown) date) Carmen Zuniga on unknown) 10/31/2021 at 14:50 ? (unknown) (no (unknown) (unknown) Blood Pressure (units (unknown) date) 123/87 10/31/21 unknown) 14:27 (unknown) (no (unknown) (unknown) Blood Pressure (units (unknown) date) 123/87 unknown) (unknown) (no (unknown) (unknown) Bones and chest (units (unknown) date) wall:? No suspicious unknown) bony abnormalities.? Soft tissues appear (unknown) (no (unknown) (unknown) CBC Auto Diff (units ( unknown) date) [Complete Blood unknown) Count AUTO DIFF] Stat (unknown) (no (unknown) (unknown) CMP [Comprehensive (units (unknown) date) Metabolic Panel] unknown) Stat (unknown) (no (unknown) (unknown) [facility], [facility], [facility]ST unknown) 2 VIEW, 06/25/2017, 14:04.? [facility] (unknown) (no (unknown) (unknown) Cardio: Regular (units (unknown) date) rate and rhythm, unknown) S1-S2 without additional sounds, and no (unknown) (no (unknown) (unknown) Cardio: denies (units (unknown) date) chest pain, unknown) palpitations (unknown) (no (unknown) (unknown) Chest x-ray: (units (u nknown) date) unknown) (unknown) (no (unknown) (unknown) Chief Complaint: (units (unknown) date) Upper Respiratory unknown) Symptoms (unknown) (no (unknown) (unknown) Clinical (units (unkno wn) date) Impression: unknown) (unknown) (no (unknown) (unknown) Course (units (unkno wn) date) unknown) (unknown) (no (unknown) (unknown) Covid-19 + FLU A/B (units (unknown) date) by PCR Stat unknown) (unknown) (no (unknown) (unknown) : 1930 (units (unknown) date) Acct:[id number] unknown) (unknown) (no (unknown) (unknown) Departure (units (unkn own) date) unknown) (unknown) (no (unknown) (unknown) Dictated by: Evi (units (unknown) date) Carmen Zuniga on unknown) 10/31/2021 at 14:49 ? ? (unknown) (no (unknown) (unknown) Discharge Plan (units (unknown) date) unknown) (unknown) (no (unknown) (unknown) ER Physician: (units ( unknown) date) Pretty Sanchez unknown) (unknown) (no (unknown) (unknown) Exam (units (unkno wn) date) unknown) (unknown) (no (unknown) (unknown) Exam Narrative: (units (unknown) date) unknown) (unknown) (no (unknown) (unknown) Eyes: EOMI, (units (u nknown) date) conjunctiva normal unknown) (unknown) (no (unknown) (unknown) Eyes: denies visual (unit s (unknown) date) changes, eye pain unknown) (unknown) (no (unknown) (unknown) FINDINGS:? (units (unk nown) date) unknown) (unknown) (no (unknown) (unknown) GI: Abdomen soft, (units (unknown) date) nontender to unknown) palpation x4 quadrants, no guarding or rebound (unknown) (no (unknown) (unknown) GI: denies (units (unk nown) date) abdominal pain, unknown) nausea, vomiting, or diarrhea (unknown) (no (unknown) (unknown) : denies dysuria, (unit s (unknown) date) hematuria or flank unknown) pain (unknown) (no (unknown) (unknown) General (units (unkno wn) date) unknown) (unknown) (no (unknown) (unknown) General: Awake, (units (unknown) date) alert, nontoxic, no unknown) cardiorespiratory distress (unknown) (no (unknown) (unknown) General: denies (units (unknown) date) fever, chills unknown) (unknown) (no (unknown) (unknown) HPI - URI/Sore (units (unknown) date) Throat unknown) (unknown) (no (unknown) (unknown) HPI Narrative: (units (unknown) date) unknown) (unknown) (no (unknown) (unknown) Head/Neck: (units (unk nown) date) Atraumatic, neck unknown) supple (unknown) (no (unknown) (unknown) Head/Neck: denies (units (unknown) date) headache, neck pain, unknown) endorses congestion, postnasal drip (unknown) (no (unknown) (unknown) History of Present (units (unknown) date) Illness unknown) (unknown) (no (unknown) (unknown) History of spinal (units (unknown) date) fusion unknown) (unknown) (no (unknown) (unknown) Hospital, CR, (units ( unknown) date) unknown) (unknown) (no (unknown) (unknown) Hypertension (units (u nknown) date) unknown) (unknown) (no (unknown) (unknown) IMPRESSION:? No (units (unknown) date) acute unknown) cardiopulmonary disease. (unknown) (no (unknown) (unknown) INDICATIONS:? cough (unit s (unknown) date) unknown) (unknown) (no (unknown) (unknown) Imaging Data (units (u nknown) date) unknown) (unknown) (no (unknown) (unknown) Independently (units ( unknown) date) reviewed vitals unknown) signs and nursing notes. (unknown) (no (unknown) (unknown) Initial Vital Signs (unit s (unknown) date) unknown) (unknown) (no (unknown) (unknown) Initial Vital (units ( unknown) date) Signs: unknown) (unknown) (no (unknown) (unknown) Lab Data (units (unkno wn) date) unknown) (unknown) (no (unknown) (unknown) Labs: (units (unkno wn) date) unknown) (unknown) (no (unknown) (unknown) Lactate (Lactic (units (unknown) date) Acid) Stat unknown) (unknown) (no (unknown) (unknown) Lipase Stat (units (un known) date) unknown) (unknown) (no (unknown) (unknown) Lungs and pleura:? 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 (units (unknown) date) No pleural effusions unknown) or pneumothorax.? (unknown) (no (unknown) (unknown) MDM - URI/Sore (units (unknown) date) Throat unknown) (unknown) (no (unknown) (unknown) MDM Narrative (units ( unknown) date) unknown) (unknown) (no (unknown) (unknown) MSK: Moves all (units (unknown) date) extremities, unknown) neurovascularly intact, range of motion without (unknown) (no (unknown) (unknown) MSK: denies new (units (unknown) date) joint pain, muscle unknown) weakness or swelling (unknown) (no (unknown) (unknown) Magnesium Stat (units (unknown) date) unknown) (unknown) (no (unknown) (unknown) Mediastinum:? (units ( unknown) date) Mediastinal contours unknown) are normal.? Heart size is normal.? (unknown) (no (unknown) (unknown) Medical History (units (unknown) date) (Reviewed 10/31/21 @ unknown) 15:29 [facility] (unknown) (no (unknown) (unknown) Medical decision (units (unknown) date) making narrative: unknown) (unknown) (no (unknown) (unknown) Mode of arrival: (units (unknown) date) Ambulatory unknown) (unknown) (no (unknown) (unknown) Mouth/Throat: moist (unit s (unknown) date) mucus membranes, unknown) posterior pharynx without erythema or (unknown) (no (unknown) (unknown) Narrative (units (unkn own) date) unknown) (unknown) (no (unknown) (unknown) Narrative: (units (unk nown) date) unknown) (unknown) (no (unknown) (unknown) Neuro: Normal (units (unknown) date) speech and unknown) cognition, normal gait (unknown) (no (unknown) (unknown) Neuro: denies (units ( unknown) date) numbness, tingling, unknown) dizziness (unknown) (no (unknown) (unknown) No Action (units (unkn own) date) unknown) (unknown) (no (unknown) (unknown) Nose: nares patent, (unit s (unknown) date) no rhinorrhea unknown) (unknown) (no (unknown) (unknown) Ordered: (units (unkno wn) date) unknown) (unknown) (no (unknown) (unknown) Orders (units (unkno wn) date) unknown) (unknown) (no (unknown) (unknown) Oxygen Delivery (units (unknown) date) Method 10/31/21 unknown) 14:27 (unknown) (no (unknown) (unknown) Oxygen Delivery (units (unknown) date) Method Room Air unknown) (unknown) (no (unknown) (unknown) PROCEDURE:? XR (units (unknown) date) CHEST 2V unknown) (unknown) (no (unknown) (unknown) Patient History (units (unknown) date) unknown) (unknown) (no (unknown) (unknown) Patient: (units (unkno wn) date) Abe Rose unknown) MR#: [id number] (unknown) (no (unknown) (unknown) Gabriel Kirby, (units (unknown) date) [Primary Care unknown) Provider] - (unknown) (no (unknown) (unknown) Prescriptions: (units (unknown) date) unknown) (unknown) (no (unknown) (unknown) Pulse Oximetry 98 (units (unknown) date) 10/31/21 14:27 unknown) (unknown) (no (unknown) (unknown) Pulse Oximetry 98 (units (unknown) date) unknown) (unknown) (no (unknown) (unknown) Pulse Rate 71 (units (unknown) date) 10/31/21 14:27 unknown) (unknown) (no (unknown) (unknown) Pulse Rate 71 (units ( unknown) date) unknown) (unknown) (no (unknown) (unknown) Pyelonephritis (units (unknown) date) unknown) (unknown) (no (unknown) (unknown) Referrals: (units (unk nown) date) unknown) (unknown) (no (unknown) (unknown) Related Data (units (u nknown) date) unknown) (unknown) (no (unknown) (unknown) Respiratory Rate (units (unknown) date) 16 10/31/21 14:27 unknown) (unknown) (no (unknown) (unknown) Respiratory Rate 16 (unit s (unknown) date) unknown) (unknown) (no (unknown) (unknown) Respiratory: denies (unit s (unknown) date) shortness of breath, unknown) endorses having a productive cough (unknown) (no (unknown) (unknown) Respiratory: (units (u nknown) date) respirations unknown) unlabored without wheezing, stridor, or rales. No (unknown) (no (unknown) (unknown) Review of Systems (units (unknown) date) unknown) (unknown) (no (unknown) (unknown) Signed By: (units (unk nown) date) unknown) (unknown) (no (unknown) (unknown) Skin: Normal (units ( unknown) date) capillary refill, no unknown) rash (unknown) (no (unknown) (unknown) Skin: denies rash, (units (unknown) date) itching or wound unknown) (unknown) (no (unknown) (unknown) Smoking Status: (units (unknown) date) Former smoker unknown) (unknown) (no (unknown) (unknown) Smoking Status: (units (unknown) date) Former smoker unknown) (unknown) (no (unknown) (unknown) Social History (units (unknown) date) (Reviewed 10/31/21 @ unknown) 15:29 by MIRANDA Perez) (unknown) (no (unknown) (unknown) Source: patient and (unit s (unknown) date) family unknown) (unknown) (no (unknown) (unknown) Stated Complaint: (units (unknown) date) Fever, congestion, unknown) bladder infection (unknown) (no (unknown) (unknown) Substance Use Type: (unit s (unknown) date) does not use unknown) (unknown) (no (unknown) (unknown) Surgical History (units (unknown) date) (Reviewed 10/31/21 @ unknown) 15:29 by MIRANDA Perez) (unknown) (no (unknown) (unknown) Surgical changes (units (unknown) date) and devices:? None.? unknown) (unknown) (no (unknown) (unknown) TECHNIQUE:? 2 views (unit s (unknown) date) of the chest were unknown) acquired.? (unknown) (no (unknown) (unknown) Temperature 98 F (units (unknown) date) 10/31/21 14:27 unknown) (unknown) (no (unknown) (unknown) Temperature 98 F (units (unknown) date) unknown) (unknown) (no (unknown) (unknown) This is an (units (unk nown) date) 89-year-old male who unknown) presents to the emergency department stating (unknown) (no (unknown) (unknown) This is an (units (unk nown) date) 89-year-old male unknown) with history of hypertension, BPH, hypothyroidism (unknown) (no (unknown) (unknown) Time Seen by (units (u nknown) date) Provider: 10/31/21 unknown) 15:11 (unknown) (no (unknown) (unknown) Ur Culture (units (unk nown) date) Indicated? Specimen unknown) cultured (unknown) (no (unknown) (unknown) Ur Leukocyte (units (u nknown) date) Esterase Negative unknown) (NEGATIVE) (unknown) (no (unknown) (unknown) Ur Specific [place] (unit s (unknown) date) 1.025 unknown) (1.000-1.035) (unknown) (no (unknown) (unknown) Ur Squamous Epith (units (unknown) date) Cells 0-1 /hpf unknown) (0-5/HPF) (unknown) (no (unknown) (unknown) Urinalysis and (units (unknown) date) Microscopic Stat unknown) (unknown) (no (unknown) (unknown) Urine Appearance (units (unknown) date) Clear unknown) (unknown) (no (unknown) (unknown) Urine Bacteria (units (unknown) date) Moderate (10-30) H unknown) (None) (unknown) (no (unknown) (unknown) Urine Bilirubin (units (unknown) date) Negative (NEGATIVE) unknown) (unknown) (no (unknown) (unknown) Urine Color Yellow (unit s (unknown) date) unknown) (unknown) (no (unknown) (unknown) Urine Culture Stat (units (unknown) date) unknown) (unknown) (no (unknown) (unknown) Urine Glucose (UA) (units (unknown) date) Negative (Negative) unknown) g/dL (unknown) (no (unknown) (unknown) Urine Ketones (units ( unknown) date) Negative (NEGATIVE) unknown) (unknown) (no (unknown) (unknown) Urine Nitrate (units ( unknown) date) Negative (Negative) unknown) (unknown) (no (unknown) (unknown) Urine Occult Blood (units (unknown) date) Trace-lysed unknown) (Negative) (unknown) (no (unknown) (unknown) Urine Protein 1+ H (unit s (unknown) date) (Negative) unknown) (unknown) (no (unknown) (unknown) Urine RBC 1-5/hpf (units (unknown) date) D (0-5/HPF) unknown) (unknown) (no (unknown) (unknown) Urine Urobilinogen (units (unknown) date) 0.2 (0.2) E.U./dL unknown) (unknown) (no (unknown) (unknown) Urine WBC 1-5/hpf (units (unknown) date) (0-5/HPF) unknown) (unknown) (no (unknown) (unknown) Urine pH 6.0 (units ( unknown) date) (4.5-8.0) unknown) (unknown) (no (unknown) (unknown) Vital Signs (units (un known) date) unknown) (unknown) (no (unknown) (unknown) Vital signs: (units (u nknown) date) unknown) (unknown) (no (unknown) (unknown) XR CHEST 2V, (units (u nknown) date) 04/19/2019, 14:04. unknown) (unknown) (no (unknown) (unknown) XR chest 2V Stat (units (unknown) date) unknown) (unknown) (no (unknown) (unknown) a thoracic aortic (units (unknown) date) aneurysm. He is not unknown) on any anticoagulants. (unknown) (no (unknown) (unknown) alcohol intake (units (unknown) date) frequency: 0-2 unknown) drinks per day (unknown) (no (unknown) (unknown) and hyperlipidemia (units (unknown) date) presents to the unknown) emergency department complaining of fatigue, (unknown) (no (unknown) (unknown) atelectasis.? (units ( unknown) date) unknown) (unknown) (no (unknown) (unknown) atorvastatin 20 mg (units (unknown) date) tablet (Lipitor) 20 unknown) mg PO HS 06/23/18 03/19/20 (unknown) (no (unknown) (unknown) bladder infection. (units (unknown) date) Patient states that unknown) he had a fever two days ago of 101, (unknown) (no (unknown) (unknown) chlorthalidone 25 (units (unknown) date) mg tablet 25 mg PO unknown) DAILY #30 tabs 08/20/18 (unknown) (no (unknown) (unknown) ciprofloxacin (units ( unknown) date) Allergy Unknown unknown) Verified 10/31/21 14:29 (unknown) (no (unknown) (unknown) congestion, a (units ( unknown) date) productive cough, unknown) urinary urgency, frequency, and concern for a (unknown) (no (unknown) (unknown) deficit (units (unkno wn) date) unknown) (unknown) (no (unknown) (unknown) denies any known (units (unknown) date) COVID exposure, unknown) denies sore throat, flank pain, abdominal pain, (unknown) (no (unknown) (unknown) denies any nausea (units (unknown) date) or vomiting, denies unknown) chills, denies shortness of breath or (unknown) (no (unknown) (unknown) denies any (units (unk nown) date) shortness of breath, unknown) wheezing, chest pain, nausea or vomiting. (unknown) (no (unknown) (unknown) difficulty (units (unk nown) date) breathing. States unknown) that he has had postnasal drip, productive cough, (unknown) (no (unknown) (unknown) doxycycline hyclate (unit s (unknown) date) 100 mg capsule 100 unknown) mg PO BID 03/19/20 03/19/20 (unknown) (no (unknown) (unknown) endorses a history (units (unknown) date) of hypothyroidism, unknown) BPH, hyperlipidemia, and hypertension with (unknown) (no (unknown) (unknown) especially in the (units (unknown) date) mornings and in the unknown) evenings. Denies any sinus tenderness, (unknown) (no (unknown) (unknown) gabapentin AdvReac (units (unknown) date) Mild 'FELT LIKE unknown) Verified 10/31/21 14:29 (unknown) (no (unknown) (unknown) ipratropium bromide (unit s (unknown) date) 21 mcg (0.03 2 spray unknown) intranasal BID #30 mL 07/19/19 (unknown) (no (unknown) (unknown) lesion (units (unkno wn) date) unknown) (unknown) (no (unknown) (unknown) levothyroxine 112 (units (unknown) date) mcg tablet 112 mcg unknown) PO DAILY #30 tabs 04/08/20 (unknown) (no (unknown) (unknown) lisinopril 5 mg (units (unknown) date) tablet 5 mg PO BID unknown) 03/19/20 03/19/20 (unknown) (no (unknown) (unknown) metoprolol (units (unk nown) date) succinate 25 mg 25 unknown) mg PO QDAY ##90 05/15/17 (unknown) (no (unknown) (unknown) or other symptom. (units (unknown) date) On chart review it unknown) appears that patient had pyelonephritis on (unknown) (no (unknown) (unknown) peripheral edema (units (unknown) date) unknown) (unknown) (no (unknown) (unknown) productive cough, (units (unknown) date) fever two days ago, unknown) and urinary tract infection. Patient (unknown) (no (unknown) (unknown) retractions, (units (u nknown) date) hypoxia or tachypnea unknown) (unknown) (no (unknown) (unknown) tablet,extended (units (unknown) date) release 24 hr unknown) (unknown) (no (unknown) (unknown) tenderness (units (unk nown) date) unknown) (unknown) (no (unknown) (unknown) that he has felt (units (unknown) date) poorly for the last unknown) few days, states that he has had increased (unknown) (no (unknown) (unknown) unremarkable.? (units (unknown) date) unknown) (unknown) (no (unknown) (unknown) urinary retention, (units (unknown) date) states that he has a unknown) problem with urinary frequency. He (unknown) (no (unknown) (unknown) urine cultures were (unit s (unknown) date) available for unknown) review. Patient denies any difficulty with Result panel 8 (unknown) (no date) (unknown) (unknown) > 60 mL/min (unkn own) (unknown) (no date) (unknown) (unknown) 0.6 mg/dL (unkn own) (unknown) (no date) (unknown) (unknown) 0.95 mg/dL (unkn own) (unknown) (no date) (unknown) (unknown) 1.4 (units unknown) (unknown) (unknown) (no date) (unknown) (unknown) 1.7 mmol/L (unkn own) (unknown) (no date) (unknown) (unknown) 1.9 mg/dL (unkn own) (unknown) (no date) (unknown) (unknown) 107 mg/dL (unkn own) (unknown) (no date) (unknown) (unknown) 136 mmol/L (unkn own) (unknown) (no date) (unknown) (unknown) 2.8 g/dL (unkn own) (unknown) (no date) (unknown) (unknown) 24 mg/dL (unkn own) (unknown) (no date) (unknown) (unknown) 25.3 (units unknown) (unknown) (unknown) (no date) (unknown) (unknown) 273 U/L (unkn own) (unknown) (no date) (unknown) (unknown) 3.8 mmol/L (unkn own) (unknown) (no date) (unknown) (unknown) 3.9 g/dL (unkn own) (unknown) (no date) (unknown) (unknown) 34 mmol/L (unkn own) (unknown) (no date) (unknown) (unknown) 49 U/L (unkn own) (unknown) (no date) (unknown) (unknown) 6.7 g/dL (unkn own) (unknown) (no date) (unknown) (unknown) 68 IU/L (unkn own) (unknown) (no date) (unknown) (unknown) 72 IU/L (unkn own) (unknown) (no date) (unknown) (unknown) 8.2 mg/dL (unkn own) (unknown) (no date) (unknown) (unknown) 96 mmol/L (unkn own) Result panel 9 (unknown) (no (unknown) (unknown) (no value) (units (unk nown) date) unknown) (unknown) (no (unknown) (unknown) Radiologist's (units ( unknown) date) Impression: unknown) (unknown) (no (unknown) (unknown) (no value) (units (unk nown) date) unknown) (unknown) (no (unknown) (unknown) *Please continue to (unit s (unknown) date) take your regular unknown) medications as directed. (unknown) (no (unknown) (unknown) Date of Service: (units (unknown) date) 10/31/21 unknown) (unknown) (no (unknown) (unknown) (no value) (units (unk nown) date) unknown) (unknown) (no (unknown) (unknown) <Electronically (units (unknown) date) signed by Pretty Chatman unknown) [employer]> (unknown) (no (unknown) (unknown) 10/31/21 15:40 (units (unknown) date) unknown) (unknown) (no (unknown) (unknown) 10/31/21 1705 (units ( unknown) date) unknown) (unknown) (no (unknown) (unknown) 1 aidan mucous (units (u nknown) date) membrane Q2-4H PRN unknown) (Reason: sore throat) Qty: 16 0RF (unknown) (no (unknown) (unknown) 1 tab-cap PO Q8H (units (unknown) date) PRN (Reason: cough) unknown) Qty: 14 0RF (unknown) (no (unknown) (unknown) 100 mg PO BID (units ( unknown) date) unknown) (unknown) (no (unknown) (unknown) 112 mcg PO DAILY (units (unknown) date) Qty: 30 3RF unknown) (unknown) (no (unknown) (unknown) 2 spray NASAL BID (units (unknown) date) Qty: 30 2RF unknown) (unknown) (no (unknown) (unknown) 20 mg PO HS (units (un known) date) unknown) (unknown) (no (unknown) (unknown) 25 mg PO DAILY Qty: (unit s (unknown) date) 30 1RF unknown) (unknown) (no (unknown) (unknown) 25 mg PO QDAY Qty: (units (unknown) date) 90 0RF unknown) (unknown) (no (unknown) (unknown) 5 mg PO BID (units (un known) date) unknown) (unknown) (no (unknown) (unknown) 500 mg PO BID 5 (units (unknown) date) Days Qty: 10 0RF unknown) (unknown) (no (unknown) (unknown) A BALLOON (units (unkn own) date) unknown) (unknown) (no (unknown) (unknown) Administer one (units (unknown) date) spray into each unknown) nostril. (unknown) (no (unknown) (unknown) Allergies (units (unkn own) date) unknown) (unknown) (no (unknown) (unknown) ED Orders (units (unkn own) date) unknown) (unknown) (no (unknown) (unknown) Emergency Report (units (unknown) date) unknown) (unknown) (no (unknown) (unknown) GFR >60, day 3 of (units (unknown) date) symptoms, tested unknown) positive today, negative yesterday. (unknown) (no (unknown) (unknown) HEAD' (units (unkno wn) date) unknown) (unknown) (no (unknown) (unknown) Home Medications (units (unknown) date) unknown) (unknown) (no (unknown) (unknown) [facility] (units (unknown) date) [address] unknown) [place] [address] (unknown) (no (unknown) (unknown) Lab Results (units (un known) date) unknown) (unknown) (no (unknown) (unknown) Last Admin: (units (un known) date) 10/31/21 15:49 Dose: unknown) 600 mg (unknown) (no (unknown) (unknown) Last Infusion: (units (unknown) date) 10/31/21 16:30 Dose: unknown) Infused (unknown) (no (unknown) (unknown) Previous Rx's (units ( unknown) date) unknown) (unknown) (no (unknown) (unknown) Rx Instructions: (units (unknown) date) unknown) (unknown) (no (unknown) (unknown) See Rx Instructions (unit s (unknown) date) .ROUTE .COMPLEX unknown) Qty: 30 0RF (unknown) (no (unknown) (unknown) Stop: 10/31/21 (units (unknown) date) 15:22 unknown) (unknown) (no (unknown) (unknown) Vital Signs - 8 hr (units (unknown) date) unknown) (unknown) (no (unknown) (unknown) [ ] New medication (units (unknown) date) written as a paper unknown) prescription (unknown) (no (unknown) (unknown) [ ] No new (units (unk nown) date) medications given unknown) (unknown) (no (unknown) (unknown) [x ] New medication (unit s (unknown) date) prescriptions sent unknown) to your pharmacy: [[facility] ] (unknown) (no (unknown) (unknown) please repeat lab (units (unknown) date) work in 1 month of unknown) beginning this new dose. (unknown) (no (unknown) (unknown) please take 2 times (unit s (unknown) date) daily starting unknown) 11/01/21 (unknown) (no (unknown) (unknown) take TWO 150 mg (units (unknown) date) tablets of unknown) nirmatrelvir with ONE 100 mg tablet of ritonavir (unknown) (no (unknown) (unknown) (no value) (units (unk nown) date) unknown) (unknown) (no (unknown) (unknown) 10/31/21 10/31/21 (units (unknown) date) 10/31/21 Range/Units unknown) (unknown) (no (unknown) (unknown) 10/31/21 10/31/21 (units (unknown) date) Range/Units unknown) (unknown) (no (unknown) (unknown) 14:20 14:20 15:40 (units (unknown) date) unknown) (unknown) (no (unknown) (unknown) 15:40 15:40 (units (un known) date) unknown) (unknown) (no (unknown) (unknown) Cepacol Sore Throat (unit s (unknown) date) (meli-men) 15-3.6 mg unknown) lozenge (unknown) (no (unknown) (unknown) Paxlovid (EUA) 150 (units (unknown) date) mg x 2- 100 mg unknown) tablet (unknown) (no (unknown) (unknown) Robitussin (units (unk nown) date) Cough-Chest Rowdy DM unknown) 10-200 mg capsule (unknown) (no (unknown) (unknown) atorvastatin (units (u nknown) date) [Lipitor] 20 mg unknown) tablet (unknown) (no (unknown) (unknown) cephalexin 500 mg (units (unknown) date) capsule unknown) (unknown) (no (unknown) (unknown) chlorthalidone 25 (units (unknown) date) mg tablet unknown) (unknown) (no (unknown) (unknown) doxycycline hyclate (unit s (unknown) date) 100 mg capsule unknown) (unknown) (no (unknown) (unknown) ipratropium bromide (unit s (unknown) date) 0.03 % unknown) spray,non-aerosol (unknown) (no (unknown) (unknown) levothyroxine 112 (units (unknown) date) mcg tablet unknown) (unknown) (no (unknown) (unknown) lisinopril 5 mg (units (unknown) date) tablet unknown) (unknown) (no (unknown) (unknown) metoprolol (units (unk nown) date) succinate [Toprol unknown) XL] 25 MG tablet extended release 24 hr (unknown) (no (unknown) (unknown) 10/31/21 (units (unkno wn) date) unknown) (unknown) (no (unknown) (unknown) COVID yesterday. (units (unknown) date) COVID (+) on day 3 unknown) of symptoms without hypoxia, respiratory (unknown) (no (unknown) (unknown) COVID-19, Acute (units (unknown) date) UTI, Leukopenia unknown) (unknown) (no (unknown) (unknown) Medication (units (unk nown) date) Instructions unknown) Recorded (unknown) (no (unknown) (unknown) Medication (units (unk nown) date) Instructions unknown) Recorded Confirmed (unknown) (no (unknown) (unknown) but have been in (units (unknown) date) the past. unknown) Creatinine is 0.95 and at his baseline, GFR over (unknown) (no (unknown) (unknown) emergency (units (unkn own) date) department. This unknown) medication for COVID should reduce your course of (unknown) (no (unknown) (unknown) instructed. (units (un known) date) Patient understands unknown) plan and agrees to discharge home. All (unknown) (no (unknown) (unknown) reduce length of (units (unknown) date) course of illness unknown) and hospitalization potential. Patient was (unknown) (no (unknown) (unknown) the emergency (units ( unknown) date) department with 1 g unknown) of ceftriaxone, and Mucinex for his (unknown) (no (unknown) (unknown) treatments: (units (un known) date) Tylenol/Motrin as unknown) needed for pain/fever. OTC decongestant (unknown) (no (unknown) (unknown) you need a new (units (unknown) date) antibiotic. If you unknown) have any worsening of your symptoms (unknown) (no (unknown) (unknown) %) nasal spray (units (unknown) date) unknown) (unknown) (no (unknown) (unknown) (Paxlovid 300 mg () (unit s (unknown) date) unknown) (unknown) (no (unknown) (unknown) (Toprol XL) (units (un known) date) unknown) (unknown) (no (unknown) (unknown) (benzocaine-menthol (unit s (unknown) date) )) unknown) (unknown) (no (unknown) (unknown) *If you do not have (unit s (unknown) date) a primary care unknown) provider please contact [phone] to (unknown) (no (unknown) (unknown) *Please follow up (units (unknown) date) with your primary unknown) care provider in 2-3 days, call for an (unknown) (no (unknown) (unknown) *Return to (units (unk nown) date) Emergency Department unknown) if you should have any new, worsening or (unknown) (no (unknown) (unknown) *What to do: (units (u nknown) date) unknown) (unknown) (no (unknown) (unknown) *You have been (units (unknown) date) diagnosed with a unknown) bladder infection, we will call you if your (unknown) (no (unknown) (unknown) 10/31/21 14:20 (units (unknown) date) unknown) (unknown) (no (unknown) (unknown) 10/31/21 14:26 (units (unknown) date) unknown) (unknown) (no (unknown) (unknown) 10/31/21 15:40 (units (unknown) date) unknown) (unknown) (no (unknown) (unknown) 11/18/2019 and grew (unit s (unknown) date) out Enterococcus unknown) faecalis from his urine culture. No other (unknown) (no (unknown) (unknown) 14:27 10/31/21 (units (unknown) date) unknown) (unknown) (no (unknown) (unknown) 16:45 (units (unkno wn) date) unknown) (unknown) (no (unknown) (unknown) [id number] (units (unkno wn) date) unknown) (unknown) (no (unknown) (unknown) 2)-ritonavir 100 mg (unit s (unknown) date) tablet (EUA) #30 unknown) tabs (unknown) (no (unknown) (unknown) 60. Lipase 275. (units (unknown) date) No leukocytosis, unknown) white blood cell count is low at 3.5. (unknown) (no (unknown) (unknown) ? (units (unkno wn) date) unknown) (unknown) (no (unknown) (unknown) ALT (<50) IU/L (unit s (unknown) date) unknown) (unknown) (no (unknown) (unknown) ALT 68 H (<50) (units (unknown) date) IU/L unknown) (unknown) (no (unknown) (unknown) AST (17-59) (units (unknown) date) IU/L unknown) (unknown) (no (unknown) (unknown) AST 72 H (17-59) (unit s (unknown) date) IU/L unknown) (unknown) (no (unknown) (unknown) Activity (units (unkno wn) date) Restrictions/Additio unknown) nal Instructions: (unknown) (no (unknown) (unknown) Age/Sex: 89 / M (units (unknown) date) unknown) (unknown) (no (unknown) (unknown) Albumin (units (unkno wn) date) (3.5-5.0) g/dL unknown) (unknown) (no (unknown) (unknown) Albumin 3.9 (units (u nknown) date) (3.5-5.0) g/dL unknown) (unknown) (no (unknown) (unknown) Albumin/Globulin (units (unknown) date) Ratio (1.0-2.8) unknown) (unknown) (no (unknown) (unknown) Albumin/Globulin (units (unknown) date) Ratio 1.4 unknown) (1.0-2.8) (unknown) (no (unknown) (unknown) Alkaline (units (unkno wn) date) Phosphatase unknown) (38-126) U/L (unknown) (no (unknown) (unknown) Alkaline (units (unkno wn) date) Phosphatase 49 unknown) (38-126) U/L (unknown) (no (unknown) (unknown) Allergy/AdvReac (units (unknown) date) Type Severity unknown) Reaction Status Date / Time (unknown) (no (unknown) (unknown) Approved by: Evi Seounits (unknown) date) Carmen Zuniga on unknown) 10/31/2021 at 14:50 ? (unknown) (no (unknown) (unknown) BUN (9-20) (units (unknown) date) mg/dL unknown) (unknown) (no (unknown) (unknown) BUN 24 H (9-20) (units (unknown) date) mg/dL unknown) (unknown) (no (unknown) (unknown) BUN/Creatinine (units (unknown) date) Ratio (6-22) unknown) (unknown) (no (unknown) (unknown) BUN/Creatinine (units (unknown) date) Ratio 25.3 H unknown) (6-22) (unknown) (no (unknown) (unknown) Baso # (Auto) (units ( unknown) date) (0-100) /uL unknown) (unknown) (no (unknown) (unknown) Baso # (Auto) 0 (units (unknown) date) (0-100) /uL unknown) (unknown) (no (unknown) (unknown) Baso % (Auto) (units ( unknown) date) (0-2) % unknown) (unknown) (no (unknown) (unknown) Baso % (Auto) (units ( unknown) date) 0.8 (0-2) % unknown) (unknown) (no (unknown) (unknown) Blood Pressure (units (unknown) date) 123/87 10/31/21 unknown) 14:27 (unknown) (no (unknown) (unknown) Blood Pressure (units (unknown) date) 123/87 122/73 unknown) (unknown) (no (unknown) (unknown) Bones and chest (units (unknown) date) wall:? No suspicious unknown) bony abnormalities.? Soft tissues appear (unknown) (no (unknown) (unknown) CBC Auto Diff (units ( unknown) date) [Complete Blood unknown) Count AUTO DIFF] Stat (unknown) (no (unknown) (unknown) CMP [Comprehensive (units (unknown) date) Metabolic Panel] unknown) Stat (unknown) (no (unknown) (unknown) COMPARISON:? [facility] (unit s (unknown) date) [facility], CR, CHEST unknown) 2 VIEW, 06/25/2017, 14:04.? [facility] (unknown) (no (unknown) (unknown) COVID PCR is (units (u nknown) date) positive, his urine unknown) microscopy shows moderate bacteria, urine (unknown) (no (unknown) (unknown) COVID and hopefully (unit s (unknown) date) prevent you from unknown) needing hospitalization. (unknown) (no (unknown) (unknown) Calcium (units (unkno wn) date) (8.4-10.2) mg/dL unknown) (unknown) (no (unknown) (unknown) Calcium 8.2 L (units (unknown) date) (8.4-10.2) mg/dL unknown) (unknown) (no (unknown) (unknown) Carbon Dioxide (units (unknown) date) (22-32) mmol/L unknown) (unknown) (no (unknown) (unknown) Carbon Dioxide 34 (units (unknown) date) H (22-32) mmol/L unknown) (unknown) (no (unknown) (unknown) Cardio: Regular (units (unknown) date) rate and rhythm, unknown) S1-S2 without additional sounds, and no (unknown) (no (unknown) (unknown) Cardio: denies (units (unknown) date) chest pain, unknown) palpitations (unknown) (no (unknown) (unknown) Ceftriaxone Sodium (units (unknown) date) 1,000 mg/ (Sodium unknown) Chloride) 100 mls @ 200 mls/hr IV NOW ONE (unknown) (no (unknown) (unknown) Chest x-ray: (units (u nknown) date) unknown) (unknown) (no (unknown) (unknown) Chief Complaint: (units (unknown) date) Upper Respiratory unknown) Symptoms (unknown) (no (unknown) (unknown) Chloride (units (unkno wn) date) (98-107) mmol/L unknown) (unknown) (no (unknown) (unknown) Chloride 96 L (units (unknown) date) (98-107) mmol/L unknown) (unknown) (no (unknown) (unknown) Clinical (units (unkno wn) date) Impression: unknown) (unknown) (no (unknown) (unknown) Cough-Chest (units (un known) date) Congestion DM) unknown) (unknown) (no (unknown) (unknown) Course (units (unkno wn) date) unknown) (unknown) (no (unknown) (unknown) Covid-19 + FLU A/B (units (unknown) date) by PCR Stat unknown) (unknown) (no (unknown) (unknown) Creatinine (units (unk nown) date) (0.66-1.25) mg/dL unknown) (unknown) (no (unknown) (unknown) Creatinine 0.95 (units (unknown) date) (0.66-1.25) mg/dL unknown) (unknown) (no (unknown) (unknown) : 1930 (units (unknown) date) Acct:[id number] unknown) (unknown) (no (unknown) (unknown) Departure (units (unkn own) date) unknown) (unknown) (no (unknown) (unknown) Dictated by: Evi (units (unknown) date) Carmen Zuniga on unknown) 10/31/2021 at 14:49 ? ? (unknown) (no (unknown) (unknown) Discharge Plan (units (unknown) date) unknown) (unknown) (no (unknown) (unknown) Discontinued (units (u nknown) date) Medications unknown) (unknown) (no (unknown) (unknown) Discussed CDC (units ( unknown) date) guidelines for unknown) quarantine, mask wearing, physical distancing, and (unknown) (no (unknown) (unknown) ER Physician: (units ( unknown) date) Pretty Sanchez unknown) (unknown) (no (unknown) (unknown) Eos # (Auto) (units (u nknown) date) (0-450) /uL unknown) (unknown) (no (unknown) (unknown) Eos # (Auto) 0 (units (unknown) date) (0-450) /uL unknown) (unknown) (no (unknown) (unknown) Eos % (Auto) (units (u nknown) date) (2-4) % unknown) (unknown) (no (unknown) (unknown) Eos % (Auto) 0.2 (unit s (unknown) date) L (2-4) % unknown) (unknown) (no (unknown) (unknown) Estimated GFR (units ( unknown) date) (>60) mL/min unknown) (unknown) (no (unknown) (unknown) Estimated GFR > 60 (unit s (unknown) date) (>60) mL/min unknown) (unknown) (no (unknown) (unknown) Exam (units (unkno wn) date) unknown) (unknown) (no (unknown) (unknown) Exam Narrative: (units (unknown) date) unknown) (unknown) (no (unknown) (unknown) Eyes: EOMI, (units (u nknown) date) conjunctiva normal unknown) (unknown) (no (unknown) (unknown) Eyes: denies visual (unit s (unknown) date) changes, eye pain unknown) (unknown) (no (unknown) (unknown) FINDINGS:? (units (unk nown) date) unknown) (unknown) (no (unknown) (unknown) GI: Abdomen soft, (units (unknown) date) nontender to unknown) palpation x4 quadrants, no guarding or rebound (unknown) (no (unknown) (unknown) GI: denies (units (unk nown) date) abdominal pain, unknown) nausea, vomiting, or diarrhea (unknown) (no (unknown) (unknown) : denies dysuria, (unit s (unknown) date) hematuria or flank unknown) pain (unknown) (no (unknown) (unknown) General (units (unkno wn) date) unknown) (unknown) (no (unknown) (unknown) General: Awake, (units (unknown) date) alert, nontoxic, no unknown) cardiorespiratory distress (unknown) (no (unknown) (unknown) General: denies (units (unknown) date) fever, chills unknown) (unknown) (no (unknown) (unknown) GenericComposite[Pl (unit s (unknown) date) t Count (150-400) unknown) X10^3/uL ] (unknown) (no (unknown) (unknown) GenericComposite[Pl (unit s (unknown) date) t Count 131 L unknown) (150-400) X10^3/uL ] (unknown) (no (unknown) (unknown) GenericComposite[RB (unit s (unknown) date) C (4.5-5.9) unknown) X10^6/uL ] (unknown) (no (unknown) (unknown) GenericComposite[RB (unit s (unknown) date) C 4.63 (4.5-5.9) unknown) X10^6/uL ] (unknown) (no (unknown) (unknown) GenericComposite[WB (unit s (unknown) date) C (4.5-11.0) unknown) X10^3/uL ] (unknown) (no (unknown) (unknown) GenericComposite[WB (unit s (unknown) date) C 3.5 L unknown) (4.5-11.0) X10^3/uL ] (unknown) (no (unknown) (unknown) Globulin (units (unkno wn) date) (1.7-4.1) g/dL unknown) (unknown) (no (unknown) (unknown) Globulin 2.8 (units ( unknown) date) (1.7-4.1) g/dL unknown) (unknown) (no (unknown) (unknown) Glucose (units (unkno wn) date) (80-110) mg/dL unknown) (unknown) (no (unknown) (unknown) Glucose 107 (units (u nknown) date) (80-110) mg/dL unknown) (unknown) (no (unknown) (unknown) Guaifenesin (units (un known) date) (Guaifenesin Er 600 unknown) Mg Tab) 600 mg PO NOW ONE (unknown) (no (unknown) (unknown) HPI - URI/Sore (units (unknown) date) Throat unknown) (unknown) (no (unknown) (unknown) HPI Narrative: (units (unknown) date) unknown) (unknown) (no (unknown) (unknown) Hct (41-53) % (units (unknown) date) unknown) (unknown) (no (unknown) (unknown) Hct 42.8 (units (un known) date) (41-53) % unknown) (unknown) (no (unknown) (unknown) Head/Neck: (units (unk nown) date) Atraumatic, neck unknown) supple (unknown) (no (unknown) (unknown) Head/Neck: denies (units (unknown) date) headache, neck pain, unknown) endorses congestion, postnasal drip (unknown) (no (unknown) (unknown) Hgb (13.5-17.5) (units (unknown) date) g/dL unknown) (unknown) (no (unknown) (unknown) Hgb 14.7 (units (un known) date) (13.5-17.5) g/dL unknown) (unknown) (no (unknown) (unknown) History of Present (units (unknown) date) Illness unknown) (unknown) (no (unknown) (unknown) History of spinal (units (unknown) date) fusion unknown) (unknown) (no (unknown) (unknown) Hospital, CR, (units ( unknown) date) unknown) (unknown) (no (unknown) (unknown) Hypertension (units (u nknown) date) unknown) (unknown) (no (unknown) (unknown) I hope you feel (units (unknown) date) better soon, please unknown) come back to the ER if you have any (unknown) (no (unknown) (unknown) IMPRESSION:? No (units (unknown) date) acute unknown) cardiopulmonary disease. (unknown) (no (unknown) (unknown) INDICATIONS:? cough (unit s (unknown) date) unknown) (unknown) (no (unknown) (unknown) Imaging Data (units (u nknown) date) unknown) (unknown) (no (unknown) (unknown) Independently (units ( unknown) date) reviewed vitals unknown) signs and nursing notes. (unknown) (no (unknown) (unknown) Influenza A (units (un known) date) (RT-PCR) unknown) (NEGATIVE) (unknown) (no (unknown) (unknown) Influenza A (units (un known) date) (RT-PCR) Flu a unknown) negative (NEGATIVE) (unknown) (no (unknown) (unknown) Influenza B (units (un known) date) (RT-PCR) unknown) (NEGATIVE) (unknown) (no (unknown) (unknown) Influenza B (units (un known) date) (RT-PCR) Flu b unknown) negative (NEGATIVE) (unknown) (no (unknown) (unknown) Initial Vital Signs (unit s (unknown) date) unknown) (unknown) (no (unknown) (unknown) Initial Vital (units ( unknown) date) Signs: unknown) (unknown) (no (unknown) (unknown) Instructions: DI (units (unknown) date) for Urinary Tract unknown) Infection (UTI), DI for COVID-19 (Suspected (unknown) (no (unknown) (unknown) Lab Data (units (unkno wn) date) unknown) (unknown) (no (unknown) (unknown) Labs: (units (unkno wn) date) unknown) (unknown) (no (unknown) (unknown) Lactate (units (unkno wn) date) (0.7-2.1) mmol/L unknown) (unknown) (no (unknown) (unknown) Lactate 1.7 (units ( unknown) date) (0.7-2.1) mmol/L unknown) (unknown) (no (unknown) (unknown) Lactate (Lactic (units (unknown) date) Acid) Stat unknown) (unknown) (no (unknown) (unknown) Lipase (23-300) (unit s (unknown) date) U/L unknown) (unknown) (no (unknown) (unknown) Lipase 273 (units (un known) date) (23-300) U/L unknown) (unknown) (no (unknown) (unknown) Lipase Stat (units (un known) date) unknown) (unknown) (no (unknown) (unknown) Lungs and pleura:? 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 (units (unknown) date) No pleural effusions unknown) or pneumothorax.? (unknown) (no (unknown) (unknown) Lymph # (Auto) (units (unknown) date) (4736-1391) /uL unknown) (unknown) (no (unknown) (unknown) Lymph # (Auto) (units (unknown) date) 1400 (0814-7754) unknown) /uL (unknown) (no (unknown) (unknown) Lymph % (Auto) (units (unknown) date) (25-40) % unknown) (unknown) (no (unknown) (unknown) Lymph % (Auto) (units (unknown) date) 40.1 H (25-40) % unknown) (unknown) (no (unknown) (unknown) MCH (26-34) PG (units (unknown) date) unknown) (unknown) (no (unknown) (unknown) MCH 31.8 (units (un known) date) (26-34) PG unknown) (unknown) (no (unknown) (unknown) MCHC (30-36) % (units (unknown) date) unknown) (unknown) (no (unknown) (unknown) MCHC 34.4 (units (u nknown) date) (30-36) % unknown) (unknown) (no (unknown) (unknown) MCV (80-100) fL (unit s (unknown) date) unknown) (unknown) (no (unknown) (unknown) MCV 92.4 (units (un known) date) (80-100) fL unknown) (unknown) (no (unknown) (unknown) MDM - URI/Sore (units (unknown) date) Throat unknown) (unknown) (no (unknown) (unknown) MDM Narrative (units ( unknown) date) unknown) (unknown) (no (unknown) (unknown) MSK: Moves all (units (unknown) date) extremities, unknown) neurovascularly intact, range of motion without (unknown) (no (unknown) (unknown) MSK: denies new (units (unknown) date) joint pain, muscle unknown) weakness or swelling (unknown) (no (unknown) (unknown) Magnesium (units (unkn own) date) (1.6-2.3) mg/dL unknown) (unknown) (no (unknown) (unknown) Magnesium 1.9 (units (unknown) date) (1.6-2.3) mg/dL unknown) (unknown) (no (unknown) (unknown) Magnesium Stat (units (unknown) date) unknown) (unknown) (no (unknown) (unknown) Mediastinum:? (units ( unknown) date) Mediastinal contours unknown) are normal.? Heart size is normal.? (unknown) (no (unknown) (unknown) Medical History (units (unknown) date) (Reviewed 10/31/21 @ unknown) 15:29 by Pretty Sanchez [facility]) (unknown) (no (unknown) (unknown) Medical decision (units (unknown) date) making narrative: unknown) (unknown) (no (unknown) (unknown) Mode of arrival: (units (unknown) date) Ambulatory unknown) (unknown) (no (unknown) (unknown) Fisher # (Auto) (units ( unknown) date) (0-900) /uL unknown) (unknown) (no (unknown) (unknown) Fisher # (Auto) (units ( unknown) date) 600 (0-900) /uL unknown) (unknown) (no (unknown) (unknown) Fisher % (Auto) (units ( unknown) date) (3-14) % unknown) (unknown) (no (unknown) (unknown) Fisher % (Auto) (units ( unknown) date) 15.8 H (3-14) % unknown) (unknown) (no (unknown) (unknown) Mouth/Throat: moist (unit s (unknown) date) mucus membranes, unknown) posterior pharynx without erythema or (unknown) (no (unknown) (unknown) Narrative (units (unkn own) date) unknown) (unknown) (no (unknown) (unknown) Narrative: (units (unk nown) date) unknown) (unknown) (no (unknown) (unknown) Neuro: Normal (units (unknown) date) speech and unknown) cognition, normal gait (unknown) (no (unknown) (unknown) Neuro: denies (units ( unknown) date) numbness, tingling, unknown) dizziness (unknown) (no (unknown) (unknown) Neut # (Auto) (units ( unknown) date) (8635-9217) /uL unknown) (unknown) (no (unknown) (unknown) Neut # (Auto) (units ( unknown) date) 1500 (6193-1623) unknown) /uL (unknown) (no (unknown) (unknown) Neut % (Auto) (units ( unknown) date) (50-75) % unknown) (unknown) (no (unknown) (unknown) Neut % (Auto) (units ( unknown) date) 43.1 L (50-75) % unknown) (unknown) (no (unknown) (unknown) New (units (unkno wn) date) unknown) (unknown) (no (unknown) (unknown) No Action (units (unkn own) date) unknown) (unknown) (no (unknown) (unknown) Nose: nares patent, (unit s (unknown) date) no rhinorrhea unknown) (unknown) (no (unknown) (unknown) Ordered: (units (unkno wn) date) unknown) (unknown) (no (unknown) (unknown) Orders (units (unkno wn) date) unknown) (unknown) (no (unknown) (unknown) Oxygen Delivery (units (unknown) date) Method 10/31/21 unknown) 14:27 (unknown) (no (unknown) (unknown) Oxygen Delivery (units (unknown) date) Method Room Air Room unknown) Air (unknown) (no (unknown) (unknown) PROCEDURE:? XR (units (unknown) date) CHEST 2V unknown) (unknown) (no (unknown) (unknown) Patient (units (unkno wn) date) Disposition: Home unknown) (unknown) (no (unknown) (unknown) Patient History (units (unknown) date) unknown) (unknown) (no (unknown) (unknown) Patient does not (units (unknown) date) any O2 requirement unknown) his respirations are unlabored without (unknown) (no (unknown) (unknown) Patient has been (units (unknown) date) given strict return unknown) to ER precautions for any new or worsening (unknown) (no (unknown) (unknown) Patient is (units (unk nown) date) appropriate and unknown) amenable to discharge home. Vital signs are stable (unknown) (no (unknown) (unknown) Patient: (units (unkno wn) date) Abe Rose unknown) MR#: [id number] (unknown) (no (unknown) (unknown) Paxlovid for COVID (units (unknown) date) x 5 days. Please unknown) drink more water than usual over the next (unknown) (no (unknown) (unknown) Gabriel Kirby, DO (units (unknown) date) [Primary Care unknown) Provider] - (unknown) (no (unknown) (unknown) Please break your (units (unknown) date) atorvastatin in half unknown) and only take half doses while on (unknown) (no (unknown) (unknown) Potassium (units (unkn own) date) (3.4-5.1) mmol/L unknown) (unknown) (no (unknown) (unknown) Potassium 3.8 (units (unknown) date) (3.4-5.1) mmol/L unknown) (unknown) (no (unknown) (unknown) Prescriptions: (units (unknown) date) unknown) (unknown) (no (unknown) (unknown) Pulse Oximetry 98 (units (unknown) date) 10/31/21 14:27 unknown) (unknown) (no (unknown) (unknown) Pulse Oximetry 98 (units (unknown) date) 99 unknown) (unknown) (no (unknown) (unknown) Pulse Rate 71 (units (unknown) date) 10/31/21 14:27 unknown) (unknown) (no (unknown) (unknown) Pulse Rate 71 69 (units (unknown) date) unknown) (unknown) (no (unknown) (unknown) Pyelonephritis (units (unknown) date) unknown) (unknown) (no (unknown) (unknown) RDW (11.6-14.8) (units (unknown) date) % unknown) (unknown) (no (unknown) (unknown) RDW 13.5 (units (un known) date) (11.6-14.8) % unknown) (unknown) (no (unknown) (unknown) Referrals: (units (unk nown) date) unknown) (unknown) (no (unknown) (unknown) Related Data (units (u nknown) date) unknown) (unknown) (no (unknown) (unknown) Respiratory Rate (units (unknown) date) 16 10/31/21 14:27 unknown) (unknown) (no (unknown) (unknown) Respiratory Rate 16 (unit s (unknown) date) 20 unknown) (unknown) (no (unknown) (unknown) Respiratory: denies (unit s (unknown) date) shortness of breath, unknown) endorses having a productive cough (unknown) (no (unknown) (unknown) Respiratory: (units (u nknown) date) respirations unknown) unlabored without wheezing, stridor, or rales. No (unknown) (no (unknown) (unknown) Result diagrams: (units (unknown) date) unknown) (unknown) (no (unknown) (unknown) Review of Systems (units (unknown) date) unknown) (unknown) (no (unknown) (unknown) SARS-CoV-2 (PCR) (units (unknown) date) (Negative) unknown) (unknown) (no (unknown) (unknown) SARS-CoV-2 (PCR) (units (unknown) date) Positive H unknown) (Negative) (unknown) (no (unknown) (unknown) Signed By: (units (unk nown) date) unknown) (unknown) (no (unknown) (unknown) Skin: Normal (units ( unknown) date) capillary refill, no unknown) rash (unknown) (no (unknown) (unknown) Skin: denies rash, (units (unknown) date) itching or wound unknown) (unknown) (no (unknown) (unknown) Smoking Status: (units (unknown) date) Former smoker unknown) (unknown) (no (unknown) (unknown) Smoking Status: (units (unknown) date) Former smoker unknown) (unknown) (no (unknown) (unknown) Social History (units (unknown) date) (Reviewed 10/31/21 @ unknown) 15:29 by MIRANDA Perez) (unknown) (no (unknown) (unknown) Sodium (units (unkno wn) date) (137-145) mmol/L unknown) (unknown) (no (unknown) (unknown) Sodium 136 L (units ( unknown) date) (137-145) mmol/L unknown) (unknown) (no (unknown) (unknown) Source: patient and (unit s (unknown) date) family unknown) (unknown) (no (unknown) (unknown) Stated Complaint: (units (unknown) date) Fever, congestion, unknown) bladder infection (unknown) (no (unknown) (unknown) Substance Use Type: (unit s (unknown) date) does not use unknown) (unknown) (no (unknown) (unknown) Surgical History (units (unknown) date) (Reviewed 10/31/21 @ unknown) 15:29 by MIRANDA Perez) (unknown) (no (unknown) (unknown) Surgical changes (units (unknown) date) and devices:? None.? unknown) (unknown) (no (unknown) (unknown) TECHNIQUE:? 2 views (unit s (unknown) date) of the chest were unknown) acquired.? (unknown) (no (unknown) (unknown) Temperature 98 F (units (unknown) date) 10/31/21 14:27 unknown) (unknown) (no (unknown) (unknown) Temperature 98 F (units (unknown) date) unknown) (unknown) (no (unknown) (unknown) This is an (units (unk nown) date) 89-year-old male who unknown) presents to the emergency department stating (unknown) (no (unknown) (unknown) This is an (units (unk nown) date) 89-year-old male unknown) with history of hypertension, BPH, hypothyroidism (unknown) (no (unknown) (unknown) Time Seen by (units (u nknown) date) Provider: 10/31/21 unknown) 15:11 (unknown) (no (unknown) (unknown) Total Bilirubin (units (unknown) date) (0.2-1.3) mg/dL unknown) (unknown) (no (unknown) (unknown) Total Bilirubin (units (unknown) date) 0.6 (0.2-1.3) unknown) mg/dL (unknown) (no (unknown) (unknown) Total Protein (units ( unknown) date) (6.3-8.2) g/dL unknown) (unknown) (no (unknown) (unknown) Total Protein 6.7 (units (unknown) date) (6.3-8.2) g/dL unknown) (unknown) (no (unknown) (unknown) Ur Culture (units (unk nown) date) Indicated? unknown) (unknown) (no (unknown) (unknown) Ur Culture (units (unk nown) date) Indicated? unknown) Specimen cultured (unknown) (no (unknown) (unknown) Ur Leukocyte (units (u nknown) date) Esterase unknown) (NEGATIVE) (unknown) (no (unknown) (unknown) Ur Leukocyte (units (u nknown) date) Esterase Negative unknown) (NEGATIVE) (unknown) (no (unknown) (unknown) Ur Specific [place] (unit s (unknown) date) (1.000-1.035) unknown) (unknown) (no (unknown) (unknown) Ur Specific [place] (unit s (unknown) date) 1.025 unknown) (1.000-1.035) (unknown) (no (unknown) (unknown) Ur Squamous Epith (units (unknown) date) Cells (0-5/HPF) unknown) (unknown) (no (unknown) (unknown) Ur Squamous Epith (units (unknown) date) Cells 0-1 /hpf unknown) (0-5/HPF) (unknown) (no (unknown) (unknown) Urinalysis and (units (unknown) date) Microscopic Stat unknown) (unknown) (no (unknown) (unknown) Urine Appearance (units (unknown) date) unknown) (unknown) (no (unknown) (unknown) Urine Appearance (units (unknown) date) Clear unknown) (unknown) (no (unknown) (unknown) Urine Bacteria (units (unknown) date) (None) unknown) (unknown) (no (unknown) (unknown) Urine Bacteria (units (unknown) date) Moderate (10-30) H unknown) (None) (unknown) (no (unknown) (unknown) Urine Bilirubin (units (unknown) date) (NEGATIVE) unknown) (unknown) (no (unknown) (unknown) Urine Bilirubin (units (unknown) date) Negative unknown) (NEGATIVE) (unknown) (no (unknown) (unknown) Urine Color (units (un known) date) unknown) (unknown) (no (unknown) (unknown) Urine Color (units (un known) date) Yellow unknown) (unknown) (no (unknown) (unknown) Urine Culture Stat (units (unknown) date) unknown) (unknown) (no (unknown) (unknown) Urine Glucose (UA) (units (unknown) date) (Negative) g/dL unknown) (unknown) (no (unknown) (unknown) Urine Glucose (UA) (units (unknown) date) Negative unknown) (Negative) g/dL (unknown) (no (unknown) (unknown) Urine Ketones (units ( unknown) date) (NEGATIVE) unknown) (unknown) (no (unknown) (unknown) Urine Ketones (units ( unknown) date) Negative unknown) (NEGATIVE) (unknown) (no (unknown) (unknown) Urine Nitrate (units ( unknown) date) (Negative) unknown) (unknown) (no (unknown) (unknown) Urine Nitrate (units ( unknown) date) Negative unknown) (Negative) (unknown) (no (unknown) (unknown) Urine Occult Blood (units (unknown) date) (Negative) unknown) (unknown) (no (unknown) (unknown) Urine Occult Blood (units (unknown) date) Trace-lysed unknown) (Negative) (unknown) (no (unknown) (unknown) Urine Protein (units ( unknown) date) (Negative) unknown) (unknown) (no (unknown) (unknown) Urine Protein 1+ (units (unknown) date) H (Negative) unknown) (unknown) (no (unknown) (unknown) Urine RBC (units (unkn own) date) (0-5/HPF) unknown) (unknown) (no (unknown) (unknown) Urine RBC 1-5/hpf (unit s (unknown) date) D (0-5/HPF) unknown) (unknown) (no (unknown) (unknown) Urine Urobilinogen (units (unknown) date) (0.2) E.U./dL unknown) (unknown) (no (unknown) (unknown) Urine Urobilinogen (units (unknown) date) 0.2 (0.2) unknown) E.U./dL (unknown) (no (unknown) (unknown) Urine WBC (units (unkn own) date) (0-5/HPF) unknown) (unknown) (no (unknown) (unknown) Urine WBC 1-5/hpf (unit s (unknown) date) (0-5/HPF) unknown) (unknown) (no (unknown) (unknown) Urine pH (units (unkno wn) date) (4.5-8.0) unknown) (unknown) (no (unknown) (unknown) Urine pH 6.0 (units (unknown) date) (4.5-8.0) unknown) (unknown) (no (unknown) (unknown) Vital Signs (units (un known) date) unknown) (unknown) (no (unknown) (unknown) Vital signs: (units (u nknown) date) unknown) (unknown) (no (unknown) (unknown) XR CHEST 2V, (units (u nknown) date) 04/19/2019, 14:04. unknown) (unknown) (no (unknown) (unknown) XR chest 2V Stat (units (unknown) date) unknown) (unknown) (no (unknown) (unknown) [Embedded Image Not (unit s (unknown) date) Available] unknown) (unknown) (no (unknown) (unknown) a thoracic aortic (units (unknown) date) aneurysm. He is not unknown) on any anticoagulants. (unknown) (no (unknown) (unknown) abnormal breath (units (unknown) date) sounds,, tachypnea, unknown) or any additional heart sounds. Patient's (unknown) (no (unknown) (unknown) adequate fluid (units (unknown) date) intake. Follow-up unknown) with PCP as directed. Return to clinic/ER (unknown) (no (unknown) (unknown) alcohol intake (units (unknown) date) frequency: 0-2 unknown) drinks per day (unknown) (no (unknown) (unknown) and have patient cut (unit s (unknown) date) his atorvastatin in unknown) half for the next five days. Hoping to (unknown) (no (unknown) (unknown) and hyperlipidemia (units (unknown) date) presents to the unknown) emergency department complaining of fatigue, (unknown) (no (unknown) (unknown) appointment. Let (units (unknown) date) them know you were unknown) seen in the Emergency Department and that we (unknown) (no (unknown) (unknown) asked that you be (units (unknown) date) seen for follow-up. unknown) We will electronically transmit a record (unknown) (no (unknown) (unknown) atelectasis.? (units ( unknown) date) unknown) (unknown) (no (unknown) (unknown) atorvastatin 20 mg (units (unknown) date) tablet (Lipitor) 20 unknown) mg PO HS 06/23/18 03/19/20 (unknown) (no (unknown) (unknown) benzocaine 15 (units ( unknown) date) mg-menthol 3.6 mg 1 unknown) aidan mucous membrane Q2-4H PRN 10/31/21 (unknown) (no (unknown) (unknown) bladder infection. (units (unknown) date) Patient states that unknown) he had a fever two days ago of 101, (unknown) (no (unknown) (unknown) cephalexin 500 mg (units (unknown) date) capsule 500 mg PO unknown) BID 5 days #10 caps 10/31/21 (unknown) (no (unknown) (unknown) chlorthalidone 25 (units (unknown) date) mg tablet 25 mg PO unknown) DAILY #30 tabs 08/20/18 (unknown) (no (unknown) (unknown) ciprofloxacin (units ( unknown) date) Allergy Unknown unknown) Verified 10/31/21 14:29 (unknown) (no (unknown) (unknown) concerning (units (unk nown) date) symptoms, such as unknown) [fever greater than 101F, chills, worsening pain, (unknown) (no (unknown) (unknown) congestion, a (units ( unknown) date) productive cough, unknown) urinary urgency, frequency, and concern for a (unknown) (no (unknown) (unknown) cough, Flonase (units (unknown) date) twice a day for unknown) sinus congestion, throat lozenges for sore (unknown) (no (unknown) (unknown) culture grew (units (u nknown) date) Enterococcus unknown) faecalis and patient required doxycycline. Maintain (unknown) (no (unknown) (unknown) culture is pending. (unit s (unknown) date) His last urine unknown) culture grew out Enterococcus faecalis and (unknown) (no (unknown) (unknown) deficit (units (unkno wn) date) unknown) (unknown) (no (unknown) (unknown) denies any known (units (unknown) date) COVID exposure, unknown) denies sore throat, flank pain, abdominal pain, (unknown) (no (unknown) (unknown) denies any nausea (units (unknown) date) or vomiting, denies unknown) chills, denies shortness of breath or (unknown) (no (unknown) (unknown) denies any (units (unk nown) date) shortness of breath, unknown) wheezing, chest pain, nausea or vomiting. (unknown) (no (unknown) (unknown) denies any urinary (units (unknown) date) retention, unknown) dribbling, or penile discharge. He was treated in (unknown) (no (unknown) (unknown) dextromethorphan-gu (unit s (unknown) date) aifenesin 10 1 unknown) tab-cap PO Q8H PRN cough #14 caps 10/31/21 (unknown) (no (unknown) (unknown) difficulty (units (unk nown) date) breathing. States unknown) that he has had postnasal drip, productive cough, (unknown) (no (unknown) (unknown) distress, (units (unkn own) date) dehydration, or unknown) focal exam to suggest secondary bacterial infection. (unknown) (no (unknown) (unknown) doxycycline hyclate (unit s (unknown) date) 100 mg capsule 100 unknown) mg PO BID 03/19/20 03/19/20 (unknown) (no (unknown) (unknown) endorses a history (units (unknown) date) of hypothyroidism, unknown) BPH, hyperlipidemia, and hypertension with (unknown) (no (unknown) (unknown) especially in the (units (unknown) date) mornings and in the unknown) evenings. Denies any sinus tenderness, (unknown) (no (unknown) (unknown) establish care with [place]unit [place] (unknown) [place] of [place] [facility] primary care providers. (unknown) (no (unknown) (unknown) few days. We will (units (unknown) date) call you if your unknown) urine culture grows abnormal bacteria and if (unknown) (no (unknown) (unknown) gabapentin AdvReac (units (unknown) date) Mild 'FELT LIKE unknown) Verified 10/31/21 14:29 (unknown) (no (unknown) (unknown) including fever, (units (unknown) date) nausea vomiting, unknown) chills, or other concern, please return to the (unknown) (no (unknown) (unknown) infection prevention (unit s (unknown) date) measures such as unknown) frequent handwashing. Discussed supportive (unknown) (no (unknown) (unknown) instructions (units (u nknown) date) discussed for new, unknown) not improving, or worsening symptoms. All (unknown) (no (unknown) (unknown) instrumentation (units (unknown) date) into his bladder unknown) recently he does have a history of BPH but (unknown) (no (unknown) (unknown) ipratropium bromide (unit s (unknown) date) 21 mcg (0.03 2 spray unknown) intranasal BID #30 mL 07/19/19 (unknown) (no (unknown) (unknown) lactate was 1.7, no (units (unknown) date) electrolyte unknown) derangement, liver enzymes are slightly elevated (unknown) (no (unknown) (unknown) lesion (units (unkno wn) date) unknown) (unknown) (no (unknown) (unknown) levothyroxine 112 (units (unknown) date) mcg tablet 112 mcg unknown) PO DAILY #30 tabs 04/08/20 (unknown) (no (unknown) (unknown) lisinopril 5 mg (units (unknown) date) tablet 5 mg PO BID unknown) 03/19/20 03/19/20 (unknown) (no (unknown) (unknown) lozenges (Cepacol (units (unknown) date) Sore Throat sore unknown) throat #16 ea (unknown) (no (unknown) (unknown) medications and/or (units (unknown) date) antihistamines for unknown) symptomatic relief. Patient has (unknown) (no (unknown) (unknown) metoprolol (units (unk nown) date) succinate 25 mg 25 unknown) mg PO QDAY ##90 05/15/17 (unknown) (no (unknown) (unknown) mg-200 mg capsule (units (unknown) date) (Robitussin unknown) (unknown) (no (unknown) (unknown) nirmatrelvir 300 mg (unit s (unknown) date) (150 mg x See Rx unknown) Instructions PO .COMPLEX 10/31/21 (unknown) (no (unknown) (unknown) of today's note if (units (unknown) date) your PCP is in our unknown) system (unknown) (no (unknown) (unknown) on repeat (units (unkn own) date) examination is unknown) unremarkable. Patient has been informed of results. (unknown) (no (unknown) (unknown) or Confirmed ) (units (unknown) date) unknown) (unknown) (no (unknown) (unknown) or abnormality. (units (unknown) date) Patient is on day unknown) three of his symptoms and tested negative for (unknown) (no (unknown) (unknown) or other symptom. (units (unknown) date) On chart review it unknown) appears that patient had pyelonephritis on (unknown) (no (unknown) (unknown) patient endorses (units (unknown) date) needing admission to unknown) the hospital with a kidney infection and (unknown) (no (unknown) (unknown) peripheral edema (units (unknown) date) unknown) (unknown) (no (unknown) (unknown) persistent vomiting (unit s (unknown) date) or other bothersome unknown) symptoms] (unknown) (no (unknown) (unknown) productive cough, (units (unknown) date) fever two days ago, unknown) and urinary tract infection. Patient (unknown) (no (unknown) (unknown) productive cough. (units (unknown) date) Chest x-ray is unknown) negative for acute cardiopulmonary infiltrate (unknown) (no (unknown) (unknown) questions and (units ( unknown) date) concerns answered at unknown) this time. (unknown) (no (unknown) (unknown) questions answered. (unit s (unknown) date) Patient was given unknown) strict return precautions. Patient's (unknown) (no (unknown) (unknown) retractions, (units (u nknown) date) hypoxia or tachypnea unknown) (unknown) (no (unknown) (unknown) significant (units (un known) date) comorbidities most unknown) importantly his age, we will treat with Paxlovid (unknown) (no (unknown) (unknown) symptoms. Patient (units (unknown) date) understands to unknown) follow up closely with outpatient providers as (unknown) (no (unknown) (unknown) tablet,extended (units (unknown) date) release 24 hr unknown) (unknown) (no (unknown) (unknown) tenderness (units (unk nown) date) unknown) (unknown) (no (unknown) (unknown) that he has felt (units (unknown) date) poorly for the last unknown) few days, states that he has had increased (unknown) (no (unknown) (unknown) throat. (units (unkno wn) date) unknown) (unknown) (no (unknown) (unknown) treated for his UTI (unit s (unknown) date) with cephalexin, unknown) will follow-up on culture, last urine (unknown) (no (unknown) (unknown) twice daily for 5 (units (unknown) date) days unknown) (unknown) (no (unknown) (unknown) unremarkable.? (units (unknown) date) unknown) (unknown) (no (unknown) (unknown) urinary retention, (units (unknown) date) states that he has a unknown) problem with urinary frequency. He (unknown) (no (unknown) (unknown) urine culture grows (unit s (unknown) date) out bacteria which unknown) is not covered on this antibiotic. (unknown) (no (unknown) (unknown) urine cultures were (unit s (unknown) date) available for unknown) review. Patient denies any difficulty with (unknown) (no (unknown) (unknown) was very sick at (units (unknown) date) that time. Patient unknown) has not had any bladder catheterizations (unknown) (no (unknown) (unknown) worsening. You may (unit s (unknown) date) treat your symptoms unknown) with Robitussin/Mucinex for productive Result panel 10 (unknown) (no (unknown) (unknown) (no value) (units (unk nown) date) unknown) (unknown) (no (unknown) (unknown) Radiologist's (units ( unknown) date) Impression: unknown) (unknown) (no (unknown) (unknown) *Please continue to (unit s (unknown) date) take your regular unknown) medications as directed. (unknown) (no (unknown) (unknown) Date of Service: (units (unknown) date) 10/31/21 unknown) (unknown) (no (unknown) (unknown) (no value) (units (unk nown) date) unknown) (unknown) (no (unknown) (unknown) <Electronically (units (unknown) date) signed by Pretty Chatman unknown) MIRANDA Crew> (unknown) (no (unknown) (unknown) <Electronically (units (unknown) date) signed by Td unknown) Eilse Amador> (unknown) (no (unknown) (unknown) 10/31/21 15:40 (units (unknown) date) unknown) (unknown) (no (unknown) (unknown) 10/31/21 1705 (units ( unknown) date) unknown) (unknown) (no (unknown) (unknown) 10/31/21 1710 (units ( unknown) date) unknown) (unknown) (no (unknown) (unknown) 1 aidan mucous (units (u nknown) date) membrane Q2-4H PRN unknown) (Reason: sore throat) Qty: 16 0RF (unknown) (no (unknown) (unknown) 1 tab-cap PO Q8H (units (unknown) date) PRN (Reason: cough) unknown) Qty: 14 0RF (unknown) (no (unknown) (unknown) 100 mg PO BID (units ( unknown) date) unknown) (unknown) (no (unknown) (unknown) 112 mcg PO DAILY (units (unknown) date) Qty: 30 3RF unknown) (unknown) (no (unknown) (unknown) 2 spray NASAL BID (units (unknown) date) Qty: 30 2RF unknown) (unknown) (no (unknown) (unknown) 20 mg PO HS (units (un known) date) unknown) (unknown) (no (unknown) (unknown) 25 mg PO DAILY Qty: (unit s (unknown) date) 30 1RF unknown) (unknown) (no (unknown) (unknown) 25 mg PO QDAY Qty: (units (unknown) date) 90 0RF unknown) (unknown) (no (unknown) (unknown) 5 mg PO BID (units (un known) date) unknown) (unknown) (no (unknown) (unknown) 500 mg PO BID 5 (units (unknown) date) Days Qty: 10 0RF unknown) (unknown) (no (unknown) (unknown) A BALLOON (units (unkn own) date) unknown) (unknown) (no (unknown) (unknown) Admin: 10/31/21 (units (unknown) date) 15:49 Dose: 200 unknown) mls/hr (unknown) (no (unknown) (unknown) Administer one (units (unknown) date) spray into each unknown) nostril. (unknown) (no (unknown) (unknown) Allergies (units (unkn own) date) unknown) (unknown) (no (unknown) (unknown) Documented By: AT (units (unknown) date) unknown) (unknown) (no (unknown) (unknown) ED Orders (units (unkn own) date) unknown) (unknown) (no (unknown) (unknown) Emergency Report (units (unknown) date) unknown) (unknown) (no (unknown) (unknown) GFR >60, day 3 of (units (unknown) date) symptoms, tested unknown) positive today, negative yesterday. (unknown) (no (unknown) (unknown) HEAD' (units (unkno wn) date) unknown) (unknown) (no (unknown) (unknown) Home Medications (units (unknown) date) unknown) (unknown) (no (unknown) (unknown) [facility] (units (unknown) date) [address] unknown) [place] [id number] (unknown) (no (unknown) (unknown) Lab Results (units (un known) date) unknown) (unknown) (no (unknown) (unknown) Last Admin: (units (un known) date) 10/31/21 15:49 unknown) Dose: 600 mg (unknown) (no (unknown) (unknown) Last Infusion: (units (unknown) date) 10/31/21 16:30 unknown) Dose: 0 mls/hr (unknown) (no (unknown) (unknown) Previous Rx's (units ( unknown) date) unknown) (unknown) (no (unknown) (unknown) Rx Instructions: (units (unknown) date) unknown) (unknown) (no (unknown) (unknown) See Rx Instructions (unit s (unknown) date) .ROUTE .COMPLEX unknown) Qty: 30 0RF (unknown) (no (unknown) (unknown) Stop: 10/31/21 (units (unknown) date) 15:22 unknown) (unknown) (no (unknown) (unknown) Vital Signs - 8 hr (units (unknown) date) unknown) (unknown) (no (unknown) (unknown) [ ] New medication (units (unknown) date) written as a paper unknown) prescription (unknown) (no (unknown) (unknown) [ ] No new (units (unk nown) date) medications given unknown) (unknown) (no (unknown) (unknown) [x ] New medication (unit s (unknown) date) prescriptions sent unknown) to your pharmacy: [[facility] ] (unknown) (no (unknown) (unknown) please repeat lab (units (unknown) date) work in 1 month of unknown) beginning this new dose. (unknown) (no (unknown) (unknown) please take 2 times (unit s (unknown) date) daily starting unknown) 11/01/21 (unknown) (no (unknown) (unknown) take TWO 150 mg (units (unknown) date) tablets of unknown) nirmatrelvir with ONE 100 mg tablet of ritonavir (unknown) (no (unknown) (unknown) (no value) (units (unk nown) date) unknown) (unknown) (no (unknown) (unknown) 10/31/21 10/31/21 (units (unknown) date) 10/31/21 Range/Units unknown) (unknown) (no (unknown) (unknown) 10/31/21 10/31/21 (units (unknown) date) Range/Units unknown) (unknown) (no (unknown) (unknown) 14:20 14:20 15:40 (units (unknown) date) unknown) (unknown) (no (unknown) (unknown) 15:40 15:40 (units (un known) date) unknown) (unknown) (no (unknown) (unknown) Cepacol Sore Throat (unit s (unknown) date) (meli-men) 15-3.6 mg unknown) lozenge (unknown) (no (unknown) (unknown) Paxlovid (EUA) 150 (units (unknown) date) mg x 2- 100 mg unknown) tablet (unknown) (no (unknown) (unknown) Robitussin (units (unk nown) date) Cough-Chest Rowdy DM unknown) 10-200 mg capsule (unknown) (no (unknown) (unknown) atorvastatin (units (u nknown) date) [Lipitor] 20 mg unknown) tablet (unknown) (no (unknown) (unknown) cephalexin 500 mg (units (unknown) date) capsule unknown) (unknown) (no (unknown) (unknown) chlorthalidone 25 (units (unknown) date) mg tablet unknown) (unknown) (no (unknown) (unknown) doxycycline hyclate (unit s (unknown) date) 100 mg capsule unknown) (unknown) (no (unknown) (unknown) ipratropium bromide (unit s (unknown) date) 0.03 % unknown) spray,non-aerosol (unknown) (no (unknown) (unknown) levothyroxine 112 (units (unknown) date) mcg tablet unknown) (unknown) (no (unknown) (unknown) lisinopril 5 mg (units (unknown) date) tablet unknown) (unknown) (no (unknown) (unknown) metoprolol (units (unk nown) date) succinate [Toprol unknown) XL] 25 MG tablet extended release 24 hr (unknown) (no (unknown) (unknown) 10/31/21 (units (unkno wn) date) unknown) (unknown) (no (unknown) (unknown) COVID yesterday. (units (unknown) date) COVID (+) on day 3 unknown) of symptoms without hypoxia, respiratory (unknown) (no (unknown) (unknown) COVID-19, Acute UTI (unit s (unknown) date) unknown) (unknown) (no (unknown) (unknown) Leukopenia type: (units (unknown) date) unspecified unknown) Qualified Code(s): D72.819 - Decreased white blood (unknown) (no (unknown) (unknown) Medication (units (unk nown) date) Instructions unknown) Recorded (unknown) (no (unknown) (unknown) Medication (units (unk nown) date) Instructions unknown) Recorded Confirmed (unknown) (no (unknown) (unknown) but have been in (units (unknown) date) the past. unknown) Creatinine is 0.95 and at his baseline, GFR over (unknown) (no (unknown) (unknown) cell count, (units (un known) date) unspecified unknown) (unknown) (no (unknown) (unknown) emergency (units (unkn own) date) department. This unknown) medication for COVID should reduce your course of (unknown) (no (unknown) (unknown) instructed. (units (un known) date) Patient understands unknown) plan and agrees to discharge home. All (unknown) (no (unknown) (unknown) reduce length of (units (unknown) date) course of illness unknown) and hospitalization potential. Patient was (unknown) (no (unknown) (unknown) the emergency (units ( unknown) date) department with 1 g unknown) of ceftriaxone, and Mucinex for his (unknown) (no (unknown) (unknown) treatments: (units (un known) date) Tylenol/Motrin as unknown) needed for pain/fever. OTC decongestant (unknown) (no (unknown) (unknown) you need a new (units (unknown) date) antibiotic. If you unknown) have any worsening of your symptoms (unknown) (no (unknown) (unknown) %) nasal spray (units (unknown) date) unknown) (unknown) (no (unknown) (unknown) <Pretty Sanchez, (units (unknown) date) [facility] - Last Filed: unknown) 10/31/21 17:05> (unknown) (no (unknown) (unknown) <Td Amador DO (unit s (unknown) date) - Last Filed: unknown) 10/31/21 17:10> (unknown) (no (unknown) (unknown) (Paxlovid 300 mg () (unit s (unknown) date) unknown) (unknown) (no (unknown) (unknown) (Toprol XL) (units (un known) date) unknown) (unknown) (no (unknown) (unknown) (benzocaine-menthol (unit s (unknown) date) )) unknown) (unknown) (no (unknown) (unknown) *If you do not have (unit s (unknown) date) a primary care unknown) provider please contact [phone] to (unknown) (no (unknown) (unknown) *Please follow up (units (unknown) date) with your primary unknown) care provider in 2-3 days, call for an (unknown) (no (unknown) (unknown) *Return to (units (unk nown) date) Emergency Department unknown) if you should have any new, worsening or (unknown) (no (unknown) (unknown) *What to do: (units (u nknown) date) unknown) (unknown) (no (unknown) (unknown) *You have been (units (unknown) date) diagnosed with a unknown) bladder infection, we will call you if your (unknown) (no (unknown) (unknown) 10/31/21 14:20 (units (unknown) date) unknown) (unknown) (no (unknown) (unknown) 10/31/21 14:26 (units (unknown) date) unknown) (unknown) (no (unknown) (unknown) 10/31/21 15:40 (units (unknown) date) unknown) (unknown) (no (unknown) (unknown) 11/18/2019 and grew (unit s (unknown) date) out Enterococcus unknown) faecalis from his urine culture. No other (unknown) (no (unknown) (unknown) 14:27 10/31/21 (units (unknown) date) unknown) (unknown) (no (unknown) (unknown) 16:45 (units (unkno wn) date) unknown) (unknown) (no (unknown) (unknown) [id number] (units (unkno wn) date) unknown) (unknown) (no (unknown) (unknown) 2)-ritonavir 100 mg (unit s (unknown) date) tablet (EUA) #30 unknown) tabs (unknown) (no (unknown) (unknown) 60. Lipase 275. (units (unknown) date) No leukocytosis, unknown) white blood cell count is low at 3.5. (unknown) (no (unknown) (unknown) ? (units (unkno wn) date) unknown) (unknown) (no (unknown) (unknown) ALT (<50) IU/L (unit s (unknown) date) unknown) (unknown) (no (unknown) (unknown) ALT 68 H (<50) (units (unknown) date) IU/L unknown) (unknown) (no (unknown) (unknown) AST (17-59) (units (unknown) date) IU/L unknown) (unknown) (no (unknown) (unknown) AST 72 H (17-59) (unit s (unknown) date) IU/L unknown) (unknown) (no (unknown) (unknown) Activity (units (o wn) date) Restrictions/Additio unknown) nal Instructions: (unknown) (no (unknown) (unknown) Age/Sex: 89 / M (units (unknown) date) unknown) (unknown) (no (unknown) (unknown) Albumin (units (o wn) date) (3.5-5.0) g/dL unknown) (unknown) (no (unknown) (unknown) Albumin 3.9 (units (u nknown) date) (3.5-5.0) g/dL unknown) (unknown) (no (unknown) (unknown) Albumin/Globulin (units (unknown) date) Ratio (1.0-2.8) unknown) (unknown) (no (unknown) (unknown) Albumin/Globulin (units (unknown) date) Ratio 1.4 unknown) (1.0-2.8) (unknown) (no (unknown) (unknown) Alkaline (units (unkno wn) date) Phosphatase unknown) (38-126) U/L (unknown) (no (unknown) (unknown) Alkaline (units (unkno wn) date) Phosphatase 49 unknown) (38-126) U/L (unknown) (no (unknown) (unknown) Allergy/AdvReac (units (unknown) date) Type Severity unknown) Reaction Status Date / Time (unknown) (no (unknown) (unknown) Approved by: Evi Seounits (unknown) date) Carmen Zuniga on unknown) 10/31/2021 at 14:50 ? (unknown) (no (unknown) (unknown) BUN (9-20) (units (unknown) date) mg/dL unknown) (unknown) (no (unknown) (unknown) BUN 24 H (9-20) (units (unknown) date) mg/dL unknown) (unknown) (no (unknown) (unknown) BUN/Creatinine (units (unknown) date) Ratio (-) unknown) (unknown) (no (unknown) (unknown) BUN/Creatinine (units (unknown) date) Ratio 25.3 H unknown) (10-30) (unknown) (no (unknown) (unknown) Baso # (Auto) (units ( unknown) date) (0-100) /uL unknown) (unknown) (no (unknown) (unknown) Baso # (Auto) 0 (units (unknown) date) (0-100) /uL unknown) (unknown) (no (unknown) (unknown) Baso % (Auto) (units ( unknown) date) (0-2) % unknown) (unknown) (no (unknown) (unknown) Baso % (Auto) (units ( unknown) date) 0.8 (0-2) % unknown) (unknown) (no (unknown) (unknown) Blood Pressure (units (unknown) date) 123/87 10/31/21 unknown) 14:27 (unknown) (no (unknown) (unknown) Blood Pressure (units (unknown) date) 123/87 122/73 unknown) (unknown) (no (unknown) (unknown) Bones and chest (units (unknown) date) wall:? No suspicious unknown) bony abnormalities.? Soft tissues appear (unknown) (no (unknown) (unknown) CBC Auto Diff (units ( unknown) date) [Complete Blood unknown) Count AUTO DIFF] Stat (unknown) (no (unknown) (unknown) CMP [Comprehensive (units (unknown) date) Metabolic Panel] unknown) Stat (unknown) (no (unknown) (unknown) COMPAR[facility], [facility], CHEST unknown) 2 VIEW, 06/25/2017, 14:04.? [facility] ([facility]) (no (unknown) (unknown) COVID PCR is (units (u nknown) date) positive, his urine unknown) microscopy shows moderate bacteria, urine (unknown) (no (unknown) (unknown) COVID and hopefully (unit s (unknown) date) prevent you from unknown) needing hospitalization. (unknown) (no (unknown) (unknown) Calcium (units (unkno wn) date) (8.4-10.2) mg/dL unknown) (unknown) (no (unknown) (unknown) Calcium 8.2 L (units (unknown) date) (8.4-10.2) mg/dL unknown) (unknown) (no (unknown) (unknown) Carbon Dioxide (units (unknown) date) (22-32) mmol/L unknown) (unknown) (no (unknown) (unknown) Carbon Dioxide 34 (units (unknown) date) H (22-32) mmol/L unknown) (unknown) (no (unknown) (unknown) Cardio: Regular (units (unknown) date) rate and rhythm, unknown) S1-S2 without additional sounds, and no (unknown) (no (unknown) (unknown) Cardio: denies (units (unknown) date) chest pain, unknown) palpitations (unknown) (no (unknown) (unknown) Ceftriaxone Sodium (units (unknown) date) 1,000 mg/ (Sodium unknown) Chloride) 100 mls @ 200 mls/hr IV NOW ONE (unknown) (no (unknown) (unknown) Chest x-ray: (units (u nknown) date) unknown) (unknown) (no (unknown) (unknown) Chief Complaint: (units (unknown) date) Upper Respiratory unknown) Symptoms (unknown) (no (unknown) (unknown) Chloride (units (unkno wn) date) (98-107) mmol/L unknown) (unknown) (no (unknown) (unknown) Chloride 96 L (units (unknown) date) (98-107) mmol/L unknown) (unknown) (no (unknown) (unknown) Clinical (units (unkno wn) date) Impression: unknown) (unknown) (no (unknown) (unknown) Cosign (units (unkno wn) date) unknown) (unknown) (no (unknown) (unknown) Cough-Chest (units (un known) date) Congestion DM) unknown) (unknown) (no (unknown) (unknown) Course (units (unkno wn) date) unknown) (unknown) (no (unknown) (unknown) Covid-19 + FLU A/B (units (unknown) date) by PCR Stat unknown) (unknown) (no (unknown) (unknown) Creatinine (units (unk nown) date) (0.66-1.25) mg/dL unknown) (unknown) (no (unknown) (unknown) Creatinine 0.95 (units (unknown) date) (0.66-1.25) mg/dL unknown) (unknown) (no (unknown) (unknown) : 1930 (units (unknown) date) Acct:[id number] unknown) (unknown) (no (unknown) (unknown) Departure (units (unkn own) date) unknown) (unknown) (no (unknown) (unknown) Dictated by: Evi (units (unknown) date) Carmen Zuniga on unknown) 10/31/2021 at 14:49 ? ? (unknown) (no (unknown) (unknown) Discharge Plan (units (unknown) date) unknown) (unknown) (no (unknown) (unknown) Discontinued (units (u nknown) date) Medications unknown) (unknown) (no (unknown) (unknown) Discussed CDC (units ( unknown) date) guidelines for unknown) quarantine, mask wearing, physical distancing, and (unknown) (no (unknown) (unknown) Dr Amador Co-Sign (units (unknown) date) Statement: I was unknown) available for consultation during this (unknown) (no (unknown) (unknown) ED Attending (units (u nknown) date) Cosignature unknown) Attestation: (unknown) (no (unknown) (unknown) ER Physician: (units ( unknown) date) Pretty Sanchez unknown) (unknown) (no (unknown) (unknown) Eos # (Auto) (units (u nknown) date) (0-450) /uL unknown) (unknown) (no (unknown) (unknown) Eos # (Auto) 0 (units (unknown) date) (0-450) /uL unknown) (unknown) (no (unknown) (unknown) Eos % (Auto) (units (u nknown) date) (2-4) % unknown) (unknown) (no (unknown) (unknown) Eos % (Auto) 0.2 (unit s (unknown) date) L (2-4) % unknown) (unknown) (no (unknown) (unknown) Estimated GFR (units ( unknown) date) (>60) mL/min unknown) (unknown) (no (unknown) (unknown) Estimated GFR > 60 (unit s (unknown) date) (>60) mL/min unknown) (unknown) (no (unknown) (unknown) Exam (units (unkno wn) date) unknown) (unknown) (no (unknown) (unknown) Exam Narrative: (units (unknown) date) unknown) (unknown) (no (unknown) (unknown) Eyes: EOMI, (units (u nknown) date) conjunctiva normal unknown) (unknown) (no (unknown) (unknown) Eyes: denies visual (unit s (unknown) date) changes, eye pain unknown) (unknown) (no (unknown) (unknown) FINDINGS:? (units (unk nown) date) unknown) (unknown) (no (unknown) (unknown) GI: Abdomen soft, (units (unknown) date) nontender to unknown) palpation x4 quadrants, no guarding or rebound (unknown) (no (unknown) (unknown) GI: denies (units (unk nown) date) abdominal pain, unknown) nausea, vomiting, or diarrhea (unknown) (no (unknown) (unknown) : denies dysuria, (unit s (unknown) date) hematuria or flank unknown) pain (unknown) (no (unknown) (unknown) General (units (unkno wn) date) unknown) (unknown) (no (unknown) (unknown) General: Awake, (units (unknown) date) alert, nontoxic, no unknown) cardiorespiratory distress (unknown) (no (unknown) (unknown) General: denies (units (unknown) date) fever, chills unknown) (unknown) (no (unknown) (unknown) GenericComposite[Pl (unit s (unknown) date) t Count (150-400) unknown) X10^3/uL ] (unknown) (no (unknown) (unknown) GenericComposite[Pl (unit s (unknown) date) t Count 131 L unknown) (150-400) X10^3/uL ] (unknown) (no (unknown) (unknown) GenericComposite[RB (unit s (unknown) date) C (4.5-5.9) unknown) X10^6/uL ] (unknown) (no (unknown) (unknown) GenericComposite[RB (unit s (unknown) date) C 4.63 (4.5-5.9) unknown) X10^6/uL ] (unknown) (no (unknown) (unknown) GenericComposite[WB (unit s (unknown) date) C (4.5-11.0) unknown) X10^3/uL ] (unknown) (no (unknown) (unknown) GenericComposite[WB (unit s (unknown) date) C 3.5 L unknown) (4.5-11.0) X10^3/uL ] (unknown) (no (unknown) (unknown) Globulin (units (unkno wn) date) (1.7-4.1) g/dL unknown) (unknown) (no (unknown) (unknown) Globulin 2.8 (units ( unknown) date) (1.7-4.1) g/dL unknown) (unknown) (no (unknown) (unknown) Glucose (units (unkno wn) date) (80-110) mg/dL unknown) (unknown) (no (unknown) (unknown) Glucose 107 (units (u nknown) date) (80-110) mg/dL unknown) (unknown) (no (unknown) (unknown) Guaifenesin (units (un known) date) (Guaifenesin Er 600 unknown) Mg Tab) 600 mg PO NOW ONE (unknown) (no (unknown) (unknown) HPI - URI/Sore (units (unknown) date) Throat unknown) (unknown) (no (unknown) (unknown) HPI Narrative: (units (unknown) date) unknown) (unknown) (no (unknown) (unknown) Hct (41-53) % (units (unknown) date) unknown) (unknown) (no (unknown) (unknown) Hct 42.8 (units (un known) date) (41-53) % unknown) (unknown) (no (unknown) (unknown) Head/Neck: (units (unk nown) date) Atraumatic, neck unknown) supple (unknown) (no (unknown) (unknown) Head/Neck: denies (units (unknown) date) headache, neck pain, unknown) endorses congestion, postnasal drip (unknown) (no (unknown) (unknown) Hgb (13.5-17.5) (units (unknown) date) g/dL unknown) (unknown) (no (unknown) (unknown) Hgb 14.7 (units (un known) date) (13.5-17.5) g/dL unknown) (unknown) (no (unknown) (unknown) History of Present (units (unknown) date) Illness unknown) (unknown) (no (unknown) (unknown) History of spinal (units (unknown) date) fusion unknown) (unknown) (no (unknown) (unknown) Hospital, , (units ( unknown) date) unknown) (unknown) (no (unknown) (unknown) Hypertension (units (u nknown) date) unknown) (unknown) (no (unknown) (unknown) I hope you feel (units (unknown) date) better soon, please unknown) come back to the ER if you have any (unknown) (no (unknown) (unknown) IMPRESSION:? No (units (unknown) date) acute unknown) cardiopulmonary disease. (unknown) (no (unknown) (unknown) INDICATIONS:? cough (unit s (unknown) date) unknown) (unknown) (no (unknown) (unknown) Imaging Data (units (u nknown) date) unknown) (unknown) (no (unknown) (unknown) Independently (units ( unknown) date) reviewed vitals unknown) signs and nursing notes. (unknown) (no (unknown) (unknown) Influenza A (units (un known) date) (RT-PCR) unknown) (NEGATIVE) (unknown) (no (unknown) (unknown) Influenza A (units (un known) date) (RT-PCR) Flu a unknown) negative (NEGATIVE) (unknown) (no (unknown) (unknown) Influenza B (units (un known) date) (RT-PCR) unknown) (NEGATIVE) (unknown) (no (unknown) (unknown) Influenza B (units (un known) date) (RT-PCR) Flu b unknown) negative (NEGATIVE) (unknown) (no (unknown) (unknown) Initial Vital Signs (unit s (unknown) date) unknown) (unknown) (no (unknown) (unknown) Initial Vital (units ( unknown) date) Signs: unknown) (unknown) (no (unknown) (unknown) Instructions: DI (units (unknown) date) for Urinary Tract unknown) Infection (UTI), DI for COVID-19 (Suspected (unknown) (no (unknown) (unknown) Lab Data (units (unkno wn) date) unknown) (unknown) (no (unknown) (unknown) Labs: (units (unkno wn) date) unknown) (unknown) (no (unknown) (unknown) Lactate (units (unkno wn) date) (0.7-2.1) mmol/L unknown) (unknown) (no (unknown) (unknown) Lactate 1.7 (units ( unknown) date) (0.7-2.1) mmol/L unknown) (unknown) (no (unknown) (unknown) Lactate (Lactic (units (unknown) date) Acid) Stat unknown) (unknown) (no (unknown) (unknown) Leukopenia (units (unk nown) date) unknown) (unknown) (no (unknown) (unknown) Lipase (23-300) (unit s (unknown) date) U/L unknown) (unknown) (no (unknown) (unknown) Lipase 273 (units (un known) date) (23-300) U/L unknown) (unknown) (no (unknown) (unknown) Lipase Stat (units (un known) date) unknown) (unknown) (no (unknown) (unknown) Lungs and pleura:? 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 (units (unknown) date) No pleural effusions unknown) or pneumothorax.? (unknown) (no (unknown) (unknown) Lymph # (Auto) (units (unknown) date) (2812-4641) /uL unknown) (unknown) (no (unknown) (unknown) Lymph # (Auto) (units (unknown) date) 1400 (5916-9827) unknown) /uL (unknown) (no (unknown) (unknown) Lymph % (Auto) (units (unknown) date) (25-40) % unknown) (unknown) (no (unknown) (unknown) Lymph % (Auto) (units (unknown) date) 40.1 H (25-40) % unknown) (unknown) (no (unknown) (unknown) MCH (26-34) PG (units (unknown) date) unknown) (unknown) (no (unknown) (unknown) MCH 31.8 (units (un known) date) (26-34) PG unknown) (unknown) (no (unknown) (unknown) MCHC (30-36) % (units (unknown) date) unknown) (unknown) (no (unknown) (unknown) MCHC 34.4 (units (u nknown) date) (30-36) % unknown) (unknown) (no (unknown) (unknown) MCV (80-100) fL (unit s (unknown) date) unknown) (unknown) (no (unknown) (unknown) MCV 92.4 (units (un known) date) (80-100) fL unknown) (unknown) (no (unknown) (unknown) MDM - URI/Sore (units (unknown) date) Throat unknown) (unknown) (no (unknown) (unknown) MDM Narrative (units ( unknown) date) unknown) (unknown) (no (unknown) (unknown) MSK: Moves all (units (unknown) date) extremities, unknown) neurovascularly intact, range of motion without (unknown) (no (unknown) (unknown) MSK: denies new (units (unknown) date) joint pain, muscle unknown) weakness or swelling (unknown) (no (unknown) (unknown) Magnesium (units (unkn own) date) (1.6-2.3) mg/dL unknown) (unknown) (no (unknown) (unknown) Magnesium 1.9 (units (unknown) date) (1.6-2.3) mg/dL unknown) (unknown) (no (unknown) (unknown) Magnesium Stat (units (unknown) date) unknown) (unknown) (no (unknown) (unknown) Mediastinum:? (units ( unknown) date) Mediastinal contours unknown) are normal.? Heart size is normal.? (unknown) (no (unknown) (unknown) Medical History (units (unknown) date) (Reviewed 10/31/21 @ unknown) 15:29 by Pretty Sanchez [facility]) (unknown) (no (unknown) (unknown) Medical decision (units (unknown) date) making narrative: unknown) (unknown) (no (unknown) (unknown) Mode of arrival: (units (unknown) date) Ambulatory unknown) (unknown) (no (unknown) (unknown) Fisher # (Auto) (units ( unknown) date) (0-900) /uL unknown) (unknown) (no (unknown) (unknown) Fisher # (Auto) (units ( unknown) date) 600 (0-900) /uL unknown) (unknown) (no (unknown) (unknown) Fisher % (Auto) (units ( unknown) date) (3-14) % unknown) (unknown) (no (unknown) (unknown) Fisher % (Auto) (units ( unknown) date) 15.8 H (3-14) % unknown) (unknown) (no (unknown) (unknown) Mouth/Throat: moist (unit s (unknown) date) mucus membranes, unknown) posterior pharynx without erythema or (unknown) (no (unknown) (unknown) Narrative (units (unkn own) date) unknown) (unknown) (no (unknown) (unknown) Narrative: (units (unk nown) date) unknown) (unknown) (no (unknown) (unknown) Neuro: Normal (units (unknown) date) speech and unknown) cognition, normal gait (unknown) (no (unknown) (unknown) Neuro: denies (units ( unknown) date) numbness, tingling, unknown) dizziness (unknown) (no (unknown) (unknown) Neut # (Auto) (units ( unknown) date) (8419-8456) /uL unknown) (unknown) (no (unknown) (unknown) Neut # (Auto) (units ( unknown) date) 1500 (6567-8125) unknown) /uL (unknown) (no (unknown) (unknown) Neut % (Auto) (units ( unknown) date) (50-75) % unknown) (unknown) (no (unknown) (unknown) Neut % (Auto) (units ( unknown) date) 43.1 L (50-75) % unknown) (unknown) (no (unknown) (unknown) New (units (unkno wn) date) unknown) (unknown) (no (unknown) (unknown) No Action (units (unkn own) date) unknown) (unknown) (no (unknown) (unknown) Nose: nares patent, (unit s (unknown) date) no rhinorrhea unknown) (unknown) (no (unknown) (unknown) Ordered: (units (unkno wn) date) unknown) (unknown) (no (unknown) (unknown) Orders (units (unkno wn) date) unknown) (unknown) (no (unknown) (unknown) Oxygen Delivery (units (unknown) date) Method 10/31/21 unknown) 14:27 (unknown) (no (unknown) (unknown) Oxygen Delivery (units (unknown) date) Method Room Air Room unknown) Air (unknown) (no (unknown) (unknown) PROCEDURE:? XR (units (unknown) date) CHEST 2V unknown) (unknown) (no (unknown) (unknown) Patient (units (unkno wn) date) Disposition: Home unknown) (unknown) (no (unknown) (unknown) Patient History (units (unknown) date) unknown) (unknown) (no (unknown) (unknown) Patient does not (units (unknown) date) any O2 requirement unknown) his respirations are unlabored without (unknown) (no (unknown) (unknown) Patient has been (units (unknown) date) given strict return unknown) to ER precautions for any new or worsening (unknown) (no (unknown) (unknown) Patient is (units (unk nown) date) appropriate and unknown) amenable to discharge home. Vital signs are stable (unknown) (no (unknown) (unknown) Patient: (units (unkno wn) date) Abe Rose unknown) MR#: [id number] (unknown) (no (unknown) (unknown) Paxlovid for COVID (units (unknown) date) x 5 days. Please unknown) drink more water than usual over the next (unknown) (no (unknown) (unknown) Gabriel Kirby, DO (units (unknown) date) [Primary Care unknown) Provider] - (unknown) (no (unknown) (unknown) Please break your (units (unknown) date) atorvastatin in half unknown) and only take half doses while on (unknown) (no (unknown) (unknown) Potassium (units (unkn own) date) (3.4-5.1) mmol/L unknown) (unknown) (no (unknown) (unknown) Potassium 3.8 (units (unknown) date) (3.4-5.1) mmol/L unknown) (unknown) (no (unknown) (unknown) Prescriptions: (units (unknown) date) unknown) (unknown) (no (unknown) (unknown) Pulse Oximetry 98 (units (unknown) date) 10/31/21 14:27 unknown) (unknown) (no (unknown) (unknown) Pulse Oximetry 98 (units (unknown) date) 99 unknown) (unknown) (no (unknown) (unknown) Pulse Rate 71 (units (unknown) date) 10/31/21 14:27 unknown) (unknown) (no (unknown) (unknown) Pulse Rate 71 69 (units (unknown) date) unknown) (unknown) (no (unknown) (unknown) Pyelonephritis (units (unknown) date) unknown) (unknown) (no (unknown) (unknown) Qualifiers: (units (un known) date) unknown) (unknown) (no (unknown) (unknown) RDW (11.6-14.8) (units (unknown) date) % unknown) (unknown) (no (unknown) (unknown) RDW 13.5 (units (un known) date) (11.6-14.8) % unknown) (unknown) (no (unknown) (unknown) Referrals: (units (unk nown) date) unknown) (unknown) (no (unknown) (unknown) Related Data (units (u nknown) date) unknown) (unknown) (no (unknown) (unknown) Respiratory Rate (units (unknown) date) 16 10/31/21 14:27 unknown) (unknown) (no (unknown) (unknown) Respiratory Rate 16 (unit s (unknown) date) 20 unknown) (unknown) (no (unknown) (unknown) Respiratory: denies (unit s (unknown) date) shortness of breath, unknown) endorses having a productive cough (unknown) (no (unknown) (unknown) Respiratory: (units (u nknown) date) respirations unknown) unlabored without wheezing, stridor, or rales. No (unknown) (no (unknown) (unknown) Result diagrams: (units (unknown) date) unknown) (unknown) (no (unknown) (unknown) Review of Systems (units (unknown) date) unknown) (unknown) (no (unknown) (unknown) SARS-CoV-2 (PCR) (units (unknown) date) (Negative) unknown) (unknown) (no (unknown) (unknown) SARS-CoV-2 (PCR) (units (unknown) date) Positive H unknown) (Negative) (unknown) (no (unknown) (unknown) Signed By: (units (unk nown) date) unknown) (unknown) (no (unknown) (unknown) Skin: Normal (units ( unknown) date) capillary refill, no unknown) rash (unknown) (no (unknown) (unknown) Skin: denies rash, (units (unknown) date) itching or wound unknown) (unknown) (no (unknown) (unknown) Smoking Status: (units (unknown) date) Former smoker unknown) (unknown) (no (unknown) (unknown) Smoking Status: (units (unknown) date) Former smoker unknown) (unknown) (no (unknown) (unknown) Social History (units (unknown) date) (Reviewed 10/31/21 @ unknown) 15:29 by MIRANDA Perez) (unknown) (no (unknown) (unknown) Sodium (units (unkno wn) date) (137-145) mmol/L unknown) (unknown) (no (unknown) (unknown) Sodium 136 L (units ( unknown) date) (137-145) mmol/L unknown) (unknown) (no (unknown) (unknown) Source: patient and (unit s (unknown) date) family unknown) (unknown) (no (unknown) (unknown) Stated Complaint: (units (unknown) date) Fever, congestion, unknown) bladder infection (unknown) (no (unknown) (unknown) Substance Use Type: (unit s (unknown) date) does not use unknown) (unknown) (no (unknown) (unknown) Surgical History (units (unknown) date) (Reviewed 10/31/21 @ unknown) 15:29 by MIRANDA Perez) (unknown) (no (unknown) (unknown) Surgical changes (units (unknown) date) and devices:? None.? unknown) (unknown) (no (unknown) (unknown) TECHNIQUE:? 2 views (unit s (unknown) date) of the chest were unknown) acquired.? (unknown) (no (unknown) (unknown) Temperature 98 F (units (unknown) date) 10/31/21 14:27 unknown) (unknown) (no (unknown) (unknown) Temperature 98 F (units (unknown) date) unknown) (unknown) (no (unknown) (unknown) This is an (units (unk nown) date) 89-year-old male who unknown) presents to the emergency department stating (unknown) (no (unknown) (unknown) This is an (units (unk nown) date) 89-year-old male unknown) with history of hypertension, BPH, hypothyroidism (unknown) (no (unknown) (unknown) Time Seen by (units (u nknown) date) Provider: 10/31/21 unknown) 15:11 (unknown) (no (unknown) (unknown) Total Bilirubin (units (unknown) date) (0.2-1.3) mg/dL unknown) (unknown) (no (unknown) (unknown) Total Bilirubin (units (unknown) date) 0.6 (0.2-1.3) unknown) mg/dL (unknown) (no (unknown) (unknown) Total Protein (units ( unknown) date) (6.3-8.2) g/dL unknown) (unknown) (no (unknown) (unknown) Total Protein 6.7 (units (unknown) date) (6.3-8.2) g/dL unknown) (unknown) (no (unknown) (unknown) Ur Culture (units (unk nown) date) Indicated? unknown) (unknown) (no (unknown) (unknown) Ur Culture (units (unk nown) date) Indicated? unknown) Specimen cultured (unknown) (no (unknown) (unknown) Ur Leukocyte (units (u nknown) date) Esterase unknown) (NEGATIVE) (unknown) (no (unknown) (unknown) Ur Leukocyte (units (u nknown) date) Esterase Negative unknown) (NEGATIVE) (unknown) (no (unknown) (unknown) Ur Specific [place] (unit s (unknown) date) (1.000-1.035) unknown) (unknown) (no (unknown) (unknown) Ur Specific [place] (unit s (unknown) date) 1.025 unknown) (1.000-1.035) (unknown) (no (unknown) (unknown) Ur Squamous Epith (units (unknown) date) Cells (0-5/HPF) unknown) (unknown) (no (unknown) (unknown) Ur Squamous Epith (units (unknown) date) Cells 0-1 /hpf unknown) (0-5/HPF) (unknown) (no (unknown) (unknown) Urinalysis and (units (unknown) date) Microscopic Stat unknown) (unknown) (no (unknown) (unknown) Urine Appearance (units (unknown) date) unknown) (unknown) (no (unknown) (unknown) Urine Appearance (units (unknown) date) Clear unknown) (unknown) (no (unknown) (unknown) Urine Bacteria (units (unknown) date) (None) unknown) (unknown) (no (unknown) (unknown) Urine Bacteria (units (unknown) date) Moderate (10-30) H unknown) (None) (unknown) (no (unknown) (unknown) Urine Bilirubin (units (unknown) date) (NEGATIVE) unknown) (unknown) (no (unknown) (unknown) Urine Bilirubin (units (unknown) date) Negative unknown) (NEGATIVE) (unknown) (no (unknown) (unknown) Urine Color (units (un known) date) unknown) (unknown) (no (unknown) (unknown) Urine Color (units (un known) date) Yellow unknown) (unknown) (no (unknown) (unknown) Urine Culture Stat (units (unknown) date) unknown) (unknown) (no (unknown) (unknown) Urine Glucose (UA) (units (unknown) date) (Negative) g/dL unknown) (unknown) (no (unknown) (unknown) Urine Glucose (UA) (units (unknown) date) Negative unknown) (Negative) g/dL (unknown) (no (unknown) (unknown) Urine Ketones (units ( unknown) date) (NEGATIVE) unknown) (unknown) (no (unknown) (unknown) Urine Ketones (units ( unknown) date) Negative unknown) (NEGATIVE) (unknown) (no (unknown) (unknown) Urine Nitrate (units ( unknown) date) (Negative) unknown) (unknown) (no (unknown) (unknown) Urine Nitrate (units ( unknown) date) Negative unknown) (Negative) (unknown) (no (unknown) (unknown) Urine Occult Blood (units (unknown) date) (Negative) unknown) (unknown) (no (unknown) (unknown) Urine Occult Blood (units (unknown) date) Trace-lysed unknown) (Negative) (unknown) (no (unknown) (unknown) Urine Protein (units ( unknown) date) (Negative) unknown) (unknown) (no (unknown) (unknown) Urine Protein 1+ (units (unknown) date) H (Negative) unknown) (unknown) (no (unknown) (unknown) Urine RBC (units (unkn own) date) (0-5/HPF) unknown) (unknown) (no (unknown) (unknown) Urine RBC 1-5/hpf (unit s (unknown) date) D (0-5/HPF) unknown) (unknown) (no (unknown) (unknown) Urine Urobilinogen (units (unknown) date) (0.2) E.U./dL unknown) (unknown) (no (unknown) (unknown) Urine Urobilinogen (units (unknown) date) 0.2 (0.2) unknown) E.U./dL (unknown) (no (unknown) (unknown) Urine WBC (units (unkn own) date) (0-5/HPF) unknown) (unknown) (no (unknown) (unknown) Urine WBC 1-5/hpf (unit s (unknown) date) (0-5/HPF) unknown) (unknown) (no (unknown) (unknown) Urine pH (units (unkno wn) date) (4.5-8.0) unknown) (unknown) (no (unknown) (unknown) Urine pH 6.0 (units (unknown) date) (4.5-8.0) unknown) (unknown) (no (unknown) (unknown) Vital Signs (units (un known) date) unknown) (unknown) (no (unknown) (unknown) Vital signs: (units (u nknown) date) unknown) (unknown) (no (unknown) (unknown) XR CHEST 2V, (units (u nknown) date) 04/19/2019, 14:04. unknown) (unknown) (no (unknown) (unknown) XR chest 2V Stat (units (unknown) date) unknown) (unknown) (no (unknown) (unknown) [Embedded Image Not (unit s (unknown) date) Available] unknown) (unknown) (no (unknown) (unknown) a thoracic aortic (units (unknown) date) aneurysm. He is not unknown) on any anticoagulants. (unknown) (no (unknown) (unknown) abnormal breath (units (unknown) date) sounds,, tachypnea, unknown) or any additional heart sounds. Patient's (unknown) (no (unknown) (unknown) adequate fluid (units (unknown) date) intake. Follow-up unknown) with PCP as directed. Return to clinic/ER (unknown) (no (unknown) (unknown) administrative (units (unknown) date) purposes only. I unknown) did not have direct contact with this patient (unknown) (no (unknown) (unknown) alcohol intake (units (unknown) date) frequency: 0-2 unknown) drinks per day (unknown) (no (unknown) (unknown) and have patient cut (unit s (unknown) date) his atorvastatin in unknown) half for the next five days. Hoping to (unknown) (no (unknown) (unknown) and hyperlipidemia (units (unknown) date) presents to the unknown) emergency department complaining of fatigue, (unknown) (no (unknown) (unknown) appointment. Let (units (unknown) date) them know you were unknown) seen in the Emergency Department and that we (unknown) (no (unknown) (unknown) asked that you be (units (unknown) date) seen for follow-up. unknown) We will electronically transmit a record (unknown) (no (unknown) (unknown) atelectasis.? (units ( unknown) date) unknown) (unknown) (no (unknown) (unknown) atorvastatin 20 mg (units (unknown) date) tablet (Lipitor) 20 unknown) mg PO HS 06/23/18 03/19/20 (unknown) (no (unknown) (unknown) benzocaine 15 (units ( unknown) date) mg-menthol 3.6 mg 1 unknown) aidan mucous membrane Q2-4H PRN 10/31/21 (unknown) (no (unknown) (unknown) bladder infection. (units (unknown) date) Patient states that unknown) he had a fever two days ago of 101, (unknown) (no (unknown) (unknown) cephalexin 500 mg (units (unknown) date) capsule 500 mg PO unknown) BID 5 days #10 caps 10/31/21 (unknown) (no (unknown) (unknown) chlorthalidone 25 (units (unknown) date) mg tablet 25 mg PO unknown) DAILY #30 tabs 08/20/18 (unknown) (no (unknown) (unknown) ciprofloxacin (units ( unknown) date) Allergy Unknown unknown) Verified 10/31/21 14:29 (unknown) (no (unknown) (unknown) concerning (units (unk nown) date) symptoms, such as unknown) [fever greater than 101F, chills, worsening pain, (unknown) (no (unknown) (unknown) congestion, a (units ( unknown) date) productive cough, unknown) urinary urgency, frequency, and concern for a (unknown) (no (unknown) (unknown) cough, Flonase (units (unknown) date) twice a day for unknown) sinus congestion, throat lozenges for sore (unknown) (no (unknown) (unknown) culture grew (units (u nknown) date) Enterococcus unknown) faecalis and patient required doxycycline. Maintain (unknown) (no (unknown) (unknown) culture is pending. (unit s (unknown) date) His last urine unknown) culture grew out Enterococcus faecalis and (unknown) (no (unknown) (unknown) deficit (units (unkno wn) date) unknown) (unknown) (no (unknown) (unknown) denies any known (units (unknown) date) COVID exposure, unknown) denies sore throat, flank pain, abdominal pain, (unknown) (no (unknown) (unknown) denies any nausea (units (unknown) date) or vomiting, denies unknown) chills, denies shortness of breath or (unknown) (no (unknown) (unknown) denies any (units (unk nown) date) shortness of breath, unknown) wheezing, chest pain, nausea or vomiting. (unknown) (no (unknown) (unknown) denies any urinary (units (unknown) date) retention, unknown) dribbling, or penile discharge. He was treated in (unknown) (no (unknown) (unknown) dextromethorphan-gu (unit s (unknown) date) aifenesin 10 1 unknown) tab-cap PO Q8H PRN cough #14 caps 10/31/21 (unknown) (no (unknown) (unknown) difficulty (units (unk nown) date) breathing. States unknown) that he has had postnasal drip, productive cough, (unknown) (no (unknown) (unknown) distress, (units (unkn own) date) dehydration, or unknown) focal exam to suggest secondary bacterial infection. (unknown) (no (unknown) (unknown) doxycycline hyclate (unit s (unknown) date) 100 mg capsule 100 unknown) mg PO BID 03/19/20 03/19/20 (unknown) (no (unknown) (unknown) during this visit. (units (unknown) date) They were seen unknown) independently by the [facility]. (unknown) (no (unknown) (unknown) endorses a history (units (unknown) date) of hypothyroidism, unknown) BPH, hyperlipidemia, and hypertension with (unknown) (no (unknown) (unknown) especially in the (units (unknown) date) mornings and in the unknown) evenings. Denies any sinus tenderness, (unknown) (no (unknown) (unknown) establish care with (unit s (unknown) date) [facility]. (unknown) (no (unknown) (unknown) few days. We will (units (unknown) date) call you if your unknown) urine culture grows abnormal bacteria and if (unknown) (no (unknown) (unknown) gabapentin AdvReac (units (unknown) date) Mild 'FELT LIKE unknown) Verified 10/31/21 14:29 (unknown) (no (unknown) (unknown) including fever, (units (unknown) date) nausea vomiting, unknown) chills, or other concern, please return to the (unknown) (no (unknown) (unknown) infection prevention (unit s (unknown) date) measures such as unknown) frequent handwashing. Discussed supportive (unknown) (no (unknown) (unknown) instructions (units (u nknown) date) discussed for new, unknown) not improving, or worsening symptoms. All (unknown) (no (unknown) (unknown) instrumentation (units (unknown) date) into his bladder unknown) recently he does have a history of BPH but (unknown) (no (unknown) (unknown) ipratropium bromide (unit s (unknown) date) 21 mcg (0.03 2 spray unknown) intranasal BID #30 mL 07/19/19 (unknown) (no (unknown) (unknown) lactate was 1.7, no (units (unknown) date) electrolyte unknown) derangement, liver enzymes are slightly elevated (unknown) (no (unknown) (unknown) lesion (units (unkno wn) date) unknown) (unknown) (no (unknown) (unknown) levothyroxine 112 (units (unknown) date) mcg tablet 112 mcg unknown) PO DAILY #30 tabs 04/08/20 (unknown) (no (unknown) (unknown) lisinopril 5 mg (units (unknown) date) tablet 5 mg PO BID unknown) 03/19/20 03/19/20 (unknown) (no (unknown) (unknown) lozenges (Cepacol (units (unknown) date) Sore Throat sore unknown) throat #16 ea (unknown) (no (unknown) (unknown) medications and/or (units (unknown) date) antihistamines for unknown) symptomatic relief. Patient has (unknown) (no (unknown) (unknown) metoprolol (units (unk nown) date) succinate 25 mg 25 unknown) mg PO QDAY ##90 05/15/17 (unknown) (no (unknown) (unknown) mg-200 mg capsule (units (unknown) date) (Robitussin unknown) (unknown) (no (unknown) (unknown) nirmatrelvir 300 mg (unit s (unknown) date) (150 mg x See Rx unknown) Instructions PO .COMPLEX 10/31/21 (unknown) (no (unknown) (unknown) of today's note if (units (unknown) date) your PCP is in our unknown) system (unknown) (no (unknown) (unknown) on repeat (units (unkn own) date) examination is unknown) unremarkable. Patient has been informed of results. (unknown) (no (unknown) (unknown) or Confirmed ) (units (unknown) date) unknown) (unknown) (no (unknown) (unknown) or abnormality. (units (unknown) date) Patient is on day unknown) three of his symptoms and tested negative for (unknown) (no (unknown) (unknown) or other symptom. (units (unknown) date) On chart review it unknown) appears that patient had pyelonephritis on (unknown) (no (unknown) (unknown) patient endorses (units (unknown) date) needing admission to unknown) the hospital with a kidney infection and (unknown) (no (unknown) (unknown) patient's emergency (unit s (unknown) date) department visit. unknown) This chart is signed by myself for (unknown) (no (unknown) (unknown) peripheral edema (units (unknown) date) unknown) (unknown) (no (unknown) (unknown) persistent vomiting (unit s (unknown) date) or other bothersome unknown) symptoms] (unknown) (no (unknown) (unknown) productive cough, (units (unknown) date) fever two days ago, unknown) and urinary tract infection. Patient (unknown) (no (unknown) (unknown) productive cough. (units (unknown) date) Chest x-ray is unknown) negative for acute cardiopulmonary infiltrate (unknown) (no (unknown) (unknown) questions and (units ( unknown) date) concerns answered at unknown) this time. (unknown) (no (unknown) (unknown) questions answered. (unit s (unknown) date) Patient was given unknown) strict return precautions. Patient's (unknown) (no (unknown) (unknown) retractions, (units (u nknown) date) hypoxia or tachypnea unknown) (unknown) (no (unknown) (unknown) significant (units (un known) date) comorbidities most unknown) importantly his age, we will treat with Paxlovid (unknown) (no (unknown) (unknown) symptoms. Patient (units (unknown) date) understands to unknown) follow up closely with outpatient providers as (unknown) (no (unknown) (unknown) tablet,extended (units (unknown) date) release 24 hr unknown) (unknown) (no (unknown) (unknown) tenderness (units (unk nown) date) unknown) (unknown) (no (unknown) (unknown) that he has felt (units (unknown) date) poorly for the last unknown) few days, states that he has had increased (unknown) (no (unknown) (unknown) throat. (units (unkno wn) date) unknown) (unknown) (no (unknown) (unknown) treated for his UTI (unit s (unknown) date) with cephalexin, unknown) will follow-up on culture, last urine (unknown) (no (unknown) (unknown) twice daily for 5 (units (unknown) date) days unknown) (unknown) (no (unknown) (unknown) unremarkable.? (units (unknown) date) unknown) (unknown) (no (unknown) (unknown) urinary retention, (units (unknown) date) states that he has a unknown) problem with urinary frequency. He (unknown) (no (unknown) (unknown) urine culture grows (unit s (unknown) date) out bacteria which unknown) is not covered on this antibiotic. (unknown) (no (unknown) (unknown) urine cultures were (unit s (unknown) date) available for unknown) review. Patient denies any difficulty with (unknown) (no (unknown) (unknown) was very sick at (units (unknown) date) that time. Patient unknown) has not had any bladder catheterizations (unknown) (no (unknown) (unknown) worsening. You may (unit s (unknown) date) treat your symptoms unknown) with Robitussin/Mucinex for productive Result panel 11 (unknown) (no (unknown) (unknown) (no value) (units (unk nown) date) unknown) (unknown) (no (unknown) (unknown) Date of Service: (units (unknown) date) 11/01/21 unknown) (unknown) (no (unknown) (unknown) (no value) (units (unk nown) date) unknown) (unknown) (no (unknown) (unknown) 1 aidan mucous (units (u nknown) date) membrane Q2-4H PRN unknown) (Reason: sore throat) Qty: 16 0RF (unknown) (no (unknown) (unknown) 1 tab-cap PO Q8H (units (unknown) date) PRN (Reason: cough) unknown) Qty: 14 0RF (unknown) (no (unknown) (unknown) 100 mg PO BID (units ( unknown) date) unknown) (unknown) (no (unknown) (unknown) 112 mcg PO DAILY (units (unknown) date) Qty: 30 3RF unknown) (unknown) (no (unknown) (unknown) 2 spray NASAL BID (units (unknown) date) Qty: 30 2RF unknown) (unknown) (no (unknown) (unknown) 20 mg PO HS (units (un known) date) unknown) (unknown) (no (unknown) (unknown) 25 mg PO DAILY (units (unknown) date) Qty: 30 1RF unknown) (unknown) (no (unknown) (unknown) 25 mg PO QDAY Qty: (units (unknown) date) 90 0RF unknown) (unknown) (no (unknown) (unknown) 5 mg PO BID (units (un known) date) unknown) (unknown) (no (unknown) (unknown) 500 mg PO BID 5 (units (unknown) date) Days Qty: 10 0RF unknown) (unknown) (no (unknown) (unknown) A BALLOON (units (unkn own) date) unknown) (unknown) (no (unknown) (unknown) Administer one (units (unknown) date) spray into each unknown) nostril. (unknown) (no (unknown) (unknown) Allergies (units (unkn own) date) unknown) (unknown) (no (unknown) (unknown) ED Orders (units (unkn own) date) unknown) (unknown) (no (unknown) (unknown) Emergency Report (units (unknown) date) unknown) (unknown) (no (unknown) (unknown) GFR >60, day 3 of (units (unknown) date) symptoms, tested unknown) positive today, negative yesterday. (unknown) (no (unknown) (unknown) HEAD' (units (unkno wn) date) unknown) (unknown) (no (unknown) (unknown) Home Medications (units (unknown) date) unknown) (unknown) (no (unknown) (unknown) [facility] (units (unknown) date) [address] unknown) [place] [address] (unknown) (no (unknown) (unknown) Previous Rx's (units ( unknown) date) unknown) (unknown) (no (unknown) (unknown) Rx Instructions: (units (unknown) date) unknown) (unknown) (no (unknown) (unknown) See Rx (units (unkno wn) date) Instructions unknown) .ROUTE .COMPLEX Qty: 30 0RF (unknown) (no (unknown) (unknown) Vital Signs - 8 hr (units (unknown) date) unknown) (unknown) (no (unknown) (unknown) please repeat lab (units (unknown) date) work in 1 month of unknown) beginning this new dose. (unknown) (no (unknown) (unknown) please take 2 (units ( unknown) date) times daily unknown) starting 11/01/21 (unknown) (no (unknown) (unknown) take TWO 150 mg (units (unknown) date) tablets of unknown) nirmatrelvir with ONE 100 mg tablet of ritonavir (unknown) (no (unknown) (unknown) (no value) (units (unk nown) date) unknown) (unknown) (no (unknown) (unknown) Cepacol Sore (units (u nknown) date) Throat (meli-men) unknown) 15-3.6 mg lozenge (unknown) (no (unknown) (unknown) Paxlovid (EUA) 150 (units (unknown) date) mg x 2- 100 mg unknown) tablet (unknown) (no (unknown) (unknown) Robitussin (units (unk nown) date) Cough-Chest Rowdy DM unknown) 10-200 mg capsule (unknown) (no (unknown) (unknown) atorvastatin (units (u nknown) date) [Lipitor] 20 mg unknown) tablet (unknown) (no (unknown) (unknown) cephalexin 500 mg (units (unknown) date) capsule unknown) (unknown) (no (unknown) (unknown) chlorthalidone 25 (units (unknown) date) mg tablet unknown) (unknown) (no (unknown) (unknown) doxycycline (units (un known) date) hyclate 100 mg unknown) capsule (unknown) (no (unknown) (unknown) ipratropium (units (un known) date) bromide 0.03 % unknown) spray,non-aerosol (unknown) (no (unknown) (unknown) levothyroxine 112 (units (unknown) date) mcg tablet unknown) (unknown) (no (unknown) (unknown) lisinopril 5 mg (units (unknown) date) tablet unknown) (unknown) (no (unknown) (unknown) metoprolol (units (unk nown) date) succinate [Toprol unknown) XL] 25 MG tablet extended release 24 hr (unknown) (no (unknown) (unknown) 11/01/21 (units (unkno wn) date) unknown) (unknown) (no (unknown) (unknown) Medication (units (unk nown) date) Instructions unknown) Recorded (unknown) (no (unknown) (unknown) Medication (units (unk nown) date) Instructions unknown) Recorded Confirmed (unknown) (no (unknown) (unknown) %) nasal spray (units (unknown) date) unknown) (unknown) (no (unknown) (unknown) <Pertty Sanchez, (units (unknown) date) [facility] - Last Filed: unknown) 10/31/21 17:05> (unknown) (no (unknown) (unknown) (Paxlovid 300 mg (units (unknown) date) () unknown) (unknown) (no (unknown) (unknown) (Toprol XL) (units (un known) date) unknown) (unknown) (no (unknown) (unknown) (benzocaine-mentho (units (unknown) date) l)) unknown) (unknown) (no (unknown) (unknown) / M Date of (units (unknown) date) unknown) (unknown) (no (unknown) (unknown) 01:33 (units (unkno wn) date) unknown) (unknown) (no (unknown) (unknown) 11/01/21 01:56 (units (unknown) date) unknown) (unknown) (no (unknown) (unknown) 11/18/2019 and (units (unknown) date) grew out unknown) Enterococcus faecalis from his urine culture. No other (unknown) (no (unknown) (unknown) [id number] (units (unkno wn) date) unknown) (unknown) (no (unknown) (unknown) 2)-ritonavir 100 (units (unknown) date) mg tablet (EUA) #30 unknown) tabs (unknown) (no (unknown) (unknown) 60.? Lipase 275.? (units (unknown) date) No leukocytosis, unknown) white blood cell count is low at 3.5.? (unknown) (no (unknown) (unknown) Age/Sex: 89 / M (units (unknown) date) unknown) (unknown) (no (unknown) (unknown) Allergy/AdvReac (units (unknown) date) Type Severity unknown) Reaction Status Date / Time (unknown) (no (unknown) (unknown) Blood Pressure (units (unknown) date) 11/01/21 unknown) 01:33 (unknown) (no (unknown) (unknown) Blood Pressure (units (unknown) date) unknown) (unknown) (no (unknown) (unknown) CARDIOVASCULAR: (units (unknown) date) Denies chest pain, unknown) palpitations (unknown) (no (unknown) (unknown) CARDIOVASCULAR: (units (unknown) date) Regular rate and unknown) rhythm without murmurs (unknown) (no (unknown) (unknown) CBC Auto Diff (units ( unknown) date) [Complete Blood unknown) Count AUTO DIFF] Stat (unknown) (no (unknown) (unknown) CMP [Comprehensive (units (unknown) date) Metabolic Panel] unknown) Stat (unknown) (no (unknown) (unknown) COVID PCR is (units (u nknown) date) positive, his urine unknown) microscopy shows moderate bacteria, urine (unknown) (no (unknown) (unknown) COVID yesterday.? (units (unknown) date) COVID (+) on day 3 unknown) of symptoms without hypoxia, respiratory (unknown) (no (unknown) (unknown) Chief Complaint: (units (unknown) date) Upper Respiratory unknown) Symptoms (unknown) (no (unknown) (unknown) Chief complaint: (units (unknown) date) Urogenital-Male unknown) (unknown) (no (unknown) (unknown) Cough-Chest (units (un known) date) Congestion DM) unknown) (unknown) (no (unknown) (unknown) Course (units (unkno wn) date) unknown) (unknown) (no (unknown) (unknown) : 1930 (units (unknown) date) Acct:[id number] unknown) (unknown) (no (unknown) (unknown) Departure (units (unkn own) date) unknown) (unknown) (no (unknown) (unknown) Discharge Plan (units (unknown) date) unknown) (unknown) (no (unknown) (unknown) Discussed CDC (units ( unknown) date) guidelines for unknown) quarantine, mask wearing, physical distancing, and (unknown) (no (unknown) (unknown) ENT: Mucous (units (u nknown) date) membranes moist. unknown) (unknown) (no (unknown) (unknown) ER Physician: (units ( unknown) date) Lenny Nogueira MD unknown) (unknown) (no (unknown) (unknown) EYES: Pupils equal (units (unknown) date) round No scleral unknown) icterus. (unknown) (no (unknown) (unknown) Exam (units (unkno wn) date) unknown) (unknown) (no (unknown) (unknown) Exam Narrative: (units (unknown) date) unknown) (unknown) (no (unknown) (unknown) GASTROINTESTINAL: (units (unknown) date) Abdomen soft, unknown) non-tender, no suprapubic tenderness, no (unknown) (no (unknown) (unknown) GASTROINTESTINAL: (units (unknown) date) Denies nausea, unknown) vomiting, abdominal pain (unknown) (no (unknown) (unknown) GENERAL: Denies (units (unknown) date) chills, fatigue, unknown) malaise, fever, sweats. (unknown) (no (unknown) (unknown) GENERAL: in no (units (unknown) date) distress, not toxic unknown) not dyspneic (unknown) (no (unknown) (unknown) : Denies (units (unk nown) date) dysuria, frequency, unknown) positive for hematuria (unknown) (no (unknown) (unknown) General (units (unkno wn) date) unknown) (unknown) (no (unknown) (unknown) HEAD: (units (unkno wn) date) Normocephalic. unknown) (unknown) (no (unknown) (unknown) HEENT: Denies (units ( unknown) date) sinus pain, ear unknown) pain, sore throat (unknown) (no (unknown) (unknown) HPI - Male (units (unk nown) date) Genitourinary unknown) (unknown) (no (unknown) (unknown) HPI - URI/Sore (units (unknown) date) Throat unknown) (unknown) (no (unknown) (unknown) HPI Narrative: (units (unknown) date) unknown) (unknown) (no (unknown) (unknown) HPI Narrative: (units (unknown) date) unknown) (unknown) (no (unknown) (unknown) History of Present (units (unknown) date) Illness unknown) (unknown) (no (unknown) (unknown) History of spinal (units (unknown) date) fusion unknown) (unknown) (no (unknown) (unknown) Hypertension (units (u nknown) date) unknown) (unknown) (no (unknown) (unknown) Initial Vital (units ( unknown) date) Signs unknown) (unknown) (no (unknown) (unknown) Initial Vital (units ( unknown) date) Signs: unknown) (unknown) (no (unknown) (unknown) [facility] (units (unknown) date) [address]) [place], [place] [address]Epclfubft Report (unknown) (no (unknown) (unknown) MDM Narrative (units ( unknown) date) unknown) (unknown) (no (unknown) (unknown) MUSCULOSKELETAL: (units (unknown) date) denies muscle or unknown) bony pain (unknown) (no (unknown) (unknown) Medical History (units (unknown) date) (Reviewed 11/01/21 unknown) @ 01:59 by Lenny Nogueira MD) (unknown) (no (unknown) (unknown) Medical decision (units (unknown) date) making narrative: unknown) (unknown) (no (unknown) (unknown) Mode of arrival: (units (unknown) date) Ambulatory unknown) (unknown) (no (unknown) (unknown) Mode of arrival: (units (unknown) date) EMS unknown) (unknown) (no (unknown) (unknown) NECK: [place] (units ( unknown) date) midline. unknown) (unknown) (no (unknown) (unknown) NEURO: AOx4. (units (u nknown) date) unknown) (unknown) (no (unknown) (unknown) NEUROLOGIC: Denies (units (unknown) date) weakness, numbness unknown) (unknown) (no (unknown) (unknown) Narrative (units (unkn own) date) unknown) (unknown) (no (unknown) (unknown) Narrative: (units (unk nown) date) unknown) (unknown) (no (unknown) (unknown) No Action (units (unkn own) date) unknown) (unknown) (no (unknown) (unknown) Ordered: (units (unkno wn) date) unknown) (unknown) (no (unknown) (unknown) Orders (units (unkno wn) date) unknown) (unknown) (no (unknown) (unknown) Oxygen Delivery (units (unknown) date) Method 11/01/21 unknown) 01:33 (unknown) (no (unknown) (unknown) Oxygen Delivery (units (unknown) date) Method Room Air unknown) (unknown) (no (unknown) (unknown) PSYCH: Not (units (un known) date) anxious, is unknown) cooperative (unknown) (no (unknown) (unknown) PT [Prothrombin (units (unknown) date) Time INR] Stat unknown) (unknown) (no (unknown) (unknown) PTT [Partial (units (u nknown) date) Thromboplastin unknown) Time] Stat (unknown) (no (unknown) (unknown) Patient History (units (unknown) date) unknown) (unknown) (no (unknown) (unknown) Patient brought in (units (unknown) date) by ambulance from unknown) home for complaints of 1 episode of (unknown) (no (unknown) (unknown) Patient does not (units (unknown) date) any O2 requirement unknown) his respirations are unlabored without (unknown) (no (unknown) (unknown) Patient has been (units (unknown) date) given strict return unknown) to ER precautions for any new or worsening (unknown) (no (unknown) (unknown) Patient is (units (unk nown) date) appropriate and unknown) amenable to discharge home.? Vital signs are stable (unknown) (no (unknown) (unknown) Patient: (units (unkno wn) date) Abe Rose H unknown) MR#: [id number] (unknown) (no (unknown) (unknown) Patient: (units (unkno wn) date) Abe Rose R#: unknown) [id number]: [id number]: 89 (unknown) (no (unknown) (unknown) Paxlovid. Patient (units (unknown) date) seen by nurse unknown) practitioner. Discharged home. Also (unknown) (no (unknown) (unknown) Gabriel Kirby, DO (units (unknown) date) [Primary Care unknown) Provider] - (unknown) (no (unknown) (unknown) Prescriptions: (units (unknown) date) unknown) (unknown) (no (unknown) (unknown) Pulse Oximetry 92 (units (unknown) date) 11/01/21 01:33 unknown) (unknown) (no (unknown) (unknown) Pulse Oximetry 92 (units (unknown) date) unknown) (unknown) (no (unknown) (unknown) Pulse Rate 78 (units (unknown) date) 11/01/21 01:33 unknown) (unknown) (no (unknown) (unknown) Pulse Rate 78 (units ( unknown) date) unknown) (unknown) (no (unknown) (unknown) Pyelonephritis (units (unknown) date) unknown) (unknown) (no (unknown) (unknown) RESPIRATORY: Clear (units (unknown) date) to auscultation. unknown) Breath sounds equal bilaterally. No wheezes, (unknown) (no (unknown) (unknown) RESPIRATORY: (units (u nknown) date) Denies dyspnea, unknown) cough (unknown) (no (unknown) (unknown) ROS Unobtainable: (units (unknown) date) All systems unknown) reviewed + are unremarkable except as noted in HPI (unknown) (no (unknown) (unknown) Referrals: (units (unk nown) date) unknown) (unknown) (no (unknown) (unknown) Related Data (units (u nknown) date) unknown) (unknown) (no (unknown) (unknown) Respiratory Rate (units (unknown) date) 20 11/01/21 01:33 unknown) (unknown) (no (unknown) (unknown) Respiratory Rate (units (unknown) date) 20 unknown) (unknown) (no (unknown) (unknown) Review of Systems (units (unknown) date) unknown) (unknown) (no (unknown) (unknown) SKIN: Warm and (units (unknown) date) dry unknown) (unknown) (no (unknown) (unknown) SKIN: Denies rash, (units (unknown) date) skin lesions unknown) (unknown) (no (unknown) (unknown) Service: (units (unkno wn) date) 10/31/21ER unknown) Physician: Pretty Sanchez (unknown) (no (unknown) (unknown) Signed By: (units (unk nown) date) unknown) (unknown) (no (unknown) (unknown) Smoking Status: (units (unknown) date) Former smoker unknown) (unknown) (no (unknown) (unknown) Smoking Status: (units (unknown) date) Former smoker unknown) (unknown) (no (unknown) (unknown) Social History (units (unknown) date) (Reviewed 11/01/21 unknown) @ 01:59 by Lenny Nogueira MD) (unknown) (no (unknown) (unknown) Source: patient (units (unknown) date) and EMS unknown) (unknown) (no (unknown) (unknown) Source: patient (units (unknown) date) and family unknown) (unknown) (no (unknown) (unknown) Stated Complaint: (units (unknown) date) Fever, congestion, unknown) bladder infection (unknown) (no (unknown) (unknown) Stated complaint: (units (unknown) date) hematuria unknown) (unknown) (no (unknown) (unknown) Substance Use (units ( unknown) date) Type: does not use unknown) (unknown) (no (unknown) (unknown) Surgical History (units (unknown) date) (Reviewed 11/01/21 unknown) @ 01:59 by Lenny Nogueira MD) (unknown) (no (unknown) (unknown) Temperature 97.3 (units (unknown) date) F L 11/01/21 01:33 unknown) (unknown) (no (unknown) (unknown) Temperature 97.3 F (units (unknown) date) L unknown) (unknown) (no (unknown) (unknown) This is an (units (unk nown) date) 89-year-old male unknown) who presents to the emergency department stating (unknown) (no (unknown) (unknown) This is an (units (unk nown) date) 89-year-old male unknown) with history of hypertension, BPH, hypothyroidism (unknown) (no (unknown) (unknown) Time Seen by (units (u nknown) date) Provider: 10/31/21 unknown) 15:11 (unknown) (no (unknown) (unknown) Time Seen by (units (u nknown) date) Provider: 11/01/21 unknown) 01:48 (unknown) (no (unknown) (unknown) Vital Signs (units (un known) date) unknown) (unknown) (no (unknown) (unknown) Vital signs: (units (u nknown) date) unknown) (unknown) (no (unknown) (unknown) a thoracic aortic (units (unknown) date) aneurysm. He is unknown) not on any anticoagulants. (unknown) (no (unknown) (unknown) abnormal breath (units (unknown) date) sounds,, tachypnea, unknown) or any additional heart sounds.? Patient's (unknown) (no (unknown) (unknown) abnormality.? (units ( unknown) date) Patient is on day unknown) three of his symptoms and tested negative for (unknown) (no (unknown) (unknown) adequate fluid (units (unknown) date) intake. Follow-up unknown) with PCP as directed.? Return to clinic/ER (unknown) (no (unknown) (unknown) alcohol intake (units (unknown) date) frequency: 0-2 unknown) drinks per day (unknown) (no (unknown) (unknown) and below (units (unkn own) date) unknown) (unknown) (no (unknown) (unknown) and have patient (units (unknown) date) cut his unknown) atorvastatin in half for the next five days.? Hoping to (unknown) (no (unknown) (unknown) and hyperlipidemia (units (unknown) date) presents to the unknown) emergency department complaining of fatigue, (unknown) (no (unknown) (unknown) aspirin. Bladder (units (unknown) date) scan is 107 mL unknown) (unknown) (no (unknown) (unknown) atorvastatin 20 mg (units (unknown) date) tablet (Lipitor) 20 unknown) mg PO HS 06/23/18 03/19/20 (unknown) (no (unknown) (unknown) benzocaine 15 (units ( unknown) date) mg-menthol 3.6 mg 1 unknown) aidan mucous membrane Q2-4H PRN 10/31/21 (unknown) (no (unknown) (unknown) bladder infection. (units (unknown) date) Patient states unknown) that he had a fever two days ago of 101, (unknown) (no (unknown) (unknown) but have been in (units (unknown) date) the past.? unknown) Creatinine is 0.95 and at his baseline, GFR over (unknown) (no (unknown) (unknown) cephalexin 500 mg (units (unknown) date) capsule 500 mg PO unknown) BID 5 days #10 caps 10/31/21 (unknown) (no (unknown) (unknown) chlorthalidone 25 (units (unknown) date) mg tablet 25 mg PO unknown) DAILY #30 tabs 08/20/18 (unknown) (no (unknown) (unknown) ciprofloxacin (units ( unknown) date) Allergy Unknown unknown) Verified 10/31/21 14:29 (unknown) (no (unknown) (unknown) congestion, a (units ( unknown) date) productive cough, unknown) urinary urgency, frequency, and concern for a (unknown) (no (unknown) (unknown) cough.? Chest (units ( unknown) date) x-ray is negative unknown) for acute cardiopulmonary infiltrate or (unknown) (no (unknown) (unknown) culture grew (units (u nknown) date) Enterococcus unknown) faecalis and patient required doxycycline. Maintain (unknown) (no (unknown) (unknown) culture is (units (unk nown) date) pending.? His last unknown) urine culture grew out Enterococcus faecalis and (unknown) (no (unknown) (unknown) denies any known (units (unknown) date) COVID exposure, unknown) denies sore throat, flank pain, abdominal pain, (unknown) (no (unknown) (unknown) denies any nausea (units (unknown) date) or vomiting, denies unknown) chills, denies shortness of breath or (unknown) (no (unknown) (unknown) denies any (units (unk nown) date) shortness of unknown) breath, wheezing, chest pain, nausea or vomiting.? (unknown) (no (unknown) (unknown) denies any urinary (units (unknown) date) retention, unknown) dribbling, or penile discharge.? He was treated in (unknown) (no (unknown) (unknown) dextromethorphan-g (units (unknown) date) uaifenesin 10 1 unknown) tab-cap PO Q8H PRN cough #14 caps 10/31/21 (unknown) (no (unknown) (unknown) difficulty (units (unk nown) date) breathing. States unknown) that he has had postnasal drip, productive cough, (unknown) (no (unknown) (unknown) distress, (units (unkn own) date) dehydration, or unknown) focal exam to suggest secondary bacterial infection. (unknown) (no (unknown) (unknown) doxycycline (units (un known) date) hyclate 100 mg unknown) capsule 100 mg PO BID 03/19/20 03/19/20 (unknown) (no (unknown) (unknown) endorses a history (units (unknown) date) of hypothyroidism, unknown) BPH, hyperlipidemia, and hypertension with (unknown) (no (unknown) (unknown) especially in the (units (unknown) date) mornings and in the unknown) evenings. Denies any sinus tenderness, (unknown) (no (unknown) (unknown) gabapentin AdvReac (units (unknown) date) Mild 'FELT LIKE unknown) Verified 10/31/21 14:29 (unknown) (no (unknown) (unknown) infection (units (unkno wn) date) prevention measures unknown) such as frequent handwashing. Discussed supportive (unknown) (no (unknown) (unknown) infection, however (units (unknown) date) no pneumonia. No unknown) hypoxia. Was given prescription for (unknown) (no (unknown) (unknown) instructed.? (units (u nknown) date) Patient understands unknown) plan and agrees to discharge home.? All (unknown) (no (unknown) (unknown) instructions (units (u nknown) date) discussed for new, unknown) not improving, or worsening symptoms.? All (unknown) (no (unknown) (unknown) instrumentation (units (unknown) date) into his bladder unknown) recently he does have a history of BPH but (unknown) (no (unknown) (unknown) ipratropium (units (un known) date) bromide 21 mcg unknown) (0.03 2 spray intranasal BID #30 mL 07/19/19 (unknown) (no (unknown) (unknown) lactate was 1.7, no (units (unknown) date) electrolyte unknown) derangement, liver enzymes are slightly elevated (unknown) (no (unknown) (unknown) levothyroxine 112 (units (unknown) date) mcg tablet 112 mcg unknown) PO DAILY #30 tabs 04/08/20 (unknown) (no (unknown) (unknown) lisinopril 5 mg (units (unknown) date) tablet 5 mg PO BID unknown) 03/19/20 03/19/20 (unknown) (no (unknown) (unknown) lozenges (Cepacol (units (unknown) date) Sore Throat sore unknown) throat #16 ea (unknown) (no (unknown) (unknown) medications and/or (units (unknown) date) antihistamines for unknown) symptomatic relief.? Patient has (unknown) (no (unknown) (unknown) metoprolol (units (unk nown) date) succinate 25 mg 25 unknown) mg PO QDAY ##90 05/15/17 (unknown) (no (unknown) (unknown) mg-200 mg capsule (units (unknown) date) (Robitussin unknown) (unknown) (no (unknown) (unknown) nirmatrelvir 300 (units (unknown) date) mg (150 mg x See Rx unknown) Instructions PO .COMPLEX 10/31/21 (unknown) (no (unknown) (unknown) of painless (units (un known) date) hematuria. This unknown) has resolved. No other complaints. Is on baby (unknown) (no (unknown) (unknown) on repeat (units (unkn own) date) examination is unknown) unremarkable.? Patient has been informed of results.? (unknown) (no (unknown) (unknown) or other symptom. (units (unknown) date) On chart review it unknown) appears that patient had pyelonephritis on (unknown) (no (unknown) (unknown) painless (units (unkno wn) date) hematuria. Patient unknown) seen here 12 hours ago for positive COVID (unknown) (no (unknown) (unknown) patient endorses (units (unknown) date) needing admission unknown) to the hospital with a kidney infection and (unknown) (no (unknown) (unknown) peritoneal signs. (units (unknown) date) Bowel sounds are unknown) present. (unknown) (no (unknown) (unknown) prescription for (units (unknown) date) Keflex for UTI. unknown) This evening patient states he had an episode (unknown) (no (unknown) (unknown) productive cough, (units (unknown) date) fever two days ago, unknown) and urinary tract infection.? Patient (unknown) (no (unknown) (unknown) questions and (units ( unknown) date) concerns answered unknown) at this time. (unknown) (no (unknown) (unknown) questions (units (unkn own) date) answered.? Patient unknown) was given strict return precautions.? Patient's (unknown) (no (unknown) (unknown) rales, or rhonchi. (units (unknown) date) unknown) (unknown) (no (unknown) (unknown) reduce length of (units (unknown) date) course of illness unknown) and hospitalization potential.? Patient was (unknown) (no (unknown) (unknown) significant (units (un known) date) comorbidities most unknown) importantly his age, we will treat with Paxlovid (unknown) (no (unknown) (unknown) symptoms.? Patient (units (unknown) date) understands to unknown) follow up closely with outpatient providers as (unknown) (no (unknown) (unknown) tablet,extended (units (unknown) date) release 24 hr unknown) (unknown) (no (unknown) (unknown) that he has felt (units (unknown) date) poorly for the last unknown) few days, states that he has had increased (unknown) (no (unknown) (unknown) the emergency (units (u nknown) date) department with 1 g unknown) of ceftriaxone, and Mucinex for his productive (unknown) (no (unknown) (unknown) treated for his (units (unknown) date) UTI with unknown) cephalexin, will follow-up on culture, last urine (unknown) (no (unknown) (unknown) treatments:? (units (u nknown) date) Tylenol/Motrin as unknown) needed for pain/fever.? OTC decongestant (unknown) (no (unknown) (unknown) twice daily for 5 (units (unknown) date) days unknown) (unknown) (no (unknown) (unknown) urinary retention, (units (unknown) date) states that he has unknown) a problem with urinary frequency. He (unknown) (no (unknown) (unknown) urine cultures (units (unknown) date) were available for unknown) review. Patient denies any difficulty with (unknown) (no (unknown) (unknown) was very sick at (units (unknown) date) that time.? Patient unknown) has not had any bladder catheterizations Result panel 12 (unknown) (no date) (unknown) (unknown) 0 /uL (unkn own) (unknown) (no date) (unknown) (unknown) 0 /uL (unkn own) (unknown) (no date) (unknown) (unknown) 0.2 % (unkn own) (unknown) (no date) (unknown) (unknown) 0.6 % (unkn own) (unknown) (no date) (unknown) (unknown) 1000 /uL (unkn own) (unknown) (no date) (unknown) (unknown) 124 X10 3/uL (unkn own) (unknown) (no date) (unknown) (unknown) 14.0 g/dL (unkn own) (unknown) (no date) (unknown) (unknown) 14.1 % (unkn own) (unknown) (no date) (unknown) (unknown) 14.1 % (unkn own) (unknown) (no date) (unknown) (unknown) 23.9 % (unkn own) (unknown) (no date) (unknown) (unknown) 2600 /uL (unkn own) (unknown) (no date) (unknown) (unknown) 31.6 PG (unkn own) (unknown) (no date) (unknown) (unknown) 34.3 % (unkn own) (unknown) (no date) (unknown) (unknown) 4.2 X10 3/uL (unkn own) (unknown) (no date) (unknown) (unknown) 4.43 X10 6/uL (unkn own) (unknown) (no date) (unknown) (unknown) 40.8 % (unkn own) (unknown) (no date) (unknown) (unknown) 600 /uL (unkn own) (unknown) (no date) (unknown) (unknown) 61.2 % (unkn own) (unknown) (no date) (unknown) (unknown) 92.1 fL (unkn own) Result panel 13 (unknown) (no date) (unknown) (unknown) > 60 mL/min (unkn own) (unknown) (no date) (unknown) (unknown) 0.5 mg/dL (unkn own) (unknown) (no date) (unknown) (unknown) 0.88 mg/dL (unkn own) (unknown) (no date) (unknown) (unknown) 1.1 (units unknown) (unknown) (unknown) (no date) (unknown) (unknown) 1.4 (units unknown) (unknown) (unknown) (no date) (unknown) (unknown) 116 mg/dL (unkn own) (unknown) (no date) (unknown) (unknown) 12.0 SECONDS (unkn own) (unknown) (no date) (unknown) (unknown) 135 mmol/L (unkn own) (unknown) (no date) (unknown) (unknown) 2.6 g/dL (unkn own) (unknown) (no date) (unknown) (unknown) 27 mg/dL (unkn own) (unknown) (no date) (unknown) (unknown) 3.7 g/dL (unkn own) (unknown) (no date) (unknown) (unknown) 3.7 mmol/L (unkn own) (unknown) (no date) (unknown) (unknown) 30.7 (units unknown) (unknown) (unknown) (no date) (unknown) (unknown) 34 mmol/L (unkn own) (unknown) (no date) (unknown) (unknown) 44 U/L (unkn own) (unknown) (no date) (unknown) (unknown) 49 SECONDS (unkn own) (unknown) (no date) (unknown) (unknown) 6.3 g/dL (unkn own) (unknown) (no date) (unknown) (unknown) 7.9 mg/dL (unkn own) (unknown) (no date) (unknown) (unknown) 73 IU/L (unkn own) (unknown) (no date) (unknown) (unknown) 78 IU/L (unkn own) (unknown) (no date) (unknown) (unknown) 96 mmol/L (unkn own) Result panel 14 (unknown) (no (unknown) (unknown) (no value) (units (unk nown) date) unknown) (unknown) (no (unknown) (unknown) Date of Service: (units (unknown) date) 11/01/21 unknown) (unknown) (no (unknown) (unknown) (no value) (units (unk nown) date) unknown) (unknown) (no (unknown) (unknown) 11/01/21 02:11 (units (unknown) date) unknown) (unknown) (no (unknown) (unknown) 1 aidan mucous (units (u nknown) date) membrane Q2-4H PRN unknown) (Reason: sore throat) Qty: 16 0RF (unknown) (no (unknown) (unknown) 1 tab-cap PO Q8H (units (unknown) date) PRN (Reason: cough) unknown) Qty: 14 0RF (unknown) (no (unknown) (unknown) 100 mg PO BID (units ( unknown) date) unknown) (unknown) (no (unknown) (unknown) 112 mcg PO DAILY (units (unknown) date) Qty: 30 3RF unknown) (unknown) (no (unknown) (unknown) 2 spray NASAL BID (units (unknown) date) Qty: 30 2RF unknown) (unknown) (no (unknown) (unknown) 20 mg PO HS (units (un known) date) unknown) (unknown) (no (unknown) (unknown) 25 mg PO DAILY (units (unknown) date) Qty: 30 1RF unknown) (unknown) (no (unknown) (unknown) 25 mg PO QDAY Qty: (units (unknown) date) 90 0RF unknown) (unknown) (no (unknown) (unknown) 5 mg PO BID (units (un known) date) unknown) (unknown) (no (unknown) (unknown) 500 mg PO BID 5 (units (unknown) date) Days Qty: 10 0RF unknown) (unknown) (no (unknown) (unknown) A BALLOON (units (unkn own) date) unknown) (unknown) (no (unknown) (unknown) Administer one (units (unknown) date) spray into each unknown) nostril. (unknown) (no (unknown) (unknown) Allergies (units (unkn own) date) unknown) (unknown) (no (unknown) (unknown) ED Orders (units (unkn own) date) unknown) (unknown) (no (unknown) (unknown) Emergency Report (units (unknown) date) unknown) (unknown) (no (unknown) (unknown) GFR >60, day 3 of (units (unknown) date) symptoms, tested unknown) positive today, negative yesterday. (unknown) (no (unknown) (unknown) HEAD' (units (unkno wn) date) unknown) (unknown) (no (unknown) (unknown) Home Medications (units (unknown) date) unknown) (unknown) (no (unknown) (unknown) [facility] (units (unknown) date) [address] unknown) [place] [address] (unknown) (no (unknown) (unknown) Lab Results (units (un known) date) unknown) (unknown) (no (unknown) (unknown) Previous Rx's (units ( unknown) date) unknown) (unknown) (no (unknown) (unknown) Rx Instructions: (units (unknown) date) unknown) (unknown) (no (unknown) (unknown) See Rx (units (unkno wn) date) Instructions unknown) .ROUTE .COMPLEX Qty: 30 0RF (unknown) (no (unknown) (unknown) Vital Signs - 8 hr (units (unknown) date) unknown) (unknown) (no (unknown) (unknown) please repeat lab (units (unknown) date) work in 1 month of unknown) beginning this new dose. (unknown) (no (unknown) (unknown) please take 2 (units ( unknown) date) times daily unknown) starting 11/01/21 (unknown) (no (unknown) (unknown) take TWO 150 mg (units (unknown) date) tablets of unknown) nirmatrelvir with ONE 100 mg tablet of ritonavir (unknown) (no (unknown) (unknown) (no value) (units (unk nown) date) unknown) (unknown) (no (unknown) (unknown) 02:11 02:11 02:11 (units (unknown) date) unknown) (unknown) (no (unknown) (unknown) 11/01/21 11/01/21 (units (unknown) date) 11/01/21 unknown) Range/Units (unknown) (no (unknown) (unknown) Cepacol Sore (units (u nknown) date) Throat (meli-men) unknown) 15-3.6 mg lozenge (unknown) (no (unknown) (unknown) Paxlovid (EUA) 150 (units (unknown) date) mg x 2- 100 mg unknown) tablet (unknown) (no (unknown) (unknown) Robitussin (units (unk nown) date) Cough-Chest Rowdy DM unknown) 10-200 mg capsule (unknown) (no (unknown) (unknown) atorvastatin (units (u nknown) date) [Lipitor] 20 mg unknown) tablet (unknown) (no (unknown) (unknown) cephalexin 500 mg (units (unknown) date) capsule unknown) (unknown) (no (unknown) (unknown) chlorthalidone 25 (units (unknown) date) mg tablet unknown) (unknown) (no (unknown) (unknown) doxycycline (units (un known) date) hyclate 100 mg unknown) capsule (unknown) (no (unknown) (unknown) ipratropium (units (un known) date) bromide 0.03 % unknown) spray,non-aerosol (unknown) (no (unknown) (unknown) levothyroxine 112 (units (unknown) date) mcg tablet unknown) (unknown) (no (unknown) (unknown) lisinopril 5 mg (units (unknown) date) tablet unknown) (unknown) (no (unknown) (unknown) metoprolol (units (unk nown) date) succinate [Toprol unknown) XL] 25 MG tablet extended release 24 hr (unknown) (no (unknown) (unknown) 11/01/21 (units (unkno wn) date) unknown) (unknown) (no (unknown) (unknown) Acute UTI (units (unkn own) date) unknown) (unknown) (no (unknown) (unknown) Medication (units (unk nown) date) Instructions unknown) Recorded (unknown) (no (unknown) (unknown) Medication (units (unk nown) date) Instructions unknown) Recorded Confirmed (unknown) (no (unknown) (unknown) doctor next week (units (unknown) date) for re-evaluation. unknown) Keep well hydrated. Return if worse if (unknown) (no (unknown) (unknown) %) nasal spray (units (unknown) date) unknown) (unknown) (no (unknown) (unknown) <Pretty Sanchez, (units (unknown) date) [facility] - Last Filed: unknown) 10/31/21 17:05> (unknown) (no (unknown) (unknown) (Paxlovid 300 mg (units (unknown) date) () unknown) (unknown) (no (unknown) (unknown) (Toprol XL) (units (un known) date) unknown) (unknown) (no (unknown) (unknown) (benzocaine-mentho (units (unknown) date) l)) unknown) (unknown) (no (unknown) (unknown) / M Date of (units (unknown) date) unknown) (unknown) (no (unknown) (unknown) 01:33 (units (unkno wn) date) unknown) (unknown) (no (unknown) (unknown) 11/01/21 02:11 (units (unknown) date) unknown) (unknown) (no (unknown) (unknown) 11/18/2019 and (units (unknown) date) grew out unknown) Enterococcus faecalis from his urine culture. No other (unknown) (no (unknown) (unknown) [id number] (units (unkno wn) date) unknown) (unknown) (no (unknown) (unknown) 2)-ritonavir 100 (units (unknown) date) mg tablet (EUA) #30 unknown) tabs (unknown) (no (unknown) (unknown) 60.? Lipase 275.? (units (unknown) date) No leukocytosis, unknown) white blood cell count is low at 3.5.? (unknown) (no (unknown) (unknown) ALT 73 H (<50) (units (unknown) date) IU/L unknown) (unknown) (no (unknown) (unknown) APTT 49 H (units (un known) date) (26.4-36.2) unknown) SECONDS (unknown) (no (unknown) (unknown) AST 78 H (units (un known) date) (17-59) IU/L unknown) (unknown) (no (unknown) (unknown) Activity (units (unkno wn) date) Restrictions/Additi unknown) onal Instructions: (unknown) (no (unknown) (unknown) Age/Sex: 89 / M (units (unknown) date) unknown) (unknown) (no (unknown) (unknown) Albumin 3.7 (units (unknown) date) (3.5-5.0) g/dL unknown) (unknown) (no (unknown) (unknown) Albumin/Globulin (units (unknown) date) Ratio 1.4 unknown) (1.0-2.8) (unknown) (no (unknown) (unknown) Alkaline (units (unkno wn) date) Phosphatase 44 unknown) (38-126) U/L (unknown) (no (unknown) (unknown) Allergy/AdvReac (units (unknown) date) Type Severity unknown) Reaction Status Date / Time (unknown) (no (unknown) (unknown) Appropriate for (units (unknown) date) discharge home. No unknown) imaging indicated. Patient is voiding (unknown) (no (unknown) (unknown) BUN 27 H (units (un known) date) (9-20) mg/dL unknown) (unknown) (no (unknown) (unknown) BUN/Creatinine (units (unknown) date) Ratio 30.7 H unknown) (6-22) (unknown) (no (unknown) (unknown) Baso # (Auto) 0 (units (unknown) date) (0-100) /uL unknown) (unknown) (no (unknown) (unknown) Baso % (Auto) 0.6 (units (unknown) date) (0-2) % unknown) (unknown) (no (unknown) (unknown) Be sure to continue (units (unknown) date) prescribed unknown) medications from your 1st visit here. See family (unknown) (no (unknown) (unknown) Blood Pressure (units (unknown) date) 121/71 11/01/21 unknown) 01:33 (unknown) (no (unknown) (unknown) Blood Pressure (units (unknown) date) unknown) (unknown) (no (unknown) (unknown) CARDIOVASCULAR: (units (unknown) date) Denies chest pain, unknown) palpitations (unknown) (no (unknown) (unknown) CARDIOVASCULAR: (units (unknown) date) Regular rate and unknown) rhythm without murmurs (unknown) (no (unknown) (unknown) CBC Auto Diff (units ( unknown) date) [Complete Blood unknown) Count AUTO DIFF] Stat (unknown) (no (unknown) (unknown) CMP [Comprehensive (units (unknown) date) Metabolic Panel] unknown) Stat (unknown) (no (unknown) (unknown) COVID PCR is (units (u nknown) date) positive, his urine unknown) microscopy shows moderate bacteria, urine (unknown) (no (unknown) (unknown) COVID yesterday.? (units (unknown) date) COVID (+) on day 3 unknown) of symptoms without hypoxia, respiratory (unknown) (no (unknown) (unknown) Calcium 7.9 L (units (unknown) date) (8.4-10.2) mg/dL unknown) (unknown) (no (unknown) (unknown) Carbon Dioxide (units (unknown) date) 34 H (22-32) unknown) mmol/L (unknown) (no (unknown) (unknown) Chief Complaint: (units (unknown) date) Upper Respiratory unknown) Symptoms (unknown) (no (unknown) (unknown) Chief complaint: (units (unknown) date) Urogenital-Male unknown) (unknown) (no (unknown) (unknown) Chloride 96 L (units (unknown) date) (98-107) mmol/L unknown) (unknown) (no (unknown) (unknown) Clinical (units (unkno wn) date) Impression: unknown) (unknown) (no (unknown) (unknown) Cough-Chest (units (un known) date) Congestion DM) unknown) (unknown) (no (unknown) (unknown) Course (units (unkno wn) date) unknown) (unknown) (no (unknown) (unknown) Course Narrative: (units (unknown) date) unknown) (unknown) (no (unknown) (unknown) Creatinine 0.88 (units (unknown) date) (0.66-1.25) mg/dL unknown) (unknown) (no (unknown) (unknown) : 1930 (units (unknown) date) Acct:[id number] unknown) (unknown) (no (unknown) (unknown) Departure (units (unkn own) date) unknown) (unknown) (no (unknown) (unknown) Differential (units (u nknown) date) Diagnosis unknown) (unknown) (no (unknown) (unknown) Differential (units (un known) date) diagnosis: Likely unknown) urinary tract infection, acute retention of urine (unknown) (no (unknown) (unknown) Discharge Plan (units (unknown) date) unknown) (unknown) (no (unknown) (unknown) Discussed CDC (units ( unknown) date) guidelines for unknown) quarantine, mask wearing, physical distancing, and (unknown) (no (unknown) (unknown) ENT: Mucous (units (u nknown) date) membranes moist. unknown) (unknown) (no (unknown) (unknown) ER Physician: (units ( unknown) date) Lenny Nogueira MD unknown) (unknown) (no (unknown) (unknown) EYES: Pupils equal (units (unknown) date) round No scleral unknown) icterus. (unknown) (no (unknown) (unknown) Eos # (Auto) 0 (units (unknown) date) (0-450) /uL unknown) (unknown) (no (unknown) (unknown) Eos % (Auto) 0.2 (units (unknown) date) L (2-4) % unknown) (unknown) (no (unknown) (unknown) Estimated GFR > (units (unknown) date) 60 (>60) mL/min unknown) (unknown) (no (unknown) (unknown) Exam (units (unkno wn) date) unknown) (unknown) (no (unknown) (unknown) Exam Narrative: (units (unknown) date) unknown) (unknown) (no (unknown) (unknown) GASTROINTESTINAL: (units (unknown) date) Abdomen soft, unknown) non-tender, no suprapubic tenderness, no (unknown) (no (unknown) (unknown) GASTROINTESTINAL: (units (unknown) date) Denies nausea, unknown) vomiting, abdominal pain (unknown) (no (unknown) (unknown) GENERAL: Denies (units (unknown) date) chills, fatigue, unknown) malaise, fever, sweats. (unknown) (no (unknown) (unknown) GENERAL: in no (units (unknown) date) distress, not toxic unknown) not dyspneic (unknown) (no (unknown) (unknown) : Denies (units (unk nown) date) dysuria, frequency, unknown) positive for hematuria (unknown) (no (unknown) (unknown) General (units (unkno wn) date) unknown) (unknown) (no (unknown) (unknown) GenericComposite[P (units (unknown) date) lt Count 124 L unknown) (150-400) X10^3/uL ] (unknown) (no (unknown) (unknown) GenericComposite[R (units (unknown) date) BC 4.43 L unknown) (4.5-5.9) X10^6/uL ] (unknown) (no (unknown) (unknown) GenericComposite[W (units (unknown) date) BC 4.2 L unknown) (4.5-11.0) X10^3/uL ] (unknown) (no (unknown) (unknown) Globulin 2.6 (units (unknown) date) (1.7-4.1) g/dL unknown) (unknown) (no (unknown) (unknown) Glucose 116 H (units (unknown) date) (80-110) mg/dL unknown) (unknown) (no (unknown) (unknown) HEAD: (units (unkno wn) date) Normocephalic. unknown) (unknown) (no (unknown) (unknown) HEENT: Denies (units ( unknown) date) sinus pain, ear unknown) pain, sore throat (unknown) (no (unknown) (unknown) HPI - Male (units (unk nown) date) Genitourinary unknown) (unknown) (no (unknown) (unknown) HPI - URI/Sore (units (unknown) date) Throat unknown) (unknown) (no (unknown) (unknown) HPI Narrative: (units (unknown) date) unknown) (unknown) (no (unknown) (unknown) HPI Narrative: (units (unknown) date) unknown) (unknown) (no (unknown) (unknown) Hct 40.8 L (units (un known) date) (41-53) % unknown) (unknown) (no (unknown) (unknown) Hgb 14.0 (units (unkn own) date) (13.5-17.5) g/dL unknown) (unknown) (no (unknown) (unknown) History of Present (units (unknown) date) Illness unknown) (unknown) (no (unknown) (unknown) History of spinal (units (unknown) date) fusion unknown) (unknown) (no (unknown) (unknown) Hypertension (units (u nknown) date) unknown) (unknown) (no (unknown) (unknown) INR 1.1 (units (unkn own) date) (0.9-1.3) unknown) (unknown) (no (unknown) (unknown) Initial Vital (units ( unknown) date) Signs unknown) (unknown) (no (unknown) (unknown) Initial Vital (units ( unknown) date) Signs: unknown) (unknown) (no (unknown) (unknown) Instructions: DI (units (unknown) date) for Urinary Tract unknown) Infection (UTI) (unknown) (no (unknown) (unknown) [facility] (units (unknown) date) [address] unknown) [place], [place] [id number] Report (unknown) (no (unknown) (unknown) Lab Data (units (unkno wn) date) unknown) (unknown) (no (unknown) (unknown) Labs: (units (unkno wn) date) unknown) (unknown) (no (unknown) (unknown) Lymph # (Auto) (units (unknown) date) 1000 L unknown) ([id number]) /uL (unknown) (no (unknown) (unknown) Lymph % (Auto) (units (unknown) date) 23.9 L (25-40) unknown) % (unknown) (no (unknown) (unknown) MCH 31.6 (units (unkn own) date) (26-34) PG unknown) (unknown) (no (unknown) (unknown) MCHC 34.3 (units (unk nown) date) (30-36) % unknown) (unknown) (no (unknown) (unknown) MCV 92.1 (units (unkn own) date) (80-100) fL unknown) (unknown) (no (unknown) (unknown) MDM - Male (units (unk nown) date) Genitourinary unknown) (unknown) (no (unknown) (unknown) MDM Narrative (units ( unknown) date) unknown) (unknown) (no (unknown) (unknown) MUSCULOSKELETAL: (units (unknown) date) denies muscle or unknown) bony pain (unknown) (no (unknown) (unknown) Medical History (units (unknown) date) (Reviewed 11/01/21 unknown) @ 01:59 by Lenny Nogueira MD) (unknown) (no (unknown) (unknown) Medical decision (units (unknown) date) making narrative: unknown) (unknown) (no (unknown) (unknown) Medical decision (units (unknown) date) making narrative: unknown) (unknown) (no (unknown) (unknown) Mode of arrival: (units (unknown) date) Ambulatory unknown) (unknown) (no (unknown) (unknown) Mode of arrival: (units (unknown) date) EMS unknown) (unknown) (no (unknown) (unknown) Fisher # (Auto) 600 (units (unknown) date) (0-900) /uL unknown) (unknown) (no (unknown) (unknown) Fisher % (Auto) (units ( unknown) date) 14.1 H (3-14) % unknown) (unknown) (no (unknown) (unknown) NECK: Trachea (units ( unknown) date) midline. unknown) (unknown) (no (unknown) (unknown) NEURO: AOx4. (units (u nknown) date) unknown) (unknown) (no (unknown) (unknown) NEUROLOGIC: Denies (units (unknown) date) weakness, numbness unknown) (unknown) (no (unknown) (unknown) Narrative (units (unkn own) date) unknown) (unknown) (no (unknown) (unknown) Narrative: (units (unk nown) date) unknown) (unknown) (no (unknown) (unknown) Neut # (Auto) (units ( unknown) date) 2600 ([id number]) unknown) /uL (unknown) (no (unknown) (unknown) Neut % (Auto) (units ( unknown) date) 61.2 (50-75) % unknown) (unknown) (no (unknown) (unknown) No Action (units (unkn own) date) unknown) (unknown) (no (unknown) (unknown) No new issues (units ( unknown) date) during course of unknown) stay. (unknown) (no (unknown) (unknown) Ordered: (units (unkno wn) date) unknown) (unknown) (no (unknown) (unknown) Orders (units (unkno wn) date) unknown) (unknown) (no (unknown) (unknown) Oxygen Delivery (units (unknown) date) Method 11/01/21 unknown) 01:33 (unknown) (no (unknown) (unknown) Oxygen Delivery (units (unknown) date) Method Room Air unknown) (unknown) (no (unknown) (unknown) PSYCH: Not (units (un known) date) anxious, is unknown) cooperative (unknown) (no (unknown) (unknown) PT 12.0 (units (unkn own) date) (10.1-12.7) unknown) SECONDS (unknown) (no (unknown) (unknown) PT [Prothrombin (units (unknown) date) Time INR] Stat unknown) (unknown) (no (unknown) (unknown) PTT [Partial (units (u nknown) date) Thromboplastin unknown) Time] Stat (unknown) (no (unknown) (unknown) Patient (units (unkno wn) date) Disposition: Home unknown) (unknown) (no (unknown) (unknown) Patient History (units (unknown) date) unknown) (unknown) (no (unknown) (unknown) Patient brought in (units (unknown) date) by ambulance from unknown) home for complaints of 1 episode of (unknown) (no (unknown) (unknown) Patient does not (units (unknown) date) any O2 requirement unknown) his respirations are unlabored without (unknown) (no (unknown) (unknown) Patient has been (units (unknown) date) given strict return unknown) to ER precautions for any new or worsening (unknown) (no (unknown) (unknown) Patient is (units (unk nown) date) appropriate and unknown) amenable to discharge home.? Vital signs are stable (unknown) (no (unknown) (unknown) Patient: (units (unkno wn) date) Abe Rose H unknown) MR#: [id number] (unknown) (no (unknown) (unknown) Patient: (units (unkno wn) date) Abe Rose HMR#: unknown) [id number]: 3Acct:[id number]: 89 (unknown) (no (unknown) (unknown) Paxlovid. Patient (units (unknown) date) seen by nurse unknown) practitioner. Discharged home. Also (unknown) (no (unknown) (unknown) Gabriel Kirby, (units (unknown) date) [Primary Care unknown) Provider] - (unknown) (no (unknown) (unknown) Potassium 3.7 (units (unknown) date) (3.4-5.1) mmol/L unknown) (unknown) (no (unknown) (unknown) Prescriptions: (units (unknown) date) unknown) (unknown) (no (unknown) (unknown) Pulse Oximetry 92 (units (unknown) date) 11/01/21 01:33 unknown) (unknown) (no (unknown) (unknown) Pulse Oximetry 92 (units (unknown) date) unknown) (unknown) (no (unknown) (unknown) Pulse Rate 78 (units (unknown) date) 11/01/21 01:33 unknown) (unknown) (no (unknown) (unknown) Pulse Rate 78 (units ( unknown) date) unknown) (unknown) (no (unknown) (unknown) Pyelonephritis (units (unknown) date) unknown) (unknown) (no (unknown) (unknown) RDW 14.1 (units (unkn own) date) (11.6-14.8) % unknown) (unknown) (no (unknown) (unknown) RESPIRATORY: Clear (units (unknown) date) to auscultation. unknown) Breath sounds equal bilaterally. No wheezes, (unknown) (no (unknown) (unknown) RESPIRATORY: (units (u nknown) date) Denies dyspnea, unknown) cough (unknown) (no (unknown) (unknown) ROS Unobtainable: (units (unknown) date) All systems unknown) reviewed + are unremarkable except as noted in HPI (unknown) (no (unknown) (unknown) Reevaluation #1: (units (unknown) date) unknown) (unknown) (no (unknown) (unknown) Reevaluation(s) (units (unknown) date) unknown) (unknown) (no (unknown) (unknown) Referrals: (units (unk nown) date) unknown) (unknown) (no (unknown) (unknown) Related Data (units (u nknown) date) unknown) (unknown) (no (unknown) (unknown) Respiratory Rate (units (unknown) date) 20 11/01/21 01:33 unknown) (unknown) (no (unknown) (unknown) Respiratory Rate (units (unknown) date) 20 unknown) (unknown) (no (unknown) (unknown) Result diagrams: (units (unknown) date) unknown) (unknown) (no (unknown) (unknown) Review of Systems (units (unknown) date) unknown) (unknown) (no (unknown) (unknown) Reviewed with (units ( unknown) date) patient results. unknown) Unable to give urine specimen here. However (unknown) (no (unknown) (unknown) SKIN: Warm and (units (unknown) date) dry unknown) (unknown) (no (unknown) (unknown) SKIN: Denies rash, (units (unknown) date) skin lesions unknown) (unknown) (no (unknown) (unknown) Service: (units (unkno wn) date) 10/31/21ER unknown) Physician: Pretty Sanchez (unknown) (no (unknown) (unknown) Signed By: (units (unk nown) date) unknown) (unknown) (no (unknown) (unknown) Smoking Status: (units (unknown) date) Former smoker unknown) (unknown) (no (unknown) (unknown) Smoking Status: (units (unknown) date) Former smoker unknown) (unknown) (no (unknown) (unknown) Social History (units (unknown) date) (Reviewed 11/01/21 unknown) @ 01:59 by Lenny Nogueira MD) (unknown) (no (unknown) (unknown) Sodium 135 L (units (unknown) date) (137-145) mmol/L unknown) (unknown) (no (unknown) (unknown) Source: patient (units (unknown) date) and EMS unknown) (unknown) (no (unknown) (unknown) Source: patient (units (unknown) date) and family unknown) (unknown) (no (unknown) (unknown) Stated Complaint: (units (unknown) date) Fever, congestion, unknown) bladder infection (unknown) (no (unknown) (unknown) Stated complaint: (units (unknown) date) hematuria unknown) (unknown) (no (unknown) (unknown) Substance Use (units ( unknown) date) Type: does not use unknown) (unknown) (no (unknown) (unknown) Surgical History (units (unknown) date) (Reviewed 11/01/21 unknown) @ 01:59 by Lenny Nogueira MD) (unknown) (no (unknown) (unknown) Temperature 97.3 (units (unknown) date) F L 11/01/21 01:33 unknown) (unknown) (no (unknown) (unknown) Temperature 97.3 F (units (unknown) date) L unknown) (unknown) (no (unknown) (unknown) This is an (units (unk nown) date) 89-year-old male unknown) who presents to the emergency department stating (unknown) (no (unknown) (unknown) This is an (units (unk nown) date) 89-year-old male unknown) with history of hypertension, BPH, hypothyroidism (unknown) (no (unknown) (unknown) Time Seen by (units (u nknown) date) Provider: 10/31/21 unknown) 15:11 (unknown) (no (unknown) (unknown) Time Seen by (units (u nknown) date) Provider: 11/01/21 unknown) 01:48 (unknown) (no (unknown) (unknown) Time: 03:04 (units (un known) date) unknown) (unknown) (no (unknown) (unknown) Total Bilirubin (units (unknown) date) 0.5 (0.2-1.3) unknown) mg/dL (unknown) (no (unknown) (unknown) Total Protein (units ( unknown) date) 6.3 (6.3-8.2) unknown) g/dL (unknown) (no (unknown) (unknown) Vital Signs (units (un known) date) unknown) (unknown) (no (unknown) (unknown) Vital signs: (units (u nknown) date) unknown) (unknown) (no (unknown) (unknown) [Embedded Image (units (unknown) date) Not Available] unknown) (unknown) (no (unknown) (unknown) a thoracic aortic (units (unknown) date) aneurysm. He is unknown) not on any anticoagulants. (unknown) (no (unknown) (unknown) abnormal breath (units (unknown) date) sounds,, tachypnea, unknown) or any additional heart sounds.? Patient's (unknown) (no (unknown) (unknown) abnormality.? (units ( unknown) date) Patient is on day unknown) three of his symptoms and tested negative for (unknown) (no (unknown) (unknown) adequate fluid (units (unknown) date) intake. Follow-up unknown) with PCP as directed.? Return to clinic/ER (unknown) (no (unknown) (unknown) alcohol intake (units (unknown) date) frequency: 0-2 unknown) drinks per day (unknown) (no (unknown) (unknown) and below (units (unkn own) date) unknown) (unknown) (no (unknown) (unknown) and have patient (units (unknown) date) cut his unknown) atorvastatin in half for the next five days.? Hoping to (unknown) (no (unknown) (unknown) and hyperlipidemia (units (unknown) date) presents to the unknown) emergency department complaining of fatigue, (unknown) (no (unknown) (unknown) and other (units (unkn own) date) (Hemorrhagic unknown) cystitis) (unknown) (no (unknown) (unknown) any questions or (units (unknown) date) concerns. unknown) (unknown) (no (unknown) (unknown) aspirin. Bladder (units (unknown) date) scan is 107 mL unknown) (unknown) (no (unknown) (unknown) atorvastatin 20 mg (units (unknown) date) tablet (Lipitor) 20 unknown) mg PO HS 06/23/18 03/19/20 (unknown) (no (unknown) (unknown) benzocaine 15 (units ( unknown) date) mg-menthol 3.6 mg 1 unknown) aidan mucous membrane Q2-4H PRN 10/31/21 (unknown) (no (unknown) (unknown) bladder infection. (units (unknown) date) Patient states unknown) that he had a fever two days ago of 101, (unknown) (no (unknown) (unknown) bladder scan 107 (units (unknown) date) mL. He has been unknown) urinating, he did have incontinence during (unknown) (no (unknown) (unknown) but have been in (units (unknown) date) the past.? unknown) Creatinine is 0.95 and at his baseline, GFR over (unknown) (no (unknown) (unknown) cephalexin 500 mg (units (unknown) date) capsule 500 mg PO unknown) BID 5 days #10 caps 10/31/21 (unknown) (no (unknown) (unknown) chlorthalidone 25 (units (unknown) date) mg tablet 25 mg PO unknown) DAILY #30 tabs 08/20/18 (unknown) (no (unknown) (unknown) ciprofloxacin (units ( unknown) date) Allergy Unknown unknown) Verified 10/31/21 14:29 (unknown) (no (unknown) (unknown) congestion, a (units ( unknown) date) productive cough, unknown) urinary urgency, frequency, and concern for a (unknown) (no (unknown) (unknown) cough.? Chest (units ( unknown) date) x-ray is negative unknown) for acute cardiopulmonary infiltrate or (unknown) (no (unknown) (unknown) course of stay. (units (unknown) date) Review precautions unknown) reviewed with him. (unknown) (no (unknown) (unknown) culture grew (units (u nknown) date) Enterococcus unknown) faecalis and patient required doxycycline. Maintain (unknown) (no (unknown) (unknown) culture is (units (unk nown) date) pending.? His last unknown) urine culture grew out Enterococcus faecalis and (unknown) (no (unknown) (unknown) denies any known (units (unknown) date) COVID exposure, unknown) denies sore throat, flank pain, abdominal pain, (unknown) (no (unknown) (unknown) denies any nausea (units (unknown) date) or vomiting, denies unknown) chills, denies shortness of breath or (unknown) (no (unknown) (unknown) denies any (units (unk nown) date) shortness of unknown) breath, wheezing, chest pain, nausea or vomiting.? (unknown) (no (unknown) (unknown) denies any urinary (units (unknown) date) retention, unknown) dribbling, or penile discharge.? He was treated in (unknown) (no (unknown) (unknown) dextromethorphan-g (units (unknown) date) uaifenesin 10 1 unknown) tab-cap PO Q8H PRN cough #14 caps 10/31/21 (unknown) (no (unknown) (unknown) difficulty (units (unk nown) date) breathing. States unknown) that he has had postnasal drip, productive cough, (unknown) (no (unknown) (unknown) distress, (units (unkn own) date) dehydration, or unknown) focal exam to suggest secondary bacterial infection. (unknown) (no (unknown) (unknown) doxycycline (units (un known) date) hyclate 100 mg unknown) capsule 100 mg PO BID 03/19/20 03/19/20 (unknown) (no (unknown) (unknown) endorses a history (units (unknown) date) of hypothyroidism, unknown) BPH, hyperlipidemia, and hypertension with (unknown) (no (unknown) (unknown) especially in the (units (unknown) date) mornings and in the unknown) evenings. Denies any sinus tenderness, (unknown) (no (unknown) (unknown) gabapentin AdvReac (units (unknown) date) Mild 'FELT LIKE unknown) Verified 10/31/21 14:29 (unknown) (no (unknown) (unknown) however does have (units (unknown) date) incontinence. No unknown) urinary retention. Patient already is on (unknown) (no (unknown) (unknown) infection (units (unkno wn) date) prevention measures unknown) such as frequent handwashing. Discussed supportive (unknown) (no (unknown) (unknown) infection, however (units (unknown) date) no pneumonia. No unknown) hypoxia. Was given prescription for (unknown) (no (unknown) (unknown) instructed.? (units (u nknown) date) Patient understands unknown) plan and agrees to discharge home.? All (unknown) (no (unknown) (unknown) instructions (units (u nknown) date) discussed for new, unknown) not improving, or worsening symptoms.? All (unknown) (no (unknown) (unknown) instrumentation (units (unknown) date) into his bladder unknown) recently he does have a history of BPH but (unknown) (no (unknown) (unknown) ipratropium (units (un known) date) bromide 21 mcg unknown) (0.03 2 spray intranasal BID #30 mL 07/19/19 (unknown) (no (unknown) (unknown) lactate was 1.7, no (units (unknown) date) electrolyte unknown) derangement, liver enzymes are slightly elevated (unknown) (no (unknown) (unknown) levothyroxine 112 (units (unknown) date) mcg tablet 112 mcg unknown) PO DAILY #30 tabs 04/08/20 (unknown) (no (unknown) (unknown) lisinopril 5 mg (units (unknown) date) tablet 5 mg PO BID unknown) 03/19/20 03/19/20 (unknown) (no (unknown) (unknown) lozenges (Cepacol (units (unknown) date) Sore Throat sore unknown) throat #16 ea (unknown) (no (unknown) (unknown) medications and/or (units (unknown) date) antihistamines for unknown) symptomatic relief.? Patient has (unknown) (no (unknown) (unknown) metoprolol (units (unk nown) date) succinate 25 mg 25 unknown) mg PO QDAY ##90 05/15/17 (unknown) (no (unknown) (unknown) mg-200 mg capsule (units (unknown) date) (Robitussin unknown) (unknown) (no (unknown) (unknown) nirmatrelvir 300 (units (unknown) date) mg (150 mg x See Rx unknown) Instructions PO .COMPLEX 10/31/21 (unknown) (no (unknown) (unknown) of painless (units (un known) date) hematuria. This unknown) has resolved. No other complaints. Is on baby (unknown) (no (unknown) (unknown) on repeat (units (unkn own) date) examination is unknown) unremarkable.? Patient has been informed of results.? (unknown) (no (unknown) (unknown) or other symptom. (units (unknown) date) On chart review it unknown) appears that patient had pyelonephritis on (unknown) (no (unknown) (unknown) painless (units (unkno wn) date) hematuria. Patient unknown) seen here 12 hours ago for positive COVID (unknown) (no (unknown) (unknown) patient endorses (units (unknown) date) needing admission unknown) to the hospital with a kidney infection and (unknown) (no (unknown) (unknown) peritoneal signs. (units (unknown) date) Bowel sounds are unknown) present. (unknown) (no (unknown) (unknown) prescribed (units (unk nown) date) medications from unknown) previous visit here today. Return precautions (unknown) (no (unknown) (unknown) prescription for (units (unknown) date) Keflex for UTI. unknown) This evening patient states he had an episode (unknown) (no (unknown) (unknown) productive cough, (units (unknown) date) fever two days ago, unknown) and urinary tract infection.? Patient (unknown) (no (unknown) (unknown) questions and (units ( unknown) date) concerns answered unknown) at this time. (unknown) (no (unknown) (unknown) questions (units (unkn own) date) answered.? Patient unknown) was given strict return precautions.? Patient's (unknown) (no (unknown) (unknown) rales, or rhonchi. (units (unknown) date) unknown) (unknown) (no (unknown) (unknown) reduce length of (units (unknown) date) course of illness unknown) and hospitalization potential.? Patient was (unknown) (no (unknown) (unknown) reviewed with him. (units (unknown) date) He desires unknown) discharge home (unknown) (no (unknown) (unknown) significant (units (un known) date) comorbidities most unknown) importantly his age, we will treat with Paxlovid (unknown) (no (unknown) (unknown) symptoms.? Patient (units (unknown) date) understands to unknown) follow up closely with outpatient providers as (unknown) (no (unknown) (unknown) tablet,extended (units (unknown) date) release 24 hr unknown) (unknown) (no (unknown) (unknown) that he has felt (units (unknown) date) poorly for the last unknown) few days, states that he has had increased (unknown) (no (unknown) (unknown) the emergency (units (u nknown) date) department with 1 g unknown) of ceftriaxone, and Mucinex for his productive (unknown) (no (unknown) (unknown) treated for his (units (unknown) date) UTI with unknown) cephalexin, will follow-up on culture, last urine (unknown) (no (unknown) (unknown) treatments:? (units (u nknown) date) Tylenol/Motrin as unknown) needed for pain/fever.? OTC decongestant (unknown) (no (unknown) (unknown) twice daily for 5 (units (unknown) date) days unknown) (unknown) (no (unknown) (unknown) urinary retention, (units (unknown) date) states that he has unknown) a problem with urinary frequency. He (unknown) (no (unknown) (unknown) urine cultures (units (unknown) date) were available for unknown) review. Patient denies any difficulty with (unknown) (no (unknown) (unknown) was very sick at (units (unknown) date) that time.? Patient unknown) has not had any bladder catheterizations Result panel 15 (unknown) (no (unknown) (unknown) (no value) (units (unk nown) date) unknown) (unknown) (no (unknown) (unknown) Date of Service: (units (unknown) date) 11/01/21 unknown) (unknown) (no (unknown) (unknown) (no value) (units (unk nown) date) unknown) (unknown) (no (unknown) (unknown) 11/01/21 02:11 (units (unknown) date) unknown) (unknown) (no (unknown) (unknown) 1 aidan mucous (units (u nknown) date) membrane Q2-4H PRN unknown) (Reason: sore throat) Qty: 16 0RF (unknown) (no (unknown) (unknown) 1 tab-cap PO Q8H (units (unknown) date) PRN (Reason: cough) unknown) Qty: 14 0RF (unknown) (no (unknown) (unknown) 100 mg PO BID (units ( unknown) date) unknown) (unknown) (no (unknown) (unknown) 112 mcg PO DAILY (units (unknown) date) Qty: 30 3RF unknown) (unknown) (no (unknown) (unknown) 2 spray NASAL BID (units (unknown) date) Qty: 30 2RF unknown) (unknown) (no (unknown) (unknown) 20 mg PO HS (units (un known) date) unknown) (unknown) (no (unknown) (unknown) 25 mg PO DAILY (units (unknown) date) Qty: 30 1RF unknown) (unknown) (no (unknown) (unknown) 25 mg PO QDAY Qty: (units (unknown) date) 90 0RF unknown) (unknown) (no (unknown) (unknown) 5 mg PO BID (units (un known) date) unknown) (unknown) (no (unknown) (unknown) 500 mg PO BID 5 (units (unknown) date) Days Qty: 10 0RF unknown) (unknown) (no (unknown) (unknown) A BALLOON (units (unkn own) date) unknown) (unknown) (no (unknown) (unknown) Administer one (units (unknown) date) spray into each unknown) nostril. (unknown) (no (unknown) (unknown) Allergies (units (unkn own) date) unknown) (unknown) (no (unknown) (unknown) ED Orders (units (unkn own) date) unknown) (unknown) (no (unknown) (unknown) Emergency Report (units (unknown) date) unknown) (unknown) (no (unknown) (unknown) GFR >60, day 3 of (units (unknown) date) symptoms, tested unknown) positive today, negative yesterday. (unknown) (no (unknown) (unknown) HEAD' (units (unkno wn) date) unknown) (unknown) (no (unknown) (unknown) Home Medications (units (unknown) date) unknown) (unknown) (no (unknown) (unknown) [facility] (units (unknown) date) [address] unknown) [place] [address] (unknown) (no (unknown) (unknown) Lab Results (units (un known) date) unknown) (unknown) (no (unknown) (unknown) Previous Rx's (units ( unknown) date) unknown) (unknown) (no (unknown) (unknown) Rx Instructions: (units (unknown) date) unknown) (unknown) (no (unknown) (unknown) See Rx (units (unkno wn) date) Instructions unknown) .ROUTE .COMPLEX Qty: 30 0RF (unknown) (no (unknown) (unknown) Vital Signs - 8 hr (units (unknown) date) unknown) (unknown) (no (unknown) (unknown) please repeat lab (units (unknown) date) work in 1 month of unknown) beginning this new dose. (unknown) (no (unknown) (unknown) please take 2 (units ( unknown) date) times daily unknown) starting 11/01/21 (unknown) (no (unknown) (unknown) take TWO 150 mg (units (unknown) date) tablets of unknown) nirmatrelvir with ONE 100 mg tablet of ritonavir (unknown) (no (unknown) (unknown) (no value) (units (unk nown) date) unknown) (unknown) (no (unknown) (unknown) 02:11 02:11 02:11 (units (unknown) date) unknown) (unknown) (no (unknown) (unknown) 11/01/21 11/01/21 (units (unknown) date) 11/01/21 unknown) Range/Units (unknown) (no (unknown) (unknown) Cepacol Sore (units (u nknown) date) Throat (meli-men) unknown) 15-3.6 mg lozenge (unknown) (no (unknown) (unknown) Paxlovid (EUA) 150 (units (unknown) date) mg x 2- 100 mg unknown) tablet (unknown) (no (unknown) (unknown) Robitussin (units (unk nown) date) Cough-Chest Rowdy DM unknown) 10-200 mg capsule (unknown) (no (unknown) (unknown) atorvastatin (units (u nknown) date) [Lipitor] 20 mg unknown) tablet (unknown) (no (unknown) (unknown) cephalexin 500 mg (units (unknown) date) capsule unknown) (unknown) (no (unknown) (unknown) chlorthalidone 25 (units (unknown) date) mg tablet unknown) (unknown) (no (unknown) (unknown) doxycycline (units (un known) date) hyclate 100 mg unknown) capsule (unknown) (no (unknown) (unknown) ipratropium (units (un known) date) bromide 0.03 % unknown) spray,non-aerosol (unknown) (no (unknown) (unknown) levothyroxine 112 (units (unknown) date) mcg tablet unknown) (unknown) (no (unknown) (unknown) lisinopril 5 mg (units (unknown) date) tablet unknown) (unknown) (no (unknown) (unknown) metoprolol (units (unk nown) date) succinate [Toprol unknown) XL] 25 MG tablet extended release 24 hr (unknown) (no (unknown) (unknown) 11/01/21 (units (unkno wn) date) unknown) (unknown) (no (unknown) (unknown) Acute UTI (units (unkn own) date) unknown) (unknown) (no (unknown) (unknown) Medication (units (unk nown) date) Instructions unknown) Recorded (unknown) (no (unknown) (unknown) Medication (units (unk nown) date) Instructions unknown) Recorded Confirmed (unknown) (no (unknown) (unknown) doctor next week (units (unknown) date) for re-evaluation. unknown) Keep well hydrated. Return if worse if (unknown) (no (unknown) (unknown) %) nasal spray (units (unknown) date) unknown) (unknown) (no (unknown) (unknown) <Pretty Sanchez, (units (unknown) date) [facility] - Last Filed: unknown) 10/31/21 17:05> (unknown) (no (unknown) (unknown) (Paxlovid 300 mg (units (unknown) date) () unknown) (unknown) (no (unknown) (unknown) (Toprol XL) (units (un known) date) unknown) (unknown) (no (unknown) (unknown) (benzocaine-mentho (units (unknown) date) l)) unknown) (unknown) (no (unknown) (unknown) / M Date of (units (unknown) date) unknown) (unknown) (no (unknown) (unknown) 01:33 (units (unkno wn) date) unknown) (unknown) (no (unknown) (unknown) 11/01/21 02:11 (units (unknown) date) unknown) (unknown) (no (unknown) (unknown) 11/18/2019 and (units (unknown) date) grew out unknown) Enterococcus faecalis from his urine culture. No other (unknown) (no (unknown) (unknown) [id number] (units (unkno wn) date) unknown) (unknown) (no (unknown) (unknown) 2)-ritonavir 100 (units (unknown) date) mg tablet (EUA) #30 unknown) tabs (unknown) (no (unknown) (unknown) 60.? Lipase 275.? (units (unknown) date) No leukocytosis, unknown) white blood cell count is low at 3.5.? (unknown) (no (unknown) (unknown) ALT 73 H (<50) (units (unknown) date) IU/L unknown) (unknown) (no (unknown) (unknown) APTT 49 H (units (un known) date) (26.4-36.2) unknown) SECONDS (unknown) (no (unknown) (unknown) AST 78 H (units (un known) date) (17-59) IU/L unknown) (unknown) (no (unknown) (unknown) Activity (units (unkno wn) date) Restrictions/Additi unknown) onal Instructions: (unknown) (no (unknown) (unknown) Age/Sex: 89 / M (units (unknown) date) unknown) (unknown) (no (unknown) (unknown) Albumin 3.7 (units (unknown) date) (3.5-5.0) g/dL unknown) (unknown) (no (unknown) (unknown) Albumin/Globulin (units (unknown) date) Ratio 1.4 unknown) (1.0-2.8) (unknown) (no (unknown) (unknown) Alkaline (units (unkno wn) date) Phosphatase 44 unknown) (38-126) U/L (unknown) (no (unknown) (unknown) Allergy/AdvReac (units (unknown) date) Type Severity unknown) Reaction Status Date / Time (unknown) (no (unknown) (unknown) Appropriate for (units (unknown) date) discharge home. No unknown) imaging indicated. Patient is voiding (unknown) (no (unknown) (unknown) BUN 27 H (units (un known) date) (9-20) mg/dL unknown) (unknown) (no (unknown) (unknown) BUN/Creatinine (units (unknown) date) Ratio 30.7 H unknown) (6-22) (unknown) (no (unknown) (unknown) Baso # (Auto) 0 (units (unknown) date) (0-100) /uL unknown) (unknown) (no (unknown) (unknown) Baso % (Auto) 0.6 (units (unknown) date) (0-2) % unknown) (unknown) (no (unknown) (unknown) Be sure to continue (units (unknown) date) prescribed unknown) medications from your 1st visit here. See family (unknown) (no (unknown) (unknown) Blood Pressure (units (unknown) date) 121/71 11/01/21 unknown) 01:33 (unknown) (no (unknown) (unknown) Blood Pressure (units (unknown) date) unknown) (unknown) (no (unknown) (unknown) CARDIOVASCULAR: (units (unknown) date) Denies chest pain, unknown) palpitations (unknown) (no (unknown) (unknown) CARDIOVASCULAR: (units (unknown) date) Regular rate and unknown) rhythm without murmurs (unknown) (no (unknown) (unknown) CBC Auto Diff (units ( unknown) date) [Complete Blood unknown) Count AUTO DIFF] Stat (unknown) (no (unknown) (unknown) CMP [Comprehensive (units (unknown) date) Metabolic Panel] unknown) Stat (unknown) (no (unknown) (unknown) COVID PCR is (units (u nknown) date) positive, his urine unknown) microscopy shows moderate bacteria, urine (unknown) (no (unknown) (unknown) COVID yesterday.? (units (unknown) date) COVID (+) on day 3 unknown) of symptoms without hypoxia, respiratory (unknown) (no (unknown) (unknown) Calcium 7.9 L (units (unknown) date) (8.4-10.2) mg/dL unknown) (unknown) (no (unknown) (unknown) Carbon Dioxide (units (unknown) date) 34 H (22-32) unknown) mmol/L (unknown) (no (unknown) (unknown) Chief Complaint: (units (unknown) date) Upper Respiratory unknown) Symptoms (unknown) (no (unknown) (unknown) Chief complaint: (units (unknown) date) Urogenital-Male unknown) (unknown) (no (unknown) (unknown) Chloride 96 L (units (unknown) date) (98-107) mmol/L unknown) (unknown) (no (unknown) (unknown) Clinical (units (unkno wn) date) Impression: unknown) (unknown) (no (unknown) (unknown) Cough-Chest (units (un known) date) Congestion DM) unknown) (unknown) (no (unknown) (unknown) Course (units (unkno wn) date) unknown) (unknown) (no (unknown) (unknown) Course Narrative: (units (unknown) date) unknown) (unknown) (no (unknown) (unknown) Creatinine 0.88 (units (unknown) date) (0.66-1.25) mg/dL unknown) (unknown) (no (unknown) (unknown) : 1930 (units (unknown) date) Acct:[id number] unknown) (unknown) (no (unknown) (unknown) Departure (units (unkn own) date) unknown) (unknown) (no (unknown) (unknown) Differential (units (u nknown) date) Diagnosis unknown) (unknown) (no (unknown) (unknown) Differential (units (un known) date) diagnosis: Likely unknown) urinary tract infection, acute retention of urine (unknown) (no (unknown) (unknown) Discharge Plan (units (unknown) date) unknown) (unknown) (no (unknown) (unknown) Discussed CDC (units ( unknown) date) guidelines for unknown) quarantine, mask wearing, physical distancing, and (unknown) (no (unknown) (unknown) ENT: Mucous (units (u nknown) date) membranes moist. unknown) (unknown) (no (unknown) (unknown) ER Physician: (units ( unknown) date) Lenny Nogueira MD unknown) (unknown) (no (unknown) (unknown) EYES: Pupils equal (units (unknown) date) round No scleral unknown) icterus. (unknown) (no (unknown) (unknown) Eos # (Auto) 0 (units (unknown) date) (0-450) /uL unknown) (unknown) (no (unknown) (unknown) Eos % (Auto) 0.2 (units (unknown) date) L (2-4) % unknown) (unknown) (no (unknown) (unknown) Estimated GFR > (units (unknown) date) 60 (>60) mL/min unknown) (unknown) (no (unknown) (unknown) Exam (units (unkno wn) date) unknown) (unknown) (no (unknown) (unknown) Exam Narrative: (units (unknown) date) unknown) (unknown) (no (unknown) (unknown) GASTROINTESTINAL: (units (unknown) date) Abdomen soft, unknown) non-tender, no suprapubic tenderness, no (unknown) (no (unknown) (unknown) GASTROINTESTINAL: (units (unknown) date) Denies nausea, unknown) vomiting, abdominal pain (unknown) (no (unknown) (unknown) GENERAL: Denies (units (unknown) date) chills, fatigue, unknown) malaise, fever, sweats. (unknown) (no (unknown) (unknown) GENERAL: in no (units (unknown) date) distress, not toxic unknown) not dyspneic (unknown) (no (unknown) (unknown) : Denies (units (unk nown) date) dysuria, frequency, unknown) positive for hematuria (unknown) (no (unknown) (unknown) General (units (unkno wn) date) unknown) (unknown) (no (unknown) (unknown) GenericComposite[P (units (unknown) date) lt Count 124 L unknown) (150-400) X10^3/uL ] (unknown) (no (unknown) (unknown) GenericComposite[R (units (unknown) date) BC 4.43 L unknown) (4.5-5.9) X10^6/uL ] (unknown) (no (unknown) (unknown) GenericComposite[W (units (unknown) date) BC 4.2 L unknown) (4.5-11.0) X10^3/uL ] (unknown) (no (unknown) (unknown) Globulin 2.6 (units (unknown) date) (1.7-4.1) g/dL unknown) (unknown) (no (unknown) (unknown) Glucose 116 H (units (unknown) date) (80-110) mg/dL unknown) (unknown) (no (unknown) (unknown) HEAD: (units (unkno wn) date) Normocephalic. unknown) (unknown) (no (unknown) (unknown) HEENT: Denies (units ( unknown) date) sinus pain, ear unknown) pain, sore throat (unknown) (no (unknown) (unknown) HPI - Male (units (unk nown) date) Genitourinary unknown) (unknown) (no (unknown) (unknown) HPI - URI/Sore (units (unknown) date) Throat unknown) (unknown) (no (unknown) (unknown) HPI Narrative: (units (unknown) date) unknown) (unknown) (no (unknown) (unknown) HPI Narrative: (units (unknown) date) unknown) (unknown) (no (unknown) (unknown) Hct 40.8 L (units (un known) date) (41-53) % unknown) (unknown) (no (unknown) (unknown) Hgb 14.0 (units (unkn own) date) (13.5-17.5) g/dL unknown) (unknown) (no (unknown) (unknown) History of Present (units (unknown) date) Illness unknown) (unknown) (no (unknown) (unknown) History of spinal (units (unknown) date) fusion unknown) (unknown) (no (unknown) (unknown) Hypertension (units (u nknown) date) unknown) (unknown) (no (unknown) (unknown) INR 1.1 (units (unkn own) date) (0.9-1.3) unknown) (unknown) (no (unknown) (unknown) Initial Vital (units ( unknown) date) Signs unknown) (unknown) (no (unknown) (unknown) Initial Vital (units ( unknown) date) Signs: unknown) (unknown) (no (unknown) (unknown) Instructions: DI (units (unknown) date) for Urinary Tract unknown) Infection (UTI) (unknown) (no (unknown) (unknown) [facility] (units (unknown) date) [address] unknown) [place], [place] [id number] Report (unknown) (no (unknown) (unknown) Margarita Zepeda, (units (unknown) date) [Physician] - unknown) (unknown) (no (unknown) (unknown) Lab Data (units (unkno wn) date) unknown) (unknown) (no (unknown) (unknown) Labs: (units (unkno wn) date) unknown) (unknown) (no (unknown) (unknown) Lymph # (Auto) (units (unknown) date) 1000 L unknown) (3690-3268) /uL (unknown) (no (unknown) (unknown) Lymph % (Auto) (units (unknown) date) 23.9 L (25-40) unknown) % (unknown) (no (unknown) (unknown) MCH 31.6 (units (unkn own) date) (26-34) PG unknown) (unknown) (no (unknown) (unknown) MCHC 34.3 (units (unk nown) date) (30-36) % unknown) (unknown) (no (unknown) (unknown) MCV 92.1 (units (unkn own) date) (80-100) fL unknown) (unknown) (no (unknown) (unknown) MDM - Male (units (unk nown) date) Genitourinary unknown) (unknown) (no (unknown) (unknown) MDM Narrative (units ( unknown) date) unknown) (unknown) (no (unknown) (unknown) MUSCULOSKELETAL: (units (unknown) date) denies muscle or unknown) bony pain (unknown) (no (unknown) (unknown) Medical History (units (unknown) date) (Reviewed 11/01/21 unknown) @ 01:59 by Lenny Nogueira MD) (unknown) (no (unknown) (unknown) Medical decision (units (unknown) date) making narrative: unknown) (unknown) (no (unknown) (unknown) Medical decision (units (unknown) date) making narrative: unknown) (unknown) (no (unknown) (unknown) Mode of arrival: (units (unknown) date) Ambulatory unknown) (unknown) (no (unknown) (unknown) Mode of arrival: (units (unknown) date) EMS unknown) (unknown) (no (unknown) (unknown) Fisher # (Auto) 600 (units (unknown) date) (0-900) /uL unknown) (unknown) (no (unknown) (unknown) Fisher % (Auto) (units ( unknown) date) 14.1 H (3-14) % unknown) (unknown) (no (unknown) (unknown) NECK: Trachea (units ( unknown) date) midline. unknown) (unknown) (no (unknown) (unknown) NEURO: AOx4. (units (u nknown) date) unknown) (unknown) (no (unknown) (unknown) NEUROLOGIC: Denies (units (unknown) date) weakness, numbness unknown) (unknown) (no (unknown) (unknown) Narrative (units (unkn own) date) unknown) (unknown) (no (unknown) (unknown) Narrative: (units (unk nown) date) unknown) (unknown) (no (unknown) (unknown) Neut # (Auto) (units ( unknown) date) 2600 (2260-4396) unknown) /uL (unknown) (no (unknown) (unknown) Neut % (Auto) (units ( unknown) date) 61.2 (50-75) % unknown) (unknown) (no (unknown) (unknown) No Action (units (unkn own) date) unknown) (unknown) (no (unknown) (unknown) No new issues (units ( unknown) date) during course of unknown) stay. (unknown) (no (unknown) (unknown) Ordered: (units (unkno wn) date) unknown) (unknown) (no (unknown) (unknown) Orders (units (unkno wn) date) unknown) (unknown) (no (unknown) (unknown) Oxygen Delivery (units (unknown) date) Method 11/01/21 unknown) 01:33 (unknown) (no (unknown) (unknown) Oxygen Delivery (units (unknown) date) Method Room Air unknown) (unknown) (no (unknown) (unknown) PSYCH: Not (units (un known) date) anxious, is unknown) cooperative (unknown) (no (unknown) (unknown) PT 12.0 (units (unkn own) date) (10.1-12.7) unknown) SECONDS (unknown) (no (unknown) (unknown) PT [Prothrombin (units (unknown) date) Time INR] Stat unknown) (unknown) (no (unknown) (unknown) PTT [Partial (units (u nknown) date) Thromboplastin unknown) Time] Stat (unknown) (no (unknown) (unknown) Patient (units (unkno wn) date) Disposition: Home unknown) (unknown) (no (unknown) (unknown) Patient History (units (unknown) date) unknown) (unknown) (no (unknown) (unknown) Patient brought in (units (unknown) date) by ambulance from unknown) home for complaints of 1 episode of (unknown) (no (unknown) (unknown) Patient does not (units (unknown) date) any O2 requirement unknown) his respirations are unlabored without (unknown) (no (unknown) (unknown) Patient has been (units (unknown) date) given strict return unknown) to ER precautions for any new or worsening (unknown) (no (unknown) (unknown) Patient is (units (unk nown) date) appropriate and unknown) amenable to discharge home.? Vital signs are stable (unknown) (no (unknown) (unknown) Patient: (units (unkno wn) date) Abe Rose H unknown) MR#: [id number] (unknown) (no (unknown) (unknown) Patient: (units (unkno wn) date) Abe Rose HMR#: unknown) [id number]: 1930cct:[id number]/Sex: 89 (unknown) (no (unknown) (unknown) Paxlovid. Patient (units (unknown) date) seen by nurse unknown) practitioner. Discharged home. Also (unknown) (no (unknown) (unknown) Gabriel Kirby, (units (unknown) date) [Primary Care unknown) Provider] - (unknown) (no (unknown) (unknown) Potassium 3.7 (units (unknown) date) (3.4-5.1) mmol/L unknown) (unknown) (no (unknown) (unknown) Prescriptions: (units (unknown) date) unknown) (unknown) (no (unknown) (unknown) Pulse Oximetry 92 (units (unknown) date) 11/01/21 01:33 unknown) (unknown) (no (unknown) (unknown) Pulse Oximetry 92 (units (unknown) date) unknown) (unknown) (no (unknown) (unknown) Pulse Rate 78 (units (unknown) date) 11/01/21 01:33 unknown) (unknown) (no (unknown) (unknown) Pulse Rate 78 (units ( unknown) date) unknown) (unknown) (no (unknown) (unknown) Pyelonephritis (units (unknown) date) unknown) (unknown) (no (unknown) (unknown) RDW 14.1 (units (unkn own) date) (11.6-14.8) % unknown) (unknown) (no (unknown) (unknown) RESPIRATORY: Clear (units (unknown) date) to auscultation. unknown) Breath sounds equal bilaterally. No wheezes, (unknown) (no (unknown) (unknown) RESPIRATORY: (units (u nknown) date) Denies dyspnea, unknown) cough (unknown) (no (unknown) (unknown) ROS Unobtainable: (units (unknown) date) All systems unknown) reviewed + are unremarkable except as noted in HPI (unknown) (no (unknown) (unknown) Reevaluation #1: (units (unknown) date) unknown) (unknown) (no (unknown) (unknown) Reevaluation(s) (units (unknown) date) unknown) (unknown) (no (unknown) (unknown) Referrals: (units (unk nown) date) unknown) (unknown) (no (unknown) (unknown) Related Data (units (u nknown) date) unknown) (unknown) (no (unknown) (unknown) Respiratory Rate (units (unknown) date) 20 11/01/21 01:33 unknown) (unknown) (no (unknown) (unknown) Respiratory Rate (units (unknown) date) 20 unknown) (unknown) (no (unknown) (unknown) Result diagrams: (units (unknown) date) unknown) (unknown) (no (unknown) (unknown) Review of Systems (units (unknown) date) unknown) (unknown) (no (unknown) (unknown) Reviewed with (units ( unknown) date) patient results. unknown) Unable to give urine specimen here. However (unknown) (no (unknown) (unknown) Lenny Rivas MD (units (unknown) date) [Physician] - unknown) (unknown) (no (unknown) (unknown) SKIN: Warm and (units (unknown) date) dry unknown) (unknown) (no (unknown) (unknown) SKIN: Denies rash, (units (unknown) date) skin lesions unknown) (unknown) (no (unknown) (unknown) Service: (units (unkno wn) date) 10/31/21ER unknown) Physician: HayleewPretty (unknown) (no (unknown) (unknown) Signed By: (units (unk nown) date) unknown) (unknown) (no (unknown) (unknown) Smoking Status: (units (unknown) date) Former smoker unknown) (unknown) (no (unknown) (unknown) Smoking Status: (units (unknown) date) Former smoker unknown) (unknown) (no (unknown) (unknown) Social History (units (unknown) date) (Reviewed 11/01/21 unknown) @ 01:59 by Lenny Nogueira MD) (unknown) (no (unknown) (unknown) Sodium 135 L (units (unknown) date) (137-145) mmol/L unknown) (unknown) (no (unknown) (unknown) Source: patient (units (unknown) date) and EMS unknown) (unknown) (no (unknown) (unknown) Source: patient (units (unknown) date) and family unknown) (unknown) (no (unknown) (unknown) Stated Complaint: (units (unknown) date) Fever, congestion, unknown) bladder infection (unknown) (no (unknown) (unknown) Stated complaint: (units (unknown) date) hematuria unknown) (unknown) (no (unknown) (unknown) Substance Use (units ( unknown) date) Type: does not use unknown) (unknown) (no (unknown) (unknown) Surgical History (units (unknown) date) (Reviewed 11/01/21 unknown) @ 01:59 by Lenny Nogueira MD) (unknown) (no (unknown) (unknown) Temperature 97.3 (units (unknown) date) F L 11/01/21 01:33 unknown) (unknown) (no (unknown) (unknown) Temperature 97.3 F (units (unknown) date) L unknown) (unknown) (no (unknown) (unknown) This is an (units (unk nown) date) 89-year-old male unknown) who presents to the emergency department stating (unknown) (no (unknown) (unknown) This is an (units (unk nown) date) 89-year-old male unknown) with history of hypertension, BPH, hypothyroidism (unknown) (no (unknown) (unknown) Time Seen by (units (u nknown) date) Provider: 10/31/21 unknown) 15:11 (unknown) (no (unknown) (unknown) Time Seen by (units (u nknown) date) Provider: 11/01/21 unknown) 01:48 (unknown) (no (unknown) (unknown) Time: 03:04 (units (un known) date) unknown) (unknown) (no (unknown) (unknown) Total Bilirubin (units (unknown) date) 0.5 (0.2-1.3) unknown) mg/dL (unknown) (no (unknown) (unknown) Total Protein (units ( unknown) date) 6.3 (6.3-8.2) unknown) g/dL (unknown) (no (unknown) (unknown) Vital Signs (units (un known) date) unknown) (unknown) (no (unknown) (unknown) Vital signs: (units (u nknown) date) unknown) (unknown) (no (unknown) (unknown) [Embedded Image (units (unknown) date) Not Available] unknown) (unknown) (no (unknown) (unknown) a thoracic aortic (units (unknown) date) aneurysm. He is unknown) not on any anticoagulants. (unknown) (no (unknown) (unknown) abnormal breath (units (unknown) date) sounds,, tachypnea, unknown) or any additional heart sounds.? Patient's (unknown) (no (unknown) (unknown) abnormality.? (units ( unknown) date) Patient is on day unknown) three of his symptoms and tested negative for (unknown) (no (unknown) (unknown) adequate fluid (units (unknown) date) intake. Follow-up unknown) with PCP as directed.? Return to clinic/ER (unknown) (no (unknown) (unknown) alcohol intake (units (unknown) date) frequency: 0-2 unknown) drinks per day (unknown) (no (unknown) (unknown) and below (units (unkn own) date) unknown) (unknown) (no (unknown) (unknown) and have patient (units (unknown) date) cut his unknown) atorvastatin in half for the next five days.? Hoping to (unknown) (no (unknown) (unknown) and hyperlipidemia (units (unknown) date) presents to the unknown) emergency department complaining of fatigue, (unknown) (no (unknown) (unknown) and other (units (unkn own) date) (Hemorrhagic unknown) cystitis) (unknown) (no (unknown) (unknown) any questions or (units (unknown) date) concerns. Call unknown) provided urology office for office re- (unknown) (no (unknown) (unknown) aspirin. Bladder (units (unknown) date) scan is 107 mL unknown) (unknown) (no (unknown) (unknown) atorvastatin 20 mg (units (unknown) date) tablet (Lipitor) 20 unknown) mg PO HS 06/23/18 03/19/20 (unknown) (no (unknown) (unknown) benzocaine 15 (units ( unknown) date) mg-menthol 3.6 mg 1 unknown) aidan mucous membrane Q2-4H PRN 10/31/21 (unknown) (no (unknown) (unknown) bladder infection. (units (unknown) date) Patient states unknown) that he had a fever two days ago of 101, (unknown) (no (unknown) (unknown) bladder scan 107 (units (unknown) date) mL. He has been unknown) urinating, he did have incontinence during (unknown) (no (unknown) (unknown) but have been in (units (unknown) date) the past.? unknown) Creatinine is 0.95 and at his baseline, GFR over (unknown) (no (unknown) (unknown) cephalexin 500 mg (units (unknown) date) capsule 500 mg PO unknown) BID 5 days #10 caps 10/31/21 (unknown) (no (unknown) (unknown) chlorthalidone 25 (units (unknown) date) mg tablet 25 mg PO unknown) DAILY #30 tabs 08/20/18 (unknown) (no (unknown) (unknown) ciprofloxacin (units ( unknown) date) Allergy Unknown unknown) Verified 10/31/21 14:29 (unknown) (no (unknown) (unknown) congestion, a (units ( unknown) date) productive cough, unknown) urinary urgency, frequency, and concern for a (unknown) (no (unknown) (unknown) cough.? Chest (units ( unknown) date) x-ray is negative unknown) for acute cardiopulmonary infiltrate or (unknown) (no (unknown) (unknown) course of stay. (units (unknown) date) Review precautions unknown) reviewed with him. Nurse spoke with on (unknown) (no (unknown) (unknown) culture grew (units (u nknown) date) Enterococcus unknown) faecalis and patient required doxycycline. Maintain (unknown) (no (unknown) (unknown) culture is (units (unk nown) date) pending.? His last unknown) urine culture grew out Enterococcus faecalis and (unknown) (no (unknown) (unknown) denies any known (units (unknown) date) COVID exposure, unknown) denies sore throat, flank pain, abdominal pain, (unknown) (no (unknown) (unknown) denies any nausea (units (unknown) date) or vomiting, denies unknown) chills, denies shortness of breath or (unknown) (no (unknown) (unknown) denies any (units (unk nown) date) shortness of unknown) breath, wheezing, chest pain, nausea or vomiting.? (unknown) (no (unknown) (unknown) denies any urinary (units (unknown) date) retention, unknown) dribbling, or penile discharge.? He was treated in (unknown) (no (unknown) (unknown) dextromethorphan-g (units (unknown) date) uaifenesin 10 1 unknown) tab-cap PO Q8H PRN cough #14 caps 10/31/21 (unknown) (no (unknown) (unknown) difficulty (units (unk nown) date) breathing. States unknown) that he has had postnasal drip, productive cough, (unknown) (no (unknown) (unknown) distress, (units (unkn own) date) dehydration, or unknown) focal exam to suggest secondary bacterial infection. (unknown) (no (unknown) (unknown) doxycycline (units (un known) date) hyclate 100 mg unknown) capsule 100 mg PO BID 03/19/20 03/19/20 (unknown) (no (unknown) (unknown) endorses a history (units (unknown) date) of hypothyroidism, unknown) BPH, hyperlipidemia, and hypertension with (unknown) (no (unknown) (unknown) especially in the (units (unknown) date) mornings and in the unknown) evenings. Denies any sinus tenderness, (unknown) (no (unknown) (unknown) evaluation and (units (unknown) date) possible cystoscopy unknown) of your bladder. (unknown) (no (unknown) (unknown) for cystoscopy. (units (unknown) date) unknown) (unknown) (no (unknown) (unknown) gabapentin AdvReac (units (unknown) date) Mild 'FELT LIKE unknown) Verified 10/31/21 14:29 (unknown) (no (unknown) (unknown) however does have (units (unknown) date) incontinence. No unknown) urinary retention. Patient already is on (unknown) (no (unknown) (unknown) infection (units (unkno wn) date) prevention measures unknown) such as frequent handwashing. Discussed supportive (unknown) (no (unknown) (unknown) infection, however (units (unknown) date) no pneumonia. No unknown) hypoxia. Was given prescription for (unknown) (no (unknown) (unknown) instructed.? (units (u nknown) date) Patient understands unknown) plan and agrees to discharge home.? All (unknown) (no (unknown) (unknown) instructions (units (u nknown) date) discussed for new, unknown) not improving, or worsening symptoms.? All (unknown) (no (unknown) (unknown) instrumentation (units (unknown) date) into his bladder unknown) recently he does have a history of BPH but (unknown) (no (unknown) (unknown) ipratropium (units (un known) date) bromide 21 mcg unknown) (0.03 2 spray intranasal BID #30 mL 07/19/19 (unknown) (no (unknown) (unknown) lactate was 1.7, no (units (unknown) date) electrolyte unknown) derangement, liver enzymes are slightly elevated (unknown) (no (unknown) (unknown) levothyroxine 112 (units (unknown) date) mcg tablet 112 mcg unknown) PO DAILY #30 tabs 04/08/20 (unknown) (no (unknown) (unknown) lisinopril 5 mg (units (unknown) date) tablet 5 mg PO BID unknown) 03/19/20 03/19/20 (unknown) (no (unknown) (unknown) lozenges (Cepacol (units (unknown) date) Sore Throat sore unknown) throat #16 ea (unknown) (no (unknown) (unknown) medications and/or (units (unknown) date) antihistamines for unknown) symptomatic relief.? Patient has (unknown) (no (unknown) (unknown) metoprolol (units (unk nown) date) succinate 25 mg 25 unknown) mg PO QDAY ##90 05/15/17 (unknown) (no (unknown) (unknown) mg-200 mg capsule (units (unknown) date) (Robitussin unknown) (unknown) (no (unknown) (unknown) nirmatrelvir 300 (units (unknown) date) mg (150 mg x See Rx unknown) Instructions PO .COMPLEX 10/31/21 (unknown) (no (unknown) (unknown) of painless (units (un known) date) hematuria. This unknown) has resolved. No other complaints. Is on baby (unknown) (no (unknown) (unknown) on repeat (units (unkn own) date) examination is unknown) unremarkable.? Patient has been informed of results.? (unknown) (no (unknown) (unknown) or other symptom. (units (unknown) date) On chart review it unknown) appears that patient had pyelonephritis on (unknown) (no (unknown) (unknown) painless (units (unkno wn) date) hematuria. Patient unknown) seen here 12 hours ago for positive COVID (unknown) (no (unknown) (unknown) patient endorses (units (unknown) date) needing admission unknown) to the hospital with a kidney infection and (unknown) (no (unknown) (unknown) peritoneal signs. (units (unknown) date) Bowel sounds are unknown) present. (unknown) (no (unknown) (unknown) prescribed (units (unk nown) date) medications from unknown) previous visit here today. Return precautions (unknown) (no (unknown) (unknown) prescription for (units (unknown) date) Keflex for UTI. unknown) This evening patient states he had an episode (unknown) (no (unknown) (unknown) productive cough, (units (unknown) date) fever two days ago, unknown) and urinary tract infection.? Patient (unknown) (no (unknown) (unknown) questions and (units ( unknown) date) concerns answered unknown) at this time. (unknown) (no (unknown) (unknown) questions (units (unkn own) date) answered.? Patient unknown) was given strict return precautions.? Patient's (unknown) (no (unknown) (unknown) rales, or rhonchi. (units (unknown) date) unknown) (unknown) (no (unknown) (unknown) reduce length of (units (unknown) date) course of illness unknown) and hospitalization potential.? Patient was (unknown) (no (unknown) (unknown) reviewed with him. (units (unknown) date) He desires unknown) discharge home (unknown) (no (unknown) (unknown) significant (units (un known) date) comorbidities most unknown) importantly his age, we will treat with Paxlovid (unknown) (no (unknown) (unknown) symptoms.? Patient (units (unknown) date) understands to unknown) follow up closely with outpatient providers as (unknown) (no (unknown) (unknown) tablet,extended (units (unknown) date) release 24 hr unknown) (unknown) (no (unknown) (unknown) that he has felt (units (unknown) date) poorly for the last unknown) few days, states that he has had increased (unknown) (no (unknown) (unknown) the emergency (units (u nknown) date) department with 1 g unknown) of ceftriaxone, and Mucinex for his productive (unknown) (no (unknown) (unknown) the phone to get a (units (unknown) date) ride home. Also to unknown) inform will need follow-up with Urology (unknown) (no (unknown) (unknown) treated for his (units (unknown) date) UTI with unknown) cephalexin, will follow-up on culture, last urine (unknown) (no (unknown) (unknown) treatments:? (units (u nknown) date) Tylenol/Motrin as unknown) needed for pain/fever.? OTC decongestant (unknown) (no (unknown) (unknown) twice daily for 5 (units (unknown) date) days unknown) (unknown) (no (unknown) (unknown) urinary retention, (units (unknown) date) states that he has unknown) a problem with urinary frequency. He (unknown) (no (unknown) (unknown) urine cultures (units (unknown) date) were available for unknown) review. Patient denies any difficulty with (unknown) (no (unknown) (unknown) was very sick at (units (unknown) date) that time.? Patient unknown) has not had any bladder catheterizations Result panel 16 (unknown) (no date) (unknown) (unknown) No growth. (units (un known) unknown) Result panel 17 (unknown) (no date) (unknown) (unknown) (no value) (units (un known) unknown) (unknown) (no date) (unknown) (unknown) Mixed gram + (units ( unknown) rachel. Deemed unknown) unsuitable for further studies. Result panel 18 (unknown) (no (unknown) (unknown) (no value) (units (unk nown) date) unknown) (unknown) (no (unknown) (unknown) Date of Service: (units (unknown) date) 11/01/21 unknown) (unknown) (no (unknown) (unknown) (no value) (units (unk nown) date) unknown) (unknown) (no (unknown) (unknown) <Electronically (units (unknown) date) signed by Lenny unknown) MD Jero> (unknown) (no (unknown) (unknown) 11/01/21 02:11 (units (unknown) date) unknown) (unknown) (no (unknown) (unknown) 11/07/21 0536 (units ( unknown) date) unknown) (unknown) (no (unknown) (unknown) 1 aidan mucous (units (u nknown) date) membrane Q2-4H PRN unknown) (Reason: sore throat) Qty: 16 0RF (unknown) (no (unknown) (unknown) 1 tab-cap PO Q8H (units (unknown) date) PRN (Reason: cough) unknown) Qty: 14 0RF (unknown) (no (unknown) (unknown) 100 mg PO BID (units ( unknown) date) unknown) (unknown) (no (unknown) (unknown) 112 mcg PO DAILY (units (unknown) date) Qty: 30 3RF unknown) (unknown) (no (unknown) (unknown) 2 spray NASAL BID (units (unknown) date) Qty: 30 2RF unknown) (unknown) (no (unknown) (unknown) 20 mg PO HS (units (un known) date) unknown) (unknown) (no (unknown) (unknown) 25 mg PO DAILY (units (unknown) date) Qty: 30 1RF unknown) (unknown) (no (unknown) (unknown) 25 mg PO QDAY Qty: (units (unknown) date) 90 0RF unknown) (unknown) (no (unknown) (unknown) 5 mg PO BID (units (un known) date) unknown) (unknown) (no (unknown) (unknown) A BALLOON (units (unkn own) date) unknown) (unknown) (no (unknown) (unknown) Administer one (units (unknown) date) spray into each unknown) nostril. (unknown) (no (unknown) (unknown) Allergies (units (unkn own) date) unknown) (unknown) (no (unknown) (unknown) ED Orders (units (unkn own) date) unknown) (unknown) (no (unknown) (unknown) Emergency Report (units (unknown) date) unknown) (unknown) (no (unknown) (unknown) GFR >60, day 3 of (units (unknown) date) symptoms, tested unknown) positive today, negative yesterday. (unknown) (no (unknown) (unknown) HEAD' (units (unkno wn) date) unknown) (unknown) (no (unknown) (unknown) Home Medications (units (unknown) date) unknown) (unknown) (no (unknown) (unknown) [facility] (units (unknown) date) [address] unknown) [place] [address] (unknown) (no (unknown) (unknown) Lab Results (units (un known) date) unknown) (unknown) (no (unknown) (unknown) Previous Rx's (units ( unknown) date) unknown) (unknown) (no (unknown) (unknown) Rx Instructions: (units (unknown) date) unknown) (unknown) (no (unknown) (unknown) See Rx (units (unkno wn) date) Instructions unknown) .ROUTE .COMPLEX Qty: 30 0RF (unknown) (no (unknown) (unknown) Vital Signs - 8 hr (units (unknown) date) unknown) (unknown) (no (unknown) (unknown) please repeat lab (units (unknown) date) work in 1 month of unknown) beginning this new dose. (unknown) (no (unknown) (unknown) take TWO 150 mg (units (unknown) date) tablets of unknown) nirmatrelvir with ONE 100 mg tablet of ritonavir (unknown) (no (unknown) (unknown) (no value) (units (unk nown) date) unknown) (unknown) (no (unknown) (unknown) 02:11 02:11 02:11 (units (unknown) date) unknown) (unknown) (no (unknown) (unknown) 11/01/21 11/01/21 (units (unknown) date) 11/01/21 unknown) Range/Units (unknown) (no (unknown) (unknown) Cepacol Sore (units (u nknown) date) Throat (meli-men) unknown) 15-3.6 mg lozenge (unknown) (no (unknown) (unknown) Paxlovid (EUA) 150 (units (unknown) date) mg x 2- 100 mg unknown) tablet (unknown) (no (unknown) (unknown) Robitussin (units (unk nown) date) Cough-Chest Rowdy DM unknown) 10-200 mg capsule (unknown) (no (unknown) (unknown) atorvastatin (units (u nknown) date) [Lipitor] 20 mg unknown) tablet (unknown) (no (unknown) (unknown) chlorthalidone 25 (units (unknown) date) mg tablet unknown) (unknown) (no (unknown) (unknown) doxycycline (units (un known) date) hyclate 100 mg unknown) capsule (unknown) (no (unknown) (unknown) ipratropium (units (un known) date) bromide 0.03 % unknown) spray,non-aerosol (unknown) (no (unknown) (unknown) levothyroxine 112 (units (unknown) date) mcg tablet unknown) (unknown) (no (unknown) (unknown) lisinopril 5 mg (units (unknown) date) tablet unknown) (unknown) (no (unknown) (unknown) metoprolol (units (unk nown) date) succinate [Toprol unknown) XL] 25 MG tablet extended release 24 hr (unknown) (no (unknown) (unknown) 11/01/21 (units (unkno wn) date) unknown) (unknown) (no (unknown) (unknown) Acute UTI (units (unkn own) date) unknown) (unknown) (no (unknown) (unknown) Medication (units (unk nown) date) Instructions unknown) Recorded (unknown) (no (unknown) (unknown) Medication (units (unk nown) date) Instructions unknown) Recorded Confirmed (unknown) (no (unknown) (unknown) doctor next week (units (unknown) date) for re-evaluation. unknown) Keep well hydrated. Return if worse if (unknown) (no (unknown) (unknown) %) nasal spray (units (unknown) date) unknown) (unknown) (no (unknown) (unknown) <Pretty Sanchez, (units (unknown) date) [facility] - Last Filed: unknown) 10/31/21 17:05> (unknown) (no (unknown) (unknown) (Paxlovid 300 mg (units (unknown) date) () unknown) (unknown) (no (unknown) (unknown) (Toprol XL) (units (un known) date) unknown) (unknown) (no (unknown) (unknown) (benzocaine-mentho (units (unknown) date) l)) unknown) (unknown) (no (unknown) (unknown) / M Date of (units (unknown) date) unknown) (unknown) (no (unknown) (unknown) 01:33 (units (unkno wn) date) unknown) (unknown) (no (unknown) (unknown) 11/01/21 02:11 (units (unknown) date) unknown) (unknown) (no (unknown) (unknown) 11/18/2019 and (units (unknown) date) grew out unknown) Enterococcus faecalis from his urine culture. No other (unknown) (no (unknown) (unknown) [id number] (units (unkno wn) date) unknown) (unknown) (no (unknown) (unknown) 2)-ritonavir 100 (units (unknown) date) mg tablet (EUA) #30 unknown) tabs (unknown) (no (unknown) (unknown) 60.? Lipase 275.? (units (unknown) date) No leukocytosis, unknown) white blood cell count is low at 3.5.? (unknown) (no (unknown) (unknown) ALT 73 H (<50) (units (unknown) date) IU/L unknown) (unknown) (no (unknown) (unknown) APTT 49 H (units (un known) date) (26.4-36.2) unknown) SECONDS (unknown) (no (unknown) (unknown) AST 78 H (units (un known) date) (17-59) IU/L unknown) (unknown) (no (unknown) (unknown) Activity (units (unkno wn) date) Restrictions/Additi unknown) onal Instructions: (unknown) (no (unknown) (unknown) Age/Sex: 89 / M (units (unknown) date) unknown) (unknown) (no (unknown) (unknown) Albumin 3.7 (units (unknown) date) (3.5-5.0) g/dL unknown) (unknown) (no (unknown) (unknown) Albumin/Globulin (units (unknown) date) Ratio 1.4 unknown) (1.0-2.8) (unknown) (no (unknown) (unknown) Alkaline (units (unkno wn) date) Phosphatase 44 unknown) (38-126) U/L (unknown) (no (unknown) (unknown) Allergy/AdvReac (units (unknown) date) Type Severity unknown) Reaction Status Date / Time (unknown) (no (unknown) (unknown) Appropriate for (units (unknown) date) discharge home. No unknown) imaging indicated. Patient is voiding (unknown) (no (unknown) (unknown) BUN 27 H (units (un known) date) (9-20) mg/dL unknown) (unknown) (no (unknown) (unknown) BUN/Creatinine (units (unknown) date) Ratio 30.7 H unknown) (6-22) (unknown) (no (unknown) (unknown) Baso # (Auto) 0 (units (unknown) date) (0-100) /uL unknown) (unknown) (no (unknown) (unknown) Baso % (Auto) 0.6 (units (unknown) date) (0-2) % unknown) (unknown) (no (unknown) (unknown) Be sure to continue (units (unknown) date) prescribed unknown) medications from your 1st visit here. See family (unknown) (no (unknown) (unknown) Blood Pressure (units (unknown) date) 121/71 11/01/21 unknown) 01:33 (unknown) (no (unknown) (unknown) Blood Pressure (units (unknown) date) 121/71 unknown) (unknown) (no (unknown) (unknown) CARDIOVASCULAR: (units (unknown) date) Denies chest pain, unknown) palpitations (unknown) (no (unknown) (unknown) CARDIOVASCULAR: (units (unknown) date) Regular rate and unknown) rhythm without murmurs (unknown) (no (unknown) (unknown) CBC Auto Diff (units ( unknown) date) [Complete Blood unknown) Count AUTO DIFF] Stat (unknown) (no (unknown) (unknown) CMP [Comprehensive (units (unknown) date) Metabolic Panel] unknown) Stat (unknown) (no (unknown) (unknown) COVID PCR is (units (u nknown) date) positive, his urine unknown) microscopy shows moderate bacteria, urine (unknown) (no (unknown) (unknown) COVID yesterday.? (units (unknown) date) COVID (+) on day 3 unknown) of symptoms without hypoxia, respiratory (unknown) (no (unknown) (unknown) Calcium 7.9 L (units (unknown) date) (8.4-10.2) mg/dL unknown) (unknown) (no (unknown) (unknown) Carbon Dioxide (units (unknown) date) 34 H (22-32) unknown) mmol/L (unknown) (no (unknown) (unknown) Chief Complaint: (units (unknown) date) Upper Respiratory unknown) Symptoms (unknown) (no (unknown) (unknown) Chief complaint: (units (unknown) date) Urogenital-Male unknown) (unknown) (no (unknown) (unknown) Chloride 96 L (units (unknown) date) (98-107) mmol/L unknown) (unknown) (no (unknown) (unknown) Clinical (units (unkno wn) date) Impression: unknown) (unknown) (no (unknown) (unknown) Cough-Chest (units (un known) date) Congestion DM) unknown) (unknown) (no (unknown) (unknown) Course (units (unkno wn) date) unknown) (unknown) (no (unknown) (unknown) Course Narrative: (units (unknown) date) unknown) (unknown) (no (unknown) (unknown) Creatinine 0.88 (units (unknown) date) (0.66-1.25) mg/dL unknown) (unknown) (no (unknown) (unknown) : 1930 (units (unknown) date) Acct:[id number] unknown) (unknown) (no (unknown) (unknown) Departure (units (unkn own) date) unknown) (unknown) (no (unknown) (unknown) Differential (units (u nknown) date) Diagnosis unknown) (unknown) (no (unknown) (unknown) Differential (units (un known) date) diagnosis: Likely unknown) urinary tract infection, acute retention of urine (unknown) (no (unknown) (unknown) Discharge Plan (units (unknown) date) unknown) (unknown) (no (unknown) (unknown) Discussed CDC (units ( unknown) date) guidelines for unknown) quarantine, mask wearing, physical distancing, and (unknown) (no (unknown) (unknown) ENT: Mucous (units (u nknown) date) membranes moist. unknown) (unknown) (no (unknown) (unknown) ER Physician: (units ( unknown) date) Lenny Nogueira MD unknown) (unknown) (no (unknown) (unknown) EYES: Pupils equal (units (unknown) date) round No scleral unknown) icterus. (unknown) (no (unknown) (unknown) Eos # (Auto) 0 (units (unknown) date) (0-450) /uL unknown) (unknown) (no (unknown) (unknown) Eos % (Auto) 0.2 (units (unknown) date) L (2-4) % unknown) (unknown) (no (unknown) (unknown) Estimated GFR > (units (unknown) date) 60 (>60) mL/min unknown) (unknown) (no (unknown) (unknown) Exam (units (unkno wn) date) unknown) (unknown) (no (unknown) (unknown) Exam Narrative: (units (unknown) date) unknown) (unknown) (no (unknown) (unknown) GASTROINTESTINAL: (units (unknown) date) Abdomen soft, unknown) non-tender, no suprapubic tenderness, no (unknown) (no (unknown) (unknown) GASTROINTESTINAL: (units (unknown) date) Denies nausea, unknown) vomiting, abdominal pain (unknown) (no (unknown) (unknown) GENERAL: Denies (units (unknown) date) chills, fatigue, unknown) malaise, fever, sweats. (unknown) (no (unknown) (unknown) GENERAL: in no (units (unknown) date) distress, not toxic unknown) not dyspneic (unknown) (no (unknown) (unknown) : Denies (units (unk nown) date) dysuria, frequency, unknown) positive for hematuria (unknown) (no (unknown) (unknown) General (units (unkno wn) date) unknown) (unknown) (no (unknown) (unknown) GenericComposite[P (units (unknown) date) lt Count 124 L unknown) (150-400) X10^3/uL ] (unknown) (no (unknown) (unknown) GenericComposite[R (units (unknown) date) BC 4.43 L unknown) (4.5-5.9) X10^6/uL ] (unknown) (no (unknown) (unknown) GenericComposite[W (units (unknown) date) BC 4.2 L unknown) (4.5-11.0) X10^3/uL ] (unknown) (no (unknown) (unknown) Globulin 2.6 (units (unknown) date) (1.7-4.1) g/dL unknown) (unknown) (no (unknown) (unknown) Glucose 116 H (units (unknown) date) (80-110) mg/dL unknown) (unknown) (no (unknown) (unknown) HEAD: (units (unkno wn) date) Normocephalic. unknown) (unknown) (no (unknown) (unknown) HEENT: Denies (units ( unknown) date) sinus pain, ear unknown) pain, sore throat (unknown) (no (unknown) (unknown) HPI - Male (units (unk nown) date) Genitourinary unknown) (unknown) (no (unknown) (unknown) HPI - URI/Sore (units (unknown) date) Throat unknown) (unknown) (no (unknown) (unknown) HPI Narrative: (units (unknown) date) unknown) (unknown) (no (unknown) (unknown) HPI Narrative: (units (unknown) date) unknown) (unknown) (no (unknown) (unknown) Hct 40.8 L (units (un known) date) (41-53) % unknown) (unknown) (no (unknown) (unknown) Hgb 14.0 (units (unkn own) date) (13.5-17.5) g/dL unknown) (unknown) (no (unknown) (unknown) History of Present (units (unknown) date) Illness unknown) (unknown) (no (unknown) (unknown) History of spinal (units (unknown) date) fusion unknown) (unknown) (no (unknown) (unknown) Hypertension (units (u nknown) date) unknown) (unknown) (no (unknown) (unknown) INR 1.1 (units (unkn own) date) (0.9-1.3) unknown) (unknown) (no (unknown) (unknown) Initial Vital (units ( unknown) date) Signs unknown) (unknown) (no (unknown) (unknown) Initial Vital (units ( unknown) date) Signs: unknown) (unknown) (no (unknown) (unknown) Instructions: DI (units (unknown) date) for Urinary Tract unknown) Infection (UTI) (unknown) (no (unknown) (unknown) [facility] (units (unknown) date) [address] [place] [address] unknown) [place], [place] [id number] Report (unknown) (no (unknown) (unknown) Margarita Zepeda, (units (unknown) date) [Physician] - unknown) (unknown) (no (unknown) (unknown) Lab Data (units (unkno wn) date) unknown) (unknown) (no (unknown) (unknown) Labs: (units (unkno wn) date) unknown) (unknown) (no (unknown) (unknown) Lymph # (Auto) (units (unknown) date) 1000 L unknown) (7664-2791) /uL (unknown) (no (unknown) (unknown) Lymph % (Auto) (units (unknown) date) 23.9 L (25-40) unknown) % (unknown) (no (unknown) (unknown) MCH 31.6 (units (unkn own) date) (26-34) PG unknown) (unknown) (no (unknown) (unknown) MCHC 34.3 (units (unk nown) date) (30-36) % unknown) (unknown) (no (unknown) (unknown) MCV 92.1 (units (unkn own) date) (80-100) fL unknown) (unknown) (no (unknown) (unknown) MDM - Male (units (unk nown) date) Genitourinary unknown) (unknown) (no (unknown) (unknown) MDM Narrative (units ( unknown) date) unknown) (unknown) (no (unknown) (unknown) MUSCULOSKELETAL: (units (unknown) date) denies muscle or unknown) bony pain (unknown) (no (unknown) (unknown) Medical History (units (unknown) date) (Reviewed 11/01/21 unknown) @ 01:59 by Lenny Nogueira MD) (unknown) (no (unknown) (unknown) Medical decision (units (unknown) date) making narrative: unknown) (unknown) (no (unknown) (unknown) Medical decision (units (unknown) date) making narrative: unknown) (unknown) (no (unknown) (unknown) Mode of arrival: (units (unknown) date) Ambulatory unknown) (unknown) (no (unknown) (unknown) Mode of arrival: (units (unknown) date) EMS unknown) (unknown) (no (unknown) (unknown) Fisher # (Auto) 600 (units (unknown) date) (0-900) /uL unknown) (unknown) (no (unknown) (unknown) Fisher % (Auto) (units ( unknown) date) 14.1 H (3-14) % unknown) (unknown) (no (unknown) (unknown) NECK: Trachea (units ( unknown) date) midline. unknown) (unknown) (no (unknown) (unknown) NEURO: AOx4. (units (u nknown) date) unknown) (unknown) (no (unknown) (unknown) NEUROLOGIC: Denies (units (unknown) date) weakness, numbness unknown) (unknown) (no (unknown) (unknown) Narrative (units (unkn own) date) unknown) (unknown) (no (unknown) (unknown) Narrative: (units (unk nown) date) unknown) (unknown) (no (unknown) (unknown) Neut # (Auto) (units ( unknown) date) 2600 (0034-9016) unknown) /uL (unknown) (no (unknown) (unknown) Neut % (Auto) (units ( unknown) date) 61.2 (50-75) % unknown) (unknown) (no (unknown) (unknown) No Action (units (unkn own) date) unknown) (unknown) (no (unknown) (unknown) No new issues (units ( unknown) date) during course of unknown) stay. (unknown) (no (unknown) (unknown) Ordered: (units (unkno wn) date) unknown) (unknown) (no (unknown) (unknown) Orders (units (unkno wn) date) unknown) (unknown) (no (unknown) (unknown) Oxygen Delivery (units (unknown) date) Method 11/01/21 unknown) 01:33 (unknown) (no (unknown) (unknown) Oxygen Delivery (units (unknown) date) Method Room Air unknown) (unknown) (no (unknown) (unknown) PSYCH: Not (units (un known) date) anxious, is unknown) cooperative (unknown) (no (unknown) (unknown) PT 12.0 (units (unkn own) date) (10.1-12.7) unknown) SECONDS (unknown) (no (unknown) (unknown) PT [Prothrombin (units (unknown) date) Time INR] Stat unknown) (unknown) (no (unknown) (unknown) PTT [Partial (units (u nknown) date) Thromboplastin unknown) Time] Stat (unknown) (no (unknown) (unknown) Patient (units (unkno wn) date) Disposition: Home unknown) (unknown) (no (unknown) (unknown) Patient History (units (unknown) date) unknown) (unknown) (no (unknown) (unknown) Patient brought in (units (unknown) date) by ambulance from unknown) home for complaints of 1 episode of (unknown) (no (unknown) (unknown) Patient does not (units (unknown) date) any O2 requirement unknown) his respirations are unlabored without (unknown) (no (unknown) (unknown) Patient has been (units (unknown) date) given strict return unknown) to ER precautions for any new or worsening (unknown) (no (unknown) (unknown) Patient is (units (unk nown) date) appropriate and unknown) amenable to discharge home.? Vital signs are stable (unknown) (no (unknown) (unknown) Patient: (units (unkno wn) date) Marily,Abe H unknown) MR#: [id number] (unknown) (no (unknown) (unknown) Patient: (units (unkno wn) date) Abe Rose HMR#: unknown) [id number]: 1930cct:[id number]: 89 (unknown) (no (unknown) (unknown) Paxlovid. Patient (units (unknown) date) seen by nurse unknown) practitioner. Discharged home. Also (unknown) (no (unknown) (unknown) Gabriel Kirby, (units (unknown) date) [Primary Care unknown) Provider] - (unknown) (no (unknown) (unknown) Potassium 3.7 (units (unknown) date) (3.4-5.1) mmol/L unknown) (unknown) (no (unknown) (unknown) Prescriptions: (units (unknown) date) unknown) (unknown) (no (unknown) (unknown) Pulse Oximetry 92 (units (unknown) date) 11/01/21 01:33 unknown) (unknown) (no (unknown) (unknown) Pulse Oximetry 92 (units (unknown) date) unknown) (unknown) (no (unknown) (unknown) Pulse Rate 78 (units (unknown) date) 11/01/21 01:33 unknown) (unknown) (no (unknown) (unknown) Pulse Rate 78 (units ( unknown) date) unknown) (unknown) (no (unknown) (unknown) Pyelonephritis (units (unknown) date) unknown) (unknown) (no (unknown) (unknown) RDW 14.1 (units (unkn own) date) (11.6-14.8) % unknown) (unknown) (no (unknown) (unknown) RESPIRATORY: Clear (units (unknown) date) to auscultation. unknown) Breath sounds equal bilaterally. No wheezes, (unknown) (no (unknown) (unknown) RESPIRATORY: (units (u nknown) date) Denies dyspnea, unknown) cough (unknown) (no (unknown) (unknown) ROS Unobtainable: (units (unknown) date) All systems unknown) reviewed + are unremarkable except as noted in HPI (unknown) (no (unknown) (unknown) Reevaluation #1: (units (unknown) date) unknown) (unknown) (no (unknown) (unknown) Reevaluation(s) (units (unknown) date) unknown) (unknown) (no (unknown) (unknown) Referrals: (units (unk nown) date) unknown) (unknown) (no (unknown) (unknown) Related Data (units (u nknown) date) unknown) (unknown) (no (unknown) (unknown) Respiratory Rate (units (unknown) date) 20 11/01/21 01:33 unknown) (unknown) (no (unknown) (unknown) Respiratory Rate (units (unknown) date) 20 unknown) (unknown) (no (unknown) (unknown) Result diagrams: (units (unknown) date) unknown) (unknown) (no (unknown) (unknown) Review of Systems (units (unknown) date) unknown) (unknown) (no (unknown) (unknown) Reviewed with (units ( unknown) date) patient results. unknown) Unable to give urine specimen here. However (unknown) (no (unknown) (unknown) Lenny Rivas MD (units (unknown) date) [Physician] - unknown) (unknown) (no (unknown) (unknown) SKIN: Warm and (units (unknown) date) dry unknown) (unknown) (no (unknown) (unknown) SKIN: Denies rash, (units (unknown) date) skin lesions unknown) (unknown) (no (unknown) (unknown) Service: (units (unkno wn) date) 10/31/21ER unknown) Physician: Pretty Sanchez (unknown) (no (unknown) (unknown) Signed By: (units (unk nown) date) unknown) (unknown) (no (unknown) (unknown) Smoking Status: (units (unknown) date) Former smoker unknown) (unknown) (no (unknown) (unknown) Smoking Status: (units (unknown) date) Former smoker unknown) (unknown) (no (unknown) (unknown) Social History (units (unknown) date) (Reviewed 11/01/21 unknown) @ 01:59 by Lenny Nogueira MD) (unknown) (no (unknown) (unknown) Sodium 135 L (units (unknown) date) (137-145) mmol/L unknown) (unknown) (no (unknown) (unknown) Source: patient (units (unknown) date) and EMS unknown) (unknown) (no (unknown) (unknown) Source: patient (units (unknown) date) and family unknown) (unknown) (no (unknown) (unknown) Stated Complaint: (units (unknown) date) Fever, congestion, unknown) bladder infection (unknown) (no (unknown) (unknown) Stated complaint: (units (unknown) date) hematuria unknown) (unknown) (no (unknown) (unknown) Substance Use (units ( unknown) date) Type: does not use unknown) (unknown) (no (unknown) (unknown) Surgical History (units (unknown) date) (Reviewed 11/01/21 unknown) @ 01:59 by Lenny Nogueira MD) (unknown) (no (unknown) (unknown) Temperature 97.3 (units (unknown) date) F L 11/01/21 01:33 unknown) (unknown) (no (unknown) (unknown) Temperature 97.3 F (units (unknown) date) L unknown) (unknown) (no (unknown) (unknown) This is an (units (unk nown) date) 89-year-old male unknown) who presents to the emergency department stating (unknown) (no (unknown) (unknown) This is an (units (unk nown) date) 89-year-old male unknown) with history of hypertension, BPH, hypothyroidism (unknown) (no (unknown) (unknown) Time Seen by (units (u nknown) date) Provider: 10/31/21 unknown) 15:11 (unknown) (no (unknown) (unknown) Time Seen by (units (u nknown) date) Provider: 11/01/21 unknown) 01:48 (unknown) (no (unknown) (unknown) Time: 03:04 (units (un known) date) unknown) (unknown) (no (unknown) (unknown) Total Bilirubin (units (unknown) date) 0.5 (0.2-1.3) unknown) mg/dL (unknown) (no (unknown) (unknown) Total Protein (units ( unknown) date) 6.3 (6.3-8.2) unknown) g/dL (unknown) (no (unknown) (unknown) Visit Report (units (u nknown) date) Forms: Patient unknown) Portal/API (unknown) (no (unknown) (unknown) Vital Signs (units (un known) date) unknown) (unknown) (no (unknown) (unknown) Vital signs: (units (u nknown) date) unknown) (unknown) (no (unknown) (unknown) [Embedded Image (units (unknown) date) Not Available] unknown) (unknown) (no (unknown) (unknown) a thoracic aortic (units (unknown) date) aneurysm. He is unknown) not on any anticoagulants. (unknown) (no (unknown) (unknown) abnormal breath (units (unknown) date) sounds,, tachypnea, unknown) or any additional heart sounds.? Patient's (unknown) (no (unknown) (unknown) abnormality.? (units ( unknown) date) Patient is on day unknown) three of his symptoms and tested negative for (unknown) (no (unknown) (unknown) adequate fluid (units (unknown) date) intake. Follow-up unknown) with PCP as directed.? Return to clinic/ER (unknown) (no (unknown) (unknown) alcohol intake (units (unknown) date) frequency: 0-2 unknown) drinks per day (unknown) (no (unknown) (unknown) and below (units (unkn own) date) unknown) (unknown) (no (unknown) (unknown) and have patient (units (unknown) date) cut his unknown) atorvastatin in half for the next five days.? Hoping to (unknown) (no (unknown) (unknown) and hyperlipidemia (units (unknown) date) presents to the unknown) emergency department complaining of fatigue, (unknown) (no (unknown) (unknown) and other (units (unkn own) date) (Hemorrhagic unknown) cystitis) (unknown) (no (unknown) (unknown) any questions or (units (unknown) date) concerns. Call unknown) provided urology office for office re- (unknown) (no (unknown) (unknown) aspirin. Bladder (units (unknown) date) scan is 107 mL unknown) (unknown) (no (unknown) (unknown) atorvastatin 20 mg (units (unknown) date) tablet (Lipitor) 20 unknown) mg PO HS 06/23/18 03/19/20 (unknown) (no (unknown) (unknown) benzocaine 15 (units ( unknown) date) mg-menthol 3.6 mg 1 unknown) aidan mucous membrane Q2-4H PRN 06/23/22 (unknown) (no (unknown) (unknown) bladder infection. (units (unknown) date) Patient states unknown) that he had a fever two days ago of 101, (unknown) (no (unknown) (unknown) bladder scan 107 (units (unknown) date) mL. He has been unknown) urinating, he did have incontinence during (unknown) (no (unknown) (unknown) but have been in (units (unknown) date) the past.? unknown) Creatinine is 0.95 and at his baseline, GFR over (unknown) (no (unknown) (unknown) chlorthalidone 25 (units (unknown) date) mg tablet 25 mg PO unknown) DAILY #30 tabs 08/20/18 (unknown) (no (unknown) (unknown) ciprofloxacin (units ( unknown) date) Allergy Unknown unknown) Verified 10/31/21 14:29 (unknown) (no (unknown) (unknown) congestion, a (units ( unknown) date) productive cough, unknown) urinary urgency, frequency, and concern for a (unknown) (no (unknown) (unknown) cough.? Chest (units ( unknown) date) x-ray is negative unknown) for acute cardiopulmonary infiltrate or (unknown) (no (unknown) (unknown) course of stay. (units (unknown) date) Review precautions unknown) reviewed with him. Nurse spoke with on (unknown) (no (unknown) (unknown) culture grew (units (u nknown) date) Enterococcus unknown) faecalis and patient required doxycycline. Maintain (unknown) (no (unknown) (unknown) culture is (units (unk nown) date) pending.? His last unknown) urine culture grew out Enterococcus faecalis and (unknown) (no (unknown) (unknown) denies any known (units (unknown) date) COVID exposure, unknown) denies sore throat, flank pain, abdominal pain, (unknown) (no (unknown) (unknown) denies any nausea (units (unknown) date) or vomiting, denies unknown) chills, denies shortness of breath or (unknown) (no (unknown) (unknown) denies any (units (unk nown) date) shortness of unknown) breath, wheezing, chest pain, nausea or vomiting.? (unknown) (no (unknown) (unknown) denies any urinary (units (unknown) date) retention, unknown) dribbling, or penile discharge.? He was treated in (unknown) (no (unknown) (unknown) dextromethorphan-g (units (unknown) date) uaifenesin 10 1 unknown) tab-cap PO Q8H PRN cough #14 caps 10/31/21 (unknown) (no (unknown) (unknown) difficulty (units (unk nown) date) breathing. States unknown) that he has had postnasal drip, productive cough, (unknown) (no (unknown) (unknown) distress, (units (unkn own) date) dehydration, or unknown) focal exam to suggest secondary bacterial infection. (unknown) (no (unknown) (unknown) doxycycline (units (un known) date) hyclate 100 mg unknown) capsule 100 mg PO BID 03/19/20 03/19/20 (unknown) (no (unknown) (unknown) endorses a history (units (unknown) date) of hypothyroidism, unknown) BPH, hyperlipidemia, and hypertension with (unknown) (no (unknown) (unknown) especially in the (units (unknown) date) mornings and in the unknown) evenings. Denies any sinus tenderness, (unknown) (no (unknown) (unknown) evaluation and (units (unknown) date) possible cystoscopy unknown) of your bladder. (unknown) (no (unknown) (unknown) for cystoscopy. (units (unknown) date) unknown) (unknown) (no (unknown) (unknown) gabapentin AdvReac (units (unknown) date) Mild 'FELT LIKE unknown) Verified 10/31/21 14:29 (unknown) (no (unknown) (unknown) however does have (units (unknown) date) incontinence. No unknown) urinary retention. Patient already is on (unknown) (no (unknown) (unknown) infection (units (unkno wn) date) prevention measures unknown) such as frequent handwashing. Discussed supportive (unknown) (no (unknown) (unknown) infection, however (units (unknown) date) no pneumonia. No unknown) hypoxia. Was given prescription for (unknown) (no (unknown) (unknown) instructed.? (units (u nknown) date) Patient understands unknown) plan and agrees to discharge home.? All (unknown) (no (unknown) (unknown) instructions (units (u nknown) date) discussed for new, unknown) not improving, or worsening symptoms.? All (unknown) (no (unknown) (unknown) instrumentation (units (unknown) date) into his bladder unknown) recently he does have a history of BPH but (unknown) (no (unknown) (unknown) ipratropium (units (un known) date) bromide 21 mcg unknown) (0.03 2 spray intranasal BID #30 mL 07/19/19 (unknown) (no (unknown) (unknown) lactate was 1.7, no (units (unknown) date) electrolyte unknown) derangement, liver enzymes are slightly elevated (unknown) (no (unknown) (unknown) levothyroxine 112 (units (unknown) date) mcg tablet 112 mcg unknown) PO DAILY #30 tabs 04/08/20 (unknown) (no (unknown) (unknown) lisinopril 5 mg (units (unknown) date) tablet 5 mg PO BID unknown) 03/19/20 03/19/20 (unknown) (no (unknown) (unknown) lozenges (Cepacol (units (unknown) date) Sore Throat sore unknown) throat #16 ea (unknown) (no (unknown) (unknown) medications and/or (units (unknown) date) antihistamines for unknown) symptomatic relief.? Patient has (unknown) (no (unknown) (unknown) metoprolol (units (unk nown) date) succinate 25 mg 25 unknown) mg PO QDAY ##90 05/15/17 (unknown) (no (unknown) (unknown) mg-200 mg capsule (units (unknown) date) (Robitussin unknown) (unknown) (no (unknown) (unknown) nirmatrelvir 300 (units (unknown) date) mg (150 mg x See Rx unknown) Instructions PO .COMPLEX 10/31/21 (unknown) (no (unknown) (unknown) of painless (units (un known) date) hematuria. This unknown) has resolved. No other complaints. Is on baby (unknown) (no (unknown) (unknown) on repeat (units (unkn own) date) examination is unknown) unremarkable.? Patient has been informed of results.? (unknown) (no (unknown) (unknown) or other symptom. (units (unknown) date) On chart review it unknown) appears that patient had pyelonephritis on (unknown) (no (unknown) (unknown) painless (units (unkno wn) date) hematuria. Patient unknown) seen here 12 hours ago for positive COVID (unknown) (no (unknown) (unknown) patient endorses (units (unknown) date) needing admission unknown) to the hospital with a kidney infection and (unknown) (no (unknown) (unknown) peritoneal signs. (units (unknown) date) Bowel sounds are unknown) present. (unknown) (no (unknown) (unknown) prescribed (units (unk nown) date) medications from unknown) previous visit here today. Return precautions (unknown) (no (unknown) (unknown) prescription for (units (unknown) date) Keflex for UTI. unknown) This evening patient states he had an episode (unknown) (no (unknown) (unknown) productive cough, (units (unknown) date) fever two days ago, unknown) and urinary tract infection.? Patient (unknown) (no (unknown) (unknown) questions and (units ( unknown) date) concerns answered unknown) at this time. (unknown) (no (unknown) (unknown) questions (units (unkn own) date) answered.? Patient unknown) was given strict return precautions.? Patient's (unknown) (no (unknown) (unknown) rales, or rhonchi. (units (unknown) date) unknown) (unknown) (no (unknown) (unknown) reduce length of (units (unknown) date) course of illness unknown) and hospitalization potential.? Patient was (unknown) (no (unknown) (unknown) reviewed with him. (units (unknown) date) He desires unknown) discharge home (unknown) (no (unknown) (unknown) significant (units (un known) date) comorbidities most unknown) importantly his age, we will treat with Paxlovid (unknown) (no (unknown) (unknown) symptoms.? Patient (units (unknown) date) understands to unknown) follow up closely with outpatient providers as (unknown) (no (unknown) (unknown) tablet,extended (units (unknown) date) release 24 hr unknown) (unknown) (no (unknown) (unknown) that he has felt (units (unknown) date) poorly for the last unknown) few days, states that he has had increased (unknown) (no (unknown) (unknown) the emergency (units (u nknown) date) department with 1 g unknown) of ceftriaxone, and Mucinex for his productive (unknown) (no (unknown) (unknown) the phone to get a (units (unknown) date) ride home. Also to unknown) inform will need follow-up with Urology (unknown) (no (unknown) (unknown) treated for his (units (unknown) date) UTI with unknown) cephalexin, will follow-up on culture, last urine (unknown) (no (unknown) (unknown) treatments:? (units (u nknown) date) Tylenol/Motrin as unknown) needed for pain/fever.? OTC decongestant (unknown) (no (unknown) (unknown) twice daily for 5 (units (unknown) date) days unknown) (unknown) (no (unknown) (unknown) urinary retention, (units (unknown) date) states that he has unknown) a problem with urinary frequency. He (unknown) (no (unknown) (unknown) urine cultures (units (unknown) date) were available for unknown) review. Patient denies any difficulty with (unknown) (no (unknown) (unknown) was very sick at (units (unknown) date) that time.? Patient unknown) has not had any bladder catheterizations Social History date description facility (no date) Ex-smoker (finding) [facility] Vital Signs date measurement value units +0000 BMI BMI 33.9 kg/m2 +0000 BP_diastolic BP_diastolic 66 mm[H g] +0000 BP_systolic BP_systolic 117 mm[Hg] +0000 heart_rate heart_rate 66 /min +0000 height_metric height_metric 167.64 cm +0000 height_standard height_standard 66 in +0000 respiration_rate respiration_rate 18 /min +0000 temperature_metric temperature_metric 36.67 C +0000 temperature_standard temperature_standard 9 8 F +0000 weight_metric weight_metric 95.25 kg +0000 weight_standard weight_standard 209.99 lb +0000 BMI BMI 33.9 kg/m2 +0000 BP_diastolic BP_diastolic 71 mm[H g] +0000 BP_systolic BP_systolic 121 mm[Hg] +0000 heart_rate heart_rate 78 /min +0000 height_metric height_metric 167.64 cm +0000 height_standard height_standard 66 in +0000 respiration_rate respiration_rate 20 /min +0000 temperature_metric temperature_metric 36.28 C +0000 temperature_standard temperature_standard 9 7.3 F +0000 weight_metric weight_metric 43.21 kg +0000 weight_standard weight_standard 95.25 lb
[2021-12-03 12:25] LABS: ALBUMIN 4.1 g/dL (3.2-5.5); ALBUMIN/GLOBULIN RATIO 1.3 (1.0-2.2); BILIRUBIN,TOTAL 1.1 mg/dL (0.2-1.0); CALCIUM 9.8 mg/dL (8.5-10.3); TOTAL PROTEIN 7.3 g/dL (6.7-8.2)
--- NOTE | 2021-12-03 12:33 | XRAY Report ---
PROCEDURE: Chest 2 View X-Ray INDICATIONS: cough TECHNIQUE: 2 view(s) of the chest. COMPARISON: 11/19/2021 FINDINGS: Surgical changes and devices: None. Lungs and pleura: Lung volumes are low. No focal consolidation. No pleural effusion or pneumothorax. Rightward tracheal deviation as before. Mediastinum: Mediastinal contours are normal. Heart size is normal. Right hemidiaphragm eventratio n. Suspected small hiatal hernia. Bones and chest wall: No suspicious bony abnormalities. Soft tissues appear unremarkable. IMPRESSION: Rightward tracheal deviation as before. No airspace consolidation or pleural effusions. Chronic elevation of the right hemidiaphragm. Suspected small hiatal hernia. Reviewed by: Humberto Irwin MD on 12/03/2021 12:32 PM PDT Approved by: Humberto Irwin MD on 12/03/2021 12:32 PM PDT Station ID: [id number]
[2021-12-03 13:23] LABS: BILIRUBIN,URINE NEGATIVE (NEGATIVE); GLUCOSE, URINE (UA) NEGATIVE (NEGATIVE); KETONES,URINE (UA) NEGATIVE (NEGATIVE); LEUKOCYTE ESTERASE, URINE MODERATE (NEGATIVE); NITRITE,URINE POSITIVE (NEGATIVE); OCCULT BLOOD,URINE TRACE-INTA (NEGATIVE); PROTEIN,URINE TRACE mg/dL (NEGATIVE); UROBILINOGEN,URINE 1 (NORMAL) E.U./dL (NORMAL)
[2021-12-03 13:25] LABS: CLARITY,URINE HAZY (CLEAR)
[2021-12-03 13:29] LABS: RBC,URINE 0-5 /HPF (0-5); WBC CLUMPS,URINE PRESENT; WBC,URINE >25 /HPF (0-3)
[2021-12-03 13:30] LABS: BACTERIA,URINE Moderate /HPF (None Seen); SQUAMOUS EPITHELIAL CELL,UR FEW Squamous (<= Few)
--- NOTE | 2021-12-03 15:49 | ED Physician Documentation ---
PD HPI DYSPNEA - Stated complaint Stated Complaint: SOA/MALE - Chief complaint Chief Complaint: Resp - Additional information Additional information: Patient is 89-year-old female presenting to the emergency department with cough, shortness of breath andDysuria. Tested positive for COVID approximately 2 weeks ago. Reports persistent cough. Also reports recurrent urinary tract infections. Reports previous hospitalization for urosepsis. He is status post TURP. Follows with urology at the [facility] but reports he has had a difficult time making appointments for follow-up. Woke this morning feeling significantly unwell and decided to come to the emergency department for evaluation. Review of Systems Ten Systems: 10 systems reviewed and negative Constitutional: reports: Fatigue. denies: Fever Eyes: denies: Loss of vision Ears: denies: Loss of hearing Nose: denies: Rhinorrhea / runny nose Throat: denies: Dental pain / toothache Cardiac: denies: Chest pain / pressure Respiratory: reports: Dyspnea, Cough GI: denies: Abdominal Pain, Nausea, Vomiting, Diarrhea : reports: Dysuria, Frequency PD PAST MEDICAL HISTORY - Past Medical History Cardiovascular: Hypertension Respiratory: Sleep apnea Endocrine/Autoimmune: HyPOthyroidism GI: GERD, Colon polyps : None Psych: None Musculoskeletal: None Derm: Other - Past Surgical History Past Surgical History: Yes Ortho: Spine surgery, Other - Present Medications Home Medications: Ambulatory Orders Medication Instructions Recorded Confirmed Aspirin [Aspir 81] 81 mg PO DAILY 11/09/12 12/03/21 Chlorthalidone 12.5 mg PO DAILY 11/09/12 12/03/21 Cholecalciferol (Vitamin D3) 2,000 unit PO DAILY 11/09/12 12/03/21 [Vitamin D3] Oregano Oil [Oil of Oregano] 150 mg PO DAILY 11/09/12 12/03/21 [place]-3 Fatty Acids [Fish Oil] 300 mg DAILY 07/18/15 12/03/21 Atorvastatin [Lipitor] 20 mg PO QPM 03/09/20 12/03/21 Levothyroxine [Synthroid] 112 mcg PO QDAC 03/09/20 12/03/21 Metoprolol Succinate [Toprol Xl] 12.5 mg PO DAILY 03/09/20 12/03/21 lisinopriL [Prinivil] 5 mg PO DAILY 03/09/20 12/03/21 Benzonatate [Tessalon] 200 mg PO TID PRN #30 cap 12/03/21 cephALEXin [Keflex] 500 mg PO Q6H #20 cap 12/03/21 - Allergies Allergies/Adverse Reactions: Allergies Allergy/AdvReac Type Severity Reaction Status Date / Time ciprofloxacin Allergy Intermediate leg cramps Verified 03/23/21 12:54 - Social History Does the pt smoke?: No Smoking Status: Never smoker Does the pt drink ETOH?: Yes Does the pt have substance abuse?: No PD ED PE NORMAL - General General: Alert and oriented X 3 - HEENT HEENT: Atraumatic - Neck Neck: Supple, no meningeal sign - Cardiac Cardiac: RRR, No gallop, Strong equal pulses - Respiratory Respiratory: No respiratory distress, Clear bilaterally - Abdomen Abdomen: Normal bowel sounds, Non tender - Male Male : Deferred - Rectal Rectal: Deferred - Back Back: No CVA TTP - Derm Derm: Normal color - Extremities Extremities: No deformity - Neuro Neuro: Alert and oriented X 3, No motor deficit, Normal speech Results - Vitals Vitals: Vital Signs - 24 hr 12/03/21 12/03/21 11:54 16:09 Temperature 37.0 C 37.3 C Heart Rate 56 L 84 Respiratory 18 19 Rate Blood Pressure 128/70 112/84 H O2 Saturation 94 97 Oxygen O2 Source Room air - Labs Labs: Laboratory Tests 12/03/21 12/03/21 12/03/21 12:00 12:05 12:05 WBC 9.2 RBC 4.59 L Hgb 14.8 Hct 43.3 MCV 94.3 H MCH 32.2 H MCHC 34.2 RDW 12.9 Plt Count 189 MPV 9.5 Neut # (Auto) 6.1 Lymph # (Auto) 1.7 [place] # (Auto) 1.0 Eos # (Auto) 0.4 Baso # (Auto) 0.1 Absolute Nucleated RBC 0.00 Nucleated RBC % 0.0 Sodium 134 L Potassium 4.0 Chloride 96 L Carbon Dioxide 29 Anion Gap 9.0 BUN 19 Creatinine 1.0 Estimated GFR (MDRD) 70 L Glucose 119 H Calcium 9.8 Total Bilirubin 1.1 H AST 29 ALT 37 Alkaline Phosphatase 63 Total Protein 7.3 Albumin 4.1 Globulin 3.2 Albumin/Globulin Ratio 1.3 Lipase 31 Urine Color Urine Clarity Urine pH Ur Specific [place] Urine Protein Urine Glucose (UA) Urine Ketones Urine Occult Blood Urine Nitrite Urine Bilirubin Urine Urobilinogen Ur Leukocyte Esterase Urine RBC Urine WBC Urine WBC Clumps Ur Squamous Epith Cells Urine Bacteria Ur Microscopic Review Urine Culture Comments SARS-CoV-2 (PCR) DETECTED A 12/03/21 13:08 WBC RBC Hgb Hct MCV MCH MCHC RDW Plt Count MPV Neut # (Auto) Lymph # (Auto) [place] # (Auto) Eos # (Auto) Baso # (Auto) Absolute Nucleated RBC Nucleated RBC % Sodium Potassium Chloride Carbon Dioxide Anion Gap BUN Creatinine Estimated GFR (MDRD) Glucose Calcium Total Bilirubin AST ALT Alkaline Phosphatase Total Protein Albumin Globulin Albumin/Globulin Ratio Lipase Urine Color DARK YELLOW Urine Clarity HAZY Urine pH 6.0 Ur Specific [place] 1.025 Urine Protein TRACE Urine Glucose (UA) NEGATIVE Urine Ketones NEGATIVE Urine Occult Blood TRACE-INTA Urine Nitrite POSITIVE H Urine Bilirubin NEGATIVE Urine Urobilinogen 1 (NORMAL) Ur Leukocyte Esterase MODERATE H Urine RBC 0-5 Urine WBC >25 H Urine WBC Clumps PRESENT Ur Squamous Epith Cells FEW Squamous Urine Bacteria Moderate H Ur Microscopic Review INDICATED Urine Culture Comments INDICATED SARS-CoV-2 (PCR) PD MEDICAL DECISION MAKING - ED course Complexity details: reviewed results, d/w patient ED course: Patient presents to the emergency department with ongoing symptoms of COVID-19 in setting of known infection as well as concern for recurrent urinary tract infection. Afebrile, hemodynamic stable. Benign physical exam with clear aeration in all lung núñez, abdominal exam benign. Labs obtained generally within normal limits or nonactionable. Urine analysis with clear indications of infection. Patient given dose Rocephin in the emergency department. Will discharge on ongoing course of Keflex. He is outside of the window for novel antiviral medications. Will discharge with Marvin He to help with symptomatic management. Encouraged careful follow-up with primary care as well as follow-up with urology for recurrent urinary tract infections. Otherwise clear return precautions and follow-up instructions were given prior to discharge. Final clinical impression: COVID-19 infection, urinary tract infection. Departure - Departure Disposition: 01 Home, Self Care Clinical Impression: Acute lower UTI, UTI (urinary tract infection), COVID-19 Instructions: ED UTI Cystitis Male Prescriptions: cephALEXin [Keflex] 500 mg PO Q6H #20 cap Benzonatate [Tessalon] 200 mg PO TID PRN #30 cap PRN Reason: Cough Comments: Prescription sent to [facility] Thank you for allowing us to care for you today at [facility]. Today in the emergency department you are found to be positive for the SARS COVID virus. This is unsurprising given that you recently tested positive a few weeks ago. There is no signs of pneumonia on your chest x-ray. Your lab work was reassuring but your urine did show clear signs of infection. You are given a dose of antibiotic here in the emergency department. I like you to begin a course of oral antibiotics. Also be discharging with some medication to help with your cough. It is very important that you follow-up with your primary care doctor. I would also recommend follow-up with your urologist. If your previous urologist is unavailable please discuss referral with your primary care doctor. If it anytime you develop any new or worsening symptoms please not hesitate to return to the emergency department.
[2021-12-03] MEDS ORDERED: cefTRIAXone 1 GM VIAL IM STA (16:12)
[2021-12-03] MEDS ORDERED: LIDOCAINE 1% 2 ML VIAL MC ONE (16:12)
[2021-12-03] MEDS ORDERED: BENZONATATE 100 MG CAPSULE PO STA (16:13)
[2021-12-03 17:13] VITALS: BP 148/69
== END 2021-12-03 17:10 | disposition home or self-care (01) ==
LOC: ED 11:46
DX: N39.0 Urinary tract infection, site not specified (principal); U07.1 COVID-19
CPT/HCPCS: 36415; 71046; 80053; 81001; 83690; 85025; 87077; 87086; 87181; 87635; 96372; 99283; 99284; A9270; 81003

== ENCOUNTER 2022-01-08 23:02 | Outpatient (CLI) | payer MEDICARE, OTHER | END 2022-01-08 23:03 | disposition short-term general hospital (02) | LOC: EMS 23:02 | DX: R07.89 Other chest pain (principal) | CPT/HCPCS: A0425; A0427 ==

== ENCOUNTER 2022-05-06 06:40 | Outpatient (CLI) | payer MEDICARE, OTHER | END 2022-05-06 06:41 | disposition left against medical advice (07) | LOC: EMS 06:40 | DX: R07.89 Other chest pain (principal) ==